=== PATIENT | female | born 1965 | race Caucasian/White ===

== ENCOUNTER 2023-11-14 12:48 | Outpatient (OUT) | payer BC, SELFPAY ==
--- NOTE | 2023-11-14 12:51 | MM_ITS ---
Patient Name: JOSEE PAN MR#: [id number] : 1965 Exam Date: 11/14/2023 Ordering Doctor: DR YANG MURILLO RADIOLOGY REPORT PROCEDURE: MM TOMOSYNTHESIS SCREENING BI COMPARISON: MG MAMM SCREEN 3D JANA CAD, 09/08/2022. MG MAMM SCREEN JANA W CAD, 06/06/2019. MG MAMM SCREEN JANA W CAD, 02/22/2017. MG MAMM JANA SCRN W CAD DIG, 05/12/2014. INDICATIONS: screening Calculator Name NCI Breast Cancer Risk Assessment Tool 5 Year Breast Cancer Risk 1.00% Lifetime Breast Cancer Risk 5.60% Personal Breast Cancer No Personal Ovarian Cancer No Treatments None Family Cancers None LOCATION: [facility] BREAST COMPOSITION: Scattered areas fibroglandular density. FINDINGS: DIAGNOSTIC CATEGORY 0--INCOMPLETE: NEED ADDITIONAL IMAGING EVALUATION. RIGHT BREAST: 2 adjacent 10 mm nodules within subareolar region. Additional stable benign-appearing lymph nodes within the mid breast 6 o'clock. Spot magnification views and ultrasound evaluation of the subareolar nodules recommended. LEFT BREAST: No significant suspicious finding. Scattered benign-appearing lymph nodes are present. No significant change has occurred. RECOMMENDATIONS: ADDITIONAL MAMMOGRAPHIC VIEWS REQUIRED: RIGHT BREAST - RIGHT CRANIOCAUDAL SPOT MAGNIFICATION VIEW - RIGHT OBLIQUE SPOT MAGNIFICATION VIEW - ULTRASOUND: RIGHT BREAST PLEASE NOTE: A NORMAL MAMMOGRAM DOES NOT EXCLUDE THE POSSIBILITY OF BREAST CANCER. A CLINICALLY SUSPICIOUS PALPABLE LUMP SHOULD BE BIOPSIED. Dictated by: Denzel Cohen M.D. on 11/14/2023 at 16:05 Approved by: Denzel Cohen M.D. on 11/14/2023 at 16:11
== END 2023-11-14 12:49 | disposition home or self-care (01) ==
LOC: MAMMO 12:48
PROVIDERS: Family Provider Obstetrics & Gynecology; PCP Family Medicine; Visit Provider Obstetrics & Gynecology
DX: Z12.31 Encounter for screening mammogram for malignant neoplasm of breast (principal); N63.41 Unspecified lump in right breast, subareolar
CPT/HCPCS: 77063; 77067

== ENCOUNTER 2023-11-26 09:11 | Emergency (ER) | payer BC, SELFPAY ==
[2023-11-26 09:15] VITALS: BP 167/91; PULSE 93; TEMP 36.6; O2SAT 100
[2023-11-26] MEDS: LIDOCAINE HCL 1% 100 MG/10 ML MDV INJ (09:49)
--- NOTE | 2023-11-26 10:16 | ED_ITS ---
HPI - Skin/Abscess/Foreign Bdy General Chief complaint: Skin/Abscess/Foreign Body Stated complaint: bug bite Time Seen by Provider: 11/26/23 09:20 Source: patient Mode of arrival: walk-in History of Present Illness HPI narrative: Patient noticed a tick embedded in her left flank. She removed the majority of it but a small part of the tick remains embedded and she cannot reach it to get it out. No other complaints. Related Data Allergies Allergy/AdvReac Type Severity Reaction Status Date / Time No Known Drug Allergies Allergy Verified 11/26/23 09:18 Exam Narrative Exam Narrative: Nurses notes and vital signs reviewed and patient is not hypoxic. afebrile General: Well-appearing and in no apparent distress. Skin: Warm, dry, no pallor noted. No rash. LEFT FLANK = embedded FB with a small surrounding area of erythema Eye: Pupils are equal, round and EOMI. No scleral icterus. Cardiovascular: Regular Rate and Rhythm without murmur, gallop or rub. Respiratory: No accessory muscle use or respiratory distress. Lungs are clear to auscultation, no wheezing, rales or rhonchi Back: No midline thoracic or lumbar vertebral tenderness. No CVA tenderness. Embedded FB as described above Neurological: A&O x4. No cranial nerve dysfunction observed. No truncal ataxia. Moves all extremities. Sensation intact. Psychiatric: Cooperative and interactive. Normal mood and affect. Constitutional Vital Signs, click to edit/add: Last Vital Signs Temp 98 F 11/26/23 09:15 Pulse 93 H 11/26/23 09:15 Resp 16 11/26/23 09:15 BP 167/91 H 11/26/23 09:15 Pulse Ox 100 11/26/23 09:15 Course Vital Signs Vital signs: Vital Signs Temperature 98 F 11/26/23 09:15 Pulse Rate 93 H 11/26/23 09:15 Respiratory Rate 16 11/26/23 09:15 Blood Pressure 167/91 H 11/26/23 09:15 Pulse Oximetry 100 11/26/23 09:15 Temperature 98 F 11/26/23 09:15 Pulse Rate 93 H 11/26/23 09:15 Respiratory Rate 16 11/26/23 09:15 Blood Pressure 167/91 H 11/26/23 09:15 Pulse Oximetry 100 11/26/23 09:15 MDM - Skin/Abscess/Foreign Bdy MDM Narrative Medical decision making narrative: 1mL 1% lidocaine instilled SQ into area where FB was found on left flank. Using an 11 blade scalpel I then removed the head of the tick. I examined the area throughout and no residual FB material was found or palpated in the area. I then applied a band aid to the wound. I have not gotten any reports of lyme disease in the area - no need for antibiotics at this time. PCP follow up as needed or ED return if she develops any worrisome symptoms. Discharge Plan Discharge Stand Alone Forms: Portal Instructions Chief Complaint: Skin/Abscess/Foreign Body Clinical Impression: Embedded tick of flank Patient Disposition: Home, Self-Care Time of Disposition Decision: 10:20 Print Language: [place]ican Instructions: Tick Bite (ED) Referrals: Yanira Rangel MD [Primary Care Provider] - 1 week
== END 2023-11-26 10:26 | disposition home or self-care (01) ==
PROVIDERS: Emergency Provider Emergency Medicine; Family Provider Obstetrics & Gynecology; PCP Family Medicine
DX: S30.851A Superficial foreign body of abdominal wall, initial encounter (principal); S30.861A Insect bite (nonvenomous) of abdominal wall, initial encounter; W57.XXXA Bitten or stung by nonvenomous insect and other nonvenomous arthropods, initial encounter
CPT/HCPCS: 10120; 99284

== ENCOUNTER 2023-12-05 07:51 | Outpatient (OUT) | payer BC, SELFPAY ==
--- NOTE | 2023-12-05 07:54 | MM_ITS ---
Patient Name: JOSEE PAN MR#: [id number] : 1965 Exam Date: 12/05/2023 Ordering Doctor: DR YANG MURILLO RADIOLOGY REPORT PROCEDURE: MM DIAGNOSTIC MAMMO UNILAT RT, 12/05/2023, 07:01 US BREAST RT LIMITED, 12/05/2023, 08:36 COMPARISON: MM TOMOSYNTHESIS SCREENING BI, 11/14/2023. INDICATIONS: Abnormal Mammogram R92.8 Calculator Name NCI Breast Cancer Risk Assessment Tool 5 Year Breast Cancer Risk 1.00% Lifetime Breast Cancer Risk 5.60% Personal Breast Cancer No Personal Ovarian Cancer No Treatments None Family Cancers None LOCATION: [facility] BREAST COMPOSITION: There are scattered areas of fibroglandular density. FINDINGS: DIAGNOSTIC CATEGORY 2--BENIGN FINDING: Spot compression demonstrates a 9.3 x 4.6 x 4.8 mm persistent dumbbell shaped well-circumscribed nodule, upper outer quadrant, subareolar breast. Ultrasound demonstrates in the same region a 9.6 x 4 9 x 4.3 mm dumbbell-shaped cystic area with some low level internal echoes but no color flow. A complex cyst is favored. RECOMMENDATIONS: ROUTINE MAMMOGRAM AND CLINICAL EVALUATION IN 12 MONTHS. PLEASE NOTE: A NORMAL MAMMOGRAM DOES NOT EXCLUDE THE POSSIBILITY OF BREAST CANCER. A CLINICALLY SUSPICIOUS PALPABLE LUMP SHOULD BE BIOPSIED. Dictated by: Derrick Hadley MD on 12/05/2023 at 09:17 Approved by: Derrick Hadley MD on 12/05/2023 at 09:19
== END 2023-12-05 07:52 | disposition home or self-care (01) ==
LOC: MAMMO 07:51
PROVIDERS: Family Provider Obstetrics & Gynecology; PCP Family Medicine; Visit Provider Obstetrics & Gynecology
DX: R92.8 Other abnormal and inconclusive findings on diagnostic imaging of breast (principal)
CPT/HCPCS: 76642; 77065

== ENCOUNTER 2024-11-14 09:46 | Outpatient (OUT) | payer BC, SELFPAY ==
--- NOTE | 2024-11-14 09:48 | MM_ITS ---
Patient Name: JOSEE PAN MR#: [id number] : 1965 Exam Date: 11/14/2024 Ordering Doctor: DR YANG MURILLO RADIOLOGY REPORT PROCEDURE: MM TOMOSYNTHESIS SCREENING BI COMPARISON: MM DIAGNOSTIC MAMMO UNILAT RT, 12/05/2023. MM TOMOSYNTHESIS SCREENING BI, 11/14/2023. MG MAMM SCREEN 3D JANA CAD, 09/08/2022. MG MAMM JANA SCRN W CAD DIG, 05/12/2014. INDICATIONS: Screening Calculator Name NCI Breast Cancer Risk Assessment Tool 5 Year Breast Cancer Risk 1.00% Lifetime Breast Cancer Risk 5.50% Personal Breast Cancer No Personal Ovarian Cancer No Treatments None Family Cancers None LOCATION: [facility] BREAST COMPOSITION: There are scattered areas of fibroglandular density. FINDINGS: LEFT BREAST: No significant suspicious finding. RIGHT BREAST: No significant suspicious finding. Stable nodularity. DIAGNOSTIC CATEGORY 1--NEGATIVE. RECOMMENDATIONS: ROUTINE MAMMOGRAM AND CLINICAL EVALUATION IN 12 MONTHS. Active recommendations from prior exams: ROUTINE MAMMOGRAM AND CLINICAL EVALUATION IN [#MONTHS] MONTHS. Due on 12/05/2024. PLEASE NOTE: A NORMAL MAMMOGRAM DOES NOT EXCLUDE THE POSSIBILITY OF BREAST CANCER. A CLINICALLY SUSPICIOUS PALPABLE LUMP SHOULD BE BIOPSIED. Dictated by: Ricky Quarles DO on 11/14/2024 at 16:21 Approved by: Ricky Quarles DO on 11/14/2024 at 16:25
== END 2024-11-14 09:47 | disposition home or self-care (01) ==
LOC: MAMMO 09:46
PROVIDERS: Family Provider Obstetrics & Gynecology; PCP Family Medicine; Visit Provider Obstetrics & Gynecology
DX: Z12.31 Encounter for screening mammogram for malignant neoplasm of breast (principal)
CPT/HCPCS: 77063; 77067

== ENCOUNTER 2025-03-16 09:23 | Outpatient (OUT) | payer BC, SELFPAY ==
--- OUTSIDE RECORDS SUMMARY | 2020-11-18 05:30 | XMS_ITS | Continuity of Care Document ---
Author Organization [facility] Address [address] [place] [address] Phone Care Team Providers Care Nonfarm Animal Caretaker Name Role Phone Gaston Jeffery Unavailable Unavailable Procedures Procedure Date Pfizer COVID Vaccine Admin Dose 2 COVID-19 Pfizer Pfizer COVID Vaccine Admin Dose 1 COVID-19 Pfizer Advance Directives Directive Yes / No Effective Date File Name No Information Encounters Encounter Description Practice Location Reason(s) For Visit Diagnoses Date Provider Providers Copied on Encounter [facility], [address] [place] [address], [id number], [place] tel:[phone] COVID ECHD No Information Jwi DO Feldman. [address], [place], [id number], [place]. tel:[phone] [facility], [address] [place] [address], [id number], tel:[phone] COVID ECHD No Information Visci DO Gaston. [address], [place], [id number], [place]. tel:[phone] Family History Family Member Type Diagnosis Age At Onset No Information Immunizations Vaccine Date Status Comments Pfizer COVID administered Source: New Imm unization Record Pfizer COVID administered Source: New Imm unization Record Payers Payer name Insurance type Covered libertarian ID Authoriza tion(s) [place] [employer] [id number] [place] [employer] [id number] [place] [employer] [id number] Social History Type Description Quantity Date Captured Comments Alcohol Use Details Unknown Caffeine Use Details Unknown Tobacco Use Status No Information Smoking Status No Information Sex Female Sexual Orientation Straight or heterosexual Gender Identity Female Chief Complaint And Reason For Visit No Information Reason For Referral Reason For Referral No Information History Of Present Illness Encounter Date Complaint History Of Prese nt Illness No Information Functional Status Date Functional Assessmen t No Information Instructions Date Instruction Additional Infor mation No Information Assessments Type Assessment Date No Information Patient Care Teams Name Effective Dates (start - stop) Status Members No Information
--- OUTSIDE RECORDS SUMMARY | 2025-03-16 09:26 | XMS_ITS | Encounter Summary ---
Author Organization [facility] Address [address] [place] [address] Care Team Providers Care Bulk Clerk Name Role Phone Yanira Rangel MD Primary Care Provider [phone] Encounter Details Date Type Department Care Team (Late st Contact Info) Description 12/05/2023 Clinisync Result Encounter [facility] External Department Unsolicited Yash Guzman, DO [address] [place] [address] Social History Tobacco Use Types Packs/Day Years Used Date Smoking Tobacco: Never Smokeless Tobacco: Never Alcohol Use Standard Drinks/Week Comments Never 0 (1 standard drink = 0.6 oz pure alcohol) Caffeine intake: 1-2 cups per day AUDIT-C Answer Date Recorded Q1: How often do you have a drink containing alcohol? Never 03/23/2023 Q2: How many drinks containi ng alcohol do you have on a typical day when you are drinking? Patient does not drink Q3: How often do you have si x or more drinks on one occasion? Never 03/23/2023 Comments No Sex and Gender Information Value Date Recorded Sex Assigned at Female 03/26/2023 5:37 PM EDT Legal Sex Female 6:51 PM EDT Gender Identity Female 03/26/2023 5:37 PM EDT Sexual Orientation Straight 03/26/2023 5: 37 PM EDT documented as of this encounter Plan of Treatment Upcoming Encounters Date Type Department Care Team (Late st Contact Info) Description 03/31/2025 9:05 AM EDT Office Visit [facility] [address] [place] [address] Robyn Parker MD [address] [place] [address] 12/23/2025 10:00 AM EDT Office Visit [facility] [address] [place] [address] Yash Guzman DO [address] [place] [address] documented as of this encounter Procedures Procedure Name Priority Date/Time Associated Diagnosis Comments BI MAMMOGRAM DIAGNOSTIC RIGHT 12/05/2023 9:19 AM EDT documented in this encounter Results * Right diagnostic mammogram (12/05/2023 9:19 AM EDT) Anatomical Region Laterality Modality Breast Right Mammography 12/05/2023 9:19 AM EDT Narrative 12/05/2023 9:20 AM EDT The [place] [id number] Mammography Report Signed Patient: ANA MARÍA SEE MR#: [id number] : 1965 Acct:[id number] Age/Sex: 58 / F ADM Date: 12/05/23 Loc: MAMMO Attending Dr: YASH GUZMAN Ordering Physician: YASH GUZMAN Results: Date of Service: 12/05/23 Follow Up: Procedure(s): MM diagnostic mammo unilat RT Accession Number(s): [id number] cc: YASH GUZMAN ; Yanira Rangel M.D. Patient Name: ANA MARÍA SEE MR#: [id number] : 1965 Exam Date: 12/05/2023 Ordering Doctor: DR YASH GUZMAN RADIOLOGY REPORT PROCEDURE: MM DIAGNOSTIC MAMMO UNILAT RT, 12/05/2023, 07:01 US BREAST RT LIMITED, 12/05/2023, 08:36 COMPARISON: MM TOMOSYNTHESIS SCREENING BI, 11/14/2023. INDICATIONS: Abnormal Mammogram R92.8 Calculator Name NCI Breast Cancer Risk Assessment Tool 5 Year Breast Cancer Risk 1.00% Lifetime Breast Cancer Risk 5.60% Personal Breast Cancer No Personal Ovarian Cancer No Treatments None Family Cancers None LOCATION: The [facility] BREAST COMPOSITION: There are scattered areas of fibroglandular density. FINDINGS: DIAGNOSTIC CATEGORY 2--BENIGN FINDING: Spot compression demonstrates a 9.3 x 4.6 x 4.8 mm persistent dumbbell shaped well-circumscribed nodule, upper outer quadrant, subareolar breast. Ultrasound demonstrates in the same region a 9.6 x 4 9 x 4.3 mm dumbbell-shaped cystic area with some low level internal echoes but no color flow. A complex cyst is favored. RECOMMENDATIONS: ROUTINE MAMMOGRAM AND CLINICAL EVALUATION IN 12 MONTHS. PLEASE NOTE: A NORMAL MAMMOGRAM DOES NOT EXCLUDE THE POSSIBILITY OF BREAST CANCER. A CLINICALLY SUSPICIOUS PALPABLE LUMP SHOULD BE BIOPSIED. Dictated by: Derrick Hadley MD on 12/05/2023 at 09:17 Approved by: Derrick Hadley MD on 12/05/2023 at 09:19 Dictated By: Derrick Hadley M.D. Signed By: 12/05/23919 DD/ 8 TD/TT: Software Developer Consultant: Procedure Note Radiology, Radiologist, - 12/05/2023 [place] [address] Mammography Report Signed Patient: ANA MARÍA SEE KMR#: [id number] : 1965Acct:[id number] Age/Sex: 58 / FADM Date: 12/05/23 Loc: MAMMO Attending Dr: YASH GUZMAN Ordering Physician: YASH GUZMANResults: Date of Service: 12/05/23Follow Up: Procedure(s): MM diagnostic mammo unilat RT Accession Number(s): [id number] cc: YASH GUZMAN ; Yanira Rangel M.D. Patient Name: ANA MARÍA SEE MR#: [id number] : 1965 Exam Date: 12/05/2023 Ordering Doctor: DR AYSH GUZMAN RADIOLOGY REPORT PROCEDURE: MM DIAGNOSTIC MAMMO UNILAT RT, 12/05/2023, 07:01 US BREAST RT LIMITED, 12/05/2023, 08:36 COMPARISON: MM TOMOSYNTHESIS SCREENING BI, 11/14/2023. INDICATIONS: Abnormal Mammogram R92.8 Calculator Name NCI Breast Cancer Risk Assessment Tool 5 Year Breast Cancer Risk 1.00% Lifetime Breast Cancer Risk 5.60% Personal Breast Cancer No Personal Ovarian Cancer No Treatments None Family Cancers None LOCATION: [facility] BREAST COMPOSITION: There are scattered areas of fibroglandulardensity. FINDINGS: DIAGNOSTIC CATEGORY 2--BENIGN FINDING: Spot compression demonstrates a 9.3 x 4.6 x 4.8 mm persistent dumbbellshaped well-circumscribed nodule, upper outer quadrant, subareolar breast. Ultrasound demonstrates in the same region a 9.6 x 4 9 x 4.3 mm dumbbell-shaped cystic area with some low level internal echoes but nocolor flow. A complex cyst is favored. RECOMMENDATIONS: ROUTINE MAMMOGRAM AND CLINICAL EVALUATION IN 12 MONTHS. PLEASE NOTE: A NORMAL MAMMOGRAM DOES NOT EXCLUDE THE POSSIBILITY OFBREAST CANCER. A CLINICALLY SUSPICIOUS PALPABLE LUMP SHOULD BE BIOPSIED. Dictated by: Derrick Hadley MD on 12/05/2023 at 09:17 Approved by: Derrick Hadley MD on 12/05/2023 at 09:19 Dictated By: Derrick Hadley M.D. Signed By:12/05/23919 DD/ 8 TD/TT: Software Developer Consultant: Yash Guzman DO IMG BI PROCEDURES Final Resu lt documented in this encounter Visit Diagnoses Not on filedocumented in this encounter Care Teams Bulk Clerk Relationship Specialty Start Date End Date Yanira Rangel MD PCP - General Family Medicine 03/23/23 documented as of this encounter
--- OUTSIDE RECORDS SUMMARY | 2025-03-16 09:26 | XMS_ITS | Encounter Summary ---
Author Organization [facility] Address [address] [place] [address] [place] [address] Care Team Providers Care Software Analyst Name Role Phone Yanira Rangel MD Primary Care Provider [phone] Encounter Details Date Type Department Care Team (Late st Contact Info) Description 12/05/2023 Clinisync Result Encounter [facility] External Department Unsolicited Yash Guzman, DO [address] [place] [address] Social History Tobacco Use Types Packs/Day Years [...] [address] [place] [address] Robyn Parker MD [address] [place] [address] 12/23/2025 10:00 AM EDT Office Visit [facility] [address] [place] [address] Yash Guzman DO [address] [place] [address] documented as of this encounter Procedures Procedure Name Priority Date/Time Associated Diagnosis Comments BI US BREAST LIMITED RIGHT 12/05/2023 9:19 AM EDT documented in this encounter Results * Right breast US limited (12/05/2023 9:19 AM EDT) Anatomical Region Laterality Modality Breast Right Ultrasound 12/05/2023 9:19 AM EDT Narrative 12/05/2023 9:20 AM EDT The [address] [address] Ultrasound Report Signed Patient: ANA MARÍA SEE MR#: [id number] : 1965 Acct:[id number] Age/Sex: 58 / F ADM Date: 12/05/23 Loc: MAMMO Attending Dr: YASH GUZMAN Ordering Physician: YASH GUZMAN Date of Service: 12/05/23 Procedure(s): US breast RT limited Accession Number(s): [id number] cc: YASH GUZMAN ; Yanira Rangel M.D. Patient Name: ANA MARÍA SEE MR#: [id number] : 1965 Exam Date: 12/05/2023 Ordering Doctor: [...] Treatments None Family Cancers None LOCATION: [facility] BREAST COMPOSITION: There are scattered areas [...] M.D. Signed By: 12/05/23919 DD/ 8 TD/TT: Spiral Runner: Procedure Note Radiology, Radiologist, - 12/05/2023 [place] [address] Ultrasound Report Signed Patient: ANA MARÍA SEE KMR#: [id number] : 1965Acct:[id number] Age/Sex: 58 / FADM Date: 12/05/23 Loc: MAMMO Attending Dr: YASH GUZMAN Ordering Physician: YASH GUZMAN Date of Service: 12/05/23 Procedure(s): US breast RT limited Accession Number(s): [id number] cc: YASH GUZMAN ; Yanira Rangel M.D. Patient Name: ANA MARÍA SEE MR#: [id number] : 1965 Exam Date: 12/05/2023 Ordering Doctor: [...] Treatments None Family Cancers None LOCATION: [facility] BREAST COMPOSITION: There are scattered areas [...] Hadley M.D. Signed By:12/05/23919 DD/ 8 TD/TT: Spiral Runner: Yash Guzman DO IMG US PROCEDURES Final Resu lt documented in this encounter Visit Diagnoses Not on filedocumented in this encounter Care Teams Software Analyst Relationship Specialty Start Date End Date Yanira Rangel MD PCP - General Family Medicine 03/23/23 documented as of this encounter
--- OUTSIDE RECORDS SUMMARY | 2025-03-16 09:26 | XMS_ITS | Encounter Summary ---
Author Organization [facility] Address [address] [place] [address] Phone Care Team Providers Care Construction Administrator Name Role Phone Yanira Rangel MD Primary Care Provider [phone] Encounter Details Date Type Department Care Team (Late st Contact Info) Description 06/26/2023 Scanned Document [facility] [address] [place] [address] Scanning, Generic Provider Social History Tobacco Use Types Packs/Day Years Used Date Smoking Tobacco: Never Smokeless Tobacco: Never Alcohol Use Standard Drinks/Week Comments Never 0 (1 standard drink = 0.6 oz pur e alcohol) Comments Unknown Sex and Gender Information Value Date Recorded Sex Assigned at Female 06/13/2023 7:09 PM EDT Legal Sex Female 4:26 PM EST Gender Identity Female 06/13/2023 7:09 PM EDT Sexual Orientation Straight 06/13/2023 7: 09 PM EDT COVID-19 Exposure Response Date Recorded In the last 10 days, have yo u been in contact with someone who was confirmed or suspected to have Coronavirus/COVID-19? No / Unsure 06/13/2023 2:18 PM EDT documented as of this encounter Plan of Treatment Upcoming Encounters Date Type Department Care Team (Late st Contact Info) Description 03/25/2025 3:10 PM EDT Office Visit [place] [address] [facility] [address] [place] [address] Rigo Bhagat MD [address] [facility] [address], [facility] [address] [place] [address] documented as of this encounter Visit Diagnoses Not on filedocumented in this encounter Care Teams Construction Administrator Relationship Specialty Start Date End Date Yanira Rangel MD [address] [place] [address] PCP - General 09/22/19 documented as of this encounter
--- OUTSIDE RECORDS SUMMARY | 2025-03-16 09:26 | XMS_ITS | Encounter Summary ---
Author Organization [facility] Address [address] [place] [address] Phone Care Team Providers Care Nurse Practitioner Physician Assistant Name Role Phone Yanira Rangel MD Primary Care Provider [phone] Encounter Details Date Type Department Care Team (Late st Contact Info) Description 08/26/2019 Orders Only [facility] [address] [place] [address] Conversion, Onbase Social History Tobacco Use Types Packs/Day Years Used Date Smoking Tobacco: Never Assessed Comments Unknown Sex and Gender Information Value Date Recorded Sex Assigned at Female 06/13/2023 7:09 PM EDT Legal Sex Female 4:26 PM EST Gender Identity Female 06/13/2023 7:09 PM EDT Sexual Orientation Straight 06/13/2023 7: 09 PM EDT documented as of this encounter Plan of Treatment Upcoming Encounters Date Type Department Care Team (Late st Contact Info) Description 03/25/2025 3:10 PM EDT Office Visit [place] [address] [address] Rigo Bhagat MD [facility] [facility] [place] [address] Scheduled Orders Name Type Priority Associated Diagnoses Orde r Schedule OUTSIDE LAB SCAN Lab Ordered: 08/26/2019 OUTSIDE LAB SCAN Lab Ordered: 08/26/2019 documented as of this encounter Visit Diagnoses Not on filedocumented in this encounter Care Teams Nurse Practitioner Physician Assistant Relationship Specialty Start Date End Date Yanira Rangel MD [address] [place], [place] [id number] PCP - General 09/22/19 documented as of this encounter
--- OUTSIDE RECORDS SUMMARY | 2025-03-16 09:26 | XMS_ITS | Encounter Summary ---
Author Organization [facility] Address [address] [place] [address] Phone Care Team Providers Care Contract Analyst Name Role Phone Yanira Rangel MD Primary Care Provider [phone] Encounter Details Date Type Department Care Team (Late st Contact Info) Description 10/19/2021 Orders Only [facility] [address] [place] [place] [address] Conversion, Onbase Social History Tobacco Use Types [...] Description 03/25/2025 3:10 PM EDT Office Visit [place] [address] [address] Rigo Bhagat MD [address] [facility] [address], [address] [place] [address] Scheduled Orders Name Type Priority Associated Diagnoses Orde r Schedule OUTSIDE LAB SCAN Lab Ordered: 10/19/2021 documented as of this encounter Visit Diagnoses Not on filedocumented in this encounter Care Teams Contract Analyst Relationship Specialty Start Date End Date Yanira Rangel MD [address] [place] [address] PCP - General 09/22/19 documented as of this encounter
--- OUTSIDE RECORDS SUMMARY | 2025-03-16 09:26 | XMS_ITS | Continuity of Care Document ---
Author Organization [facility] Address [address] [place] [address] Phone Care Team Providers Care Tree Trimmer Helper Name Role Phone Yanira Rangel MD Primary Care Provider Stiven Sylvester MD Attending Provider [phone] Care Teams Patient Care Team Team Status: Active Member Role Status Dates Yanira Rangel MD Primary Care Provider Active Patient Care Team Team Status: Inactive Member Role Status Dates Yanira Rangel MD Primary Care Provider Active Start: December 29, 2024 End: December 29, 2024 Stiven Sylvester MD Attending Provider Active Start: December 29, 2024 End: December 29, 2024 Patient Care Team Team Status: Active Member Role Status Dates Yanira Rangel MD Primary Care Provider Active Start: December 29, 2024 Stiven Sylvester MD Attending Provider, Other Provider Act hilda Start: December 29, 2024 Chief Complaint and Reason for Visit Chief Complaint Admit Date hx of colon polyps December 29, 2024 7:50a m hx of colon polyps December 29, 2024 10:24 am Allergies, Adverse Reactions, Alerts Allergen Type Severity Reaction Last Updated Verified Status moxifloxacin Allergy Unknown Itching December 29 8:05am Yes Active simvastatin Allergy Unknown Cramping of the Muscles December 29, 2024 8:05am Yes Active Avelox *FLUOROQUINOLONES* Allergy Unknown Unknown Reaction March 03, 9:34am No Active Social History Smoking Status Status Start Date End Date Date of Observa tion Never smoked tobacco (finding) December 29, 2024 7:56am Observation Status Observation Response Date of Response Sex Assigned At Female 1965 Family History Relationship Condition Age at Onset Recorded Date/T kleber mother History of open heart surgery Unknown Chronic obstructive pulmonary disease Unk nown Current smoker Unknown Heart disease Unknown Hypertension Unknown father History of four vess el coronary artery bypass graft Unknown Diabetes mellitus Unknown Diverticulitis Unknown Heart disease Unknown Hypertension Unknown Problems Active Problems Medical Problem Onset Date Status Comments Palpitations Unknown Active High cholesterol Unknown Active Wellness examination Unknown Active Postoperative abdominal pain Unknown Active Sigmoid thickening Unknown Active chronic c onstipation Pain in the abdomen Unknown Active Chest pain Unknown Active High blood pressure Unknown Active Hypertension Unknown Active Constipation Unknown Active Medications Medication Status Dose Units Route Directions Qty Days St art Date Stop Date End Date Instructions Adherence Rosuvastati n 10 mg tablet Discont inued 10 MG PO Daily October 29, 2024 12:00a m December 18, 2024 1:49p m FreeTextSi tablet Orally Once a day; Note: Source Status: Taking; Provider: Juan Carlos Doyle ( ) Lisinopril- Hydrochloro thiazide 20-12.5 mg tablet Active 12.5 TAB PO Every morning October 19, 2020 1:00am Omeprazole 20 mg Capsule,Del ayed Release(Dr/ Ec) Discont inued 20 MG PO Daily October 19, 2020 1:00am December 11, 2022 8:20a m Aspirin 81 mg Tablet Discont inued 81 MG PO Daily October 19, 2020 1:00am December 18, 2024 1:47p m Estradiol 0.5 mg Tablet Discont inued 0.5 MG PO Every morning October 19, 2020 1:00am March 03, 2024 9:34a m Rosuvastati n (Crestor) 10 mg Tablet Discont inued 10 MG PO Daily October 19, 2020 1:00am 2022 9:47a m [place] 3-Dha-Epa-F rita Oil (Fish Oil) 1,200 (144-216) mg Capsule Discont inued 2 CAP PO Daily October 19, 2020 1:00am December 11, 2022 8:19a m Metoprolol Tartrate 50 mg tablet Discont inued 50 MG PO Twice daily October 19, 2020 1:00am December 12, 2022 3:38p m Icosapent Ethyl 1 gram capsule Active 2 GM PO Twice daily December 11, 2022 12:00a m Neomycin-Po lymyxin B-Dexameth 3.5 mg/g-10,000 unit/g-0.1 % ointment Discont inued 0 .ROUTE .COMPLEX December 11, 2022 12:00a m December 11, 2022 12:38 pm complete after 12/13 Metoprolol Succinate 50 mg Tablet Extended Release 24 Hr Discont inued 50 MG PO Every evening December 12, 2022 12:00a m March 03, 2024 9:36a m Verapamil 180 mg capsule,ext rel. pellets 24 hr Active 180 MG PO Every morning December 12, 2022 12:00a m Ascorbic Acid (Vitamin C) (Vitamin C) 1,000 mg Tablet Active 1 GM PO Daily Novemb er 2022 12:00a m Zinc 50 mg Capsule Discont inued 50 MG PO Daily Novemb er 2022 12:00a m March 03, 2024 9:35a m Magnesium Glycinate 100 mg Tablet Active 200 MG PO Daily Novemb er 2022 12:00a m Cholecalcif fang (Vitamin D3) (Vitamin D3) 125 mcg (5,000 unit) Tablet Active 125 MCG PO Daily Novemb er 2022 12:00a m Tramadol 50 mg Tablet Discont inued 50 MG PO Q4H as needed for Pain Scale 1 - 4 20 7 Decemb er 2022 1:00am March 03, 2024 9:35a m Soybean, Fermented (Nattokinas e) 50 mg capsule Discont inued MG PO December 18, 2024 12:00a m December 29, 2024 8:05a m Metoprolol Succinate 50 mg tablet extended release 24 hr Active 25 MG PO Every evening March 03, 2024 9:35am probiotic Discont inued PO March 03, 2024 12:00a m December 18, 2024 1:49p m Bisacodyl (Dulcolax (Bisacodyl) ) 5 mg tablet,narendra yed release (DR/EC) Discont inued 5 MG PO .prn as needed March 03, 2024 12:00a m March 03, 2024 9:44a m Bisacodyl (Dulcolax (Bisacodyl) ) 5 mg tablet,narendra yed release (DR/EC) Active 15 MG PO .every 4-5 days as needed for constipatio n March 03, 2024 9:43am Immunizations Immunization Event Date Not Given Reason Dose Number Sheet Metal Former Lot Number Vaccine Information Statement (VIS) Detail Administration Location COVID-19 mRNA, Comirnaty (Pfizer) October 28, 2020 COVID-19 mRNA, Comirnaty (Pfizer) November 18, 2020 Medical Equipment Device Date Implanted Device Details Stress urinary incontinence surgical mesh, female August 15, 2023 SHANAE: [id number] Issuing Agency: [facility] Device Id: [id number] Expiration Date: 2023-12-18 Lot Number: [id number] Procedures Procedure Date Performed Status DH Colonoscopy Diagnostic (Not Applicable) December 182024 9:15am completed Vital Signs Vital Reading Result Reference Range Collection Date/Time Height 69 [in_i] December 29, 2024 8:02am Weight 73.48 kg December 29, 2024 8:02am Heart Rate 70 /min 60-100 December 29, 2024 11:10am Respiratory rate 16 /min 12-24 December 29, 2 025 11:10am Oxygen saturation by Pulse oximetry 99 % 95-10 0 December 29, 2024 11:10am BP Systolic 105 mm[Hg] 100-140 December 29, 2024 11:10am BP Diastolic 69 mm[Hg] 60-100 December 29, 2024 11:10am Advance Directives Advance Directive Response Recorded Date/ Time Advance Directives No October 18 12:11pm Insurance Providers Guarantor Ana María Drewtevin Address [address] [place] [id number] Contact Info. Home Phone: Payer Policy Id Subscriber's Name Subscriber Id Effectiv e Date Expiration Date [facility] [id number] Jonathan See [id number] Encounters Encounter Location(s) Arrival/Admit Date Discharge/Depart Date Provider(s) Departed [facility] December 29, 2024 7:50am December 29, 2024 11:24am Stiven Sylvester MD Non-patient / Non-visit [facility] December 29, 2024 10:24am Stiven Sylvester MD Plan of Treatment Future Tests Future scheduled test information is unavailable Pending Tests Pending diagnostic test information is unavailable Future Visits Future appointment information is unavailable Referrals to Other Providers Referral information is unavailable Future Procedures Procedure Name Ordered Date Scheduled Date Discharge Order December 29, 2024 10:43am December 29, 2024 10:43am Future Medications Future medication information is unavailable Patient Instructions Instruction Admit Date Hemorrhoids Colon polyps High-fiber diet Diverticulosis Know your Meds December 29, 2024 7:50am Goals Acute Goals Author Authored Date Experience reduced anxiety * Identifies current stressors * Develops effective coping behaviors * Uses support services as appropriate [facility] December 29, 2024 11:24am Remain free of complications [facility] December 29, 2024 11:24am Understand preop/postop care/sensations * Verbalizes understanding of surgical procedure * Verbalizes understanding of sensations following surgery * Verbalizes understanding of post-op treatment plan [facility] December 29, 2024 11:24am Report pain at tolerable lev el * Uses pain scale appropriately * Identify options for pain control - Analgesics - Narcotics - Non-medication measures [facility] December 29, 2024 11:24am Absence of imbalanced fluid volume s/s [facility] December 29, 2024 11:24am Absence of physical injury [facility] December 29, 2024 11:24am Absence of surgical site inf ection [facility] December 29, 2024 11:24am Hospital Discharge Instructions Additional Instructions DISCHARGE INSTRUCTIONS FOR COLONOSCOPY WHAT TO EXPECT: - You may feel full, gassy or cramping after your procedure. In some cases, this may be from a few hours to a day. Walking may help relieve the discomfort. - If you have polyp(s) removed you may note some minor bloody discharge after your first bowel movements. - You should begin to recover from anesthesia within 1 hour of the procedure, however may feel groggy for the next 24 hours. DO's AND DON'Ts: - Call your doctor right away if you have a hard abdomen, severe pain, are passing lots of bright red blood or clots. - Call your doctor if you develop any rashes, hives or difficulty breathing. - Let your doctor know if you have not had a bowel movement by 3 days after your procedure. - If you take 81 mg aspirin for your heart it is safe to resume this medication. - If you take other blood thinner medications your doctor will instruct you when these can safely be resumed. - Do NOT drive for 24 hours. - Do NOT operate machinery such as power tools, Ternn mowers, snow blowers, sewing machines, etc. for 24 hours. - Avoid alcoholic beverages and drugs for allergies, nerves, or sleep. - Do NOT stay alone. Do NOT leave your child unattended. - Do NOT make important personal or business decisions or sign any legal documents. - Eat solid foods and drink liquids in smaller amounts than usual until normal appetite returns. If you should experience an upset stomach, liquids high in sugar content (soda, Leroy-Aid, non-acid juices) are recommended. - You can resume normal activities tomorrow. FOLLOW UP & RECOMMENDATIONS: -Notify the doctor if you have any problems. -Repeat colonoscopy in 5 years. -Follow up with PCP. -Office number [phone].
--- OUTSIDE RECORDS SUMMARY | 2025-03-16 09:26 | XMS_ITS | Encounter Summary ---
Author Organization [facility] Address [address] [place] [address] [place] [address] Care Team Providers Care Tapper Bit Name Role Phone Yanira Rangel MD Primary Care Provider [phone] Encounter Details Date Type Department Care Team (Late st Contact Info) Description 11/14/2023 Clinisync Result Encounter [facility] External Department Unsolicited Yash Guzman, DO [address] [place] [address] Social History Tobacco Use Types Packs/Day Years [...] 03/31/2025 9:05 AM EDT Office Visit [facility] [place] [facility] [address] [place] [phone] Robyn Parker MD [address] [place] [address] 12/23/2025 10:00 AM EDT Office Visit [facility] [place] [facility] [address] [place] [address] Yash Guzman DO [address] [place] [address] documented as of this encounter Procedures Procedure Name Priority Date/Time Associated Diagnosis Comments MM TOMOSYNTHESIS SCREENING BI 11/14/2023 4:11 PM EDT documented in this encounter Results * MM TOMOSYNTHESIS SCREENING BI (11/14/2023 4:11 PM EDT) Anatomical Region Laterality Modality Other 11/14/2023 4:11 PM EDT Narrative 11/14/2023 4:12 PM EDT [facility] [place] [id number] Mammography Report Signed Patient: ANA MARÍA SEE MR#: [id number] : 1965 Acct:[id number] Age/Sex: 58 / F ADM Date: 11/14/23 Loc: MAMMO Attending Dr: YASH GUZMAN Ordering Physician: YASH GUZMAN Results: Date of Service: 11/14/23 Follow Up: Procedure(s): MM tomosynthesis screening BI Accession Number(s): [id number] cc: YASH GUZMAN ; Yanira Rangel M.D. Patient Name: ANA MARÍA SEE MR#: [id number] : 1965 Exam Date: 11/14/2023 Ordering Doctor: DR YASH GUZMAN RADIOLOGY REPORT PROCEDURE: MM TOMOSYNTHESIS SCREENING BI COMPARISON: MG MAMM SCREEN 3D JANA CAD, 09/08/2022. MG MAMM SCREEN JANA W CAD, 06/06/2019. MG MAMM SCREEN JANA W CAD, 02/22/2017. MG MAMM JANA SCRN W CAD DIG, 05/12/2014. INDICATIONS: screening Calculator Name NCI Breast Cancer Risk Assessment Tool 5 Year Breast Cancer Risk 1.00% Lifetime Breast Cancer Risk 5.60% Personal Breast Cancer No Personal Ovarian Cancer No Treatments None Family Cancers None LOCATION: [facility] BREAST COMPOSITION: Scattered areas fibroglandular density. FINDINGS: DIAGNOSTIC CATEGORY 0--INCOMPLETE: NEED ADDITIONAL IMAGING EVALUATION. RIGHT BREAST: 2 adjacent 10 mm nodules within subareolar region. Additional stable benign-appearing lymph nodes within the mid breast 6 o'clock. Spot magnification views and ultrasound evaluation of the subareolar nodules recommended. LEFT BREAST: No significant suspicious finding. Scattered benign-appearing lymph nodes are present. No significant change has occurred. RECOMMENDATIONS: ADDITIONAL MAMMOGRAPHIC VIEWS REQUIRED: RIGHT BREAST - RIGHT CRANIOCAUDAL SPOT MAGNIFICATION VIEW - RIGHT OBLIQUE SPOT MAGNIFICATION VIEW - ULTRASOUND: RIGHT BREAST PLEASE NOTE: A NORMAL MAMMOGRAM DOES NOT EXCLUDE THE POSSIBILITY OF BREAST CANCER. A CLINICALLY SUSPICIOUS PALPABLE LUMP SHOULD BE BIOPSIED. Dictated by: Denzel Cohen M.D. on 11/14/2023 at 16:05 Approved by: Denzel Cohen M.D. on 11/14/2023 at 16:11 Dictated By: Denzel Cohen M.D. Signed By: 11/14/231611 DD/ 10 TD/TT: Freight Car Cleaner Delta System: Procedure Note Radiology, Radiologist, MD - 11/14/2023 [place] [address] Mammography Report Signed Patient: ANA MARÍA SEE KMR#: [id number] : 1965Acct:[id number] Age/Sex: 58 / FADM Date: 11/14/23 Loc: MAMMO Attending Dr: YASH GUZMAN Ordering Physician: YASH GUZMANResults: Date of Service: 11/14/23Follow Up: Procedure(s): MM tomosynthesis screening BI Accession Number(s): [id number] cc: YASH GUZMAN ; Yanira Rangel M.D. Patient Name: ANA MARÍA SEE MR#: [id number] : 1965 Exam Date: 11/14/2023 Ordering Doctor: DR YASH GUZMAN RADIOLOGY REPORT PROCEDURE: MM TOMOSYNTHESIS SCREENING BI COMPARISON: MG MAMM SCREEN 3D JANA CAD, 09/08/2022. MG MAMM SCREEN BILW CAD, 06/06/2019. MG MAMM SCREEN JANA W CAD, 02/22/2017. MG MAMM JANA SCRN WCAD DIG, 05/12/2014. INDICATIONS: screening Calculator Name NCI Breast Cancer Risk Assessment Tool 5 Year Breast Cancer Risk 1.00% Lifetime Breast Cancer Risk 5.60% Personal Breast Cancer No Personal Ovarian Cancer No Treatments None Family Cancers None LOCATION: [facility] BREAST COMPOSITION: Scattered areas fibroglandular density. FINDINGS: DIAGNOSTIC CATEGORY 0--INCOMPLETE: NEED ADDITIONAL IMAGING EVALUATION. RIGHT BREAST: 2 adjacent 10 mm nodules within subareolar region.Additional stable benign-appearing lymph nodes within the mid breast 6 o'clock. Spot magnification views and ultrasound evaluation of the subareolar nodules recommended. LEFT BREAST: No significant suspicious finding. Scatteredbenign-appearing lymph nodes are present. No significant change has occurred. RECOMMENDATIONS: ADDITIONAL MAMMOGRAPHIC VIEWS REQUIRED: RIGHT BREAST - RIGHT CRANIOCAUDALSPOT MAGNIFICATION VIEW - RIGHT OBLIQUE SPOT MAGNIFICATION VIEW - ULTRASOUND: RIGHT BREAST PLEASE NOTE: A NORMAL MAMMOGRAM DOES NOT EXCLUDE THE POSSIBILITY OFBREAST CANCER. A CLINICALLY SUSPICIOUS PALPABLE LUMP SHOULD BE BIOPSIED. Dictated by: Denzel Cohen M.D. on 11/14/2023 at 16:05 Approved by: Denzel Cohen M.D. on 11/14/2023 at 16:11 Dictated By: Denzel Cohen M.D. Signed By:11/14/231611 DD/ 10 TD/TT: Freight Car Cleaner Delta System: Yash Guzman DO [facility] Final Resu lt documented in this encounter Visit Diagnoses Not on filedocumented in this encounter Care Teams Tapper Bit Relationship Specialty Start Date End Date Yanira Rangel MD PCP - General Family Medicine 03/23/23 documented as of this encounter
--- OUTSIDE RECORDS SUMMARY | 2025-03-16 09:26 | XMS_ITS | Encounter Summary ---
Author Organization [facility] Address [address] [place] [address] Care Team Providers Care Chief Executive Name Role Phone Yanira Rangel MD Primary Care Provider [phone] Encounter Details Date Type Department Care Team (Late st Contact Info) Description 12/05/2023 Orders Only [facility] [place] [facility] [address] [place] [phone] Yash Guzman, [address] [place] [address] Social History Tobacco Use Types Packs/Day Years [...] 03/31/2025 9:05 AM EDT Office Visit [facility] [address] [place] [phone] Robyn Parker MD [address] [place] [address] 12/23/2025 10:00 AM EDT Office Visit [facility] [address] [place] [address] Yash Guzman DO [address] [place] [address] documented as of this encounter Procedures Procedure Name Priority Date/Time Associated Diagnosis Comments MAMMOGRAM* Routine 12/05/2023 2:53 PM EDT documented in this encounter Results * MAMMOGRAM* (12/05/2023 2:53 PM EDT) Anatomical Region Laterality Modality Radiographic Digna ging Yash Guzman DO IMG XR PROCEDURES Final Resu lt documented in this encounter Visit Diagnoses Not on filedocumented in this encounter Care Teams Chief Executive Relationship Specialty Start Date End Date Yanira Rangel MD PCP - General Family Medicine 03/23/23 documented as of this encounter
--- OUTSIDE RECORDS SUMMARY | 2025-03-16 09:26 | XMS_ITS | Encounter Summary ---
Author Organization [facility] Address [address] [place] [address] Phone Care Team Providers Care Sunglass Clip Attacher Name Role Phone Yanira Rangel MD Primary Care Provider [phone] Encounter Details Date Type Department Care Team (Late st Contact Info) Description 12/11/2022 Orders Only [facility] [address] [place] [address] Conversion, Onbase Social History Tobacco Use Types [...] Description 03/25/2025 3:10 PM EDT Office Visit [place] [address] [address] Rigo Bhagat MD [address] [facility] [address] [place] [address] Scheduled Orders Name Type Priority Associated Diagnoses Orde r Schedule OUTSIDE LAB SCAN Lab Ordered: 12/11/2022 documented as of this encounter Visit Diagnoses Not on filedocumented in this encounter Care Teams Sunglass Clip Attacher Relationship Specialty Start Date End Date Yanira Rangel MD [address] [place] [address] PCP - General 09/22/19 documented as of this encounter
--- OUTSIDE RECORDS SUMMARY | 2025-03-16 09:26 | XMS_ITS | Encounter Summary ---
Author Organization [facility] Address [address] [place] [address] Phone Care Team Providers Care Puffer Tender Name Role Phone Yanira Rangel MD Primary Care Provider [phone] Encounter Details Date Type Department Care Team (Late st Contact Info) Description 10/19/2020 Orders Only [facility] [address] [place] [address] Conversion, Onbase Social History Tobacco Use Types [...] Description 03/25/2025 3:10 PM EDT Office Visit [place] [id number] [address] Rigo Bhagat MD [address] [facility] [address] [place] [address] Scheduled Orders Name Type Priority Associated Diagnoses Orde r Schedule OUTSIDE LAB SCAN Lab Ordered: 10/19/2020 documented as of this encounter Visit Diagnoses Not on filedocumented in this encounter Care Teams Puffer Tender Relationship Specialty Start Date End Date Yanira Rangel MD [address] [place] [address] PCP - General 09/22/19 documented as of this encounter
--- OUTSIDE RECORDS SUMMARY | 2025-03-16 09:26 | XMS_ITS | Clinical Summary ---
Author Organization [facility] Address [address] [place] [address] Care Team Providers Care Photocomposing Keyboard Operator Name Role Phone Yanira Rangel MD Primary Care Provider [phone] Allergies Active Allergy Reactions Criticality Noted Date Comments Moxifloxacin Rash Low 03/23/2023 Other Reaction(s): Itching Rosuvastatin 06/13/2023 Other Reaction(s): Myalgia Simvastatin 03/23/2023 Other Reaction(s): Unknown Medications Icosapent Ethyl (Vascepa) 1 g capsule Take 2 capsules by mouth in the morning and 2 capsules before bedtime. 03/09/2023 Active Cholecalciferol (Vitamin D) 50 MCG (1999 UT) capsule 1 capsule 1 (one) time each day at the same time. Active Ascorbic Acid (vitamin C) 1000 MG tablet 1 (one) time each day at the same time. Active aspirin 81 MG EC tablet 1 (one) time each day at the same time. Active lisinopril-hydr oCHLOROthiazide 20-12.5 MG tablet Take 1 tablet by mouth in the morning. Active verapamil ER (Verelan) 180 MG 24 hr capsule Take 180 mg by mouth in the morning. 01/12/2023 Active metoprolol succinate XL (Toprol-XL) 50 MG 24 hr tablet Take 50 mg by mouth in the morning. 01/12/2023 Active Magnesium 125 MG capsule 12/11/2023 Active terbinafine (LamISIL) 250 MG tabletIndicatio ns:Tinea pedis of right foot Take 1 tablet, by mouth, once daily, 21 days 21 tablet 03/27/2024 Active predniSONE (Deltasone) 10 MG tabletIndicatio ns:Contact dermatitis due to poison brent Take 4 tabs daily x 7 days, take 2 tabs daily x 7 days, take 1 tab daily x 7 days. Total days: 21 49 tablet 03/27/2024 Active estradiol (Estrace) 1 MG tabletIndicatio ns:Hot flashes Take 1 tablet (1 mg) by mouth Daily 90 tablet 3 12/17/2024 12/18/19 Active Active Problems Problem Noted Date Diagnosed Date Sigmoid thickening 12/14/2023 Overweight (BMI 25.0-29.9) 10/10/2023 Statin intolerance 06/13/2023 Tachycardia 06/12/2023 Anxiety 03/23/2023 Chronic rhinitis 03/23/2023 Deviated nasal septum 03/23/2023 Hyperlipidemia 03/23/2023 Essential hypertension 06/08/2010 Resolved Problems Problem Noted Date Diagnosed Date Resolved Date Postoperative abdominal pain 12/14/2023 12/14/2023 Myalgia 06/12/2023 12/14/2023 Encounters Date Type Department Care Team Description 12/17/2024 10:00 AM EDT Office Visit [facility] [address] [place] [address] Yang Guzman, DO Encounter for gynecological examination without abnormal finding (Primary Dx); Encounter for Papanicolaou smear of vagina; Breast cancer screening by mammogram; Hot flashes 12/17/2024 Travel from Last 3 Months Immunizations Immunization Administration Dates Next Due Influenza, Unspecified 07/20/2012 Family History Medical History Relation Name Comments Diabetes Father j.r. Heart failure Father j.r. Hyperlipidemia Father j.r. Hypertension Father j.r. Thyroid disease Father j.r. Cervical cancer Mother Stephanie Heart failure Mother Stephanie Hypertension Mother Stephanie Rashes / Skin problems Mother Stephanie Liver cancer Sister Loretta brooks (karla er) stage 4 Relation Name Status Comments Father j.r. Alive Mother Stephanie Alive Sister Loretta brooks (liver) Social History Tobacco Use Types Packs/Day Years Used Date Smoking Tobacco: Never Smokeless Tobacco: Never Tobacco Cessation:Counseling Given: Not Answered Alcohol Use Standard Drinks/Week Comments Never 0 (1 standard drink = 0.6 oz pure alcohol) Caffeine intake: 1-2 cups per day AUDIT-C Answer Date Recorded Q1: How often do you have a drink containing alcohol? Never 12/17/2024 Q2: How many drinks containi ng alcohol do you have on a typical day when you are drinking? Patient does not drink Q3: How often do you have si x or more drinks on one occasion? Never 12/17/2024 PHQ-2 Answer Date Recorded Patient Health Questionnaire-2 Score 0 12/17/2023 Comments No Sex and Gender Information Value Date Recorded Sex Assigned at Female 03/26/2023 5:37 PM EDT Legal Sex Female 6:51 PM EDT Gender Identity Female 03/26/2023 5:37 PM EDT Sexual Orientation Straight 03/26/2023 5: 37 PM EDT Last Filed Vital Signs Vital Sign Reading Time Taken Comments Blood Pressure 118/76 12/17/2024 9:54 AM EDT Pulse - - Temperature - - Respiratory Rate - - Oxygen Saturation - - Inhaled Oxygen Concentration - - Weight 75.3 kg (166 lb) 12/17/2024 9:54 AM EDT Height 171.5 cm (5' 7.5 ) 12/17/2024 9:54 AM EDT Body Mass Index 25.62 12/17/2024 9:54 AM EDT Plan of Treatment Upcoming Encounters Date Type Department Care Team (Late st Contact Info) Description 03/31/2025 9:05 AM EDT Office Visit [facility] [address] [place] [address] Robyn Parker MD [address] [place] [address] 12/23/2025 10:00 AM EDT Office Visit [facility] [address] [place] [address] Yang Guzman DO [address] [place] [address] Health Maintenance Due Date Last Done Comments CT Colonography 1965 Colonoscopy 1965 Colorectal Cancer Screening 1965 FIT-DNA 1965 FIT 1965 FOBT 1965 Sigmoidoscopy 1965 Pap Smear 1986 Influenza Vaccine (#1) 2025 07/20/2012 Mammogram 11/14/2025 11/14/2024, 11/18, 12/05/2023, Additional history exists Cervical Cancer Screening 12/17/2029 HPV/Cotest 12/17/2029 12/17/2024, 12/17/2023 Procedures Procedure Name Priority Date/Time Associated Diagnosis Comments IGP,RFXAPTIMA HPV ALL,16/18,45 Routine 12/17/2024 12:00 AM EDT Encounter for Papanicolaou smear of vagina MM TOMOSYNTHESIS SCREENING BI 11/14/2024 4:25 PM EDT from Last 3 Months or Most Recently Relevant to Health Maintenance Results * IGP,rfxAptima HPV all,16/18,45 (12/17/2024 12:00 AM EDT) Diagnosis: Comment [facility] Comment:NEGATIVE FOR INTRAEP ITHELIAL LESION OR MALIGNANCY. Specimen Adequacy: Comment [facility] Comment:Satisfactory for nimco luation. No endocervical component is identified. Clinician Provided ICD10: Comment [facility] Comment:Z12.72 Performed By: Comment [facility] Comment:Cortez Valverde, Cytolog ist (ASCP) Cyto Comments . [facility] Note: Comment [facility] Comment: The Pap smear is a screening test designed to aid in the detection of premalignant and malignant conditions of the uterine cervix. It is not a diagnostic procedure and should not be used as the sole means of detecting cervical cancer. Both false-positive and false-negative reports do occur. Test Methodology: Comment [facility] Comment: This liquid based ThinPrep(R) pap test was screened with the use of an image guided system. . Comment [facility] Comment: The HPV DNA reflex criteria were not met with this specimen result therefore, no HPV testing was performed. Swab Vaginal structure / Unknown 12/17/2024 12/18/2024 Comment:Vagina Print requisi t Narrative [facility] - 12/19/2024 3:07 PM EDT Performed at: - [facility] [address] [id number] Fire Safety Manager: Serenity Goldberg MD, Phone: [phone] Specimen Comment: [id number] Specimen Comment: No. of containers..01 ThinPrep Vial Yang Guzman DO LAB CYTOLOGY ORDERABLES Funmilayo saxena Result [facility] * MM TOMOSYNTHESIS SCREENING BI (11/14/2024 4:25 PM EDT) Anatomical Region Laterality Modality Other 11/14/2024 4:25 PM EDT Narrative 11/14/2024 4:26 [place] [address] Mammography Report Signed Patient: ANA MARÍA SEE MR#: [id number] : 1965 Acct:[id number] Age/Sex: 59 / F ADM Date: 11/14/24 Loc: MAMMO Attending Dr: YANG GUZMAN Ordering Physician: YANG GUZMAN Results: Date of Service: 11/14/24 Follow Up: Procedure(s): MM tomosynthesis screening BI Accession Number(s): [id number] cc: YANG GUZMAN ; Yanira Rangel M.D. Patient Name: ANA MARÍA SEE MR#: [id number] : 1965 Exam Date: 11/14/2024 Ordering Doctor: DR YANG GUZMAN RADIOLOGY REPORT PROCEDURE: MM TOMOSYNTHESIS SCREENING BI COMPARISON: MM DIAGNOSTIC MAMMO UNILAT RT, 12/05/2023. MM TOMOSYNTHESIS SCREENING BI, 11/14/2023. MG MAMM SCREEN 3D JANA CAD, 09/08/2022. MG MAMM JANA SCRN W CAD DIG, 05/12/2014. INDICATIONS: Screening Calculator Name NCI Breast Cancer Risk Assessment Tool 5 Year Breast Cancer Risk 1.00% Lifetime Breast Cancer Risk 5.50% Personal Breast Cancer No Personal Ovarian Cancer No Treatments None Family Cancers None LOCATION: [facility] BREAST COMPOSITION: There are scattered areas of fibroglandular density. FINDINGS: LEFT BREAST: No significant suspicious finding. RIGHT BREAST: No significant suspicious finding. Stable nodularity. DIAGNOSTIC CATEGORY 1--NEGATIVE. RECOMMENDATIONS: ROUTINE MAMMOGRAM AND CLINICAL EVALUATION IN 12 MONTHS. Active recommendations from prior exams: ROUTINE MAMMOGRAM AND CLINICAL EVALUATION IN [#MONTHS] MONTHS. Due on 12/05/2024. PLEASE NOTE: A NORMAL MAMMOGRAM DOES NOT EXCLUDE THE POSSIBILITY OF BREAST CANCER. A CLINICALLY SUSPICIOUS PALPABLE LUMP SHOULD BE BIOPSIED. Dictated by: Ricky Quarles DO on 11/14/2024 at 16:21 Approved by: Ricky Quarles DO on 11/14/2024 at 16:25 Dictated By: Ricky Quarles D.O. Signed By: 11/14/24 1626 DD/ 24 TD/TT: Cyber Security Administrator: Procedure Note Radiology, Radiologist, MD - 11/14/2024 [place] [address] Mammography Report Signed Patient: ANA MARÍA SEE KMR#: [id number] : 1965Acct:[id number] Age/Sex: 59 / FADM Date: 11/14/24 Loc: MAMMO Attending Dr: YANG GUZMAN Ordering Physician: YANG GUZMANResults: Date of Service: 11/14/24Follow Up: Procedure(s): MM tomosynthesis screening BI Accession Number(s): [id number] cc: YANG GUZMAN ; Yanira Rangel M.D. Patient Name: ANA MARÍA SEE MR#: [id number] : 1965 Exam Date: 11/14/2024 Ordering Doctor: DR YANG GUZMAN RADIOLOGY REPORT PROCEDURE: MM TOMOSYNTHESIS SCREENING BI COMPARISON: MM DIAGNOSTIC MAMMO UNILAT RT, 12/05/2023. MMTOMOSYNTHESIS SCREENING BI, 11/14/2023. MG MAMM SCREEN 3D JANA CAD, 09/08/2022. MG MAMMBIL SCRN W CAD DIG, 05/12/2014. INDICATIONS: Screening Calculator Name NCI Breast Cancer Risk Assessment Tool 5 Year Breast Cancer Risk 1.00% Lifetime Breast Cancer Risk 5.50% Personal Breast Cancer No Personal Ovarian Cancer No Treatments None Family Cancers None LOCATION: [facility] BREAST COMPOSITION: There are scattered areas of fibroglandulardensity. FINDINGS: LEFT BREAST: No significant suspicious finding. RIGHT BREAST: No significant suspicious finding. Stable nodularity. DIAGNOSTIC CATEGORY 1--NEGATIVE. RECOMMENDATIONS: ROUTINE MAMMOGRAM AND CLINICAL EVALUATION IN 12 MONTHS. Active recommendations from prior exams: ROUTINE MAMMOGRAM AND CLINICAL EVALUATION IN [#MONTHS] MONTHS. Due on 12/05/2024. PLEASE NOTE: A NORMAL MAMMOGRAM DOES NOT EXCLUDE THE POSSIBILITY OFBREAST CANCER. A CLINICALLY SUSPICIOUS PALPABLE LUMP SHOULD BE BIOPSIED. Dictated by: Ricky Quarles DO on 11/14/2024 at 16:21 Approved by: Ricky Quarles DO on 11/14/2024 at 16:25 Dictated By: Ricky Quarles D.O. Signed By:11/14/24 1626 DD/ 1625 TD/TT: Cyber Security Administrator: Yang Guzman DO [facility] Final Resu lt from Last 3 Months or Most Recently Relevant to Health Maintenance Insurance [facility] Care Teams Photocomposing Keyboard Operator Relationship Specialty Start Date End Date Yanira Rangel MD PCP - General Family Medicine 03/23/23
--- OUTSIDE RECORDS SUMMARY | 2025-03-16 09:26 | XMS_ITS | Clinical Summary ---
Author Organization [facility] Address [address] [place] [address] Phone Care Team Providers Care Microsoft Dynamics Manager Architect Name Role Phone Yanira Rangel MD Primary Care Provider [phone] Allergies Active Allergy Reactions Criticality Noted Date Comments Moxifloxacin Itching 06/12/2023 Rosuvastatin Myalgia 06/13/2023 Simvastatin Myalgia 03/23/2023 Other Reaction(s): Unknown Sxunqqr-Cwi-Qns Reductase Inhibitors Myalgia 06/12/2023 Medications aspirin 81 mg chewable tablet Chew 1 tablet (81 mg) once daily. Active cholecalciferol (Vitamin D-3) 5,000 Units tablet Take by mouth once daily. Active estradiol (Estrace) 0.5 mg tablet Take 1 tablet (0.5 mg) by mouth once daily. Active zinc acetate 50 mg (zinc) capsule Take 1 capsule by mouth once daily. Active magnesium glycinate (MAG GLYCINATE ORAL) Take 1 tablet by mouth once daily. Active verapamil SR (Calan-SR) 180 mg ER tablet Take 1 tablet (180 mg) by mouth once daily at bedtime. Do not crush or chew. Active ascorbic acid (Vitamin C) 1,000 mg tablet Take 1 tablet (1,000 mg) by mouth once daily. Active bempedoic acid (Nexletol) 180 mg tabletIndications: Angina pectoris,Mixed hyperlipidemia,Sta tin intolerance Take 180 mg by mouth once daily. 90 tablet 3 07/09/20 23 Active ezetimibe (Zetia) 10 mg tabletIndications: Statin intolerance,Mixed hyperlipidemia Take 1 tablet (10 mg) by mouth once daily. 90 tablet 3 10/10/19 24 Active lisinopriL-hydroch lorothiazide 20-12.5 mg tabletIndications: Essential (primary) hypertension TAKE 1 TABLET DAILY 90 tablet 3 03/06/20 24 Active verapamil ER (Veralan PM) 180 mg 24 hr capsuleIndications :Primary hypertension TAKE 1 CAPSULE BY MOUTH EVERY DAY IN THE MORNING 90 capsule 3 02/07/20 25 Active metoprolol succinate XL (Toprol-XL) 50 mg 24 hr tabletIndications: Primary hypertension,Tachy cardia TAKE 1 TABLET BY MOUTH EVERY DAY IN THE EVENING 90 tablet 3 02/07/20 25 Active Vascepa 1 gram capsuleIndications :Hyperlipidemia, unspecified TAKE 2 CAPSULES BY MOUTH TWICE A DAY 360 capsule 3 02/25/20 25 Active Vascepa 1 gram capsuleIndications :Hyperlipidemia, unspecified TAKE 2 CAPSULES BY MOUTH TWICE A DAY 360 capsule 3 12/13/19 24 025 Discontinued Active Problems Problem Noted Date Diagnosed Date Overweight (BMI 25.0-29.9) 10/10/2023 Other chest pain 06/13/2023 Statin intolerance 06/13/2023 HTN (hypertension) 06/12/2023 Hyperlipemia 06/12/2023 Myalgia 06/12/2023 Shortness of breath at rest 06/12/2023 Tachycardia 06/12/2023 Resolved Problems Problem Noted Date Diagnosed Date Resolved Date Statin intolerance 06/13/2023 Atypical chest pain 06/12/2023 06/13/20 23 Encounters Date Type Department Care Team Description 02/20/2025 Refill [facility] [address] [address] Rigo Bhagat MD Hyperlipidemia, unspecified 02/06/2025 Refill [facility] [address] [facility] [address] [place] [address] Rigo Bhagat MD Primary hypertension; Tachycardia from Last 3 Months Immunizations Immunization Administration Dates Next Due Influenza, Unspecified 07/20/2012 Family History Medical History Relation Name Comments CARDIOVASCULAR DISEASE Father Hypertension Father CARDIOVASCULAR DISEASE Mother Hypertension Mother Relation Name Status Comments Father Mother Social History Tobacco Use Types Packs/Day Years [...] Orientation Straight 06/13/2023 7: 09 PM EDT Last Filed Vital Signs Vital Sign Reading Time Taken Comments Blood Pressure 123/84 10/10/2023 1:47 PM EST Pulse 60 10/10/2023 1:09 PM EST Temperature - - Respiratory Rate - - Oxygen Saturation - - Inhaled Oxygen Concentration - - Weight 80.7 kg (178 lb) 10/10/2023 1:09 PM EST Height 175.3 cm (5' 9 ) 10/10/2023 1:09 PM EST Body Mass Index 26.29 10/10/2023 1:09 PM EST Plan of Treatment Upcoming Encounters Date Type Department Care Team (Late st Contact Info) Description 03/25/2025 3:10 PM EDT Office Visit [facility] [address] [address] Rigo Bhagat MD 703 [facility] 2, [address] [address] Health Maintenance Due Date Last Done Comments CT Colonography 1965 Colonoscopy 1965 Colorectal Cancer Screening 1965 FIT-DNA (Cologuard) 1965 FIT 1965 HIV Screening 1965 Lipid Panel 1965 Sigmoidoscopy 1965 MMR Vaccines (1 of 1 - Standard series) 1966 Diabetes Screening 1983 Hepatitis C Screening 1983 Hepatitis B Vaccines (1 of 3 - 19+ 3-dose series) 1984 Cervical Cancer Screening 1986 HPV/Cotest 1986 Pap Smear 1986 DTaP/Tdap/Td Vaccines (1 - Tdap) 1987 Pneumococcal Vaccine (1 of 1 - PCV) 2015 Zoster Vaccines (1 of 2) 2015 COVID-19 Vaccine (3 - 2023-2 5 season) 2024 11/18/2020, 10/28/2020 Mammogram 12/04/2024 12/05/2023, 12/05/2023, 08/17/2021 Influenza Vaccine (#1) 2025 07/20/2012 Yearly Adult Physical 12/18/2025 12/17/2024 , 12/17/2023, 09/05/2022 HIB Vaccines Aged Out No longer eligi ble based on patient's age to complete this topic HPV Vaccines Aged Out No longer eligi ble based on patient's age to complete this topic Hepatitis A Vaccines Aged Out No long er eligible based on patient's age to complete this topic IPV Vaccines Aged Out No longer eligi ble based on patient's age to complete this topic Meningococcal Vaccine Aged Out No waqas jarred eligible based on patient's age to complete this topic Rotavirus Vaccines Aged Out No longer eligible based on patient's age to complete this topic Insurance [facility] Care Teams Microsoft Dynamics Manager Architect Relationship Specialty Start Date End Date Yanira Rangel MD [facility] [place] [address] [place] [address] PCP - General 09/22/19
--- OUTSIDE RECORDS SUMMARY | 2025-03-16 09:26 | XMS_ITS | Encounter Summary ---
Author Organization [facility] Address [address] [place] [address] Phone Care Team Providers Care Marine Consultant Name Role Phone Yanira Rangel MD Primary Care Provider [phone] Encounter Details Date Type Department Care Team (Late st Contact Info) Description 06/21/2023 Scanned Document [facility] [address] [place] [id number] Scanning, Generic Provider Social History Tobacco Use [...] Description 03/25/2025 3:10 PM EDT Office Visit [place] [id number] [facility] [address] [place] [address] Rigo Bhagat MD 703 [facility] 2, [facility] [address] [place] [address] documented as of this encounter Visit Diagnoses Not on filedocumented in this encounter Care Teams Marine Consultant Relationship Specialty Start Date End Date Yanira Rangel MD [address] [place] [address] PCP - General 09/22/19 documented as of this encounter
--- OUTSIDE RECORDS SUMMARY | 2025-03-16 09:26 | XMS_ITS | Encounter Summary ---
Author Organization [facility] Address [address] [facility] [place] [address] Care Team Providers Care Accounting Office Manager Name Role Phone Yanira Rangel MD Primary Care Provider [phone] Encounter Details Date Type Department Care Team (Late st Contact Info) Description 03/23/2023 Abstract [facility] [address] [facility] [address] [facility] [address] [place] [address] Yash Guzman, [address] [facility] [address] [place] [address] Social History Tobacco Use Types Packs/Day Years [...] PM EDT documented as of this encounter Functional Status * Audit-C Score Answer Date of Assessment Author 0 03/23/2023 9:07 AM EDT Akil Steve MA * Question Answer Date of Assessment Author Q1: How often do you have a drink containing alcohol? Never 03/23/2023 9:07 AM EDT Amparo Steve MA Q2: How many drinks containing alcohol do you have on a typical day when you are drinking? Patient does not drink 03/23/2023 9:07 AM EDT Amparo Steve MA Q3: How often do you have six or more drinks on one occasion? Never 03/23/2023 9:07 AM EDT Amparo Steve MA documented as of this encounter Plan of Treatment Upcoming Encounters Date Type Department Care Team (Late st Contact Info) Description 03/31/2025 9:05 AM EDT Office Visit [facility] [address] [place] [address] Robyn Parker MD [address] [place], [place] [id number] 12/23/2025 10:00 AM EDT Office Visit [facility] [address] [place] [address] Yash Guzman DO [address] [place] [address] documented as of this encounter Visit Diagnoses Not on filedocumented in this encounter Care Teams Accounting Office Manager Relationship Specialty Start Date End Date Yanira Rangel MD PCP - General Family Medicine 03/23/23 documented as of this encounter
--- OUTSIDE RECORDS SUMMARY | 2025-03-16 09:26 | XMS_ITS | Encounter Summary ---
Author Organization [facility] Address [address] [place] [address] Phone Care Team Providers Care Body Rolling Machine Tender Name Role Phone Yanira Rangel MD Primary Care Provider [phone] Encounter Details Date Type Department Care Team (Late st Contact Info) Description 07/01/2020 Orders Only [facility] [address] [place] [address] Conversion, Onbase Social History Tobacco Use Types [...] Description 03/25/2025 3:10 PM EDT Office Visit [place] [address] [address] Rigo Bhagat MD [facility], [address] [place] [address] Scheduled Orders Name Type Priority Associated Diagnoses Orde r Schedule OUTSIDE LAB SCAN Lab Ordered: 07/01/2020 documented as of this encounter Visit Diagnoses Not on filedocumented in this encounter Care Teams Body Rolling Machine Tender Relationship Specialty Start Date End Date Yanira Rangel MD [address] [place] [address] PCP - General 09/22/19 documented as of this encounter
--- OUTSIDE RECORDS SUMMARY | 2025-03-16 09:46 | XMS_ITS | CCD ---
Author Organization [facility] Care Team Providers Care Centrifugal Operator Name Role Phone MISC, DOCTOR Attending Unavailable EVARISTOC, DOCTOR Admitting Unavailable BEA BARR V Consulting Unavailable STEFANIE CASTILLO Attending Unavailable STEFANIE CASTILLO Primary Care Unavailable STEFANIE CASTILLO Admitting Unavailable STEFANIE CASTILLO Consulting Unavailable Bea Fonseca Attending Provider Stefanie Castillo Primary Care Provider Stefanie Castillo Unavailable Unavailable Unavailable Stefanie Castillo Unavailable MD Stefanie Castillo Primary Care Provider MD Johnathan Cross Attending Provider DO Jim Ann Emergency Provider MD Eran Richardson Admit Provider MD Jeremy Nova Attending Provider [phone] Dr. Stefanie Castillo Primary Care Unav ailable Traboulssi, Mourhaf Referring Unavailable Traboulssi, Mourmanasaf Attending Unavailable Dr. Stefanie Castillo Primary Care Unav ailable Traboulssi, Mourhaf Referring Unavailable Traboulssi, Moarronf Attending Unavailable Dr. Stefanie Castillo Primary Care Unav ailable Traboulssi, Mourhaf Referring Unavailable Traboulssi, Mourhaf Attending Unavailable Dr. Stefanie Castillo Primary Care Unav ailable Traboulssi, Mourmanasaf Referring Unavailable Dr. Stefanie Castillo Primary Care Unav ailable Traboulssi, Mourhaf Attending Unavailable Traboulssi, Mourhaf Referring Unavailable Dr. Stefanie Castillo Primary Care Unav ailable Diana Bhagat Attending Unavailable Stefanie Castillo MD Primary Care Provider MD Stefanie Castillo Primary Care Provider MD Diana Bhagat Attending Provider MD Stefanie Castillo Primary Care Provider MD Diana Bhagat Attending Provider DO Yash Murillo Attending Provider Stefanie Castillo MD Primary Care Provider DIANA BHAGAT Attending Unavailable STEFANIE CASTILLO Primary Care Unavailable DIANA BHAGAT Attending Unavailable STEFANIE CASTILLO Primary Care Unavailable DIANA BHAGAT Referring Unavailable Stefanie Castillo MD Primary Care Provider [phone] Stefanie Castillo MD Primary Care Provider [phone] YASH MURILLO Attending Unavailable LEONARDO LUCAS Attending Unavailable Stefanie Castillo Primary Care Unavailable Asaishan Imishan Attending Unavailable Higinio Imishan Admitting Unavailable Stefanie Castillo MD Primary Care Provider Stiven Sylvester MD Attending Provider Higinio GRAVES, Imishan Other Provider Fatemeh Rosen APRN Primary Care Provider Fatemeh Rosen APRN Attending Provider [phone] Unavailable Unavailable Unavailable Allergies Allergy Classification Reported Allergen(s) Allergy Type Date of Onset Reaction(s) Facility (19 sources) moxifloxacin; Translations: [moxifloxacin] Drug Allergy 10-20-19 21 Itching, Rash [facility] (19 sources) Simvastatin; Translations: [simvastatin] Drug Allergy 10-20-19 21 Myalgia [facility] (14 sources) Hmg-Coa Reductase Inhibitors (Statins); Translations: [Statins] Allergy to drug (finding) Myalgia [facility] 250 DO Work Phone: (14 sources) moxifloxacin; Translations: [Avelox] Drug Allergy Itching [facility] 250 DO Work Phone: (3 sources) HMG-CoA reductase inhibitor; Translations: [SRDBZIU-GIH-BZA REDUCTASE INHIBITORS] Drug Intolerance 06-12-20 23 [facility] Work Phone: (3 sources) rosuvastatin; Translations: [ROSUVASTATIN] Drug Allergy 06-13-20 23 [facility] (1 source) Allergies Reconciled Propensity to adverse reactions Unknown [employer] Other (1 source) patient allergy list reviewed by nurse or physicia Propensity to adverse reactions 06-12-20 16 Comment:Done [employer] Other (4 sources) Avelox *FLUOROQUINOLONE S* Propensity to adverse reactions 03-03-20 24 Unknown, Unknown Reaction [facility] (2 sources) Rosuvastatin calcium Propensity to adverse reactions 06-13-20 23 [facility] Healthcare Medications Current Medications Medication Drug Class(es) Dates Sig (Normalized) Sig (Original) acyclovir 800 mg oral tablet (3 sources) Herpesvirus Nucleoside Analog DNA Polymerase Inhibitor, Herpes Simplex Virus Nucleoside Analog DNA Polymerase Inhibitor, Herpes Zoster Virus Nucleoside Analog DNA Polymerase Inhibitor Start: 12-13-2022 take 1 tablet by mouth every twelve hours Acyclovir 800 MG 1 tablet Orally Twice a day for 10 days Nov, Active ascorbic acid 1000 mg oral tablet (20 sources) Vitamin C Start: 06-21-2023 take 1 g by mouth once daily Ascorbic Acid (Vitamin C) (Vitamin C) 1,000 mg Tablet Active 1 GM PO Daily June 21, 2023 12:00am Complies with drug therapy End: 06-13-2023 take 2 tablets by mouth once daily ascorbic acid, vitamin C, 500 mg capsule Take 2 tablets by mouth once daily. 0 06/13/2023 Discontinued (Therapy completed) bempedoic acid 180 mg oral tablet (2 sources) Start: 07-09-2023 take 1 tablet by mouth once daily bempedoic acid (Nexletol) 180 mg tablet Indications: Angina pectoris (CMS/HCC) , Mixed hyperlipidemia , Statin intolerance Take 180 mg by mouth once daily. 90 tablet 3 07/09/2023 Active Start: 06-13-2023 take 1 tablet by judy once daily bempedoic acid (Nexletol) 180 mg tablet Indications: Angina pectoris (CMS/HCC) , Mixed hyperlipidemia Take 180 mg by mouth once daily. 90 tablet 3 06/13/2023 Active cholecalciferol 0.125 mg oral tablet (20 sources) Vitamin D Start: 06-21-2023 take 1 tablet by mouth once daily Cholecalciferol (Vitamin D3) (Vitamin D3) 125 mcg (5,000 unit) Tablet Active 125 MCG PO Daily June 21, 2023 12:00am Complies with drug therapy Cholecalciferol (Vitamin D) 50 MCG (2000 UT) capsule 1 capsule 1 (one) time each day at the same time. Active cholecalciferol (Vitamin D-3) 5,000 Units tablet Take by mouth once daily. 0 Active doxycycline hyclate 100 mg oral capsule (1 source) Tetracycline-class Drug Start: 09-20-2023 take 1 capsule by mouth twice daily Doxycycline Hyclate 100 MG 1 capsule Orally twice daily for 7 days Sep, Active estradiol 1 mg oral tablet (20 sources) Estrogen Start: 12-17-2024 End: 12-17-2025 take 1 tablet by mouth once daily estradiol (Estrace) 1 MG tablet Indications: Hot flashes Take 1 tablet (1 mg) by mouth Daily 90 tablet 3 12/17/2024 12/17/2025 Active Start: 10-19-2020 End: 03-03-2024 take 1 tablet by mouth once daily in the morning Estradiol 0.5 mg Tablet Discontinued 0.5 MG PO Every morning October 19, 2020 1:00am March 03, 2024 9:34am ezetimibe 10 mg oral tablet (2 sources) Dietary Cholesterol Absorption Inhibitor Start: 07-09-2023 End: 10-09-2024 take 1 tablet by mouth once daily ezetimibe (Zetia) 10 mg tablet Indications: Statin intolerance , Mixed hyperlipidemia Take 1 tablet (10 mg) by mouth once daily. 90 tablet 3 10/10/2023 10/09/2024 Active hydroCHLOROthiazide 12.5 mg / lisinopril 20 mg oral tablet (20 sources) Thiazide Diuretic, Angiotensin Converting Enzyme Inhibitor Start: 10-19-2020 take 1 tablet by mouth once daily in the morning Lisinopril-Hydroch lorothiazide 20-12.5 mg tablet Active 12.5 TAB PO Every morning October 19, 2020 1:00am Complies with drug therapy take 1 tablet by judy th in the morning lisinopril-hydroCHLOROthiazide 20-12.5 M G tablet Take 1 tablet by mouth in the morning. Active icosapent ethyl 1000 mg oral capsule (18 sources) Start: 12-11-2022 take 2 g by mouth twice daily Icosapent Ethyl Active 2 GM PO Twice daily December 11, 2022 12:00am Start: 10-10-2022 take 2 capsules by m outh twice daily Icosapent Ethyl 1 gram capsule Active 2 GM PO Twice daily December 11, 2022 12:00am Complies with drug therapy take 2 capsules by m outh every twelve hours Vascepa 1 GM 2 capsules with meals Orally Twice a day Active Magnesium (2 sources) Start: 12-11-2023 Magnesium 125 MG capsule 12/11/2023 Active magnesium glycinate 100 mg o ral tablet (7 sources) Start: 06-21-2023 Magnesium Glyc inate 100 mg Tablet Active 200 MG PO Daily June 21, 2023 12:00am Complies with drug therapy Start: 06-21-2023 take 200 mg by mouth once lola y Magnesium Glycinate Active 200 MG PO Daily June 21, 2023 12:00am take 1 tablet by judy th once daily magnesium glycinate (MAG GLYCINATE ORAL) Take 1 tablet by mouth once daily. 0 Active 24 hr metoprolol succinate 50 mg extended release oral tablet (20 sources) beta-Adrenergic Miley Start: 03-03-2024 take 2 tablets by mouth once daily in the evening Metoprolol Succinate 50 mg tablet extended release 24 hr Active 25 MG PO Every evening March 03, 2024 9:35am Complies with drug therapy Start: 03-03-2024 take 25 mg by mouth once daily in the evening Metoprolol Succinate Active 25 MG PO Every evening March 03, 2024 9:35am Start: 01-12-2023 take 1 tablet by judy th every twenty-four hours in the morning metoprolol succinate XL (Toprol-XL) 50 MG 24 hr tablet Take 50 mg by mouth in the morning. 01/12/2023 Active Start: 08-04-2022 take 1.5 tablets by mouth once daily Metoprolol Succinate ER 50 MG Oral Tablet Extended Release 24 Hour TAKE 1.5 TABLET DAILY. Quantity: 135 Refills: 3 Ordered: 04-Aug-2022 Diana Bhagat MD Start : 04-Aug-2022 Active dose increased Start: 05-31-2021 End: 03-03-2024 take 1 tablet by mouth once daily in the evening Metoprolol Succinate 50 mg Tablet Extended Release 24 Hr Discontinued 50 MG PO Every evening 30 December 12, 2022 12:00am March 03, 2024 9:36am Start: 10-19-2020 End: 06-13-2023 take 1 tablet by mouth twice daily Metoprolol Tartrate 50 mg tablet Discontinued 50 MG PO Twice daily October 19, 2020 1:00am December 12, 2022 3:38pm [place] 4-Ezi-Rpz-Fish Oil (Fish Oil) 1,200 (144-216) mg Capsule (8 sources) Start: 10-19-2020 take 2 capsules by mouth once daily [place] 8-Lwy-Ttf-Fish Oil (Fish Oil) 1,200 (144-216) mg Capsule Active 2 CAP PO Daily October 19, 2020 8:06am Start: 10-19-2020 End: 12-11-2022 take 2 capsules by mouth once daily [place] 4-Lec-Fyj-Fish Oil (Fish Oil) 1,200 (144-216) mg Capsule Discontinued 2 CAP PO Daily October 19, 2020 12:00am December 11, 2022 7:19am Start: 10-19-2020 End: 12-11-2022 take 2 capsules by mouth once daily [place] 2-Kqc-Cxx-Fish Oil (Fish Oil) 1,200 (144-216) mg Capsule Discontinued 2 CAP PO Daily October 19, 2020 1:00am December 11, 2022 8:19am predniSONE 10 mg oral tablet (2 sources) Start: 03-27-2024 predniSONE (Deltasone) 10 MG tablet Indications: Contact dermatitis due to poison brent Take 4 tabs daily x 7 days, take 2 tabs daily x 7 days, take 1 tab daily x 7 days. Total days: 21 49 tablet 03/27/2024 Active terbinafine 250 mg oral tablet (2 sources) Allylamine Antifungal Start: 03-27-2024 take 1 tablet by mouth once daily terbinafine (LamISIL) 250 MG tablet Indications: Tinea pedis of right foot Take 1 tablet, by mouth, once daily, 21 days 21 tablet 03/27/2024 Active 24 hr verapamil hydrochloride 180 mg extended release oral capsule (16 sources) Calcium Channel Miley Start: 01-12-2023 take 1 capsule by mouth every twenty-four hours in the morning verapamil ER (Verelan) 180 MG 24 hr capsule Take 180 mg by mouth in the morning. 01/12/2023 Active Start: 12-12-2022 take 1 capsule by mo uth once daily in the morning Verapamil 180 mg capsule,ext rel. pellets 24 hr Active 180 MG PO Every morning December 12, 2022 12:00am Complies with drug therapy take 1 tablet by judy th once daily at bedtime verapamil SR (Calan-SR) 180 mg ER tablet Take 1 tablet (180 mg) by mouth once daily at bedtime. Do not crush or chew. 0 Active zinc acetate 50 mg oral capsule (2 sources) take 1 capsule by mo uth once daily zinc acetate 50 mg (zinc) capsule Take 1 capsule by mouth once daily. 0 Active Completed/Discontinued Medications Medication Drug Class(es) Dates Sig (Normalized) Sig (Original) aspirin 81 mg oral tablet (20 sources) Platelet Aggregation Inhibitor, Nonsteroidal Anti-inflammatory Drug Start: 10-19-2020 End: 12-18-2024 take 1 tablet by mouth once daily Aspirin 81 mg Tablet Discontinued 81 MG PO Daily October 19, 2020 1:00am December 18, 2024 1:47pm aspirin 81 MG EC tablet 1 (one) time each day at the same time. Active aspirin 81 mg ch ewable tablet Chew 1 tablet (81 mg) once daily. 0 Active Aspirin 81 Activ e bisacodyl 5 mg delayed release oral tablet (6 sources) Stimulant Laxative Start: 03-03-2024 End: 03-04-2025 Bisacodyl (Dulcolax (Bisacodyl)) 5 mg tablet,delayed release (DR/EC) Discontinued 15 MG PO .every 4-5 days as needed for constipation March 03, 2024 9:43am March 04, 2025 1:35pm Start: 03-03-2024 End: 03-03-2024 Bisacodyl (Dulcolax (Bisacod yl)) 5 mg tablet,delayed release (DR/EC) Discontinued 5 MG PO .prn as needed March 03, 2024 12:00am March 03, 2024 9:44am carvedilol 6.25 mg oral tablet (3 sources) alpha-Adrenergic Miley, beta-Adrenergic Miley take 1 tablet by mouth every twelve hours Coreg 6.25 MG 1 tablet with food Orally Twice a day Not-Taking dexamethasone 0.001 mg/mg / neomycin 0.0035 mg/mg / polymyxin b 10 unt/mg ophthalmic ointment (6 sources) Aminoglycoside Antibacterial, Polymyxin-class Antibacterial, Corticosteroid Start: End: Neomycin-Polymyxin B-Dexameth 3.5 mg/g-10,000 unit/g-0.1 % ointment Discontinued 0 .ROUTE .COMPLEX December 11, 2022 12:00am December 11, 2022 12:38pm complete after 12/13 dicyclomine hydrochloride 20 mg oral tablet (3 sources) Anticholinergic Start: take 1 tablet by mouth every twelve hours Dicyclomine HCl 20 MG 1 tablet Orally TWICE A DAY for 30 day(s) Oct, Not-Taking Fish Oil 1200 MG Oral Capsule Delayed Release (2 sources) take 2 capsules by mouth once daily Fish Oil 1200 MG Oral Capsule Delayed Release TAKE 2 CAPSULE Daily Quantity: 0 Refills: 0 Ordered: 31-May-2021 DO Active FLUoxetine 20 mg oral tablet (3 sources) Serotonin Reuptake Inhibitor take 1 capsule by mouth once daily FLUoxetine HCl 20 MG 1 capsule Orally Once a day Not-Taking Lisinopril (3 sources) Angiotensin Converting Enzyme Inhibitor Lisinopril Not-Taking Mag Glycinate TABS (8 sources) Mag Glycinate TA BS Take 1 tablet daily Quantity: 0 Refills: 0 Ordered: 03-Aug-2022 DO Active omeprazole 20 mg delayed release oral capsule (8 sources) Proton Pump Inhibitor Start: End: take 1 capsule by mouth once daily Omeprazole 20 mg Capsule,Delayed Release(Dr/Ec) Discontinued 20 MG PO Daily October 19, 2020 1:00am December 11, 2022 8:20am probiotic (3 sources) Start: 024 End: 025 probiotic Discontinued PO March 03, 2024 12:00am December 18, 2024 1:49pm Start: 03-03-2024 probiotic Acti ve PO March 03, 2024 12:00am rosuvastatin calcium 10 mg oral tablet (20 sources) HMG-CoA Reductase Inhibitor Start: 10-29-2024 End: 12-18-2024 take 1 tablet by mouth once daily Rosuvastatin 10 mg tablet Discontinued 10 MG PO Daily October 29, 2024 12:00am December 18, 2024 1:49pm Free[employer] tablet Orally Once a day; Note: Source Status: Taking; Provider: Juan Carlos Doyle ( ) Start: 10-19-2020 End: 06-21-2023 take 1 tablet by mouth once daily Rosuvastatin (Crestor) 10 mg Tablet Discontinued 10 MG PO Daily October 19, 2020 1:00am June 21, 2023 9:47am Soybean, Fermented (Nattokinase) 50 mg capsule (2 sources) Start: 12-18-2024 End: 12-29-2024 Soybean, Fermented (Nattokinase) 50 mg capsule Discontinued MG PO December 18, 2024 12:00am December 29, 2024 8:05am traMADol hydrochloride 50 mg oral tablet (3 sources) Opioid Agonist Start: 08-15-2023 End: 03-03-2024 take 1 tablet by mouth every four hours as needed for pain Tramadol 50 mg Tablet Discontinued 50 MG PO Q4H as needed for Pain Scale 1 - 4 20 7 August 15, 2023 1:00am March 03, 2024 9:35am Zinc (17 sources) Start: 06-21-2023 End: 03-03-2024 take 1 capsule by mouth once daily Zinc 50 mg Capsule Discontinued 50 MG PO Daily June 21, 2023 12:00am March 03, 2024 9:35am Start: 06-21-2023 End: 03-03-2024 take 50 mg by mouth once daily Zinc Discontinued 50 MG PO Daily June 21, 2023 12:00am March 03, 2024 9:35am Start: 06-21-2023 take 50 mg by mouth once daily Zinc Active 50 MG PO Daily June 20, 2023 11:00pm Start: 06-21-2023 take 50 mg by mouth once daily Zinc Active 50 MG PO Daily June 21, 2023 12:00am Zinc 50 MG CAPS TAKE 1 CAPSULE Daily Quantity: 0 Refills: 0 Ordered: 02-Jan-2022 DO Active Problems Active Problems Problem Classification Problem Date Documented Da te Episodic/Chronic Abdominal pain (20 sources) Unspecified abdominal pain; Translations: [Right sided abdominal pain] Onset: 1 Resolved: 4 10-21-2020 Episodic Anxiety disorders (9 sources) Generalized anxiety disorder; Translations: [Generalized anxiety disorder] Onset: 3 03-23-2023 Chronic Bacterial infection; unspecified site (6 sources) Bacterial infectious disease; Translations: [Other specified bacterial agents as the cause of diseases classified elsewhere] Episodic Cardiac dysrhythmias (20 sources) Palpitations; Translations: [Tachycardia] Onset: 3 10-19-2020 Episodic Chronic obstructive pulmonary disease and bronchiectasis (1 source) Bronchitis, not specified as acute or chronic Episodic Coronary atherosclerosis and other heart disease (6 sources) Angina pectoris; Translations: [Angina pectoris, unspecified] Onset: 3 06-13-2023 Chronic Diseases of mouth; excluding dental (1 source) Recurrent oral aphthae Episodic Disorders of lipid metabolism (20 sources) Hyperlipidemia; Translations: [Other and unspecified hyperlipidemia] Onset: 8 Chronic Diverticulosis and diverticulitis (6 sources) Diverticular disease of colon; Translations: [Diverticulosis of large intestine without perforation or abscess without bleeding] Chronic Esophageal disorders (7 sources) Gastroesophageal reflux disease; Translations: [Gastro-esophageal reflux disease without esophagitis] Onset: 5 Chronic Essential hypertension (20 sources) Hypertensive disorder; Translations: [Unspecified essential hypertension] Onset: 0 10-19-2020 Chronic Malaise and fatigue (8 sources) Fatigue; Translations: [Other malaise and fatigue] Episodic Nonspecific chest pain (20 sources) Atypical chest pain; Translations: [Other chest pain] Onset: 3 Resolved: 3 12-11-2022 Episodic Nutritional deficiencies (2 sources) Vitamin D deficiency; Translations: [Vitamin D deficiency, unspecified] 03-04-2025 Chronic Nutritional deficiencies (2 sources) Cobalamin deficiency; Translations: [Deficiency of other specified B group vitamins] 03-04-2025 Episodic Other connective tissue disease (1 source) Neuralgia and neuritis, unspecified Episodic Other gastrointestinal disorders (6 sources) Irritable bowel syndrome characterized by constipation; Translations: [Irritable bowel syndrome with constipation] Chronic Other gastrointestinal disorders (14 sources) Disorder of colon; Translations: [Disease of intestine, unspecified] Onset: 4 10-21-2020 Episodic Comment on above: chronic constipation Other gastrointestinal disorders (1 source) Disorder of intestine; Translations: [Disease of intestine, unspecified] Episodic Other gastrointestinal disorders (3 sources) Constipation; Translations: [Constipation, unspecified] 03-03-2024 Episodic Other gastrointestinal disorders (1 source) Constipation, unspecified; Translations: [Constipation, unspecified] 03-03-2024 Episodic Other liver diseases (1 source) Fatty (change of) liver, not elsewhere classified; Translations: [FATTY CHANGE LIVER NEC] Onset: 1 Chronic Other lower respiratory disease (6 sources) Abnormal breathing; Translations: [Other abnormalities of breathing] Episodic Other lower respiratory disease (6 sources) Dyspnea; Translations: [Dyspnea, unspecified] Episodic Other nutritional; endocrine; and metabolic disorders (3 sources) Overweight; Translations: [Overweight] Onset: 4 Episodic Other nutritional; endocrine; and metabolic disorders (5 sources) Overweight in adulthood with body mass index of 25 or more but less than 30; Translations: [Overweight] Episodic Other nutritional; endocrine; and metabolic disorders (1 source) Overweight; Translations: [Overweight] Onset: 4 Episodic Other screening for suspected conditions (not mental disorders or infectious disease) (3 sources) Encounter for screening mammogram for malignant neoplasm of breast; Translations: [Patient encounter status] Episodic Other upper respiratory disease (2 sources) Chronic rhinitis; Translations: [Chronic rhinitis] Onset: 3 03-23-2023 Chronic Other upper respiratory infections (6 sources) Bacterial sinusitis; Translations: [Chronic sinusitis, unspecified] Chronic Residual codes; unclassified (1 source) Flushing; Translations: [Flushing] 12-17-2024 Episodic Past or Other Problems Problem Classification Problem Date Documented Date Episodic/Chronic Allergic reactions (1 source) Contact dermatitis due to plants; Translations: [Unspecified contact dermatitis due to plants, except food] Onset: 12-30-2018 Episodic Noninfectious gastroenteritis (1 source) Non-infective enteritis and colitis; Translations: [Noninfective gastroenteritis and colitis, unspecified] Onset: 03-29-2016 Episodic Other connective tissue disease (20 sources) Muscle pain; Translations: [Myalgia and myositis, unspecified] Onset: 06-12-2023 Resolved: 12-14-2023 06-13-2023 Episodic Other connective tissue disease (1 source) Lateral epicondylitis; Translations: [Lateral epicondylitis of elbow] Onset: 02-18-2018 Episodic Other connective tissue disease (2 sources) Myalgia, unspecified site; Translations: [Myalgia, unspecified site] Onset: 06-12-2023 Episodic Other lower respiratory disease (19 sources) Dyspnea at rest; Translations: [Shortness of breath] Onset: 06-12-2023 06-13-2023 Episodic Other lower respiratory disease (2 sources) Shortness of breath; Translations: [Shortness of breath] Onset: 06-12-2023 Episodic Other nervous system disorders (1 source) Sensory disorder of smell and/or taste; Translations: [Disturbances of sensation of smell and taste] Onset: 12-15-2014 Episodic Other nervous system disorders (1 source) Paresthesia; Translations: [Paresthesia of skin] Onset: 12-15-2014 Episodic Other nutritional; endocrine; and metabolic disorders (7 sources) Body mass index 25-29 - overweight; Translations: [Body Mass Index 28.0-28.9, adult] Onset: 02-18-2018 10-10-2023 Episodic Other upper respiratory disease (2 sources) Deviated nasal septum; Translations: [Deviated nasal septum] Onset: 03-23-2023 03-23-2023 Episodic Residual codes; unclassified (10 sources) Other specified health status; Translations: [Other drug allergy] Onset: 06-13-2023 Resolved: 06-13-2023 06-13-2023 Episodic Residual codes; unclassified (1 source) C/O - a back symptom; Translations: [Other symptoms referable to back] Onset: 12-28-2016 Episodic Unclassified (14 sources) Never smoked tobacco; Translations: [Never a smoker] Results Test Name Value Interpretation Reference Range Facility No Panel InformationOrdered By: Stiven Sylvester on 12-29-2024 Miscellaneous Pathology Test See comment [facility] Comment on above: See report. Scanned copy available in EMR. Pathology Request for Lab Co rpon 12-29-2024 Pathology Request for Lab Vicky Normal [facility] Comment on above: Order Comment: GI SP ECIMEN Result Comment: See report. Scanned copy available in EMR. PERFORMED BY: [place] [address] PATHOLOGIST HOLLOCK MAKER RAJNI EDWARDS M.D. Performed By: #### P ATH TO [facility] #### [address] MM TOMOSYNTHESIS SCREENING B Ion 11-14-2024 [place] [address] Mammography Report Signed Patient: ANA MARÍA SEE MR#: [id number] : 1965 Acct:[id number] Age/Sex: 59 / F ADM Date: 11/14/24 Loc: MAMMO Attending Dr: YASH MURILLO Ordering Physician: YASH MURILLO Results: Date of Service: 11/14/24 Follow Up: Procedure(s): MM tomosynthesis screening BI Accession Number(s): [id number] cc: YASH MURILLO ; Stefanie Castillo M.D. Patient Name: ANA MARÍA SEE MR#: [id number] : 1965 Exam Date: 11/14/2024 Ordering Doctor: DR YASH MURILLO RADIOLOGY REPORT PROCEDURE: MM TOMOSYNTHESIS SCREENING BI [...] Treatments None Family Cancers None LOCATION: The [facility] BREAST COMPOSITION: There are scattered areas of [...] Signed By: 11/14/24 1626 DD/ 24 TD/TT: [employer] Photographer: [facility] Radiology, Radiologi MD wendy - 11/14/2024 [place] [address] Mammography Report Signed Patient: ANA MARÍA SEE MR#: [id number] : 1965 Acct:[id number] Age/Sex: 59 / F ADM Date: 11/14/24 Loc: MAMMO Attending Dr: YASH MURILLO Ordering Physician: YASH MURILLO Results: Date of Service: 11/14/24 Follow Up: Procedure(s): MM tomosynthesis screening BI Accession Number(s): [id number] cc: YASH MURILLO ; Stefanie Castillo M.D. Patient Name: ANA MARÍA SEE MR#: [id number] : 1965 Exam Date: 11/14/2024 Ordering Doctor: DR YASH MURILLO RADIOLOGY REPORT PROCEDURE: MM TOMOSYNTHESIS SCREENING BI [...] Treatments None Family Cancers None LOCATION: [facility] BREAST COMPOSITION: There are scattered areas of [...] Dictated By: Ricky Quarles D.O. Signed By: 11/14/241625 DD/ 24 TD/TT: [place] Photographer: [facility] Radiology Study observation (narrative) [facility] MM TOMOSYNTHESIS SCREENING B IOrdered By: Radiologist Radiology on 11-14-2024 [facility] Work Phone: Activated partial thrombopla stin time (aPTT) in platelet poor plasma by coagulation aOrdered By: Yash Murillo on 08-01-2023 aPTT Coag (PPP) [Time] 32.4 s 25.1-36.5 [facility] Comment on above: A hematocrit value g reater than 55% may lead to inaccurate results in coagulation testing. Patients having hematocrit values >55% require a special collection tube for coagulation studies. Please contact the laboratory at [phone] for redraw instructions. Alanine aminotransferase [En zymatic activity/volume] in Serum or PlasmaOrdered By: Yash Murillo on 08-01-2023 ALT [Catalytic activity/Vol] 20 U/L 7-52 [facility] Albumin [Mass/volume] in Ser um or Plasma by Bromocresol green (BCG) dye binding methoOrdered By: Yash Murillo on 08-01-2023 Albumin BCG dye [Mass/Vol] 4.6 g/dL 3.5-5.7 [facility] Alkaline phosphatase [Enzyma tic activity/volume] in Serum or PlasmaOrdered By: Yash Murillo on 08-01-2023 ALP [Catalytic activity/Vol] 48 U/L 34-104 [facility] Aspartate aminotransferase [ Enzymatic activity/volume] in Serum or PlasmaOrdered By: Yash Murillo on 08-01-2023 AST [Catalytic activity/Vol] 18 U/L 13-39 [facility] Basophils Auto (Bld) [#/Vol] Ordered By: Yash Murillo on 08-01-2023 Basophils (Bld) [#/Vol] 0.0 10*3/uL 0.0-0.2 [facility] Basophils/100 WBC Auto (Bld) Ordered By: Yash Murillo on 08-01-2023 Basophils/100 WBC (Bld) 0.4 % . [facility] Bilirubin Test strip Ql (U)O rdered By: Yash Murillo on 08-01-2023 Bilirubin Ql (U) Negative Negative [facility] Bilirubin.total [Mass/volume ] in Serum or PlasmaOrdered By: Yash Murillo on 08-01-2023 Bilirubin [Mass/Vol] 1.1 mg/dL 0.3-1.[address] [facility] Calcium [Mass/volume] in Ser um or PlasmaOrdered By: Yash Murillo on 08-01-2023 Calcium [Mass/Vol] 9.5 mg/dL 8.6-10.3 [facility] Carbon dioxide, total [Moles /volume] in Serum or PlasmaOrdered By: Yash Murillo on 08-01-2023 CO2 [Moles/Vol] 29.6 mmol/L 21.0-31.0 [facility] Chloride [Moles/volume] in S claudy or PlasmaOrdered By: Yash Murillo on 08-01-2023 Chloride [Moles/Vol] 103 mmol/L 98-[address] [facility] Color Auto (U)Ordered By: Erlinda Murillo on 08-01-2023 Color (U) Yellow Yellow [facility] Creatinine [Mass/volume] in Serum or PlasmaOrdered By: Yash Murillo on 08-01-2023 Creatinine [Mass/Vol] 0.65 mg/dL 0.60-1.20 [facility] Eosinophils Auto (Bld) [#/Vo l]Ordered By: Yash Murillo on 08-01-2023 Eosinophils (Bld) [#/Vol] 0.1 10*3/uL 0.0-0.45 [facility] Eosinophils/100 WBC Auto (Bl d)Ordered By: Yash Murillo on 08-01-2023 Eosinophils/100 WBC (Bld) 1.5 % . [facility] Erythrocyte distribution wid th Auto (RBC) [Ratio]Ordered By: Yash Murillo on 08-01-2023 Erythrocyte distribution width (RBC) [Ratio] 13.7 % 11.9-15.3 [facility] Globulin Calc (S) [Mass/Vol] Ordered By: Yash Murillo on 08-01-2023 Globulin (S) [Mass/Vol] 2.4 g/dL [facility] Glucose [Mass/volume] in Ser um or PlasmaOrdered By: Yash Murillo on 08-01-2023 Glucose [Mass/Vol] 100 mg/dL 70-100 [facility] Comment on above: ADA recommended refe rence rangeRandom Glucose Reference Range is dependent on time and content of last meal. Glucose of more than 200 mg/dL in a nonstressed, ambulatory subject supports the diagnosis of Diabetes Mellitus. Hematocrit Auto (Bld) [Volum e fraction]Ordered By: Yash Murillo on 08-01-2023 Hematocrit (Bld) [Volume fraction] 42.3 % 34.0-46.4 [facility] Hemoglobin [Mass/volume] in BloodOrdered By: Yash Murillo on 08-01-2023 Hemoglobin (Bld) [Mass/Vol] 14.4 g/dL 11.8-15.4 [facility] INR in Platelet poor plasma by Coagulation assayOrdered By: Yash Murillo on 08-01-2023 INR Coag (PPP) [Relative time] 1.0 {INR} [facility] Comment on above: INR Therapeutic Rang e A) Pre- and Peroperative OAT started two weeks before surgery. NOT HIP SURGERY: 1.5 - 2.5 HIP SURGERY: 2 - 3B) Primary and secondary prevention of venous THROMBOSIS: 2 - 3C) Active venous thrombosis, pulmonary embolismand prevention of recurrent venous thrombosis: 2 - 3D) Prevention of arterial thromboembolismincluding patients with mechanical heart valves: 3 - 4.5 Ketones Auto test strip (U) [Mass/Vol]Ordered By: Yash Murillo on 08-01-2023 Ketones (U) [Mass/Vol] Negative Negative [facility] Leukocytes [#/volume] correc fabiano for nucleated erythrocytes in Blood by Automated counOrdered By: Yash Murillo on 08-01-2023 WBC corrected for nucl RBC Auto (Bld) [#/Vol] 3.8 10*3/uL 3.8-11.6 [facility] Lymphocytes Auto (Bld) [#/Vo l]Ordered By: Yash Murillo on 08-01-2023 Lymphocytes (Bld) [#/Vol] 1.7 10*3/uL 1.00-4.8 [facility] Lymphocytes/100 WBC Auto (Bl d)Ordered By: Yash Murillo on 08-01-2023 Lymphocytes/100 WBC (Bld) 43.6 % . [facility] MCH Auto (RBC) [Entitic mass ]Ordered By: Yash Murillo on 08-01-2023 MCH (RBC) [Entitic mass] 28.6 pg 24.7-34.3 [facility] MCHC Auto (RBC) [Mass/Vol]Or dered By: Yash Murillo on 08-01-2023 MCHC (RBC) [Mass/Vol] 34.0 g/dL 32.0-35.0 [facility] MCV Auto (RBC) [Entitic vol] Ordered By: Yash Murillo on 08-01-2023 MCV (RBC) [Entitic vol] 84.2 fL 80-100 [facility] Monocytes Auto (Bld) [#/Vol] Ordered By: Yash Murillo on 08-01-2023 Monocytes (Bld) [#/Vol] 0.3 10*3/uL 0.0-0.8 [facility] Monocytes/100 WBC Auto (Bld) Ordered By: Yash Murillo on 08-01-2023 Monocytes/100 WBC (Bld) 7.3 % . [facility] Neutrophils Auto (Bld) [#/Vo l]Ordered By: Yash Murillo on 08-01-2023 Neutrophils (Bld) [#/Vol] 1.8 10*3/uL 1.8-7.7 [facility] Neutrophils/100 WBC Auto (Bl d)Ordered By: Yash Murillo on 08-01-2023 Neutrophils/100 WBC (Bld) 47.2 % . [facility] Nitrite Test strip Ql (U)Ord ered By: Yash Murillo on 08-01-2023 Nitrite Ql (U) Negative Negative [facility] No Panel InformationOrdered By: Yash Murillo on 08-01-2023 Estimated GFR (CKD-EPI) > 60.0 mL/Min [facility] Creatinine Clearance (Chem N/A [facility] Nucleated erythrocytes [Pres ence] in Blood by Automated countOrdered By: Yash Murillo on 08-01-2023 Nucleated RBC Auto Ql (Bld) 0.2 /100{WBC} 0-0.5 [facility] Platelet mean volume Auto (B ld) [Entitic vol]Ordered By: Yash Murillo on 08-01-2023 Platelet mean volume (Bld) [Entitic vol] 7.4 fL 6.3-10.7 [facility] Platelets Auto (Bld) [#/Vol] Ordered By: Yash Murillo on 08-01-2023 Platelets (Bld) [#/Vol] 309 10*3/uL 150-450 [facility] Potassium [Moles/volume] in Serum or PlasmaOrdered By: Yash Murillo on 08-01-2023 Potassium [Moles/Vol] 3.9 mmol/L 3.5-5.1 [facility] Protein Auto test strip (U) [Mass/Vol]Ordered By: Yash Murillo on 08-01-2023 Protein (U) [Mass/Vol] Negative Negative [facility] Protein [Mass/volume] in Ser um or PlasmaOrdered By: Yash Murillo on 08-01-2023 Protein [Mass/Vol] 7.0 g/dL 6.4-8.9 [facility] Prothrombin time (PT)Ordered By: Yash Murillo on 08-01-2023 PT Coag (PPP) [Time] 11.8 s 9.0-12.[address] [facility] Comment on above: A hematocrit value g reater than 55% may lead to inaccurate results in coagulation testing. Patients having hematocrit values >55% require a special collection tube for coagulation studies. Please contact the laboratory at [phone] for redraw instructions. RBC Auto (Bld) [#/Vol]Ordere d By: Yash Murillo on 08-01-2023 RBC (Bld) [#/Vol] 5.02 10*6/uL 3.60-5.00 [facility] Serum or plasma albumin/glob ulin mass ratioOrdered By: Yash Murillo on 08-01-2023 Albumin/Globulin [Mass ratio] 1.9 {ratio} [facility] Serum or plasma anion gap de terminationOrdered By: Yash Murillo on 08-01-2023 Anion gap [Moles/Vol] 11.3 mmol/L 6.0-15.0 [facility] Sodium [Moles/volume] in Ser um or PlasmaOrdered By: Yash Murillo on 08-01-2023 Sodium [Moles/Vol] 140 mmol/L 136-145 [facility] Specific gravity Auto test s trip (U) [Rel density]Ordered By: Yash Murillo on 08-01-2023 Specific gravity (U) [Rel density] 1.005 1.001-1.03 0 [facility] Urea nitrogen [Mass/volume] in Serum or PlasmaOrdered By: Yash Murillo on 08-01-2023 Urea nitrogen [Mass/Vol] 14 mg/dL 7-25 [facility] Urine clarity by refractomet ry automatedOrdered By: Yash Murillo on 08-01-2023 Clarity Refractometry automated (U) Clear Clear [facility] Urine glucose measurement by automated test strip (mass/volume)Ordered By: Yash Murillo on 08-01-2023 Glucose Auto test strip (U) [Mass/Vol] Normal mg/dL Normal [facility] Urine hemoglobin detection b y automated test stripOrdered By: Yash Murillo on 08-01-2023 Hemoglobin Auto test strip Ql (U) Negative Negative [facility] Urine leukocyte esterase det ection by automated test stripOrdered By: Yash Murillo on 08-01-2023 Leukocyte esterase Auto test strip Ql (U) Negative Negative [facility] Urobilinogen Auto test strip (U) [Mass/Vol]Ordered By: Yash Murillo on 08-01-2023 Urobilinogen (U) [Mass/Vol] Normal mg/dL Normal [facility] WBC Auto (Bld) [#/Vol]Ordere d By: Yash Murillo on 08-01-2023 WBC (Bld) [#/Vol] 3.8 10*3/uL 3.8-11.6 [facility] pH Auto test strip (U)Ordere d By: Yash Murillo on 08-01-2023 pH (U) 6.0 [pH] 5.0-9.0 [facility] Activated partial thrombopla stin time (aPTT) in platelet poor plasma by coagulation aOrdered By: Diana Bhagat on 06-21-2023 aPTT Coag (PPP) [Time] 31.8 s 25.1-36.5 [facility] Comment on above: A hematocrit value g reater than 55% may lead to inaccurate results in coagulation testing. Patients having hematocrit values >55% require a special collection tube for coagulation studies. Please contact the laboratory at [phone] for redraw instructions. Basophils Auto (Bld) [#/Vol] Ordered By: Diana Bhagat on 06-21-2023 Basophils (Bld) [#/Vol] 0.0 10*3/uL 0.0-0.2 [facility] Basophils/100 WBC Auto (Bld) Ordered By: Diana Bhagat on 06-21-2023 Basophils/100 WBC (Bld) 0.6 % . [facility] Carbon dioxide, total [Moles /volume] in Serum or PlasmaOrdered By: Diana Bhagat on 06-21-2023 CO2 [Moles/Vol] 29.0 mmol/L 21.0-31.0 [facility] Chloride [Moles/volume] in S claudy or PlasmaOrdered By: Diana Bhagat on 06-21-2023 Chloride [Moles/Vol] 103 mmol/L 98-[address] [facility] Cholesterol [Mass/volume] in Serum or PlasmaOrdered By: Diana Bhagat on 06-21-2023 Cholesterol [Mass/Vol] 252 mg/dL 140-200 [facility] Comment on above: Chol less than 200 m g/dl low riskChol 201-239 mg/dl borderline riskChol 240 mg/dl and greater high risk Cholesterol in LDL Calc [Mas s/Vol]Ordered By: Diana Bhagat on 06-21-2023 Cholesterol in LDL [Mass/Vol] TNP [facility] Comment on above: Test not performed Cholesterol in LDL [Mass/vol ume] in Serum or PlasmaOrdered By: Diana Bhagat on 06-21-2023 Cholesterol in LDL [Mass/Vol] 78 mg/dL 0-100 [facility] Comment on above: LDL ATP III CLASSIFI CATIONLDL less than 100 mg/dL OptimalLDL 100-129 mg/dL Near or above optimalLDL 130-159 mg/dL Borderline highLDL 160-189 mg/dL HighLDL greater than 189 mg/dL Very high Cholesterol in VLDL Calc [Ma ss/Vol]Ordered By: Diana Bhagat on 06-21-2023 Cholesterol in VLDL [Mass/Vol] 157 mg/dL [facility] Creatinine [Mass/volume] in Serum or PlasmaOrdered By: Diana Bhagat on 06-21-2023 Creatinine [Mass/Vol] 0.64 mg/dL 0.60-1.20 [facility] Eosinophils Auto (Bld) [#/Vo l]Ordered By: Diana Bhagat on 06-21-2023 Eosinophils (Bld) [#/Vol] 0.1 10*3/uL 0.0-0.45 [facility] Eosinophils/100 WBC Auto (Bl d)Ordered By: Diana Bhagat on 06-21-2023 Eosinophils/100 WBC (Bld) 1.9 % . [facility] Erythrocyte distribution wid th Auto (RBC) [Ratio]Ordered By: Diana Bhagat on 06-21-2023 Erythrocyte distribution width (RBC) [Ratio] 13.4 % 11.9-15.3 [facility] Hematocrit Auto (Bld) [Volum e fraction]Ordered By: Diana Bhagat on 06-21-2023 Hematocrit (Bld) [Volume fraction] 41.9 % 34.0-46.4 [facility] Hemoglobin [Mass/volume] in BloodOrdered By: Diana Bhagat on 06-21-2023 Hemoglobin (Bld) [Mass/Vol] 14.2 g/dL 11.8-15.4 [facility] INR in Platelet poor plasma by Coagulation assayOrdered By: Diana Bhagat on 06-21-2023 INR Coag (PPP) [Relative time] 0.9 {INR} [facility] Comment on above: INR Therapeutic Rang e A) Pre- and Peroperative OAT started two weeks before surgery. NOT HIP SURGERY: 1.5 - 2.5 HIP SURGERY: 2 - 3B) Primary and secondary prevention of venous THROMBOSIS: 2 - 3C) Active venous thrombosis, pulmonary embolismand prevention of recurrent venous thrombosis: 2 - 3D) Prevention of arterial thromboembolismincluding patients with mechanical heart valves: 3 - 4.5 Leukocytes [#/volume] correc fabiano for nucleated erythrocytes in Blood by Automated counOrdered By: Diana hBagat on 06-21-2023 WBC corrected for nucl RBC Auto (Bld) [#/Vol] 3.5 10*3/uL 3.8-11.6 [facility] Lymphocytes Auto (Bld) [#/Vo l]Ordered By: Diana Bhagat on 06-21-2023 Lymphocytes (Bld) [#/Vol] 1.5 10*3/uL 1.00-4.8 [facility] Lymphocytes/100 WBC Auto (Bl d)Ordered By: Diana Bhagat on 06-21-2023 Lymphocytes/100 WBC (Bld) 42.4 % . [facility] MCH Auto (RBC) [Entitic mass ]Ordered By: Diana Bhagat on 06-21-2023 MCH (RBC) [Entitic mass] 28.3 pg 24.7-34.3 [facility] MCHC Auto (RBC) [Mass/Vol]Or dered By: Diana Bhagat on 06-21-2023 MCHC (RBC) [Mass/Vol] 33.8 g/dL 32.0-35.0 [facility] MCV Auto (RBC) [Entitic vol] Ordered By: Diana Bhagat on 06-21-2023 MCV (RBC) [Entitic vol] 83.8 fL 80-100 [facility] Monocytes Auto (Bld) [#/Vol] Ordered By: Diana Bhagat on 06-21-2023 Monocytes (Bld) [#/Vol] 0.2 10*3/uL 0.0-0.8 [facility] Monocytes/100 WBC Auto (Bld) Ordered By: Diana Bhagat on 06-21-2023 Monocytes/100 WBC (Bld) 5.2 % . [facility] Neutrophils Auto (Bld) [#/Vo l]Ordered By: Diana Bhagat on 06-21-2023 Neutrophils (Bld) [#/Vol] 1.8 10*3/uL 1.8-7.7 [facility] Neutrophils/100 WBC Auto (Bl d)Ordered By: Diana Bhagat on 06-21-2023 Neutrophils/100 WBC (Bld) 49.9 % . [facility] No Panel InformationOrdered By: Diana Bhagat on 06-21-2023 Estimated GFR (CKD-EPI) > 60.0 mL/Min [facility] Creatinine Clearance (Chem N/A [facility] Nucleated erythrocytes [Pres ence] in Blood by Automated countOrdered By: Diana Bhagat on 06-21-2023 Nucleated RBC Auto Ql (Bld) 0.1 /100{WBC} 0-0.5 [facility] Platelet mean volume Auto (B ld) [Entitic vol]Ordered By: Diana Bhagat on 06-21-2023 Platelet mean volume (Bld) [Entitic vol] 7.0 fL 6.3-10.7 [facility] Platelets Auto (Bld) [#/Vol] Ordered By: Diana Bhagat on 06-21-2023 Platelets (Bld) [#/Vol] 359 10*3/uL 150-450 [facility] Potassium [Moles/volume] in Serum or PlasmaOrdered By: Diana Bhagat on 06-21-2023 Potassium [Moles/Vol] 4.2 mmol/L 3.5-5.1 [facility] Prothrombin time (PT)Ordered By: Diana Bhagat on 06-21-2023 PT Coag (PPP) [Time] 11.2 s 9.0-12.[address] [facility] Comment on above: A hematocrit value g reater than 55% may lead to inaccurate results in coagulation testing. Patients having hematocrit values >55% require a special collection tube for coagulation studies. Please contact the laboratory at [phone] for redraw instructions. RBC Auto (Bld) [#/Vol]Ordere d By: Diana Bhagat on 06-21-2023 RBC (Bld) [#/Vol] 5.00 10*6/uL 3.60-5.00 [facility] Serum or plasma anion gap de terminationOrdered By: Diana Bhagat on 06-21-2023 Anion gap [Moles/Vol] 12.2 mmol/L 6.0-15.0 [facility] Serum or plasma high density lipoprotein (HDL) cholesterol measurementOrdered By: Diana Bhagat on 06-21-2023 Cholesterol in HDL [Mass/Vol] 35 mg/dL 23-92 [facility] Comment on above: HDL CHOL ATP-III CLA SSIFICATION Cardiovascular RiskHDL > or equal to 60 mg/dL LOWHDL < 40 mg/dL HIGH Serum or plasma total choles terol/high density lipoprotein (HDL) cholesterol mass ratOrdered By: Diana Bhagat on 06-21-2023 Cholesterol.total/Chol esterol in HDL [Mass ratio] 7.2 {ratio} <5.0 [facility] Sodium [Moles/volume] in Ser um or PlasmaOrdered By: Diana Bhagat on 06-21-2023 Sodium [Moles/Vol] 140 mmol/L 136-145 [facility] Triglyceride [Mass/volume] i n Serum or PlasmaOrdered By: Diana Bhgaat on 11-02-2023 Triglyceride [Mass/Vol] 786 mg/dL 0-149 [facility] Comment on above: If the triglyceride result is greater than 400, LDLC and related calculations cannot be calculated and resulted.TRIG ATP III CLASSIFICATIONTRIG less than 150 mg/dL NormalTRIG 150-199 mg/dL Borderline highTRIG 200-500 mg/dL High TRIG greater than 500 mg/dL Very highStandard traceable to the Center for Disease Conrtrol and Prevention (CDC) test method. Urea nitrogen [Mass/volume] in Serum or PlasmaOrdered By: Diana Bhagat on 06-21-2023 Urea nitrogen [Mass/Vol] 14 mg/dL 7- [facility] WBC Auto (Bld) [#/Vol]Ordere d By: Diana Bhagat on 06-21-2023 WBC (Bld) [#/Vol] 3.5 10*3/uL 3.8-11.6 [facility] Stephanie 05-22-2023 ALT [Catalytic activity/Vol] 21 U/L Normal - [facility] Comment on above: Performed By: #### 8 22, [id number], 823 #### [facility] [address] [place], [place] [id number] Lace Winder: Eric Velazco #### 7600 #### [facility] [address], [address] [place], [place] [id number] Lace Winder: Camilo Sky MD Janelle 05-22-2023 AST [Catalytic activity/Vol] 19 U/L Normal - [facility] Comment on above: Performed By: #### 8 22, [id number], 823 #### [facility] [address] [place], [place] [id number] Lace Winder: Eric Velazco #### 7600 #### [facility] [address], [address] [place], [place] [id number] Lace Winder: Camilo Sky MD BASIC METABOLIC PANELon 10 BUN/CREATININE RATIO SEE NOTE: Normal - [facility] Comment on above: Result Comment: Not Reported: BUN and Creatinine are within reference range. Performed By: #### 8 22, [id number], 823 #### [facility] [address] [place] [address] Lace Winder: Eric Velazco #### 7600 #### [facility] [address], [address] [place] [address] Lace Winder: Camilo Sky MD Calcium [Mass/Vol] 9.3 mg/dL Normal 8.6-10.4 [facility] Comment on above: Performed By: #### 8 , [id number], 823 #### [facility] [address] [place] [address] Lace Winder: Eric Velazco #### 7600 #### [facility] [place] [address] Lace Winder: Camilo Sky MD Chloride [Moles/Vol] 104 mmol/L Normal 98-110 [facility] Comment on above: Performed By: #### 8 , 89299, 823 #### [facility] [address] [place] [address] Lace Winder: Eric Velazco #### 7600 #### [facility] [place] [address] Lace Winder: Camilo Sky MD CO2 [Moles/Vol] 28 mmol/L Normal 20-32 [facility] Comment on above: Performed By: #### 8 , 98863, 823 #### [facility] [address] [place] [address] Lace Winder: Eric Velazco #### 7600 #### [facility] [address], [address] [place] [address] Lace Winder: Camilo Sky MD Creatinine [Mass/Vol] 0.71 mg/dL Normal 0.50-1.[address] [facility] Comment on above: Performed By: #### 8 , [id number], 823 #### [facility] [address] [place] [address] Lace Winder: Eric Velazco #### 7600 #### [facility] [address], [address] [place] [address] Lace Winder: Camilo Sky MD GFR/1.73 sq M.predicted among non-blacks MDRD (S/P/Bld) [Vol rate/Area] 98 mL/min/{1.73_m2} Normal > OR = 60 [facility] Comment on above: Performed By: #### 8 , 92892, 823 #### [facility] [address] [place], [place] [id number] Lace Winder: Eric Velazco #### 7600 #### [facility] [address], [address] [place] [address] Lace Winder: Camilo Sky MD Glucose [Mass/Vol] 117 mg/dL High 65-99 [facility] Comment on above: Result Comment: Fasting reference interval For someone without known diabetes, a glucose value between 100 and 125 mg/dL is consistent with prediabetes and should be confirmed with a follow-up test. Performed By: #### 8 , [id number], 823 #### [facility] [address] [place] [address] Lace Winder: Eric Velazco #### 7600 #### [facility] [address], [address] [place] [address] Lace Winder: Camilo Sky MD Potassium [Moles/Vol] 4.2 mmol/L Normal 3.5-5.[address] [facility] [address] [facility] Comment on above: Performed By: #### 8 , 82678, 823 #### [facility] [address] [place] [address] Lace Winder: Eric Velazco #### 7600 #### [facility] [address], [address] [place] [address] Lace Winder: Camilo Sky MD Sodium [Moles/Vol] 139 mmol/L Normal 135-146 [facility] Comment on above: Performed By: #### 8 22, 46130, 823 #### [facility] [address] [place], [place] [id number] Lace Winder: Eric Velazco #### 7600 #### [facility] [address], [address] [place] [address] Lace Winder: Camilo Sky MD Urea nitrogen [Mass/Vol] 16 mg/dL Normal 7-25 [facility] Comment on above: Performed By: #### 8 22, 20949, 823 #### [facility] [address] [place], [place] [id number] Lace Winder: Eric Velazco #### 7600 #### [facility] [address], [address] [place] [address] Lace Winder: Camilo Sky MD LIPID PANEL, [address] Cholesterol [Mass/Vol] 213 mg/dL High <200 [facility] Comment on above: Order Comment: FASTI NG:YES FASTING: YES Performed By: #### 8 22, 27573, 823 #### [facility] [place] [address] Lace Winder: Eric Velazco #### 7600 #### [facility] [address], [address] [place] [address] Lace Winder: Camilo Sky MD Cholesterol in HDL [Mass/Vol] 35 mg/dL Low > OR = 50 [facility] Comment on above: Order Comment: FASTI NG:YES FASTING: YES Performed By: #### 8 22, [id number], 823 #### [facility] [address] [place], [place] [id number] Lace Winder: Eric Velazco #### 7600 #### [facility] [address], [address] [place] [address] Lace Winder: Camilo Sky MD Cholesterol.total/Chol esterol in HDL [Mass ratio] 6.1 {ratio} High <5.0 [facility] Comment on above: Order Comment: FASTI NG:YES FASTING: YES Performed By: #### 8 22, 64017, 823 #### [facility] [address] [place] [phone] Lace Winder: Eric Velazco #### 7600 #### [facility] [address], [address] [place] [id number] Lace Winder: Camilo Sky MD LDL-CHOLESTEROL Normal [facility] Comment on above: Order Comment: FASTI NG:YES FASTING: YES Result Comment: LDL cholesterol not calculated. Triglyceride levels greater than 400 mg/dL invalidate calculated LDL results. Reference range: <100 Desirable range <100 mg/dL for primary prevention; <70 mg/dL for patients with CHD or diabetic patients with > or = 2 CHD risk factors. LDL-C is now calculated using the Jerson calculation, which is a validated novel method providing better accuracy than the Friedewald equation in the estimation of LDL-C. Cesar SS et al. IRENE. 2013;310(19): 9035-9594 (http://education.[employer]/faq/GBA805) Performed By: #### 8 , 30805, 823 #### [facility] [address] [place] [phone] Lace Winder: Eric Velazco #### 7600 #### [facility] [address], [address] [place] [phone] Lace Winder: Camilo Sky MD NON HDL CHOLESTEROL 178 mg/dL (calc) High <130 [facility] Comment on above: Order Comment: FASTI NG:YES FASTING: YES Result Comment: For patients with diabetes plus 1 major ASCVD risk factor, treating to a non-HDL-C goal of <100 mg/dL (LDL-C of <70 mg/dL) is considered a therapeutic option. Performed By: #### 8 22, [address], 823 #### [facility] [address] [place] [phone] Lace Winder: Eric Velazco #### 7600 #### [facility] [address], [address] [place] [phone] Lace Winder: Camilo Sky MD Triglyceride [Mass/Vol] 496 mg/dL High <150 [facility] Comment on above: Order Comment: FASTI NG:YES FASTING: YES Result Comment: If a non-fasting specimen was collected, consider repeat triglyceride testing on a fasting specimen if clinically indicated. Edgardo et al. J. of Clin. Lipidol. 2015;9:129-169. Performed By: #### 8 22, 29850, 823 #### [facility] [address] [place] [address] Lace Winder: Eric Velazco #### 7600 #### [facility] [address] [facility], [address] [place] [phone] Lace Winder: Camilo Sky MD Office Visit (Cardiology)on 12-26-2022 Follow-up visit Diagnoses/Problems Assessed Atypical chest pain (786.59) (R07.89) HTN (hypertension) (401.9) (I10) Never a smoker Overweight with body mass index (BMI) of 26 to 26.9 in adult (278.02,V85.22) (E66.3,Z68.26) Shortness of breath at rest (786.05) (R06.02) Tachycardia (785.0) (R00.0) Hyperlipemia (272.4) (E78.5) Myalgia (729.1) (M79.10) Fatigue (780.79) (R53.83) Orders Atypical chest pain, HTN (hypertension), Hyperlipemia Renew: Aspirin 81 MG Oral Tablet Chewable; CHEW AND SWALLOW 1 TABLET DAILY HTN (hypertension), Shortness of breath at rest Basic Metabolic Panel; Status:Active - Retrospective Authorization; Requested for:[id number]; Hyperlipemia ALT - Alanine Aminotransferase, Serum; Status:Active - Retrospective Authorization; Requested for:[id number]; AST; Status:Active - Retrospective Authorization; Requested for:[id number]; Lipid Panel; Status:Active - Retrospective Authorization; Requested for:[id number]; Overweight with body mass index (BMI) of 26 to 26.9 in adult Healthy Weight Tips; Status:Complete - Retrospective Authorization; Done: 26Dec2022 Some eating tips that can help you lose weight.; Status:Complete - Retrospective Authorization; Done: 26Dec2022 SocHx: Never a smoker Tobacco Use Screening; Status:Complete; Done: 26Dec2022 Patient Instructions Please bring all medicines, vitamins, and herbal supplements with you when you come to the office. Prescriptions will not be filled unless you are compliant with your follow up appointments or have a follow up appointment scheduled as per instruction of your physician. Refills should be requested at the time of your visit. Follow up in 4-5 months Lab before ov Chief Complaint ANA MARÍA SEE is being seen for [facility] D/C 12/12/22. History of Present Illness Patient is here for follow-up continue management for previous evaluation for chest pain, fatigue and palpitation. She was recently in the hospital. I was able to retrieve and review her record. She underwent echo and stress test both appears to be reassuring. Patient has been complaining of symptoms of postmenopausal hot flashes and palpitation. She was placed on verapamil with significant improvement of her heart rate and palpitation. She was noted to have significant hypertriglyceridemia and was started on Vascepa. ASSESSMENT: 1 recent evaluation for chest pain, palpitation and tachycardia. Work-up was benign. Symptoms seem to be improving with the addition of verapamil. In the past she did not tolerate higher dose of metoprolol 2. Hyperlipidemia, continues to have significant hypertriglyceridemia with triglycerides close to 800 started on Vascepa 3. Hypertension, controlled. 4. Tachycardia improved with the addition of verapamil 5. Mildly overweight with no weight changes 6. Intermittent complaint of shortness of breath recent echo was normal. She described functional class I probable component of anxiety 7. Patient complained of a little bit of shakiness and tremor TSH was normal likely due to hot flashes and postmenopausal symptoms RECOMMENDATIONS: 1. The patient was counseled regarding losing weight, exercise, and risk factor adjustment. 2. The patient will remain on the same medication, 3. I we will see her back in the office in 4 months with plan to repeat her lab work and EKG 4. I reviewed with her her recent hospitalization record 5. I advised the patient to notify me change in cardiac status or symptoms 6. I advised her to discuss her postmenopausal symptoms with her [employer] physician Current Meds Medication NameInstruction Aspirin 81 MG Oral Tablet ChewableCHEW AND SWALLOW 1 TABLET DAILY. Estradiol 0.5 MG Oral TabletTAKE 1 TABLET DAILY. Icosapent Ethyl 1 GM Oral CapsuleTAKE 2 CAPSULE Twice daily Lisinopril-hydroCHLOROthia zide 20-12.5 MG Oral TabletTAKE 1 TABLET DAILY. Mag Glycinate TABSTake 1 tablet daily Metoprolol Succinate ER 50 MG Oral Tablet Extended Release 24 HourTake 1 tablet daily Rosuvastatin Calcium 10 MG Oral TabletTAKE 1 TABLET BY MOUTH EVERYDAY AT BEDTIME Verapamil HCl ER 180 MG Oral Tablet Extended ReleaseTake 1 tablet daily Vitamin C 500 MG Oral Capsule2 tablets daily Vitamin D3 125 MCG (5000 UT) Oral TabletOnce daily Zinc 50 MG CAPSTAKE 1 CAPSULE Daily Allergies Medication Avelox Adverse Reaction; Itching; Recorded By: Melanie Bermeo; 05/03/2021 8:53:44 AM Statins Adverse Reaction; Myalgia; Recorded By: Melanie Bermeo; 05/03/2021 8:53:44 AM Social History Problems Daily caffeine consumption, 1 serving a day Never a smoker No alcohol use No illicit drug use Review of Systems Constitutional: feeling tired. Cardiovascular: no intermittent leg claudication and as noted in HPI. Respiratory: no cough and no shortness of breath. Gastrointestinal: no change in bowel habits and no blood in stools. Integumentary: no skin rashes. Neurological: no seizures and no frequent falls. All other systems have been reviewed and a (more content not included)... Normal [employer] Tobacco Screening.on 023 Tobacco use status [facility] b) No -[facility] [place] [address] DO Work Phone: Alanine aminotransferase [En zymatic activity/volume] in Serum or PlasmaOrdered By: Roverto Ortega on 12-12-2022 ALT [Catalytic activity/Vol] 21 U/L 7-52 [facility] Albumin [Mass/volume] in Ser um or Plasma by Bromocresol green (BCG) dye binding methoOrdered By: Roverto Ortega on 12-12-2022 Albumin BCG dye [Mass/Vol] 3.8 g/dL 3.5-5.7 [facility] Alkaline phosphatase [Enzyma tic activity/volume] in Serum or PlasmaOrdered By: Roverto Ortega on 12-12-2022 ALP [Catalytic activity/Vol] 66 U/L 34-104 [facility] Aspartate aminotransferase [ Enzymatic activity/volume] in Serum or PlasmaOrdered By: Roverto Ortega on 12-12-2022 AST [Catalytic activity/Vol] 18 U/L 13-39 [facility] Basophils Auto (Bld) [#/Vol] Ordered By: Roverto Ortega on 12-12-2022 Basophils (Bld) [#/Vol] 0.0 10*3/uL 0.0-0.2 [facility] Basophils/100 WBC Auto (Bld) Ordered By: Roverto Ortega on 12-12-2022 Basophils/100 WBC (Bld) 0.3 % . [facility] Bilirubin.total [Mass/volume ] in Serum or PlasmaOrdered By: Roverto Ortega on 12-12-2022 Bilirubin [Mass/Vol] 1.4 mg/dL 0.3-1.[address] [facility] Comment on above: Samples from patient s who have taken Naproxen have shown spurious elevation in Total Bilirubin levels. A metabolite of Naproxen, O-desmethylnaproxen, has been shown to interfere with the Christina method for measuring Total Bilirubin. Calcium [Mass/volume] in Ser um or PlasmaOrdered By: Roverto Ortega on 12-12-2022 Calcium [Mass/Vol] 8.1 mg/dL 8.6-10.3 [facility] Carbon dioxide, total [Moles /volume] in Serum or PlasmaOrdered By: Roverto Ortega on 12-12-2022 CO2 [Moles/Vol] 25.6 mmol/L 21.0-31.0 [facility] Chloride [Moles/volume] in S claudy or PlasmaOrdered By: Roverto Ortega on 12-12-2022 Chloride [Moles/Vol] 101 mmol/L 98-[address] [facility] Cholesterol [Mass/volume] in Serum or PlasmaOrdered By: Roverto Ortega on 12-12-2022 Cholesterol [Mass/Vol] 228 mg/dL 140-200 [facility] Comment on above: Chol less than 200 m g/dl low riskChol 201-239 mg/dl borderline riskChol 240 mg/dl and greater high risk Cholesterol in LDL Calc [Mas s/Vol]Ordered By: Roverto Ortega on 12-12-2022 Cholesterol in LDL [Mass/Vol] TNP [facility] Comment on above: Test not performed Cholesterol in LDL [Mass/vol ume] in Serum or PlasmaOrdered By: Roverto Ortega on 12-12-2022 Cholesterol in LDL [Mass/Vol] 52 mg/dL 0-100 [facility] Comment on above: LDL ATP III CLASSIFI CATIONLDL less than 100 mg/dL OptimalLDL 100-129 mg/dL Near or above optimalLDL 130-159 mg/dL Borderline highLDL 160-189 mg/dL HighLDL greater than 189 mg/dL Very high Cholesterol in VLDL Calc [Ma ss/Vol]Ordered By: Roverto Ortega on 12-12-2022 Cholesterol in VLDL [Mass/Vol] 166 mg/dL [facility] Creatinine [Mass/volume] in Serum or PlasmaOrdered By: Roverto Ortega on 12-12-2022 Creatinine [Mass/Vol] 0.64 mg/dL 0.60-1.20 [facility] Eosinophils Auto (Bld) [#/Vo l]Ordered By: Roverto Ortega on 12-12-2022 Eosinophils (Bld) [#/Vol] 0.0 10*3/uL 0.0-0.45 [facility] Eosinophils/100 WBC Auto (Bl d)Ordered By: Roverto Ortega on 12-12-2022 Eosinophils/100 WBC (Bld) 0.2 % . [facility] Erythrocyte distribution wid th Auto (RBC) [Ratio]Ordered By: Roverto Ortega on 12-12-2022 Erythrocyte distribution width (RBC) [Ratio] 13.6 % 11.9-15.3 [facility] Globulin Calc (S) [Mass/Vol] Ordered By: Roverto Ortega on 12-12-2022 Globulin (S) [Mass/Vol] 3.0 g/dL [facility] Glucose [Mass/volume] in Ser um or PlasmaOrdered By: Roverto Ortega on 12-12-2022 Glucose [Mass/Vol] 104 mg/dL 70-100 [facility] Comment on above: ADA recommended refe rence rangeRandom Glucose Reference Range is dependent on time and content of last meal. Glucose of more than 200 mg/dL in a nonstressed, ambulatory subject supports the diagnosis of Diabetes Mellitus. Glucose mean value [Mass/vol ume] in Blood Estimated from glycated hemoglobinOrdered By: Roverto Ortega on 12-12-2022 Average glucose Estimated from glycated hemoglobin (Bld) [Mass/Vol] 123 mg/dL [facility] Hematocrit Auto (Bld) [Volum e fraction]Ordered By: Roverto Ortega on 12-12-2022 Hematocrit (Bld) [Volume fraction] 40.5 % 34.0-46.4 [facility] Hemoglobin A1c percentageOrd ered By: Roverto Ortega on 12-12-2022 HbA1c (Bld) [Mass fraction] 5.9 % 4.3-5.6 [facility] Comment on above: Increased risk for d iabetes: 5.7 - 6.4diabetes: >6.4glycemic control for adults with diabetes: <7.0 Hemoglobin [Mass/volume] in BloodOrdered By: Roverto Ortega on 12-12-2022 Hemoglobin (Bld) [Mass/Vol] 13.5 g/dL 11.8-15.4 [facility] Leukocytes [#/volume] correc fabiano for nucleated erythrocytes in Blood by Automated counOrdered By: Roverto Ortega on 12-12-2022 WBC corrected for nucl RBC Auto (Bld) [#/Vol] 6.3 10*3/uL 3.8-11.6 [facility] Lymphocytes Auto (Bld) [#/Vo l]Ordered By: Roverto Ortega on 12-12-2022 Lymphocytes (Bld) [#/Vol] 1.4 10*3/uL 1.00-4.8 [facility] Lymphocytes/100 WBC Auto (Bl d)Ordered By: Roverto Ortega on 12-12-2022 Lymphocytes/100 WBC (Bld) 22.6 % . [facility] MCH Auto (RBC) [Entitic mass ]Ordered By: Roverto Ortega on 12-12-2022 MCH (RBC) [Entitic mass] 28.1 pg 24.7-34.3 [facility] MCHC Auto (RBC) [Mass/Vol]Or dered By: Roverto Ortega on 12-12-2022 MCHC (RBC) [Mass/Vol] 33.2 g/dL 32.0-35.0 [facility] MCV Auto (RBC) [Entitic vol] Ordered By: Roverto Ortega on 12-12-2022 MCV (RBC) [Entitic vol] 84.6 fL 80-100 [facility] Magnesium [Mass/volume] in S claudy or PlasmaOrdered By: Roverto Ortega on 12-12-2022 Magnesium [Mass/Vol] 1.9 mg/dL 1.9-2.[address] [facility] Monocytes Auto (Bld) [#/Vol] Ordered By: Roverto Ortega on 12-12-2022 Monocytes (Bld) [#/Vol] 0.7 10*3/uL 0.0-0.8 [facility] Monocytes/100 WBC Auto (Bld) Ordered By: Roverto Ortega on 12-12-2022 Monocytes/100 WBC (Bld) 11.7 % . [facility] Neutrophils Auto (Bld) [#/Vo l]Ordered By: Roverto Ortega on 12-12-2022 Neutrophils (Bld) [#/Vol] 4.1 10*3/uL 1.8-7.7 [facility] Neutrophils/100 WBC Auto (Bl d)Ordered By: Roverto Ortega on 12-12-2022 Neutrophils/100 WBC (Bld) 65.2 % . [facility] No Panel InformationOrdered By: Roverto Ortega on 12-12-2022 Estimated GFR (CKD-EPI) > 60.0 mL/Min [facility] Creatinine Clearance (Chem 111.03 [facility] Nucleated erythrocytes [Pres ence] in Blood by Automated countOrdered By: Roverto Ortega on 12-12-2022 Nucleated RBC Auto Ql (Bld) 0.1 /100{WBC} 0-0.5 [facility] Platelet mean volume Auto (B ld) [Entitic vol]Ordered By: Roverto Ortega on 12-12-2022 Platelet mean volume (Bld) [Entitic vol] 7.3 fL 6.3-10.7 [facility] Platelets Auto (Bld) [#/Vol] Ordered By: Roverto Ortega on 12-12-2022 Platelets (Bld) [#/Vol] 205 10*3/uL 150-450 [facility] Potassium [Moles/volume] in Serum or PlasmaOrdered By: Roverto Ortega on 12-12-2022 Potassium [Moles/Vol] 3.2 mmol/L 3.5-5.1 [facility] Protein [Mass/volume] in Ser um or PlasmaOrdered By: Roverto Ortega on 12-12-2022 Protein [Mass/Vol] 6.8 g/dL 6.4-8.9 [facility] RBC Auto (Bld) [#/Vol]Ordere d By: Roverto Ortega on 12-12-2022 RBC (Bld) [#/Vol] 4.79 10*6/uL 3.60-5.00 [facility] Serum or plasma albumin/glob ulin mass ratioOrdered By: Roverto Ortega on 12-12-2022 Albumin/Globulin [Mass ratio] 1.3 {ratio} [facility] Serum or plasma anion gap de terminationOrdered By: Roverto Ortega on 12-12-2022 Anion gap [Moles/Vol] 12.6 mmol/L 6.0-15.0 [facility] Serum or plasma high density lipoprotein (HDL) cholesterol measurementOrdered By: Roverto Ortega on 12-12-2022 Cholesterol in HDL [Mass/Vol] 26 mg/dL 35-85 [facility] Comment on above: HDL CHOL ATP-III CLA SSIFICATION Cardiovascular RiskHDL > or equal to 60 mg/dL LOWHDL < 40 mg/dL HIGH Serum or plasma total choles terol/high density lipoprotein (HDL) cholesterol mass ratOrdered By: Roverto Ortega on 12-12-2022 Cholesterol.total/Chol esterol in HDL [Mass ratio] 8.8 {ratio} <5.0 [facility] Sodium [Moles/volume] in Ser um or PlasmaOrdered By: Roverto Ortega on 12-12-2022 Sodium [Moles/Vol] 136 mmol/L 136-145 [facility] Thyrotropin [Units/volume] i n Serum or PlasmaOrdered By: Roverto Ortega on 12-12-2022 TSH Qn 1.83 m[IU]/L 0.45-5.33 [facility] Triglyceride [Mass/volume] i n Serum or PlasmaOrdered By: Roverto Ortega on 12-12-2022 Triglyceride [Mass/Vol] 832 mg/dL 0-149 [facility] Comment on above: If the triglyceride result is greater than 400, LDLC and related calculations cannot be calculated and resulted.TRIG ATP III CLASSIFICATIONTRIG less than 150 mg/dL NormalTRIG 150-199 mg/dL Borderline highTRIG 200-500 mg/dL High TRIG greater than 500 mg/dL Very highStandard traceable to the Center for Disease Conrtrol and Prevention (CDC) test method. Urea nitrogen [Mass/volume] in Serum or PlasmaOrdered By: Roverto Ortega on 12-12-2022 Urea nitrogen [Mass/Vol] 9 mg/dL 03-13 [facility] WBC Auto (Bld) [#/Vol]Ordere d By: Roverto Ortega on 12-12-2022 WBC (Bld) [#/Vol] 6.3 10*3/uL 3.8-11.6 [facility] Activated partial thrombopla stin time (aPTT) in platelet poor plasma by coagulation aOrdered By: Roverto Ortega on 12-11-2022 aPTT Coag (PPP) [Time] 32.4 s 25.1-36.5 [facility] Laboratory - CoagulationOrde red By: Roverto Ortega on 12-11-2022 PT Coag (PPP) [Time] 12.8 s 9.0-12.[address] [facility] Monocyte distribution width [Entitic volume] in Blood by AutomatedOrdered By: Jim Ann on 12-11-2022 Monocyte distribution width Auto (Bld) [Entitic vol] 24.03 % 0.00-20.00 [facility] Comment on above: For adults in ED, MD W > 20.0 may be associated with a higher risk of sepsis during the first 12 hrs of hospital admission Natriuretic peptide B [Mass/ Vol]Ordered By: Roverto Ortega on 12-11-2022 Natriuretic peptide B (Bld) [Mass/Vol] 12.0 pg/mL 5-100 [facility] No Panel InformationOrdered By: Jim Ann on 12-11-2022 D-Dimer Quantitative (PE/DVT) < 200 ng/mL 0-243 [facility] Comment on above: The reference range for D-dimer is <243 ng/mL D-dimer units.D-dimer results must be used in conjunction with a clinicalpretest probability (PTP) assessment model for deep veinthrombosis (DVT) and pulmonary embolism (PE). Results <230ng/mL d-dimer units can be used as a negative predictor inpatients with low or moderate probability for DVT/PE.Results above the exclusion threshold of 230 ng/ml D-dimerunits for DVT/PE may indicate the need for furtherdiagnostic testing.D-Dimer can be increased in hospitalized patients due toco-morbid conditions. Platelet poor plasma interna tional normalized ratio (INR) by coagulation assay (relatOrdered By: Roverto Ortega on 12-11-2022 INR Coag (PPP) [Relative time] 1.1 {INR} [facility] Comment on above: INR Therapeutic Rang e A) Pre- and Peroperative OAT started two weeks before surgery. NOT HIP SURGERY: 1.5 - 2.5 HIP SURGERY: 2 - 3B) Primary and secondary prevention of venous THROMBOSIS: 2 - 3C) Active venous thrombosis, pulmonary embolismand prevention of recurrent venous thrombosis: 2 - 3D) Prevention of arterial thromboembolismincluding patients with mechanical heart valves: 3 - 4.5 Troponin I.cardiac [Mass/vol ume] in Serum or Plasma by Detection limit <= 0.01 ng/Ordered By: Roverto Ortega on 12-11-2022 Troponin I.cardiac DL <= 0.01 ng/mL [Mass/Vol] 2.6 pg/mL 0.0-15.0 [facility] Basophils Auto (Bld) [#/Vol] Ordered By: Johnathan Tay on 10-17-2022 Basophils (Bld) [#/Vol] 0.0 10*3/uL 0.0-0.2 [facility] Basophils/100 WBC Auto (Bld) Ordered By: [employer] on 10-17-2022 Basophils/100 WBC (Bld) 0.4 % . [facility] Eosinophils Auto (Bld) [#/Vo l]Ordered By: Johnathan Cross on 10-17-2022 Eosinophils (Bld) [#/Vol] 0.1 10*3/uL 0.0-0.45 [facility] Eosinophils/100 WBC Auto (Bl d)Ordered By: Johnathan Tay on 10-17-2022 Eosinophils/100 WBC (Bld) 1.6 % . [facility] Erythrocyte distribution wid th Auto (RBC) [Ratio]Ordered By: Johnathan Cross on 10-17-2022 Erythrocyte distribution width (RBC) [Ratio] 13.5 % 11.9-15.3 [facility] Hematocrit Auto (Bld) [Volum e fraction]Ordered By: Johnathan Cross on 10-17-2022 Hematocrit (Bld) [Volume fraction] 42.2 % 34.0-46.4 [facility] Hemoglobin [Mass/volume] in BloodOrdered By: Johnathan Cross on 10-17-2022 Hemoglobin (Bld) [Mass/Vol] 14.1 g/dL 11.8-15.4 [facility] Leukocytes [#/volume] correc fabiano for nucleated erythrocytes in Blood by Automated counOrdered By: Johnathan rCoss on 10-17-2022 WBC corrected for nucl RBC Auto (Bld) [#/Vol] 4.6 10*3/uL 3.8-11.6 [facility] Lymphocytes Auto (Bld) [#/Vo l]Ordered By: Johnathan Cross on 10-17-2022 Lymphocytes (Bld) [#/Vol] 1.8 10*3/uL 1.00-4.8 [facility] Lymphocytes/100 WBC Auto (Bl d)Ordered By: Johnathan Cross on 10-17-2022 Lymphocytes/100 WBC (Bld) 38.7 % . [facility] MCH Auto (RBC) [Entitic mass ]Ordered By: Johnathan Cross on 10-17-2022 MCH (RBC) [Entitic mass] 28.3 pg 24.7-34.3 [facility] MCHC Auto (RBC) [Mass/Vol]Or dered By: Johnathan Cross on 10-17-2022 MCHC (RBC) [Mass/Vol] 33.5 g/dL 32.0-35.0 [facility] MCV Auto (RBC) [Entitic vol] Ordered By: Johnathan Cross on 10-17-2022 MCV (RBC) [Entitic vol] 84.6 fL 80-100 [facility] Monocytes Auto (Bld) [#/Vol] Ordered By: Johnathan Cross on 10-17-2022 Monocytes (Bld) [#/Vol] 0.3 10*3/uL 0.0-0.8 [facility] Monocytes/100 WBC Auto (Bld) Ordered By: Johnathan Cross on 10-17-2022 Monocytes/100 WBC (Bld) 6.3 % . [facility] Neutrophils Auto (Bld) [#/Vo l]Ordered By: Johnathan Cross on 10-17-2022 Neutrophils (Bld) [#/Vol] 2.4 10*3/uL 1.8-7.7 [facility] Neutrophils/100 WBC Auto (Bl d)Ordered By: Johnathan Cross on 10-17-2022 Neutrophils/100 WBC (Bld) 53.0 % . [facility] Nucleated erythrocytes [Pres ence] in Blood by Automated countOrdered By: Johnathan Cross on 10-17-2022 Nucleated RBC Auto Ql (Bld) 0.1 /100{WBC} 0-0.5 [facility] Platelet mean volume Auto (B ld) [Entitic vol]Ordered By: Johnathan Cross on 10-17-2022 Platelet mean volume (Bld) [Entitic vol] 7.5 fL 6.3-10.7 [facility] Platelets Auto (Bld) [#/Vol] Ordered By: Johnathan Cross on 10-17-2022 Platelets (Bld) [#/Vol] 282 10*3/uL 150-450 [facility] RBC Auto (Bld) [#/Vol]Ordere d By: Johnathan Cross on 10-17-2022 RBC (Bld) [#/Vol] 4.98 10*6/uL 3.60-5.00 [facility] WBC Auto (Bld) [#/Vol]Ordere d By: Johnathan Cross on 10-17-2022 WBC (Bld) [#/Vol] 4.6 10*3/uL 3.8-11.6 [facility] Office Visit (Cardiology)on 10-10-2022 Follow-up visit Diagnoses/Problems Assessed Shortness of breath at rest (786.05) (R06.02) Atypical chest pain (786.59) (R07.89) Fatigue (780.79) (R53.83) HTN (hypertension) (401.9) (I10) Hyperlipemia (272.4) (E78.5) Myalgia (729.1) (M79.10) Never a smoker Tachycardia (785.0) (R00.0) Overweight with body mass index (BMI) of 26 to 26.9 in adult (278.02,V85.22) (E66.3,Z68.26) Orders Atypical chest pain IO EKG Electrocardiogram- 12 Lead; Status:Complete; Done: [id number] Hyperlipemia Start: Icosapent Ethyl 1 GM Oral Capsule (Vascepa); TAKE 2 CAPSULE Twice daily Overweight with body mass index (BMI) of 26 to 26.9 in adult Healthy Weight Tips; Status:Complete - Retrospective Authorization; Done: [id number] Some eating tips that can help you lose weight.; Status:Complete - Retrospective Authorization; Done: [id number] SocHx: Never a smoker Tobacco Use Screening; Status:Complete; Done: [id number] Patient Instructions Please bring all medicines, vitamins, and herbal supplements with you when you come to the office. Prescriptions will not be filled unless you are compliant with your follow up appointments or have a follow up appointment scheduled as per instruction of your physician. Refills should be requested at the time of your visit. labs reviewed with patient- will obtain from [employer] [facility] Follow up in 1 year Chief Complaint ANA MARÍA SEE is being seen for a 9 month follow-up of. History of Present Illness Patient is here for follow-up continue management for previous evaluation for atypical chest pain, hyperlipidemia and hypertension. Over the last few months I received several phone calls in regards to some palpitation and tingling sensation. We will try to increase her metoprolol but this made her feel horrible. An outpatient event monitor failed to demonstrate any arrhythmia. The dose of metoprolol was reduced to 50 mg. This resulted in marked improvement of her symptoms. For now she feels well. She denies any complaint of chest pain, palpitation, lightheadedness, dizziness or syncope. ASSESSMENT: 1. Previous evaluation of fatigue, tiredness, atypical chest pain, all have resolved. She describes functional class I. 2. Hyperlipidemia, continues to have significant hypertriglyceridemia with triglycerides close to 600 3. Hypertension, controlled. 4. Previous documentation of mild tachycardia appears to improved with beta-blockers but she is taking metoprolol tartrate 50 mg once daily and recent complaint of palpitation. Did not tolerate high dose of metoprolol. Event monitor failed to demonstrate any significant arrhythmia 5. Mildly overweight with no weight changes 6. Intermittent complaint of shortness of breath recent echo was normal. She described functional class I probable component of anxiety 7. Patient complained of a little bit of shakiness and tremor TSH was normal RECOMMENDATIONS: 1. The patient was counseled regarding losing weight, exercise, and risk factor adjustment. 2. The patient will remain on the same medication, 3. I reviewed with her her recent event monitor and lab work. I recommended a trial of Vascepa 2 g p.o. twice daily 4. We will see her back in the office in 1 year or earlier if the need arise 5. I advised the patient to notify me change in cardiac status or symptoms Current Meds Medication NameInstruction Aspirin 81 MG Oral Tablet ChewableCHEW AND SWALLOW 1 TABLET DAILY. Estradiol 0.5 MG Oral TabletTAKE 1 TABLET DAILY. Lisinopril-hydroCHLOROthia zide 20-12.5 MG Oral TabletTAKE 1 TABLET DAILY. Mag Glycinate TABSTake 1 tablet daily Metoprolol Succinate ER 50 MG Oral Tablet Extended Release 24 HourTake 1 tablet daily Rosuvastatin Calcium 10 MG Oral TabletTAKE 1 TABLET BY MOUTH EVERYDAY AT BEDTIME Vitamin C 500 MG Oral Capsule2 tablets daily Vitamin D3 125 MCG (5000 UT) Oral TabletOnce daily Zinc 50 MG CAPSTAKE 1 CAPSULE Daily Allergies Medication Avelox Adverse Reaction; Itching; Recorded By: Melanie Bermeo; 05/03/2021 8:53:44 AM Statins Adverse Reaction; Myalgia; Recorded By: Melanie Bermeo; 05/03/2021 8:53:44 AM Social History Problems Daily caffeine consumption, 1 serving a day Never a smoker No illicit drug use Social alcohol use (V49.89) (Z78.9) Review of Systems Constitutional: not feeling tired. Cardiovascular: no intermittent leg claudication and as noted in HPI. Respiratory: no cough and no shortness of breath. Gastrointestinal: no change in bowel habits and no blood in stools. Integumentary: no skin rashes. Neurological: no seizures and no frequent falls. All other systems have been reviewed and are negative for complaint. Vitals Vital Signs Recorded: [id number] 01:12PM Heart Rate67, Apical Vllsznwf618, LUE, Standing Dukorwicm88, LUE, Standing Height5 ft 9 in Wfuepz377 lb BMI Dsykekqten89.73 kg/m2 BSA Calculated1.98 Tobacco Useb) No PHQ-2 #1. Over the last 2 weeks have you felt down, depressed or hopeless? (more content not included)... Normal [facility] PHQ-2 [facility] 10-10-2022 Adult depression screening assessment No Merged with [facility] [employer] 250 DO Work Phone: Fall risk assessment a) No falls within the last year Merged with [facility] [employer] 250 DO Work Phone: Tobacco use status CPHS b) No Merged with [facility] [employer] 250 DO Work Phone: Office Visit (Cardiology)on 01-02-2022 Follow-up visit Diagnoses/Problems Assessed Atypical chest pain (786.59) (R07.89) HTN (hypertension) (401.9) (I10) Hyperlipemia (272.4) (E78.5) Shortness of breath at rest (786.05) (R06.02) Tachycardia (785.0) (R00.0) Never a smoker Orders Atypical chest pain, HTN (hypertension), Hyperlipemia Renew: Aspirin 81 MG Oral Tablet Chewable; CHEW AND SWALLOW 1 TABLET DAILY HTN (hypertension) Renew: Lisinopril-hydroCHLOROthia zide 20-12.5 MG Oral Tablet; TAKE 1 TABLET DAILY SocHx: Never a smoker Tobacco Use Screening; Status:Complete; Done: 02Jan2022 Patient Instructions By signing my name below, Landy Sherman Lpn, [employer], attest that this documentation has been prepared under the direction and in the presence of Dr. Diana Bhagat MD. All medical record entries made by the Scribe were at my direction and personally dictated by me. I have reviewed the chart and agree that the record accurately reflects my personal performance of the history, physical exam, discussion and plan. Please bring all medicines, vitamins, and herbal supplements with you when you come to the office. Prescriptions will not be filled unless you are compliant with your follow up appointments or have a follow up appointment scheduled as per instruction of your physician. Refills should be requested at the time of your visit. Follow up in 9 months Same medications. History of Present Illness Patient is here for follow-up continue management for previous evaluation of fatigue tiredness chest pain and hypertension. Since last time I saw her she reports has been feeling well. She denies complaint of chest pain, palpitation, lightheadedness, dizziness or syncope. Her recent laboratory data noted and reviewed with her and all appears to be satisfactory. She denies any recent cardiac complaint. ASSESSMENT: 1. Previous evaluation of fatigue, tiredness, atypical chest pain, all have resolved. She describes functional class I. 2. Hyperlipidemia, markedly improved with initiating treatment with Crestor. She has been able to tolerate it. 3. Hypertension, controlled. 4. Previous documentation of mild tachycardia appears to improved with beta-blockers but she is taking metoprolol tartrate 50 mg once daily 5. Mildly overweight with no weight changes 6. Intermittent complaint of shortness of breath recent echo was normal. She described functional class I probable component of anxiety 7. Patient complained of a little bit of shakiness and tremor TSH was normal RECOMMENDATIONS: 1. The patient was counseled regarding losing weight, exercise, and risk factor adjustment. 2. The patient will remain on the same medication, except advised her to take her metoprolol in the evening considering she is having some mild shakiness in the morning 3. I reviewed with her her recent diagnostic cardiac work-up and he reassured her cardiac lin 4. We will see her back in the office in 9 months or earlier if the need arise 5. I advised the patient to notify me change in cardiac status or symptoms Surgical History Problems History of Cholecystectomy History of Complete colonoscopy Managed By: Bea Fonseca DO History of Hysterectomy History of Tubal ligation Current Meds Medication NameInstruction Aspirin 81 MG Oral Tablet ChewableCHEW AND SWALLOW 1 TABLET DAILY. Estradiol 0.5 MG Oral TabletTAKE 1 TABLET DAILY. Lisinopril-hydroCHLOROthia zide 20-12.5 MG Oral TabletTAKE 1 TABLET DAILY. Metoprolol Succinate ER 50 MG Oral Tablet Extended Release 24 HourTake 1 tablet daily Rosuvastatin Calcium 10 MG Oral Tablettake 1 tablet by mouth at bedtime Vitamin C 500 MG Oral Capsule2 tablets daily Vitamin D3 125 MCG (5000 UT) Oral TabletOnce daily Zinc 50 MG CAPSTAKE 1 CAPSULE Daily Patient did not bring medication list or bottles. Updated verbally with patient Allergies Medication Avelox Adverse Reaction; Itching; Recorded By: Melanie Bermeo; 05/03/2021 8:53:44 AM Statins Adverse Reaction; Myalgia; Recorded By: Melanie Bermeo; 05/03/2021 8:53:44 AM Social History Problems Daily caffeine consumption, 1 serving a day Never a smoker No illicit drug use Social alcohol use (V49.89) (Z78.9) Review of Systems Constitutional: not feeling tired. Cardiovascular: no intermittent leg claudication and as noted in HPI. Respiratory: no cough and no shortness of breath. Gastrointestinal: no change in bowel habits and no blood in stools. Integumentary: no skin rashes. Neurological: no seizures and no frequent falls. All other systems have been reviewed and are negative for complaint. Vitals Vital Signs Recorded: 02Jan2022 03:28PM Heart Rate74, L Radial Oormcjuu544, LUE, Sitting Opedohfxa49, LUE, Sitting Height5 ft 9 in Nmdtdk956 lb BMI Sulkafrdjy21.94 kg/m2 BSA Calculated2.05 Tobacco Useb) No PHQ-2 #1. Over the last 2 weeks have you felt down, depressed or hopeless? (If yes, answer PHQ-9 below)No PHQ-2 #2. Over the last 2 weeks have you felt (more content not included)... Normal [employer] Tobacco Screening.on Adult depression screening assessment No Merged with [facility] [employer] 250 DO Work Phone: Fall risk assessment a) No falls within the last year Merged with [facility] [employer] 250 DO Work Phone: Tobacco use status CP b) No Merged with [facility] [employer] 250 DO Work Phone: SCREENING MAMMOGRAM W/EPHRAIM, BILATERAL*on 08-17-2021 SCREENING MAMMOGRAM W/EPHRAIM, BILATERAL* CLINICAL HISTORY: Screening Mammogram COMPARISON: June 06, 2019 TECHNIQUE: 2D and 3D Tomosynthesis of the right and left breasts was performed. FINDINGS: There are scattered fibroglandular densities within each breast. Stable asymmetries are seen bilaterally. There are no suspicious masses, areas of suspicious microcalcifications or areas of architectural distortion identified. No evidence of skin thickening. IMPRESSION: BIRADS 2: NORMAL INTERVAL FOLLOW UP. Board certified radiologist. Accredited by the ACR and FDA. MAMMOGRAPHY IS VERY IMPORTANT TO YOUR HEALTH. CURRENT [employer] GUIDELINES RECOMMENDS ANNUAL MAMMOGRAPHY BEGINNING AT AGE 40. THIS FACILITY USUALLY USES A REMINDER SYSTEM TO ENSURE ALL POSITIONS RECEIVED REMINDER NOTIFICATIONS AT THE TIME BASED ON THE RECOMMENDATIONS OF THIS EXAM. Report reported and signed by Kobe Haddad on 08/24/2021 1200 Normal [facility] [employer] Tobacco Screening.on 021 Fall risk assessment c) Not medically indicated -[facility] [place] 250 DO Work Phone: Tobacco use status CPHS b) No -[facility] [place] 250 DO Work Phone: Activated partial thrombopla stin time (aPTT) in platelet poor plasma by coagulation aon 10-19-2020 aPTT Coag (PPP) [Time] 35.9 s 25.1-36.5 [facility] Albumin [Mass/volume] in Ser um or Plasmaon 10-19-2020 Albumin [Mass/Vol] 4.2 g/dL 3.2-5.5 [facility] Automated basophil %on 10-19 Basophils/100 WBC (Bld) 0.4 % [facility] Automated basophil counton 0 10-19-2020 Basophils (Bld) [#/Vol] 0.0 10*3/uL 0.0-0.2 [facility] Automated blood lymphocyte c ount (number/volume)on 10-19-2020 Lymphocytes (Bld) [#/Vol] 1.3 10*3/uL 1.00-4.8 [facility] Automated blood lymphocyte c ount as percentage of total leukocyteson 10-19-2020 Lymphocytes/100 WBC (Bld) 30.0 % [facility] Automated blood monocyte cou nton 10-19-2020 Monocytes (Bld) [#/Vol] 0.2 10*3/uL 0.0-0.8 [facility] Automated blood platelet cou nt (count/volume)on 10-19-2020 Platelets (Bld) [#/Vol] 266 10*3/uL 150-450 [facility] Automated blood platelet matilde n volume measurementon 10-19-2020 Platelet mean volume (Bld) [Entitic vol] 7.7 fL 6.3-10.7 [facility] Automated eosinophil %on Eosinophils/100 WBC (Bld) 0.7 % [facility] Automated eosinophil counton 10-19-2020 Eosinophils (Bld) [#/Vol] 0.0 10*3/uL 0.0-0.45 [facility] Automated erythrocyte distri bution width ratioon 10-19-2020 Erythrocyte distribution width (RBC) [Ratio] 13.0 % 11.9-15.3 [facility] Automated erythrocyte mean c orpuscular hemoglobin (mass per erythrocyte)on 10-19-2020 MCH (RBC) [Entitic mass] 29.3 pg 24.7-34.3 [facility] Automated erythrocyte mean c orpuscular hemoglobin concentration measurement (mass/volon 10-19-2020 MCHC (RBC) [Mass/Vol] 34.4 g/dL 32.0-35.0 [facility] Automated erythrocyte mean c orpuscular volumeon 10-19-2020 MCV (RBC) [Entitic vol] 85.0 fL 80-100 [facility] Automated monocyte %on 10-19 Monocytes/100 WBC (Bld) 5.7 % [facility] Automated neutrophil %on Neutrophils/100 WBC (Bld) 63.2 % [facility] Automated urine color determ inationon 10-19-2020 Color (U) Yellow Yellow [facility] Blood erythrocytes automated count (number/volume)on 10-19-2020 RBC (Bld) [#/Vol] 5.09 10*6/uL 3.60-5.00 [facility] Blood hemoglobin measurement (mass/volume)on 10-19-2020 Hemoglobin (Bld) [Mass/Vol] 14.9 g/dL 11.8-15.4 [facility] Blood leukocytes automated c ount (number/volume)on 10-19-2020 WBC (Bld) [#/Vol] 4.2 10*3/uL 4.5-11.0 [facility] Blood neutrophil count by au tomated method (number/volume)on 10-19-2020 Neutrophils (Bld) [#/Vol] 2.6 10*3/uL 1.8-7.7 [facility] COVID-19 SOFIAon 10-19-2020 COVID-19 ERICA Negative Negative [facility] Comment on above: This is a duplicate test result based off of the Erica SARS Antigen (LUCIUS) test performed within the Microbiology department. [facility] 10-19-2020 Natriuretic peptide B (Bld) [Mass/Vol] 33.0 pg/mL 5-100 [facility] Estimated glomerular filtrat ion rate (GFR) non- Americanon 10-19-2020 GFR/1.73 sq M predicted among non-blacks MDRD (S/P/Bld) [Vol rate/Area] mL/min/{1.73_m2} [facility] Hematocrit [Volume Fraction] of Blood by Automated counton 10-19-2020 Hematocrit (Bld) [Volume fraction] 43.2 % 34.0-46.4 [facility] Hematologyon 10-19-2020 PT Coag (PPP) [Time] 11.4 s 9.0-12.9 [facility] Metabolic Panelon 10-19-2020 Magnesium [Mass/Vol] 1.8 mg/dL 1.6-2.6 [facility] Otheron 10-19-2020 GFR/1.73 sq M.predicted MDRD (S/P/Bld) [Vol rate/Area] mL/min/{1.73_m2} [facility] Comment on above: GFR estimated refere nce range: According to KDOQI guidelines, <60 ml/min/1.73m2 is sufficient to diagnose a patient with chronic kidney disease. Nucleated RBC/100 WBC (Bld) [Ratio] 0.4 % 0-0.5 [facility] Creatinine Clearance (Chem 94.48 [facility] SARS Antigen (LFIA) [facility] Platelet poor plasma interna tional normalized ratio (INR) by coagulation assay (relaton 10-19-2020 INR Coag (PPP) [Relative time] 1.0 {INR} [facility] Comment on above: INR Therapeutic Rang e A) Pre- and Peroperative OAT started two weeks before surgery. NOT HIP SURGERY: 1.5 - 2.5 HIP SURGERY: 2 - 3B) Primary and secondary prevention of venous THROMBOSIS: 2 - 3C) Active venous thrombosis, pulmonary embolismand prevention of recurrent venous thrombosis: 2 - 3D) Prevention of arterial thromboembolismincluding patients with mechanical heart valves: 3 - 4.5 Protein [Mass/volume] in Ser um or Plasmaon 10-19-2020 Protein [Mass/Vol] 7.0 g/dL 6.1-7.9 [facility] Serum globulin measurement b y calculation (mass/volume)on 10-19-2020 Globulin (S) [Mass/Vol] 2.8 g/dL [facility] Serum or plasma alanine de guzman otransferase measurement without P-5'-P (enzymatic activion 10-19-2020 ALT No additional P-5'-P [Catalytic activity/Vol] 28 U/L 10-60 [facility] Serum or plasma albumin/glob ulin mass ratioon 10-19-2020 Albumin/Globulin [Mass ratio] 1.5 {ratio} [facility] Serum or plasma alkaline gerry sphatase measurement (enzymatic activity/volume)on 10-19-2020 ALP [Catalytic activity/Vol] 51 U/L 32-92 [facility] Serum or plasma aspartate am inotransferase measurement (enzymatic activity/volume)on 10-19-2020 AST [Catalytic activity/Vol] 25 U/L 10-42 [facility] Serum or plasma calcium cyndi urement (mass/volume)on 10-19-2020 Calcium [Mass/Vol] 9.2 mg/dL 8.2-10.2 [facility] Serum or plasma cardiac trop onin I measurement (mass/volume)on 10-19-2020 Troponin I.cardiac [Mass/Vol] ng/mL 0-0.02 [facility] Comment on above: NGOZI [place] Cut off value > or equal to 0.03 ng/mL in conjunction with clinical conditions of myocardial infarction.([email or web address].org/guidelines) Serum or plasma chloride matilde surement (moles/volume)on 10-19-2020 Chloride [Moles/Vol] 100 mmol/L 95-114 [facility] Serum or plasma creatinine m easurement with calculation of estimated glomerular filtron 10-19-2020 Creatinine [Mass/Vol] 0.78 mg/dL 0.44-1.03 [facility] Serum or plasma glucose cyndi urement (mass/volume)on 10-19-2020 Glucose [Mass/Vol] 178 mg/dL 70-100 [facility] Comment on above: ADA recommended refe rence rangeRandom Glucose Reference Range is dependent on time and content of last meal. Glucose of more than 200 mg/dL in a nonstressed, ambulatory subject supports the diagnosis of Diabetes Mellitus. Serum or plasma potassium me asurement (moles/volume)on 10-19-2020 Potassium [Moles/Vol] 3.1 mmol/L 3.5-5.1 [facility] Serum or plasma sodium measu rement (moles/volume)on 10-19-2020 Sodium [Moles/Vol] 138 mmol/L 136-146 [facility] Serum or plasma thyroid stim ulating hormone (TSH) measurement by high sensitivity meton 10-19-2020 TSH Qn 4.04 u[iU]/mL 0.45-5.33 [facility] Serum or plasma total biliru bin measurement (mass/volume)on 10-19-2020 Bilirubin [Mass/Vol] 1.0 mg/dL 0.3-1.2 [facility] Serum or plasma total carbon dioxide measurement (moles/volume)on 10-19-2020 CO2 [Moles/Vol] 24.4 mmol/L 22.0-30.0 [facility] Serum or plasma urea nitroge n measurement (mass/volume)on 10-19-2020 Urea nitrogen [Mass/Vol] 9 mg/dL 9-23 [facility] Specific gravity of Urine by Automated test stripon 10-19-2020 Specific gravity (U) [Rel density] 1.005 1.001-1.03 0 [facility] Thyroxine (T4) free [Mass/vo lume] in Serum or Plasmaon 10-19-2020 Free T4 [Mass/Vol] 0.69 ng/dL 0.61-1.12 [facility] Urine clarity by refractomet ry automatedon 10-19-2020 Clarity Refractometry automated (U) Clear Clear [facility] Urine glucose measurement by automated test strip (mass/volume)on 10-19-2020 Glucose Auto test strip (U) [Mass/Vol] Normal mg/dL Normal [facility] Urine hemoglobin detection b y automated test stripon 10-19-2020 Hemoglobin Auto test strip Ql (U) Negative Negative [facility] Urine ketones measurement by automated test strip (mass/volume)on 10-19-2020 Ketones (U) [Mass/Vol] Negative Negative [facility] Urine leukocyte esterase det ection by automated test stripon 10-19-2020 Leukocyte esterase Auto test strip Ql (U) Negative Negative [facility] Urine nitrite detection by t est stripon 10-19-2020 Nitrite Ql (U) Negative Negative [facility] Urine pH measurement by auto mated test stripon 10-19-2020 pH (U) 6.5 [pH] 5.0-9.0 [facility] Urine protein measurement by automated test strip (mass/volume)on 10-19-2020 Protein (U) [Mass/Vol] Negative Negative [facility] Urine total bilirubin detect ion by test stripon 10-19-2020 Bilirubin Ql (U) Negative Negative [facility] Urine urobilinogen measureme nt by automated test strip (mass/volume)on 10-19-2020 Urobilinogen (U) [Mass/Vol] Normal mg/dL Normal [facility] CT ABD/PELV W CONon 10-12-19 CT ABD/PELV W CON EXAMINATION: CT ABD/ PELV W CON HISTORY: Abdominal pain COMPARISON: No relevant comparison available. TECHNIQUE: Axial, Coronal, and Sagittal images were created without IV contrast. Dose reduction techniques were achieved by using automated exposure control and/or adjustment of mA and/or kV according to patient size and/or use of iterative reconstruction technique. 100 cc Omnipaque 300, Redicat oral contrast FINDINGS: LUNG BASES: No visible pulmonary or pleural disease. LIVER: Diffuse hypoattenuation consistent with hepatic steatosis. No focal mass BILIARY: Surgical clips from cholecystectomy PANCREAS: No lesion, fluid collection, ductal dilatation, or atrophy. SPLEEN: No enlargement or focal lesion. ADRENALS: No mass or enlargement. KIDNEYS: No mass, obstruction, or calcification. BOWEL/MESENTERY: Nonobstructive bowel gas pattern. Normal appendix. Moderate colonic diverticulosis. Concentric wall thickening of the proximal to mid sigmoid colon measuring up to 8 mm with no inflammatory changes AORTA/VASCULAR: No aortic aneurysm. Mild atherosclerosis RETROPERITONEUM: No mass or adenopathy. LYMPH NODES: No adenopathy. URINARY BLADDER: No visible focal wall thickening, lesion, or calculus. PELVIC ORGANS: Hysterectomy ABDOMINAL WALL: No mass or hernia. BONES: No bony lesion or fracture. OTHER: Negative. IMPRESSION: Diffuse hepatic steatosis Concentric wall thickening of the proximal to mid sigmoid colon unknown etiology. Direct visualization is suggested Electronically authenticated by: BEA BARR Date: 2020-10-12 11:15 Normal [facility] Vital Signs Date Time Vital Sign Value Performing Clinician Facility 03-04-2025 13:30-0400 Body height 175.26 cm Stefanie Castillo MD Work Phone: [facility] 03-04-2025 13:30-0400 Body mass index (BMI) [Ratio] 24.7 kg/m2 Stefanie Castillo MD Work Phone: [facility] 03-04-2025 13:30-0400 Body temperature 97.8 [degF] Stefanie Castillo MD Work Phone: [facility] 03-04-2025 13:30-0400 Body weight 76.2 kg Stefanie Castillo MD Work Phone: [facility] 03-04-2025 13:30-0400 Diastolic blood pressure 66 mm[Hg] Stefanie Castillo MD Work Phone: [facility] 03-04-2025 13:30-0400 Heart rate 88 /min Stefanie Castillo MD Work Phone: [facility] 03-04-2025 13:30-0400 SaO2% (BldA) [Mass fraction] 98 % Stefanie Castillo MD Work Phone: [facility] 03-04-2025 13:30-0400 Systolic blood pressure 110 mm[Hg] Stefanie Castillo MD Work Phone: [facility] 12-29-2024 11:10-0400 Diastolic blood pressure 69 mm[Hg] Stefanie Castillo MD Work Phone: [facility] 12-29-2024 11:10-0400 Heart rate 70 /min Stefanie Castillo MD Work Phone: [facility] 12-29-2024 11:10-0400 Respiratory rate 16 /min Stefanie Castillo MD Work Phone: [facility] 12-29-2024 11:10-0400 SaO2% (BldA) [Mass fraction] 99 % Stefanie Castillo MD Work Phone: [facility] 12-29-2024 11:10-0400 Systolic blood pressure 105 mm[Hg] Stefanie Castillo MD Work Phone: [facility] 12-29-2024 08:02-0400 Body height 175.26 cm Stefanie Castillo MD Work Phone: [facility] 12-29-2024 08:02-0400 Body weight 73.48 kg Stefanie Castillo MD Work Phone: [facility] 12-17-2024 09:54-0400 Body height 171.5 cm Yash Murillo DO Work Phone: [facility] 12-17-2024 09:54-0400 Body mass index (BMI) [Ratio] 25.62 kg/m2 Yash Murillo DO Work Phone: [facility] 12-17-2024 09:54-0400 Body weight 75.3 kg Yash Murillo DO Work Phone: [facility] 12-17-2024 09:54-0400 Diastolic blood pressure 76 mm[Hg] Yash Murillo DO Work Phone: [facility] 12-17-2024 09:54-0400 Systolic blood pressure 118 mm[Hg] Yash Murillo DO Work Phone: [facility] 03-03-2024 09:33-0400 Body height 175.26 cm [facility] 03-03-2024 09:33-0400 Body mass index (BMI) [Ratio] 24.2 kg/m2 [facility] 03-03-2024 09:33-0400 Body weight 74.38 kg [facility] 03-03-2024 09:33-0400 Diastolic blood pressure 77 mm[Hg] [facility] 03-03-2024 09:33-0400 Heart rate 80 /min [facility] 03-03-2024 09:33-0400 Systolic blood pressure 142 mm[Hg] [facility] 10-10-2023 13:47-0500 Diastolic blood pressure 84 mm[Hg] Diana Bhagat MD Work Phone: [facility] 10-10-2023 13:47-0500 Systolic blood pressure 123 mm[Hg] Diana Bhagat MD Work Phone: [facility] 10-10-2023 13:09-0500 Body height 175.3 cm Diana Bhagat MD Work Phone: [facility] 10-10-2023 13:09-0500 Body mass index (BMI) [Ratio] 26.29 kg/m2 Diana Bhagat MD Work Phone: [facility] 10-10-2023 13:09-0500 Body weight 80.74 kg Diana Bhagat MD Work Phone: [facility] 10-10-2023 13:09-0500 Heart rate 60 /min Diana Bhagat MD Work Phone: [facility] 06-26-2023 14:44-0500 Diastolic blood pressure 60 mm[Hg] MD Stefanie Castillo Work Phone: [facility] 06-26-2023 14:44-0500 Heart rate 68 /min MD Stefanie Castillo Work Phone: [facility] 06-26-2023 14:44-0500 Respiratory rate 18 /min MD Stefanie Castillo Work Phone: [facility] 06-26-2023 14:44-0500 SaO2% (BldA) [Mass fraction] 96 % MD Stefanie Castillo Work Phone: [facility] 06-26-2023 14:44-0500 Systolic blood pressure 95 mm[Hg] MD Stefanie Castillo Work Phone: [facility] 06-26-2023 09:50-0500 Body height 175.26 cm MD Stefanie Castillo Work Phone: [facility] 06-26-2023 09:50-0500 Body temperature 98 [degF] MD Stefanie Castillo Work Phone: [facility] 06-26-2023 09:50-0500 Body weight 82 kg MD Stefanie Castillo Work Phone: [facility] 06-13-2023 14:36-0400 Body height 175.3 cm Diana Bhagat MD Work Phone: [facility] 06-13-2023 14:36-0400 Body mass index (BMI) [Ratio] 26.43 kg/m2 Diana Bhagat MD Work Phone: [facility] 06-13-2023 14:36-0400 Body weight 81.19 kg Diana Bhagat MD Work Phone: [facility] 06-13-2023 14:36-0400 Diastolic blood pressure 80 mm[Hg] Diana Bhagat MD Work Phone: [facility] 06-13-2023 14:36-0400 Heart rate 60 /min Diana Bhagat MD Work Phone: [facility] 06-13-2023 14:36-0400 Systolic blood pressure 116 mm[Hg] Diana Bhagat MD Work Phone: [facility] 12-26-2022 14:18-0400 Body height 175.26 cm Stefanie Castillo Work Phone: [facility] [address] DO Work Phone: 12-26-2022 14:18-0400 Body mass index (BMI) [Ratio] 26.58 kg/m2 Stefanie Castillo Work Phone: [facility] 250 DO Work Phone: 12-26-2022 14:18-0400 Body surface area Derived from formula 1.98 m2 Stefanie Castillo Work Phone: [facility] 250 DO Work Phone: 12-26-2022 14:18-0400 Body weight 81.65 kg Stefanie Castillo Work Phone: [facility] 250 DO Work Phone: 12-26-2022 14:18-0400 Diastolic blood pressure 86 mm[Hg] Stefanie Castillo Work Phone: [facility] 250 DO Work Phone: 12-26-2022 14:18-0400 Heart rate 66 /min Stefanie Castillo Work Phone: [facility] 250 DO Work Phone: 12-26-2022 14:18-0400 Systolic blood pressure 128 mm[Hg] Stefanie Castillo Work Phone: [facility] [address] DO Work Phone: 12-13-2022 10:30-0400 Body height 173.99 cm Stefanie Castillo Other [facility] [employer] Other 12-13-2022 10:30-0400 Body mass index (BMI) [Ratio] 28.32 kg/m2 Stefanie Castillo Other [facility] [employer] Other 12-13-2022 10:30-0400 Body weight 85.73 kg Stefanie Castillo Other [employer] Other 12-13-2022 10:30-0400 Diastolic blood pressure 80 mm[Hg] Stefanie Castillo Other [facility] [employer] Other 12-13-2022 10:30-0400 SaO2% (BldA) [Mass fraction] 99 % Stefanie Castillo Other [facility] [employer] Other 12-13-2022 10:30-0400 Systolic blood pressure 118 mm[Hg] Stefanie Castillo Other [facility] [employer] Other 12-12-2022 16:01-0400 68 1 Stefanie Castillo Work Phone: [facility] [address] DO Work Phone: Comment on above: [id number] 12-12-2022 15:13-0400 Body temperature 98.4 [degF] MD Stefanie Castillo Work Phone: [facility] 12-12-2022 15:13-0400 Diastolic blood pressure 64 mm[Hg] MD Stefanie Castillo Work Phone: [facility] 12-12-2022 15:13-0400 Heart rate 102 /min MD Stefanie Castillo Work Phone: [facility] 12-12-2022 15:13-0400 Respiratory rate 18 /min MD Stefanie Castillo Work Phone: [facility] 12-12-2022 15:13-0400 SaO2% (BldA) [Mass fraction] 95 % MD Stefanie Castillo Work Phone: [facility] 12-12-2022 15:13-0400 Systolic blood pressure 101 mm[Hg] MD Stefanie Castillo Work Phone: [facility] 12-12-2022 06:59-0400 Body weight 82 kg MD Stefanie Castillo Work Phone: [facility] 12-11-2022 12:39-0400 Body height 175.26 cm MD Stefanie Castillo Work Phone: [facility] 10-10-2022 13:12-0500 Body height 175.26 cm Stefanie Castillo Work Phone: [facility] [address] DO Work Phone: 10-10-2022 13:12-0500 Body mass index (BMI) [Ratio] 26.73 kg/m2 Stefanie Castillo Work Phone: [facility] [address] DO Work Phone: 10-10-2022 13:12-0500 Body surface area Derived from formula 1.98 m2 Stefanie Castillo Work Phone: [facility] [address] DO Work Phone: 10-10-2022 13:12-0500 Body weight 82.1 kg Stefanie Castillo Work Phone: [facility] [address] DO Work Phone: 10-10-2022 13:12-0500 Diastolic blood pressure 84 mm[Hg] Stefanie Castillo Work Phone: [facility] [address] DO Work Phone: 10-10-2022 13:12-0500 Heart rate 67 /min Stefanie Csatillo Work Phone: [facility] [address] DO Work Phone: 10-10-2022 13:12-0500 Systolic blood pressure 118 mm[Hg] Stefanie Castillo Work Phone: [facility] [address] DO Work Phone: 09-05-2022 10:15-0500 Body height 173.99 cm Stefanie Castillo Other [facility] [employer] Other 09-05-2022 10:15-0500 Body mass index (BMI) [Ratio] 28.02 kg/m2 Stefanie Castillo Other [employer] Other 09-05-2022 10:15-0500 Body weight 84.82 kg Stefanie Castillo Other [employer] Other 09-05-2022 10:15-0500 Diastolic blood pressure 80 mm[Hg] Stefanie Castillo Other [employer] Other 09-05-2022 10:15-0500 SaO2% (BldA) [Mass fraction] 95 % Stefanie Castillo Other [employer] Other 09-05-2022 10:15-0500 Systolic blood pressure 122 mm[Hg] Stefanie Castillo Other [employer] Other 08-03-2022 16:07-0500 Body height 175.26 cm Stefanie Castillo Work Phone: [employer] 250 DO Work Phone: 08-03-2022 16:07-0500 Body mass index (BMI) [Ratio] 27.76 kg/m2 Stefanie Castillo Work Phone: [employer] [employer] 250 DO Work Phone: 08-03-2022 16:07-0500 Body surface area Derived from formula 2.01 m2 Stefanie Castillo Work Phone: [employer] 250 DO Work Phone: 08-03-2022 16:07-0500 Body weight 85.28 kg Stefanie Castillo Work Phone: [employer] 250 DO Work Phone: 08-03-2022 16:07-0500 Diastolic blood pressure 94 mm[Hg] Stefanie Castillo Work Phone: [employer] 250 DO Work Phone: 08-03-2022 16:07-0500 Diastolic blood pressure 96 mm[Hg] Stefanie Castillo Work Phone: [facility] [address] DO Work Phone: 08-03-2022 16:07-0500 Heart rate 71 /min Stefanie Castillo Work Phone: [facility] [address] DO Work Phone: 08-03-2022 16:07-0500 Systolic blood pressure 142 mm[Hg] Stefanie Castillo Work Phone: [facility] [facility] DO Work Phone: 08-03-2022 16:07-0500 Systolic blood pressure 146 mm[Hg] Stefanie Castillo Work Phone: [facility] [facility] DO Work Phone: 08-03-2022 15:55-0500 Body height 175.26 cm Stefanie Castillo Work Phone: [facility] [address] DO Work Phone: 08-03-2022 15:55-0500 Body mass index (BMI) [Ratio] 27.76 kg/m2 Stefanie Castillo Work Phone: [facility] [facility] DO Work Phone: 08-03-2022 15:55-0500 Body surface area Derived from formula 2.01 m2 Stefanie Castillo Work Phone: [facility] 250 DO Work Phone: 08-03-2022 15:55-0500 Body weight 85.28 kg Stefanei Castillo Work Phone: [facility] [facility] DO Work Phone: 08-03-2022 15:55-0500 Diastolic blood pressure 94 mm[Hg] Stefanie Castillo Work Phone: [facility] [facility] DO Work Phone: 08-03-2022 15:55-0500 Systolic blood pressure 142 mm[Hg] Stefanie Castillo Work Phone: [facility] [facility] DO Work Phone: 08-03-2022 15:35-0500 Diastolic blood pressure 96 mm[Hg] Stefanie Castillo Work Phone: [facility] [facility] DO Work Phone: 08-03-2022 15:35-0500 Heart rate 71 /min Stefanie Castillo Work Phone: [facility] [address] DO Work Phone: 08-03-2022 15:35-0500 Systolic blood pressure 146 mm[Hg] Stefanie Castillo Work Phone: [facility] [facility] DO Work Phone: 01-02-2022 15:28-0400 Body height 175.26 cm Stefanie Castillo Work Phone: [facility] 250 DO Work Phone: 01-02-2022 15:28-0400 Body mass index (BMI) [Ratio] 28.94 kg/m2 Stefanie Castillo Work Phone: [facility] 250 DO Work Phone: 01-02-2022 15:28-0400 Body surface area Derived from formula 2.05 m2 Stefanie Castillo Work Phone: [facility] 250 DO Work Phone: 01-02-2022 15:28-0400 Body weight 88.91 kg Stefanie Castillo Work Phone: [facility] [facility] DO Work Phone: 01-02-2022 15:28-0400 Diastolic blood pressure 78 mm[Hg] Stefanie Castillo Work Phone: [facility] [facility] DO Work Phone: 01-02-2022 15:28-0400 Heart rate 74 /min Stefanie Castillo Work Phone: [facility] [facility] DO Work Phone: 01-02-2022 15:28-0400 Systolic blood pressure 118 mm[Hg] Stefanie Castillo Work Phone: [facility] [facility] DO Work Phone: 05-31-2021 16:14-0400 Body height 175.26 cm Stefanie Castillo Work Phone: [facility] 250 DO Work Phone: 05-31-2021 16:14-0400 Body mass index (BMI) [Ratio] 28.06 kg/m2 Stefanie Castillo Work Phone: [facility] [facility] DO Work Phone: 05-31-2021 16:14-0400 Body surface area Derived from formula 2.02 m2 Stefanie Castillo Work Phone: [facility] [facility] DO Work Phone: 05-31-2021 16:14-0400 Body weight 86.18 kg Stefanie Castillo Work Phone: [facility] [address] DO Work Phone: 05-31-2021 16:14-0400 Diastolic blood pressure 80 mm[Hg] Stefanie Castillo Work Phone: [facility] [facility] DO Work Phone: 05-31-2021 16:14-0400 Heart rate 72 /min Stefanie Castillo Work Phone: [facility] [facility] DO Work Phone: 05-31-2021 16:14-0400 Systolic blood pressure 128 mm[Hg] Stefanie Castillo Work Phone: [facility] [address] DO Work Phone: 10-19-2020 08:30-0500 BP Diastolic 83 mm[Hg] [facility] 10-19-2020 08:30-0500 BP Systolic 139 mm[Hg] [facility] 10-19-2020 08:30-0500 Pulse (Heart Rate) 84 /min [facility] 10-19-2020 08:30-0500 Pulse Oximetry 97 % [facility] 10-19-2020 08:30-0500 Respiratory Rate 20 /min [facility] 10-19-2020 07:41-0500 BMI (Body Mass Index) 27.4 kg[facility]m2 [facility] 10-19-2020 07:41-0500 Body Temperature 97.7 [degF] [facility] 10-19-2020 07:41-0500 Body weight 84.3 kg [facility] 10-19-2020 07:41-0500 Height 175.26 cm [facility] Encounters Encounter Date Encounter Type Care Provider Facility Start: 03-04-2025 End: 03-04-2025 ambulatory Stefanie Castillo MD Work Phone: [facility] Work Phone: Start: 03-04-2025 End: 03-04-2025 Patient encounter procedure Fatemeh Rosen APRN [facility] Work Phone: Start: 03-04-2025 End: 03-04-2025 Patient encounter status Fatemeh Rosen APRN [facility] Start: 12-29-2024 Non-patient / Non-visit Stefanie Castillo MD Work Phone: [facility] Work Phone: Start: 12-29-2024 End: 12-29-2024 Admission to same day surgery center Stefanie Castillo MD Work Phone: [facility] Work Phone: Start: 12-29-2024 End: 12-29-2024 ambulatory Stefanie Castillo Facility:[facility] Start: 12-17-2024 End: 12-17-2024 Patient encounter status Yash Murillo DO Work Phone: [facility] Start: 12-17-2024 End: 12-17-2024 Periodic preventive med est patient 40-64yrs Yash Mariya Murillo DO Work Phone: [facility] Comment on above: Encounter for gyneco logical examination without abnormal finding (Primary Dx); Encounter for Papanicolaou smear of vagina; Breast cancer screening by mammogram; Hot flashes Start: 12-17-2024 End: 12-17-2024 ambulatory YASH Mariya MURILLO Not Available Start: 11-14-2024 End: 11-14-2024 Clinisync Result Encounter Yash Mariya Murillo DO Work Phone: [facility] Unsolicited Start: 11-14-2024 End: 11-14-2024 Clinisync Result Encounter Yash Meraz Megan DO Work Phone: [facility] Unsolicited Start: 10-20-2024 Patient encounter status Stefanie Castillo MD Work Phone: [facility] Start: 03-27-2024 End: 03-27-2024 ambulatory LEONARDO LUCAS Not Available Start: 03-03-2024 End: 03-03-2024 ambulatory [facility] Work Phone: Start: 03-03-2024 End: 03-03-2024 Patient encounter procedure [facility] G[facility] Work Phone: Start: 10-10-2023 End: 10-10-2023 ambulatory [facility] Start: 10-10-2023 End: 10-10-2023 Office outpatient visit 25 minutes Diana Bhagat MD Work Phone: [facility] Comment on above: Shortness of breath at rest (Primary Dx); Angina pectoris (CMS/HCC); Other chest pain; Statin intolerance; Mixed hyperlipidemia; Primary hypertension; Overweight (BMI 25.0-29.9); Myalgia Start: 09-20-2023 End: 09-20-2023 ambulatory Stefanie Castillo Other [employer] Other Start: 09-20-2023 Telephone encounter Stefanie Castillo [facility] Start: 08-01-2023 End: 08-01-2023 ambulatory MD Stefanie Castillo Work Phone: [facility] Work Phone: Start: 08-01-2023 End: 08-01-2023 Patient encounter procedure MD Stefanie Castillo Work Phone: [facility] Work Phone: Start: 06-26-2023 End: 06-26-2023 Admission to same day surgery center MD Stefanie Castillo Work Phone: [facility]-Budget Coordinator Work Phone: Start: 06-21-2023 End: 06-21-2023 ambulatory MD Stefanie Castillo Work Phone: [facility] Work Phone: Start: 06-21-2023 End: 06-21-2023 Patient encounter procedure MD Stefanie Castillo Work Phone: [facility] Work Phone: Start: 06-13-2023 End: 06-13-2023 ambulatory [facility] Start: 06-13-2023 End: 06-13-2023 Office outpatient visit 25 minutes Diana Bhagat MD Work Phone: [facility] Comment on above: Primary hypertension (Primary Dx); Angina pectoris (CMS/HCC); Mixed hyperlipidemia; Tachycardia; Myalgia; Shortness of breath at rest; Statin intolerance Start: 02-21-2023 Rx Renewal Stefanie Castillo Work Phone: [facility] [facility] DO Work Phone: Start: 12-26-2022 Office outpatient vi sit 25 minutes Stefanie Castillo Work Phone: [facility] 250 DO Work Phone: Start: 12-26-2022 ambulatory [facility]: Start: 12-13-2022 End: 12-13-2022 ambulatory Stefanie Castillo Other [facility] [employer] Other Start: 12-13-2022 Office outpatient vi sit 15 minutes Stefanie Castillo [facility] Start: 12-13-2022 Telephone encounter Stefanie Castillo [facility] Start: 12-12-[address] Stefanie Castillo Facility:[id number] Start: 12-11-2022 End: 12-12-2022 Evaluation and management of inpatient MD Stefanie Castillo Work Phone: [facility] [place] [facility] Work Phone: Start: 12-11-2022 End: 12-12-2022 observation encounter MD Stefanie Castillo Work Phone: [facility] Work Phone: Start: 10-24-2022 Rx Renewal Stefanie Castillo Work Phone: [facility] 600 DO Work Phone: Start: 10-17-2022 End: 10-17-2022 Patient encounter procedure MD Stefanie Castillo Work Phone: [facility] [place] Work Phone: Start: 10-10-2022 Office outpatient vi sit 25 minutes Stefanie Castillo Work Phone: [facility] 250 DO Work Phone: Start: 10-10-2022 ambulatory [facility]: Start: 09-11-2022 ambulatory [facility]: Start: 09-08-2022 Rx Renewal [facility] Work Phone: Start: 09-05-2022 End: 09-05-2022 ambulatory Stefanie Castillo Other [employer] Other Start: 09-05-2022 Encounter for genera l adult medical examination without abnormal findings Stefanie Castillo [facility] Start: 09-05-2022 Periodic preventive med est patient 40-64yrs Stefanie Castillo [facility] Start: 09-01-2022 Patient encounter status Stefanie Castillo Other [employer] Other Start: 08-29-2022 End: 08-29-2022 ambulatory Stefanie Castillo Other [employer] Other Start: 08-29-2022 Telephone encounter Stefanie Castillo [facility] Start: 08-25-2022 End: 08-25-2022 ambulatory Stefanie Castillo Other [employer] Other Start: 08-25-2022 Encounter for genera l adult medical examination without abnormal findings Stefanie Castillo [facility] Start: 08-25-2022 Telephone encounter Stefanie Castillo [facility] Start: 08-04-2022 Telephone encounter tSefanie arellano Work Phone: [facility] DO Work Phone: Start: 08-03-2022 Patient encounter procedure [facility]illo [facility] Work Phone: Start: 08-03-2022 ambulatory [facility]: Start: 06-09-2022 Rx Renewal Stefanie Castillo Work Phone: [facility] 250 DO Work Phone: Start: 01-23-2022 Rx Renewal Stefanie Castillo Work Phone: [facility] 250 DO Work Phone: Start: 01-02-2022 Office outpatient vi sit 25 minutes Stefanie Castillo Work Phone: [facility] 250 DO Work Phone: Start: 01-02-2022 ambulatory [facility] Fac[facility]ity: Start: 10-10-2021 Adult health examination Stefanie Castillo Other [facility] [employer] Other Start: 06-22-2021 Rx Renewal Stefanie E Juan Carlos Work Phone: [facility] 250 DO Work Phone: Start: 05-31-2021 Office outpatient vi sit 25 minutes Stefanie Harden Castillo Work Phone: [facility] 250 DO Work Phone: Start: 10-19-2020 End: 10-19-2020 Emergency department patient visit Bea Fonseca -Emergency Room Start: 10-19-2020 End: 10-19-2020 Patient encounter procedure Bea Fonseca -Pre-Surgical Testing Start: 10-12-2020 End: 10-13-2020 Patient encounter procedure BEA BARR Facility:[facility]1 Start: 06-01-2020 Patient encounter procedure [facility] Facility:[facility] Procedures Date Procedure Procedure Detail Performing Clinician Start: 12-29-2024 Colonoscopy Stefanie murphy MD Work Phone: Start: 11-14-2024 MM TOMOSYNTHESIS SCR EENING BI Yash Murillo DO Work Phone: Start: 11-14-2024 Mammography Yash stacy DO Work Phone: Start: 10-10-2023 FOLLOW UP IN [facility]OLOGY [facility] Start: 06-26-2023 CL [facility] COR Angio MD Fabby Castillo Work Phone: Start: 06-26-2023 MD Stefanie Castillo Work Phone: Start: 12-11-2022 Plain chest X-ray MD Maria C Castillo Work Phone: Start: 08-17-2021 Mammography Diana albrecht MD Work Phone: Start: 11-18-2020 Total colonoscopy Diana Castillo Work Phone: Start: 10-21-2020 Total colonoscopy Diana Castillo Work Phone: Start: 10-19-2020 SARS Antigen (LFIA) Darek olivera Marian Start: 10-19-2020 Plain chest X-ray Bea Marian Start: 09-22-2019 Echocardiography Start: 06-12-2016 General examination of patient Stefanie Juan Carlos Other Cholecystectomy Stefanie murphy Work Phone: Hysterectomy Stefanie Castillo Work Phone: Ligation of fallopian tube Fabby lottie Castillo Work Phone: Surgical procedure o n eye proper Stefanie Castillo Work Phone: Comment on above: EYE LID LIFT BILAT.; Plan of Treatment Date Care Activity Detail Author Start: 12-16-2028 Screening for malignant neoplasm of cervix [facility] Start: 11-15-2025 End: 02-16-2026 DBT Breast - bilateral screening Bilateral screening mammogram with tomosynthesis Imaging Routine Breast cancer screening by mammogram Expected: 11/15/2025, Expires: 02/16/2026 [facility] Comment on above: Expected: 11/15/2025, Expires: Start: 11-14-2025 Screening for malignant neoplasm of breast Mammogram [facility] Start: 04-20-2025 Influenza vaccination Influenza Vaccine (Season Ended) [facility] Start: 03-31-2025 End: 03-31-2025 Patient encounter procedure 03/31/2025 9:05 AM EDT Office Visit [facility] [address] [place] [id number] Leonardo Lucas MD [address] [place] [address] [facility] Start: 12-29-2024 [facility] Start: 12-17-2024 End: 12-17-2024 Patient encounter procedure 12/17/2024 10:00 AM EDT Office Visit [facility] OB [address] [place] [phone] Yash Murillo DO [address] [place] [address] [facility] Start: 12-04-2024 Screening for malignant neoplasm of breast Mammogram [facility] Start: 10-14-2024 End: 10-14-2024 Patient encounter procedure 10/14/2024 1:30 PM EST Office Visit [facility] [address] [place] [id number] Diana Bhagat MD [address] [place], [place] [id number] [facility] Start: 04-20-2024 Influenza vaccination Influenza Vaccine (#1) [facility] Start: 01-08-2024 End: 10-10-2024 Alanine aminotransferase [Enzymatic activity/volume] in Serum or Plasma by With P-5'-P Alanine Aminotransferase Lab Routine Mixed hyperlipidemia Expected: 01/08/2024 (Approximate), Expires: 10/10/2024 [facility] Work Phone: Comment on above: Expected: 01/08/2024 (Approximate), Expi res: 10/10/2024 Start: 01-08-2024 End: 10-10-2024 Aspartate aminotransferase [Enzymatic activity/volume] in Serum or Plasma by With P-5'-P Aspartate Aminotransferase Lab Routine Mixed hyperlipidemia Expected: 01/08/2024 (Approximate), Expires: 10/10/2024 [facility] Work Phone: Comment on above: Expected: 01/08/2024 (Approximate), Expi res: 10/10/2024 Start: 01-08-2024 End: 10-10-2024 Lipid 1996 panel - Serum or Plasma Lipid Panel Lab Routine Mixed hyperlipidemia Expected: 01/08/2024 (Approximate), Expires: 10/10/2024 [email or web address] Service Area Work Phone: Comment on above: Expected: 01/08/2024 (Approximate), Expi res: 10/10/2024 Start: 10-10-2023 FUV, Provider: Diana Bhagat, Status: Pen, Time: 1:00 PM FUV, Provider: Diana Bhagat, Status: Pen, Time: 1:00 PM -[facility] 250 DO Work Phone: Start: 10-10-2023 End: 10-10-2023 Patient encounter procedure 10/10/2023 1:00 PM EST Office Visit [facility] [address] [facility] [address] [place] [id number] Diana Bhagat MD [address] [facility] [address], [place] [address] [place] [id number] [facility] Start: 06-26-2023 End: 06-26-2023 [facility] Start: 06-13-2023 End: 06-13-2024 Alanine aminotransferase [Enzymatic activity/volume] in Serum or Plasma by With P-5'-P Alanine Aminotransferase Lab Routine Mixed hyperlipidemia Expected: 06/13/2023 (Approximate), Expires: 06/13/2024 [facility] Work Phone: Comment on above: Expected: 06/13/2023 (Approximate), Expi res: 06/13/2024 Start: 06-13-2023 End: 06-13-2024 Aspartate aminotransferase [Enzymatic activity/volume] in Serum or Plasma by With P-5'-P Aspartate Aminotransferase Lab Routine Mixed hyperlipidemia Expected: 06/13/2023 (Approximate), Expires: 06/13/2024 [facility] [[email or web address] Service Area Work Phone: Comment on above: Expected: 06/13/2023 (Approximate), Expi res: 06/13/2024 Start: 06-13-2023 End: 06-13-2024 Lipid 1996 panel - Serum or Plasma Lipid Panel Lab Routine Mixed hyperlipidemia Expected: 06/13/2023 (Approximate), Expires: 06/13/2024 [facility] Work Phone: Comment on above: Expected: 06/13/2023 (Approximate), Expi res: 06/13/2024 Start: 05-18-2023 FUV, Provider: Diana Bhagat, Status: Pen, Time: 10:50 AM FUV, Provider: Diana Bhagat, Status: Pen, Time: 10:50 AM Merged with [facility] [employer] 250 DO Work Phone: Start: 04-20-2023 COVID-19 Vaccine ( season) COVID-19 Vaccine ( season) [facility] Start: 04-20-2023 Influenza vaccination Influenza Vaccine (#1) [facility] Start: 12-12-2022 [facility] Start: 12-12-2022 Radionuclide myocardial perfusion stress study NM anuja perf SPECT rest & str [facility] Start: 12-12-2022 [facility] Start: 12-11-2022 Hospital admission [facility] Start: 12-11-2022 [facility] Start: 10-04-2022 FUV, Provider: Diana Bhagat, Status: Pen, Time: 1:30 PM FUV, Provider: Diana Bhagat, Status: Pen, Time: 1:30 PM Merged with [facility] [employer] 250 DO Work Phone: Start: 08-17-2022 Screening for malignant neoplasm of breast Mammogram [facility] Start: 12-07-2021 FUV, Provider: Diana Bhagat, Status: Pen, Time: 2:10 PM FUV, Provider: Diana Bhagat, Status: Pen, Time: 2:10 PM -[facility] DO Work Phone: Start: 01-13-2021 COVID-19 Vaccine (3 - Pfizer series) COVID-19 Vaccine (3 - Pfizer series) [facility] Start: 2015 Zoster Vaccines (1 of 2) Zoster Vaccines (1 of 2) [facility] Start: 1987 DTaP/Tdap/Td Vaccines (1 - Tdap) DTaP/Tdap/Td Vaccines (1 - Tdap) [facility] Start: 1986 Screening for malignant neoplasm of cervix [facility] Start: 1983 Diabetes mellitus screening Diabetes Screening [facility] Start: 1983 Hepatitis C screening Hepatitis C Screening [facility] Start: 1971 Pneumococcal Vaccine: Pediatrics (0 to 5 Years) and At-Risk Patients (6 to 64 Years) (1 - PCV) Pneumococcal Vaccine: Pediatrics (0 to 5 Years) and At-Risk Patients (6 to 64 Years) (1 - PCV) [facility] Start: 1966 MMR Vaccines (1 of 1 - Standard series) MMR Vaccines (1 of 1 - Standard series) [facility] Start: 1965 Hepatitis B Vaccines (1 of 3 - 3-dose series) Hepatitis B Vaccines (1 of 3 - 3-dose series) [facility] Start: 1965 HIV screening HIV Screening [facility] Start: 1965 Lipid panel Lipid Panel [facility] Start: 1965 Screening for malignant neoplasm of colon [facility] Start: 1965 Yearly Adult Physical Yearly Adult Physical [facility] Comprehensive metabo lic 2000 panel - Serum or Plasma [facility] IGP,rfxAptima HPV all,16/18,45 IGP,rfxAptima HPV all,16/18,45 Pathology and Cytology Routine Encounter for Papanicolaou smear of vagina Ordered: 12/17/2024 [facility] Work Phone: Comment on above: Ordered: 12/17/2024 Patient Education [facility] Patient referral [facility] Immunizations Immunization Date Immunization Notes Care Provider Fa cility 11-18-2020 Pfizer-BioNTech COVID-19 Vacc 30 MCG/0.3ML Intramuscular Suspension Stefanie Castillo Work Phone: [facility] 10-28-2020 Pfizer-BioNTech COVID-19 Vacc 30 MCG/0.3ML Intramuscular Suspension Stefanie Castillo Work Phone: [facility] 07-20-2012 influenza virus vaccine, unspecified formulation Diana Bhagat MD Work Phone: [facility] Work Phone: influenza virus vaccine, unspecified formulation Stefanie Castillo Work Phone: -[facility] DO Work Phone: Comment on above: Jul 2012 Payers Date Payer Category Payer [facility] [id number] 2021 Unknown 1965 Unknown [id number] .593 1965 Unknown [id number] .593 1965 Unknown [id number] 2..[id number] .356 1965 Unknown [id number] 2..[id number] .356 1965 Unknown [id number] [id number] .356 1965 Unknown [id number] [id number] .356 1965 Unknown [id number] [id number] .356 1965 Unknown [id number] [id number] .356 1965 Unknown [id number] [id number] .1244 1965 Unknown [id number] [id number] .1244 1965 Unknown [id number] [id number] .1259 1965 Unknown [id number] [id number] .1259 1959 Self-pay 1959 Unknown [id number] Unknown [id number] Unknown [id number] Unknown HCAP/HFA/FAP Active [id number] Social History Date Type Detail Facility Start: 10-19-2020 End: 12-29-2024 Tobacco smoking status NHIS Never smoked tobacco (finding) [facility] Start: 1965 Sex Assigned At Female [facility] Start: 10-10-2023 End: 12-17-2023 No illicit drug use No illicit drug use [place] [address] DO Work Phone: Start: 10-10-2023 End: 12-17-2023 Sex Assigned At [facility] [employer] Other Start: 03-23-2023 End: 06-13-2023 Tobacco use and exposure Smokeless tobacco non-user [facility] Work Phone: Start: 06-13-2023 End: 12-17-2024 Alcohol intake Lifetime non-drinker (finding) [facility] Work Phone: Start: 1965 Sex Assigned At Not on file [facility] Work Phone: Start: 06-03-2023 End: 10-10-2023 Exposure to SARS-CoV-2 (event) Not sure [facility] Start: 03-26-2023 Gender identity Identifies as female gender (finding) [facility] Work Phone: Start: 03-26-2023 Sexual orientation Heterosexual (finding) [facility] Work Phone: How often to you hav e a drink containing alcohol? Never [facility] How many standard drinks containing alcohol do you have on a typical day? Patient does not drink [facility] Start: 03-23-2023 Alcohol Comment Caffeine intake: 1-2 cups per day [facility] Start: 12-29-2024 Sex Female (finding) [facility] Medical Equipment Procedure Code Equipment Code Equipment Origin al Text Equipment Identifier Dates Stress urinary incontinence surgical mesh, female [id number] [facility] Start: 08-15-2023 Goals Date Patient Goal Desired Activity /State Functional Status Date Assessment Result Facility 12-17-2024 Total score [AUDIT-C] 0 12/18/19 25 10:00 AM Amparo Wells MA [facility] Healthcare 12-12-2022 Functional status Patient at Baseline [facility] Work Phone: [facility] Healthcare Mental Status Date Assessment Result Facility 12-12-2022 Cognitive function Cognitive Sta tus Patient at Baseline [facility] Work Phone: Clinical Notes 07-10-2022 to 02-17-2025 Note Date & Type Note Facility 02-17-2025 Evaluation note Diagnosis Onset Date Resolution High cholesterol acute February 1:25pm Hypertension acute March 04 1:25pm Vitamin B 12 deficiency acute J elisha 2024 1:25pm Vitamin D deficiency acute March 04, 2025 1:25pm Wellness examination acute March 04, 2025 1:25pm [facility] Work Phone: [phone] 403-329905-12-2025 [place] [address] Colonoscopy Procedure Report Signed Patient: Ana María See MR#: [id number] : 1965 Acct:[id number] Age/Sex: 59 / F Adm Date: Loc: Room: Type: [facility] Attending Dr: Stiven Sylvester MD Copies to: MD Stefanie Hensley MD~ Colonoscopy Date/Provider 12/29/2024 Stiven Sylvester MD Colonoscopy Findings: Procedure: Colonoscopy with polypectomy Indication: 59-year-old female with history of colonic polyps here for surveillance colonoscopy Pre-operative diagnosis: History of colonic polyps Post-operative diagnosis: Rectal polyp, diverticulosis, internal hemorrhoids. Sedation: propofol per anesthesia dept O2 oximetry, hemodynamic monitoring was performed pre, during, and post procedure. Patient was identified, H&P completed, patient was given full explanation of the procedure as well as associatedrisks and written consent wasobtained prior to procedure. Patient expressed complete understanding of the procedure as well as alternatives to the procedure and to anesthesia and agreed to proceed with the procedure as indicated. Patient was immediately reassessed prior to IV sedation. Under IV sedation, patient was placed in the left lateral decubitus position. Digital rectal exam was performed and normal. Colonoscope was inserted and passed proximally to the cecum, which was identified by the ileocecal valve, appendiceal orifice and cecal floor. Colonoscope was slowly withdrawnwith the findings as below. [place] bowel prep score was good. Findings: Diverticulosis noted throughout the colon otherwise findings are as below. Terminal ileum: Normal Cecum: Normal. Ascending colon: Normal. Hepatic flexure: Normal. Transverse colon: Normal. Splenic flexure: Normal. Descending colon: Normal. Sigmoid colon: Normal. Rectum: A 2 mm polyp removed using cold forceps Retroflexed views: Rectum did show internal hemorrhoids. Biopsy taken: No Complications: None EBL: Minimal Recommendations: -Repeat colonoscopy in 5 years -Follow up pathology -Follow up with PCP Following a period of recovery, patient was seen and given full explanation of the procedure. Patient tolerated the procedure well and will be discharged in satisfactory, stable condition. Stiven Sylvester M.D. Documented By: Stiven Sylvester MD 12/29/24 1040 Signed By: 12/29/24 1042 [facility]05-12-2025 [place] [address] Gastroenterology H&P Signed Patient: Ana María See MR#: [id number] : 1965 Acct:[id number] Age/Sex: 59 / F Adm Date: 5 Loc: Room: Type: [facility] Attending Dr: Stiven Sylvester MD Copies to: MD Stefanie Hensley MD~ Date of Service: 12/29/2024 HISTORY & PHYSICAL: Patient's history with special attention to the cardiovascular, pulmonary systems and the current problem was reviewed with the patient immediately prior to the procedure. Present medications and doses reviewed in the EMR. Allergies and pertinent laboratory tests were also re viewedat this time in the EMR. The physical examination, as below, was then performed. Indication, assessment and HPI: 59-year-old female with history of colonic polyps here for surveillance colonoscopy Family history of GI malignancy? No PHYSICAL EXAMINATION General appearance: NAD Skin: No jaundice Head: NC/AT Eyes: Anicteric Neck: Supple Lungs: Normal respiratory effort, no use of accessory muscles Abdomen: nondistended Neuro: Ox3. REVIEW OF SYSTEMS Constitutional: Denies malaise, fevers Cardiovascular: Denies chest pain, palpitations Respiratory: Denies shortness of breath, wheezing Gastrointestinal: As per HPI Genitourinary: Denies dysuria, polyuria Musculoskeletal: Denies joint swelling, joint stiffness Neurological: Denies confusion, numbness, tingling Endocrine: Denies fatigue Written informed consent obtained from the patient. Risks (including but not limited to perforation, infection, bloating, bleeding, need for emergent surgeryand loss of life), benefits and alternatives explained and questions answered. The patient verbalized understanding. Based on history patient is an appropriate candidate for the procedure. Stiven Sylvester M.D. Documented By: Stiven Sylvester MD 12/29/24 1024 Signed By: 12/29/24 1040 [facility]04-30-2025 History of Present illness Narrative * Maggie Duvall MA - 12/17/2024 10:00 AM EDT Images from the original note were not included. Yash Murillo, DO Obstetrics and Gynecology Ana María See 1965 12/17/24 [id number] Yearly Wellness Exam Chief Complaint Patient presents with Gynecologic Exam LMP: LAVH BSO 2012 HRT: None Last pap 12-17-23 neg. Last mammogram 11-14-24 [facility]. Denies breast, urinary, or bowel concerns. Menopause Would like to restart HRT. C/o severe knee and hip pain, hot flashes, brain fog, night sweats. Previously stopped when lumps were found in breasts. Visit Vitals BP 118/76 Ht 5' 7.5 Wt 166 lb BMI 25.62 kg/m OB Status Hysterectomy Smoking Status Never BSA 1.89 m OB History Para Term AB Living 3 3 3 SAB IAB Ectopic Multiple Live Births 3 # Outcome Date GA Lbr Que/2nd Weight Sex Type Anes PTL Lv 3 Para Vag-Spont TYESHA 2 Para Vag-Spont TYESHA 1 Para Vag-Spont TYESHA Obstetric Comments Heaviest weighed 9 lbs 8 oz Current Outpatient Medications Medication Sig Dispense Refill Ascorbic Acid (vitamin C) 1000 MG tablet 1 (one) time each day at the same time. aspirin 81 MG EC tablet 1 (one) time each day at the same time. Cholecalciferol (Vitamin D) 50 MCG (1999) capsule 1 capsule 1 (one) time each day at the same time. estradiol (Estrace) 1 MG tablet Take 1 tablet (1 mg) by mouth Daily 90 tablet 3 Icosapent Ethyl (Vascepa) 1 g capsule Take 2 capsules by mouth in the morning and 2 capsules beforebedtime. lisinopril-hydroCHLOROthiazide 20-12.5 MG tablet Take 1 tablet by mouth in the morning. Magnesium 125 MG capsule metoprolol succinate XL (Toprol-XL) 50 MG 24 hr tablet Take 50 mg by mouth in the morning. predniSONE (Deltasone) 10 MG tablet Take 4 tabs daily x 7 days, take 2 tabs daily x 7 days, take 1 tab daily x 7 days. Total days: 21 49 tablet 0 terbinafine (LamISIL) 250 MG tablet Take 1 tablet, by mouth, once daily, 21 days 21 tablet 0 verapamil ER (Verelan) 180 MG 24 hr capsule Take 180 mg by mouth in the morning. No current facility-administered medications for this visit. Allergies Allergen Reactions Rosuvastatin Other Reaction(s): Myalgia Simvastatin Other Reaction(s): Unknown Moxifloxacin Rash Other Reaction(s): Itching Past Surgical History: Procedure Laterality Date BLADDER SUSPENSION 08/15/2023 TVT-O, cystoscopy CARPAL TUNNEL RELEASE COLONOSCOPY 09/2020 negative HYSTERECTOMY 2013 LAVH/BSO MT LAP,CHOLECYSTECTOMY 2010 TUBAL LIGATION Past Medical History: Diagnosis Date Carpal tunnel syndrome Fibrocystic breast Fibroid uterus 2012 Hormone disorder Hypertension (CMS/HCC) Menopause ovarian failure Ovarian cyst Tick bite 11/2023 Urinary incontinence ROS Const: Denies appetite change, fever, chills. Allergy: Denies medication reaction. Ocular: Denies visual acuity change. ENT: Denies hearing change. Endoc: Denies weight loss. Resp: Denies dyspnoea, wheezing. Cardiac: Denies angina, palpitations. GI: Denies nausea, vomiting. Haem: Denies bleeding. : Denies incontinence. MSK: Denies arthralgias, joint oedema. Derm: Denies rash, hair loss. Neuro: Denies ataxia, tremor. Also see HPI for elements of ROS documented therein and for details of positive findings, which shall supersede the foregoing. EXAM GENERAL EXAMINATION alert oriented well developed, well nourished. HEAD: normocephalic atraumatic. EYES: sclera anicteric. EARS: no obvious hearing deficit. NECK/THYROID: neck supple no cervical lymphadenopathy no thyromegaly. LYMPH NODES: no axillary, supraclavicular or inguinal adenopathy. SKIN: warm and dry. HEART: regular rate and rhythm. LUNGS: clear to auscultation bilaterally. CHEST:axillary nodes grossly normal. BREASTS:no masses palpable bilaterally, normal nipples bilaterally - everted - fatty replaced - dense - well supported- axilla negative. ABDOMEN: soft, nontender, nondistended, no masses palpable. BACK: no costovertebral angle tenderness, no obvious scoliosis/kyphosis. 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 1 cystocele/rectocele RECTAL:normal tone , no masses palpable , only small external hemorrhoids. EXTREMITIES no edema. NEUROLOGIC: alert and oriented. PSYCH: cooperative with exam. ICD-10-CM 1. Encounter for gynecological examination without abnormal finding Z01.419 Pelvic and breast exam completed. Findings of today's exam discussed with the patient. Continue MSBE. Ca/Vit D recommendations reviewed with the patient. The patient is to contact the office with anychanges to her gynecological condition or any changes with breast or bleeding. The patient is to return in 1 year or as needed 2. Encounter for Papanicolaou smear of vagina Z12.72 IGP,rfxAptima HPV all,16/18,45 Thinprep collected. Will notify patient if results are abnormal. 3. Breast cancer screening by mammogram Z12.31 Bilateral screening mammogram with tomosynthesis Reviewed last mammogram with patient, WNL. Screening mammogram ordered. Patient to call and schedule. 4. Hot flashes R23.2 estradiol (Estrace) 1 MG tablet Discussed family history of cancer. Sister stage 4 liver cancer. She stopped due to fear of cancer.Educated on WHI, benefits and risk. She would like to restart estradiol due to her hot flashes and night sweats. Advised take every other day for the month of December. If still have hot flashes increase to daily. Entered by Maggie Duvall MA acting as scribe for Dr. Yash Murillo. Signature Maggie Duvall MA Date 12/17/24 . Time 10:09 AM . The documentation recorded by the scribe accurately reflectsthe service(s) I personally performed and the decisions I made. Signature Jolly Murillo D.O. Date 12/17/24 Time 5:00PM. documented in this encounterFreeman Health [id number] History of Present illness Narrative* Diana Bhagat MD - 10/10/2023 1:00 PM EST Subjective Ana María See is a 58 y.o. female Chief Complaint Follow-up HPI Patient is here for follow-up continue management for previous presentation with chest pain, palpitation shortness of breath and tachycardia. This ultimately led to cardiac catheterization that showed no evidence of coronary artery disease. She continues to struggle with severe hyperlipidemia whichI suspect is familial. She is taking Nexletol but has not started Zetia. Her triglycerides remain elevated more than 800. She denies chest pain, palpitation, lightheadedness, dizziness or syncope. ASSESSMENT: 1 recurrent presentation with chest pain, palpitation and tachycardia. Work-up was benign. In the past. Despite treatment with beta-miley to continue to have symptoms. She had moderate to high riskfor ischemic heart disease based on risk profile. Recent heart catheter showed no significant obstructive disease. Patient admits that she is feeling much better since she no now she had no obstructive disease 2. Hyperlipidemia, continues to have significant hypertriglyceridemia with triglycerides close to 800 started on Vascepa. Unable to tolerate Crestor or statin. Had been on Nexletol but has not been taking her Zetia 3. Hypertension, controlled. 4. Tachycardia improved with the addition of verapamil 5. Mildly overweight with no weight changes 6. Intermittent complaint of shortness of breath recent echo was normal. She described functional class 2 7. Patient complained of a little bit of shakiness and tremor TSH was normal likely due to hot flashes and postmenopausal symptoms RECOMMENDATIONS: 1. The patient was counseled regarding losing weight, exercise, and risk factor adjustment. 2. The patient will remain on the same medication, but I advised her to be compliant with Zetia 3. I advised her to repeat her lipid profile in 3 months if it remains elevated will add fenofibrate 4. I reviewed with her her recent hospitalization record and previous testing 5. I reviewed with her the result of her heart cath at great length Review of Systems All other systems reviewed and are negative. Vitals: 10/10/23 1309 10/10/23 1347 BP: 142/82 123/84 BP Location: Right arm Right arm Patient Position: Sitting Sitting Pulse: 60 Weight: 80.7 kg (178 lb) Height: 1.753 m (5' 9 ) Objective Physical Exam Constitutional: Appearance: Normal appearance. She is normal weight. HENT: Nose: Nose normal. Neck: Vascular: No carotid bruit. Cardiovascular: Rate and Rhythm: Normal rate. Pulses: Normal pulses. Heart sounds: Normal heart sounds. Pulmonary: Effort: Pulmonary effort is normal. Abdominal: General: Bowel sounds are normal. Palpations: Abdomen is soft. Genitourinary: Rectum: Normal. Musculoskeletal: General: Normal range of motion. Cervical back: Normal range of motion. Right lower leg: No edema. Left lower leg: No edema. Skin: General: Skin is warm and dry. Neurological: General: No focal deficit present. Mental Status: She is alert. Psychiatric: Mood and Affect: Mood normal. Behavior: Behavior normal. Thought Content: Thought content normal. Judgment: Judgment normal. Allergies Moxifloxacin, Rosuvastatin, Simvastatin, and Kkgzgjb-qro-owr reductase inhibitors Current Medications Current Outpatient Medications: ascorbic acid (Vitamin C) 1,000 mg tablet, Take 1 tablet (1,000 mg) by mouth once daily., Disp: , Rfl: aspirin 81 mg chewable tablet, Chew 1 tablet (81 mg) once daily., Disp: , Rfl: bempedoic acid (Nexletol) 180 mg tablet, Take 180 mg by mouth once daily., Disp: 90 tablet, Rfl: 3 cholecalciferol (Vitamin D-3) 5,000 Units tablet, Take by mouth once daily., Disp: , Rfl: estradiol (Estrace) 0.5 mg tablet, Take 1 tablet (0.5 mg) by mouth once daily., Disp: , Rfl: icosapent ethyL (Vascepa) 1 gram capsule, Take 2 capsules (2 g) by mouth 2 times a day with meals.,Disp: , Rfl: lisinopriL-hydrochlorothiazide 20-12.5 mg tablet, Take 1 tablet by mouth once daily., Disp: , Rfl: magnesium glycinate (MAG GLYCINATE ORAL), Take 1 tablet by mouth once daily., Disp: , Rfl: metoprolol succinate XL (Toprol-XL) 50 mg 24 hr tablet, Take 1 tablet (50 mg) by mouth once daily.,Disp: , Rfl: verapamil SR (Calan-SR) 180 mg ER tablet, Take 1 tablet (180 mg) by mouth once daily at bedtime. Donot crush or chew., Disp: , Rfl: zinc acetate 50 mg (zinc) capsule, Take 1 capsule by mouth once daily., Disp: , Rfl: ezetimibe (Zetia) 10 mg tablet, Take 1 tablet (10 mg) by mouth once daily., Disp: 90 tablet, Rfl: 3 Assessment/Plan 1. Shortness of breath at rest 2. Angina pectoris (CMS/HCC) Follow Up In Cardiology 3. Other chest pain 4. Statin intolerance ezetimibe (Zetia) 10 mg tablet 5. Mixed hyperlipidemia ezetimibe (Zetia) 10 mg tablet Lipid Panel Aspartate Aminotransferase Alanine Aminotransferase 6. Primary hypertension Follow Up In Cardiology 7. Overweight (BMI 25.0-29.9) 8. Myalgia Scribe Attestation By signing my name below, I, Mariel Mercer LPN , [place] attest that this documentation has been prepared under the direction and in the presence of MD Brynn. Provider Attestation - Scribe documentation All medical record entries made by the Scribe were at my direction and personally dictated by me. Ihave reviewed the chart and agree that the record accurately reflects my personal performance of the history, physical exam, discussion and plan. documented [facility] Work Phone: 1(292) 373-315502-21-2024 Instructions* Patient Instructions* Mariel Amezquita LPN - 10/10/2023 1:00 PM EST Please bring all medicines, vitamins, and herbal supplements with you when you come to the office. Prescriptions will not be filled unless you are compliant with your follow up appointments or have a follow up appointment scheduled as per instruction of your physician. Refills should be requested at the time of your visit. BMI was above normal measurement. Current weight: 80.7 kg (178 lb) Weight change since last visit (-) denotes wt loss -1 lbs Weight loss needed to achieve BMI 25: 9.1 Lbs Weight loss needed to achieve BMI 30: -24.7 Lbs Provided instructions on dietary changes Provided instructions on exercise. documented in this encounterPark[facility] Work Phone: [phone]) 870-509902-01-2024 Evaluation note* Encounter Date Diagnosis Assessment Notes Treatment Notes Treatment Clinical Notes Sep, Bronchitis (ICD-10 - J40) [facility] Other 10-25-2023 History of Present illness Narrative* Diana Bhagat MD - 06/13/2023 2:30 PM EDT Subjective Ana María See is a 58 y.o. female Chief Complaint Follow-up HPI Patient is here for cardiovascular evaluation. She had numerous previous presentation with chest pain, palpitation and tachycardia. She underwent extensive work-up on numerous time. She was in the hospital and a stress test was done back in December. She does have significant risk factor for ischemic heart disease with severe hyperlipidemia with documented history of intolerance to statin. She continues to complain of recurrent episode of chest pain, shortness of breath and palpitation. Some of the episode is exertional suspicious of angina. She denies lightheadedness, dizziness or syncope. ASSESSMENT: 1 recurrent presentation with chest pain, palpitation and tachycardia. Work-up was benign. In the past. Despite treatment with beta-miley to continue to have symptoms. She had moderate to high riskfor ischemic heart disease based on risk profile 2. Hyperlipidemia, continues to have significant hypertriglyceridemia with triglycerides close to 800 started on Vascepa. Unable to tolerate Crestor or statin 3. Hypertension, controlled. 4. Tachycardia improved with the addition of verapamil 5. Mildly overweight with no weight changes 6. Intermittent complaint of shortness of breath recent echo was normal. She described functional class 2 7. Patient complained of a little bit of shakiness and tremor TSH was normal likely due to hot flashes and postmenopausal symptoms RECOMMENDATIONS: 1. The patient was counseled regarding losing weight, exercise, and risk factor adjustment. 2. The patient will remain on the same medication, 3. I recommended a trial of Nexletol and review of intolerance to statin and severe hyperlipidemia 4. I reviewed with her her recent hospitalization record and previous testing 5. We discussed treatment and work-up option following lengthy discussion the patient elected to proceed with cardiac catheterization considering continued symptoms chest pain and shortness of breathon background of significant risk factor for ischemic heart disease Review of Systems Cardiovascular: Positive for chest pain. Respiratory: Positive for shortness of breath. Musculoskeletal: Positive for back pain. All other systems reviewed and are negative. Vitals: 06/13/23 1436 BP: 116/80 BP Location: Left arm Patient Position: Sitting Pulse: 60 Weight: 81.2 kg (179 lb) Height: 1.753 m (5' 9 ) Objective Physical Exam Constitutional: Appearance: Normal appearance. She is normal weight. HENT: Nose: Nose normal. Neck: Vascular: No carotid bruit. Cardiovascular: Rate and Rhythm: Normal rate. Pulses: Normal pulses. Heart sounds: Normal heart sounds. Pulmonary: Effort: Pulmonary effort is normal. Abdominal: General: Bowel sounds are normal. Palpations: Abdomen is soft. Genitourinary: Rectum: Normal. Musculoskeletal: General: Normal range of motion. Cervical back: Normal range of motion. Right lower leg: No edema. Left lower leg: No edema. Skin: General: Skin is warm and dry. Neurological: General: No focal deficit present. Mental Status: She is alert. Psychiatric: Mood and Affect: Mood normal. Behavior: Behavior normal. Thought Content: Thought content normal. Judgment: Judgment normal. Current Medications Current Outpatient Medications: ascorbic acid (Vitamin C) 1,000 mg tablet, Take 1 tablet (1,000 mg) by mouth once daily., Disp: , Rfl: aspirin 81 mg chewable tablet, Chew 1 tablet (81 mg) once daily., Disp: , Rfl: cholecalciferol (Vitamin D-3) 5,000 Units tablet, Take by mouth once daily., Disp: , Rfl: estradiol (Estrace) 0.5 mg tablet, Take 1 tablet (0.5 mg) by mouth once daily., Disp: , Rfl: icosapent ethyL (Vascepa) 1 gram capsule, Take 2 capsules (2 g) by mouth 2 times a day with meals.,Disp: , Rfl: lisinopriL-hydrochlorothiazide 20-12.5 mg tablet, Take 1 tablet by mouth once daily., Disp: , Rfl: magnesium glycinate (MAG GLYCINATE ORAL), Take 1 tablet by mouth once daily., Disp: , Rfl: metoprolol succinate XL (Toprol-XL) 50 mg 24 hr tablet, Take 1 tablet (50 mg) by mouth once daily.,Disp: , Rfl: verapamil SR (Calan-SR) 180 mg ER tablet, Take 1 tablet (180 mg) by mouth once daily at bedtime. Donot crush or chew., Disp: , Rfl: zinc acetate 50 mg (zinc) capsule, Take 1 capsule by mouth once daily., Disp: , Rfl: bempedoic acid (Nexletol) 180 mg tablet, Take 180 mg by mouth once daily., Disp: 90 tablet, Rfl: 3 Assessment/Plan 1. Primary hypertension 2. Angina pectoris (CMS/HCC) bempedoic acid (Nexletol) 180 mg tablet Follow Up In Cardiology 3. Mixed hyperlipidemia bempedoic acid (Nexletol) 180 mg tablet Aspartate Aminotransferase Alanine Aminotransferase Lipid Panel 4. Tachycardia 5. Myalgia 6. Shortness of breath at rest 7. Statin intolerance documented in this encounterPark[facility] Work Phone: [phone]) [phone] Instructions* Patient Instructions* Landy Chao LPN - 06/13/2023 2:30 PM EDT Please bring all medicines, vitamins, and herbal supplements with you when you come to the office. Prescriptions will not be filled unless you are compliant with your follow up appointments or have a follow up appointment scheduled as per instruction of your physician. Refills should be requested at the time of your visit. Heart cath documented in this encounterPark[facility] Work Phone: [phone]) [phone] Evaluation note* Encounter Date Diagnosis Assessment Notes Treatment Notes Treatment Clinical Notes Nov, Aphthous stomatitis (ICD-10 - K12.0) Discussed likely viral cause. Gums are quite red. If several days of the acyclovir area does not improve she understands that her dentist [facility] Other 04-25-2023 Consult note Author Gerardo Ames [facility] December 12, 2022 2:15pm Note Date/Time December 12, 2022 10: 20am [facility] [address] [place] [address] Cardiology Consult Note Signed with Addenda Patient: Ana María See MR#: [id number] : 1965 Acct:[id number] Age/Sex: 57 / F Adm Date: 3 Loc: Room: [address] [place] [address] Type: ADM INOo Attending Dr: Jeremy Nova MD Copies to: MD Stefanie Clayton MD Stephen M Tann, MD~ ADDENDUM2 Correction to outpatient follow-up in [facility] with Dr. Bhagat: 12/26/2022 at 2:30 PM Addendum Documented By: Gerardo Ames MD 12/12/221414 Addendum Signed By: <Electronically signed by Greardo Ames MD> 12/12/221414 ADDENDUM1 Further data: Echocardiogram: Normal resting left ventricular regional wall motion and systolic function. Ejection fraction greater than 60%. No significant valvularheart disease. No pericardial nor pleural effusions. Exercise treadmill test/nuclear myocardial perfusion SPECT imaging study: Patient exercised 9 minutes on a standard Abdifatah protocol with no chest pain or ischemic EKG changes. Baldwin treadmill score +7.5 equals low risk. Nuclear SPECTimaging shows no evidence of inducible ischemia. Sum rest score 0 sum stress score 1 sum difference score 1. Low risk findings. Recommendations: 1. Patient is safe and ready for discharge to home today 2. Start verapamil ER 180 mg every morning 3. Change metoprolol succinate dosing to 50 mg p.o. every afternoon 4. Patient will be scheduled to follow-up in [facility] with Dr. Bhagat this coming Sunday at 8:40 AM. 5. Strongly recommend full thyroid analysis as well as hormonal analysis which can be performed in the outpatient setting. Again thank you very much for this kind consultation and for allowing me to participate in the care of this very pleasant patient and her family. Addendum Documented By: Gerardo Ames MD 12/12/221410 Addendum Signed By: <Electronically signed by Gerardo Ames MD> 12/12/22 141 Cardiology HPI History of Present Illness Consult Date: 12/12/22 Reason for Consult: I have been asked by the patient's primary medicine service to see the patient in consultation for opinion and recommendations regarding recent episode of palpitations and chest pain. HPI: Ms. See is a 57 year old female with no known personal history of coronaryheart disease but a strong family history of coronary heart disease (both motherand father have had coronary bypass), and with a history of dyslipidemia (primarily hypertriglyceridemia) who was in her normal state of health until 2 days ago when she noticed the abrupt onset of the sensation of racing heart which woke her from her sleep. She states at the time she felt warm from her neck to her knees. She notes a sensation of tightness in the chest and neck with this episode as well as shortness of breath.. She states that her heart rate remained in the 130 to 135 bpm range most of the day on Sunday. She deniesany significant precipitating event. She has had no recent illness or unusual emotional stress. She has had no recent changes in her medical therapy. She isstarted or discontinued and no supplements. She notes that she is on hormone replacement therapy and there has been no alteration in this therapy of late. With the persistence of the symptoms over the last 24 hours the patient reportedfor evaluation last night to the emergency department here at [facility]. Initial EKG showed a mild sinus tachycardia with ventricular rate in the low 100s. There were some nonspecific ST and T wave abnormalities but no acute diagnostic ischemic changes. Initial and 4-hour troponins were negative. Patient was admitted to the inpatient medical service. She has had breakfast this morning. She is currently asymptomatic. Her resting heart rate on my evaluation presently is 97 bpm. Of note the patient has had 30-day event monitoring done approximately a year ago per Dr. Bhagat. This showed symptoms of shortness of breath and palpitations with either sinus rhythm or mild sinus tachycardia. No pathologic arrhythmias were noted. The patient was treated initially with 50 mg oral metoprolol daily which apparently she tolerated. When this dose was attempted to be uptitrated the patient did not tolerate such. She is currently not on anybeta-miley or other negative chronotropic agent. Review of Systems Review of Systems All other systems reviewed & are negative unless noted below or in HPI PMFSH Vaccinated for COVID-19?: Yes Medical History Carpal tunnel syndrome of right wrist High cholesterol Hypertension Pain in the abdomen Sigmoid thickening Vertigo Surgical History H/O tubal ligation H/O: hysterectomy History of carpal tunnel release History of mandibular surgery Hx of cholecystectomy Family History Mother COPD (chronic obstructive pulmonary disease) Smoker History of open heart surgery Father Diabetes Diverticulitis History of quadruple bypass Social History Smoking Status: Never smoker Substance Use Type: None Meds Medications and Allergies Allergies moxifloxacin [From Avelox] Allergy (Verified 12/11/22 08:19) Itching simvastatin [From Zocor] Adverse Reaction (Verified 12/11/22 08:19) Cramping of the Muscles Home Medications aspirin 81 mg tablet 81 mg PO DAILY 10/19/20 [History Confirmed 12/11/22] estradiol 0.5 mg tablet 0.5 mg PO DAILY 10/19/20 [History Confirmed 12/11/22] lisinopril 20 mg-hydrochlorothiazide 12.5 mg tablet 12.5 tab PO DAILY 10/19/20 [History Confirmed 12/11/22] metoprolol tartrate 50 mg tablet 50 mg PO BID #14 tabs 10/19/20 [Rx Confirmed 12/11/22] rosuvastatin 10 mg tablet (Crestor) 10 mg PO DAILY 10/19/20 [History Confirmed 12/11/22] icosapent ethyl 1 gram capsule 2 g PO BID 12/11/22 [History Confirmed 12/11/22] Exam Physical Exam Vital Signs: Temp Pulse Resp BP Pulse Ox O2 Del Method 98.4 F 97 H 16 110/71 95 Room Air 12/12/22 08:27 12/12/22 08:27 12/12/22 08:27 12/12/22 08:27 12/12/22 08:27 12/12/22 08:28 Const General: cooperative, healthy appearing, comfortable and no acute distress Nutritional Appearance: overweight Orientation: alert, awake and oriented x3 HEENT Head: normal to inspection Face and sinus: face symmetric Mouth: moist mucous membranes Eyes Conjunctivae: conjunctivae normal Sclera: sclerae normal Pupils: accommodation normal EOM: EOM intact bilaterally Direct ophthalmoscopy: no photophobia Neck Neck: no lymphadenopathy and supple Neck mass: No Thyroid: thyroid normal Carotids: normal carotid upstroke Lymphatic: no lymphadenopathy noted Chest Chest palpation & inspection: normal inspection of the chest Resp Effort & Inspection: normal respiratory effort, able to speak in complete sentences and symmetric chest movement Auscultation: clear to auscultation bilaterally Cardio Jugular venous pressure: no JVD Palpation: normal PMI Rate: regular rate Rhythm: regular rhythm Heart Sounds: S1 normal and S2 normal Pulses: radial pulses present, posterior tibial pulses present and dorsalis pedis present GI Inspection: normal to inspection Palpation: soft and no hepatosplenomegaly Auscultation: normal bowel sounds Skin General: no rashes or lesions noted Trauma: no lacerations or abrasions Wounds: no wounds Neuro General: patient alert, patient awake, patient oriented x3, moves all extremities and no focal motor deficits Cranial Nerves: CN's II-XII intact bilaterally Cognition: normal cognition Speech: speech normal Motor: muscle tone normal throughout Sensory Exam: no sensory deficits noted Extrem General: no clubbing, cyanosis or edema Psych Appearance: grossly normal Mental Status: mental status grossly normal Mood: congruent mood Affect: normal affect Speech and Movement: speech and movement normal Attitude: cooperative Thought Process: normal Thought Content: normal Insight: insight good Judgment: judgment good MAHNAZ Risk Score MAHNAZ Risk Score Predictor Historical: 3 or more Risk Factors: FHx,HTN,elevated cholesterol,DM,active smoker Presentation: Recent (>/=24hr) Angina Score Risk Score (0-7): 2 Results Labs 12/12/22 07:26 12/12/22 07:26 Lab results: Cardiac Enzymes 12/11/22 12/12/22 Range/Units 13:20 07:26 AST 18 (13-39) U/L B-Natriuretic Peptide 12.0 (5-100) pg/mL Lipids 12/12/22 Range/Units 07:26 Triglycerides 832 H (0-149) mg/dL Cholesterol 228 H (140-200) mg/dL HDL Cholesterol 26 L (35-85) mg/dL Cholesterol/HDL Ratio 8.8 (<5.0) CBC 12/11/22 12/12/22 Range/Units 13:20 07:26 RBC 4.52 4.79 (3.60-5.00) X10E6/uL Hgb 12.7 13.5 (11.8-15.4) g/dL Hct 37.9 40.5 (34.0-46.4) % Plt Count 208 205 (150-450) x10E3/uL Neut # (Auto) 3.0 4.1 (1.8-7.7) x10E3/uL Lymph # (Auto) 1.2 1.4 (1.00-4.8) x10E3/uL [place] # (Auto) 0.6 0.7 (0.0-0.8) x10E3/uL Eos # (Auto) 0.0 0.0 (0.0-0.45) x10E3/uL Baso # (Auto) 0.0 0.0 (0.0-0.2) x10E3/uL Comprehensive Metabolic Panel 12/11/22 12/12/22 Range/Units 13:20 07:26 Sodium 139 136 (136-145) mmol/L Potassium 3.4 L 3.2 L (3.5-5.1) mmol/L Chloride 105 101 (98-107) mmol/L Carbon Dioxide 23.6 25.6 (21.0-31.0) mmol/L BUN 9 9 (7-25) mg/dL Creatinine 0.63 0.64 (0.60-1.20) mg/dL Glucose 98 104 H (70-100) mg/dL Calcium 7.7 L 8.1 L (8.6-10.3) mg/dL AST 18 (13-39) U/L ALT 21 (7-52) U/L Alkaline Phosphatase 66 (34-104) U/L Total Protein 6.8 (6.4-8.9) gm/dL Albumin 3.8 (3.5-5.7) gm/dL Intake and Output 12/11/22 12/12/22 12/12/22 23:59 07:59 15:59 Intake Total 300 / 2300 200 / 200 Balance 300 / 2300 200 / 200 Intake: Oral 300 / 300 200 / 200 Other: # Unmeasured Voids 2 1 # Bowel Movements 0 0 Weight 82 kg Date of Last Bowel Movement 12/11/22 12/12/22 Patient Weight 12/12/22 23:59 Weight 82 kg Lab 12/11/22 12/11/22 09:00 13:20 PT 12.4 12.8 INR 1.1 1.1 APTT 33.5 32.4 EKG Interpretations EKG Attestation EKG: I reviewed this ECG and interpreted as documented below: Dysrhythmias Sinus rhythms and dysrhythmias: sinus tachycardia Blocks, axis, hypertrophy, ST abn Repolarization changes or abnormalities: nonspecific abnormality, ST segment, and/or T wave [place], pacemaker, normal Normal tracing: no change compared to previous tracing A&P - Cardiology (1) Palpitations: Assessment/Problem Details: Subjective sensation of racing heart with apparently resting heart rate prior toadmission in the 130s. Thus far since the patient has been here we have been only able to document mild sinus tachycardia with ventricular rates 100 to 105 bpm. There have been no pathologic arrhythmias noted. Of note the patient did have 30-day event monitoring done last year which also showed high fidelity sinus rhythm with occasional mild sinus tachycardia during which symptoms of palpitations and shortness of breath were noted. Plan: Plan for further risk stratification today with exercise treadmill testing and nuclear myocardial perfusion imaging Code(s): R00.2 - Palpitations (2) Chest pain: Assessment/Problem Details: With some typical and atypical features. The patient has a MAHNAZ risk score of 2. Her ECGs have been nonischemic and serial troponins are negative. Her primary risk factors are a strong family history with 2 first-degree family members with known coronary heart disease as well as dyslipidemia with primarilyhypertriglyceridemia. Plan: As above, plan for restratification with exercise treadmill testing and nuclear myocardial perfusion imaging. We will decide on indication for cardiac catheterization based on the results of this examination. Code(s): R07.9 - Chest pain, unspecified Plan Plan as above. Thank you very much for this kind consultation and for allowing me to participate in the care of this very pleasant patient and her family. Documented By: Gerardo Ames MD 12/12/22 1007 Signed By: <Electronically signed by Gerardo Ames MD> 12/12/22 1020 [facility] Work Phone: 1([phone]) 419-398604-24-2023 History and physical note Author Eran Richardson [facility] December 11, 2022 5:24pm Note Date/Time December 11, 2022 5:0 4pm [facility] [address] [place] [address] Hospitalist H&P Signed Patient: Ana María See MR#: [id number] : 1965 Acct:[id number] Age/Sex: 57 / F Adm Date: 3 Loc: Room: [address] [place] [address] Type: ADM INOo Attending Dr: Eran Richardson MD Copies to: Roverto Ortega DO, MD Eran Osborne MD~ HPI DATE OF EXAMINATION: 12/11/22 CHIEF COMPLAINT: Chest Pain HISTORY OF PRESENT ILLNESS: 57-year-old female with a past medical history significant for palpitations, hyperlipidemia, and hypertension presented to the ER for chest pain. She reports palpitations starting yesterday morning and persisting throughout the day with some chest discomfort. Today she woke up around 6 AM with chest pain that radiated up to the left neck and jaw. Additionally she had mild shortness of breath. She does have a family history significant for CAD with both her parents. Patient reports having a rn quality outpatient and had to wear a Holter monitor for a month for palpitations recently. Patient arrived normotensive, mildly tachycardic heart rate around 100, oxygenating well on room air. She was given nitro for chest pain which dropped her blood pressure and made her nauseous. She did improve after liter normal saline. Work-up in the ER included normal troponin, D-dimer normal, EKG normal without STEMI, chest x-ray nonacute. With presentation suspicious for CAD and significant family history, patient will be admitted on telemetry to rule out CAD. Review of Systems Review of Systems Review of systems: 10 point review of system negative, other than whats in HPI/assessment and plan [facility] Vaccinated for COVID-19?: Yes Medical History Carpal tunnel syndrome of right wrist High cholesterol Hypertension Pain in the abdomen Sigmoid thickening Vertigo Surgical History H/O tubal ligation H/O: hysterectomy History of carpal tunnel release History of mandibular surgery Hx of cholecystectomy Family History Mother COPD (chronic obstructive pulmonary disease) Smoker History of open heart surgery Father Diabetes Diverticulitis History of quadruple bypass Social History Smoking Status: Never smoker Substance Use Type: None Meds Medications and Allergies Allergies moxifloxacin [From Avelox] Allergy (Verified 12/11/22 08:19) Itching simvastatin [From Zocor] Adverse Reaction (Verified 12/11/22 08:19) Cramping of the Muscles Home Medications aspirin 81 mg tablet 81 mg PO DAILY 10/19/20 [History Confirmed 12/11/22] estradiol 0.5 mg tablet 0.5 mg PO DAILY 10/19/20 [History Confirmed 12/11/22] lisinopril 20 mg-hydrochlorothiazide 12.5 mg tablet 12.5 tab PO DAILY 10/19/20 [History Confirmed 12/11/22] metoprolol tartrate 50 mg tablet 50 mg PO BID #14 tabs 10/19/20 [Rx Confirmed 12/11/22] rosuvastatin 10 mg tablet (Crestor) 10 mg PO DAILY 10/19/20 [History Confirmed 12/11/22] icosapent ethyl 1 gram capsule 2 g PO BID 12/11/22 [History Confirmed 12/11/22] Exam Physical Exam Vital Signs: Temp Pulse Resp BP Pulse Ox O2 Del Method 98.5 F 92 H 18 126/80 98 Room Air 12/11/22 16:00 12/11/22 16:00 12/11/22 16:00 12/11/22 16:00 12/11/22 16:00 12/11/22 16:00 Narrative: General appearance: Alert and oriented, well kept, Face: Symmetrical, well appearing Eyes: Extraocular muscles intact, no discharge, sclera clear Cardiovascular: Regular rate and rhythm, S1/S2 are normal, no rubs murmurs or gallops Chest: Normal shape and expansion, nontender to palpation Respiratory: Clear to auscultation bilaterally no wheezing or rhonchi Abdomen: Soft, no guarding, no distention, nontender to palpation Neuro: CN's II-XII grossly intact, alert and oriented x 3, Skin: Moist, warm, unremarkable Extremities: No edema Psych: Good eye contact, ANO x3, normal speech, appropriate mood and affect Results Lab Results Labs: Laboratory Last Values Corrected WBC 4.8 X10E3/uL (3.8-11.6) 12/11/22 13:20 Uncorrected WBC Count 4.8 x10E3/uL (3.8-11.6) 12/11/22 13:20 RBC 4.52 X10E6/uL (3.60-5.00) 12/11/22 13:20 Hgb 12.7 g/dL (11.8-15.4) 12/11/22 13:20 Hct 37.9 % (34.0-46.4) 12/11/22 13:20 MCV 83.7 fl (80-100) 12/11/22 13:20 MCH 28.1 pg (24.7-34.3) 12/11/22 13:20 MCHC 33.5 g/dL (32.0-35.0) 12/11/22 13:20 RDW 13.7 % (11.9-15.3) 12/11/22 13:20 Plt Count 208 x10E3/uL (150-450) 12/11/22 13:20 MPV 7.2 fl (6.3-10.7) 12/11/22 13:20 Neut % (Auto) 62.1 % (.) 12/11/22 13:20 Lymph % (Auto) 24.5 % (.) 12/11/22 13:20 [place] % (Auto) 12.7 % (.) 12/11/22 13:20 Eos % (Auto) 0.2 % (.) 12/11/22 13:20 Baso % (Auto) 0.5 % (.) 12/11/22 13:20 Nucleat RBC Rel Count 0.1 /100 WBC (0-0.5) 12/11/22 13:20 Neut # (Auto) 3.0 x10E3/uL (1.8-7.7) 12/11/22 13:20 Lymph # (Auto) 1.2 x10E3/uL (1.00-4.8) 12/11/22 13:20 [place] # (Auto) 0.6 x10E3/uL (0.0-0.8) 12/11/22 13:20 Eos # (Auto) 0.0 x10E3/uL (0.0-0.45) 12/11/22 13:20 Baso # (Auto) 0.0 x10E3/uL (0.0-0.2) 12/11/22 13:20 Monocyte Dist Width 24.03 % (0.00-20.00) H 12/11/22 09:00 PT 12.8 Seconds (9.0-12.9) 12/11/22 13:20 INR 1.1 12/11/22 13:20 APTT 32.4 Seconds (25.1-36.5) 12/11/22 13:20 D-Dimer Quant (PE/DVT) < 200 ng/mL (0-243) 12/11/22 09:00 PHA Creatinine Clear 112.79 12/11/22 13:20 Sodium 139 mmol/L (136-145) 12/11/22 13:20 Potassium 3.4 mmol/L (3.5-5.1) L 12/11/22 13:20 Chloride 105 mmol/L (98-107) 12/11/22 13:20 Carbon Dioxide 23.6 mmol/L (21.0-31.0) 12/11/22 13:20 Anion Gap 13.8 mEq/L (6.0-15.0) 12/11/22 13:20 BUN 9 mg/dL (7-25) 12/11/22 13:20 Creatinine 0.63 mg/dL (0.60-1.20) 12/11/22 13:20 Est GFR (CKD-EPI) > 60.0 mL/Min 12/11/22 13:20 Glucose 98 mg/dL (70-100) 12/11/22 13:20 Calcium 7.7 mg/dL (8.6-10.3) L 12/11/22 13:20 Total Bilirubin 1.5 mg/dl (0.3-1.0) H 12/11/22 09:00 AST 23 U/L (13-39) 12/11/22 09:00 ALT 26 U/L (7-52) 12/11/22 09:00 Alkaline Phosphatase 73 U/L (34-104) 12/11/22 09:00 Troponin I High Sens 2.8 pg/mL (0.0-15.0) 12/11/22 13:20 B-Natriuretic Peptide 12.0 pg/mL (5-100) 12/11/22 13:20 Total Protein 7.3 gm/dL (6.4-8.9) 12/11/22 09:00 Albumin 4.3 gm/dL (3.5-5.7) 12/11/22 09:00 Globulin 3.0 gm/dL 12/11/22 09:00 Albumin/Globulin Ratio 1.4 12/11/22 09:00 A&P - Hospitalist Assessment/Plan (1) Chest pain: (2) Palpitations: Plan 57-year-old female with past medical history significant for paroxysmal palpations, hypertension, hyperlipidemia who presented with to the ER for chest pain. Pain radiated to the left neck and jaw, additionally she had mild shortness of breath, palpitations. Family history significant for CAD with bothparents. Initial work- up included nonacute chest x-ray and EKG. Troponin and D-dimer negative. Prior Holter monitor and Stress test about a year ago Atypical chest pain, Concern for ACS Palpitations hypertriglyceridemia, hypertension Was given nitro in the ER which made her hypotensive. Patient received aspirin 325. ?Admit on telemetry ?Trend troponins, second troponin negative ?Check lipid panel, A1c, mag, TSH ?Order echo ?Consult cardiology Chronic conditions Hyperlipidemia?continue rosuvastatin Hypertension?continue lisinopril hydrochlorothiazide and metoprolol tartrate Hot flashes?hold estradiol Diet?heart healthy DVT prophylaxis? Lovenox Disposition?observation, anticipate less than two midnights Full code Attending Physician Attestation: I personally reviewed the history, performed the kohler elements of the exam, formulated the plan of care and confirmed the written note. I agree with the findings and plan as documented in this note and have edited it if needed to reflect my findings and plan. Patient presented with chest pain concerning for cardiac in origin given her risk factors of HTN, HLD, age, strong family hx of heart disease her immediate first degree family since her father and mother had CABG at young age in their 40s. Troponin levels negative x 3 so far at this time, EKG with no signs of STEMI, there some nonspecific ST-T wave changes. Echo ordered. Lipid profile ordered, patient has hypertriglyceridemia on medications. Cardiology consult requested for possible ischemic work up inpatient vs outpatient depending on herhospital course. I anticipate hospital stay less than 2 midnights at this time unless her symptoms has worsen with ongoing chest pain or troponin became elevated and met criteria for ACS then will need to be converted to inpatient for further inpatient ischemic evaluation. Eran Mahajan MD Documented By: Roverto Ortega DO, RES 12/11/22 16 29 Signed By: <Electronically signed by DO ESPERANZA Ortega> 12/11/22 1704 <Electronically signed by Eran Richardson MD> 12/11/22 1724 [facility] Work Phone: 1(339) 992-237401-17-2023 Evaluation note* Encounter Date Diagnosis Assessment Notes Treatment Notes Treatment Clinical Notes Aug, Wellness examination (ICD-10 - Z00.00) Discussed weight loss, diet/exercise and healthy lifestyle. He has been fully vaccinated for COVID-19. Health recommendations and screenings for his age reviewed and discussed with patient. Patient to f/u in 6 months, sooner as needed. Aug, Neuralgia (ICD-10 - M79.2) Patient declines referral to neurology. Discussed possible EMG and further testing. She denies any lumbar pain or problems. unsure of the cause of her left leg cold sensations. Aug, Screening mammogram for breast cancer (ICD-10 - Z12.31) Aug, Elevated cholesterol with high triglycerides (ICD-10 - E78.2) Defer to her rn quality for further treatment of the high triglycerides. Discussed diet and exercise modifications. With readings this high, likely due to familial issues. Continue Crestor at this time [facility] Other 01-06-2023 Evaluation note* Encounter Date Diagnosis Assessment Notes Treatment Notes Treatment Clinical Notes Aug, Wellness examination (ICD-10 - Z00.00) [facility] Other 12-15-2022 NoteReason For Visit Indication tachycardia and palpitation Procedure: Patient underwent 30-day event monitor. Baseline rhythm is normal sinus rhythm alternating with episode of sinus tachycardia. Patient reported numerous episodes of complaint of shortness of breath, palpitation and tachycardia. All rhythm strips demonstrate either sinus or mild sinus tachy cardia rare PACs were seen. There were no abnormal tacky or bradycardia arrhythmia or pauses. Conclusion 1. Baseline rhythm is normal sinus rhythm 2. Complaint of shortness of breath palpitation racing heart and tachycardia during which the rhythm was either sinus or mild sinus tachycardia 3. Rare PACs were seen 4. No abnormal tacky or bradycardia arrhythmia were seen Event Monitor: ANA MARÍA is here for the application of a 30 day event monitor in office., Diagnosis: tachycardia, SOB, atypical chest pain, fatigue Ordering Physician: Dr. Diana Bhaagt MD Holter monitor printed and placed on Dr. Diana Bhagat MD desk to dictate. Diagnosis/Problems Assessed Tachycardia (785.0) (R00.0) Shortness of breath at rest (786.05) (R06.02) Atypical chest pain (786.59) (R07.89) Fatigue (780.79) (R53.83) Future Appointments Date/TimeProviderSpecialtySite 10/04/2022 01:30 Diana Yepez, [id number] [facility] [address] [place] 250 DO Signatures Electronically signed by : Diana Bhagat MD; Sep 11 2022 5:39PM EST (Author) [id number] History of Present illness Narrative* Patient is here for follow-up continue management for previous evaluation for atypical chest pain, hyperlipidemia and hypertension. Over the last few months I received several phone calls in regards to some palpitation and tingling sensation. We will try to increase her metoprolol but this made herfeel horrible. An outpatient event monitor failed to demonstrate any arrhythmia. The dose of metoprolol was reduced to 50 mg. This resulted in marked improvement of her symptoms. For now she feels well. She denies any complaint of chest pain, palpitation, lightheadedness, dizziness or syncope. * ASSESSMENT: * 1. Previous evaluation of fatigue, tiredness, atypical chest pain, all have resolved. She describesfunctional class I. * 2. Hyperlipidemia, continues to have significant hypertriglyceridemia with triglycerides close to 600 * 3. Hypertension, controlled. * 4. Previous documentation of mild tachycardia appears to improved with beta- blockers but she is taking metoprolol tartrate 50 mg once daily and recent complaint of palpitation. Did not tolerate high dose of metoprolol. Event monitor failed to demonstrate any significant arrhythmia * 5. Mildly overweight with no weight changes * 6. Intermittent complaint of shortness of breath recent echo was normal. She described functional class I probable component of anxiety * 7. Patient complained of a little bit of shakiness and tremor TSH was normal * RECOMMENDATIONS: * 1. The patient was counseled regarding losing weight, exercise, and risk factor adjustment. * 2. The patient will remain on the same medication, * 3. I reviewed with her her recent event monitor and lab work. I recommended a trial of Vascepa 2 g p.o. twice daily * 4. We will see her back in the office in 1 year or earlier if the need arise * 5. I advised the patient to notify me change in cardiac status or symptoms -[facility] 250 DO Work Phone: Evaluation noteNo InformationNosaint louis [facility] [place] Other Evaluation note* Diagnosis Onset Date Resolution Status Chest pain acute Palpitations acute [facility] Work Phone: Evaluation note* Diagnosis Primary hypertension- Primary Unspecified essential hypertension Angina pectoris (CMS/HCC) Other and unspecified angina pectoris Mixed hyperlipidemia Tachycardia Unspecified tachycardia Myalgia Unspecified myalgia and myositis Shortness of breath at rest Statin intolerance documented in this encounter [facility] Work Phone: Evaluation noteNo assessment information available [facility] Work Phone: Evaluation note* Diagnosis Shortness of breath at rest- Primary Angina pectoris (CMS/HCC) Other and unspecified angina pectoris Other chest pain Statin intolerance Mixed hyperlipidemia Primary hypertension Unspecified essential hypertension Overweight (BMI 25.0-29.9) Overweight Myalgia Unspecified myalgia and myositis documented in this encounter [facility] Work Phone: Evaluation note* Diagnosis Onset Date Resolution Status Constipation acute [facility] Work Phone: Evaluation note* Diagnosis Encounter for gynecological examination without abnormal finding- Primary Encounter for Papanicolaou smear of vagina Breast cancer screening by mammogram Hot flashes documented in this encounter [facility] Author Stiven Sylvester [facility] Note Date/Time December 29, 2024 10:40 am [facility] C ENTER [address] [place] [address] Gastroenterology H&P Signed Patient: Ana María See MR#: [id number] : 1965 Acct:[id number] Age/Sex: 59 / F Adm Date: 5 Loc: Room: Type: [facility] Attending Dr: Stiven Sylvester MD Copies to: MD Stefanie Hensley MD~ Date of Service: 12/29/2024 HISTORY & PHYSICAL: Patient's history with special attention to the cardiovascular, pulmonary systems and the current problem was reviewed with the patient immediately prior to the procedure. Present medications and doses reviewed in the EMR. Allergies and pertinent laboratory tests were also reviewedat this time in the EMR. The physical examination, as below, was then performed. Indication, assessment and HPI: 59-year-old female with history of colonic polyps here for surveillance colonoscopy Family history of GI malignancy? No PHYSICAL EXAMINATION General appearance: NAD Skin: No jaundice Head: NC/AT Eyes: Anicteric Neck: Supple Lungs: Normal respiratory effort, no use of accessory muscles Abdomen: nondistended Neuro: Ox3. REVIEW OF SYSTEMS Constitutional: Denies malaise, fevers Cardiovascular: Denies chest pain, palpitations Respiratory: Denies shortness of breath, wheezing Gastrointestinal: As per HPI Genitourinary: Denies dysuria, polyuria Musculoskeletal: Denies joint swelling, joint stiffness Neurological: Denies confusion, numbness, tingling Endocrine: Denies fatigue Written informed consent obtained from the patient. Risks (including but not limited to perforation, infection, bloating, bleeding, need for emergent surgeryand loss of life), benefits and alternatives explained and questions answered. The patient verbalized understanding. Based on history patient is an appropriate candidate for the procedure. Stiven Sylvester M.D. Documented By: Stiven Sylvester MD 12/29/24 1024 Signed By: <Electronically signed by Stiven Sylvester MD> 12/29/24 1040 [facility] Work Phone: History general Narrative - Reported* Type Description Date Medical History HTN Medical History hyperlipidemia Medical History GERD Medical History sigmoid thickening Medical History generalized anxiety Medical History tachycardia Surgical History HYSTERECTOMY Surgical History CHOLECYSTECTOMY Surgical History TUBAL LIGATION Surgical History fibroid tumors Surgical History excision actinic keratosis left cheek Surgical History bilateral carpal tunnel release [employer] Other History general Narrative - Reported* Type Description Date Medical History HTN Medical History hyperlipidemia Medical History GERD Medical History sigmoid thickening Medical History generalized anxiety Medical History tachycardia Surgical History HYSTERECTOMY Surgical History CHOLECYSTECTOMY Surgical History TUBAL LIGATION Surgical History fibroid tumors Surgical History excision actinic keratosis left cheek Surgical History bilateral carpal tunnel release Hospitalization History [facility] 11/2022 [facility] Other History of Present illness Narrative* Patient is here for follow-up continue management for previous evaluation for fatigue, tiredness and atypical chest pain. Her cardiac work-up included an echocardiogram which was normal. Stress test showed excellent exercise tolerance and a Holter monitor which failed to demonstrate any arrhythmia.She called recently complaining of some shortness of breath which she described it as she is more concerned about the pattern of her breathing. She report no shortness of breath when she is active. She on occasion feel like she needs to take a deeper breath like sigh I. She is able to continue to be functional class I. She report she is active. She denies any exertional symptomatology. * ASSESSMENT: * 1. Previous evaluation of fatigue, tiredness, atypical chest pain, all have resolved. She describesfunctional class I. * 2. Hyperlipidemia, markedly improved with initiating treatment with Crestor. She has been able to tolerate it. * 3. Hypertension, controlled. * 4. Previous documentation of mild tachycardia appears to improved with beta- blockers but she is taking metoprolol tartrate 50 mg once daily * 5. Mildly overweight with no weight changes * 6. Intermittent complaint of shortness of breath recent echo was normal. She described functional class I probable component of anxiety * 7. Patient complained of a little bit of shakiness and tremor TSH was normal * RECOMMENDATIONS: * 1. The patient was counseled regarding losing weight, exercise, and risk factor adjustment. * 2. The patient will remain on the same medication, except switching her to long-acting metoprolol ER 50 mg once daily 3. 3. I reviewed with her her recent diagnostic cardiac work-up and he reassured her cardiac lin * 4. We will see her back in the office in 6 months or earlier if the need arise * 5. I advised the patient to notify me change in cardiac status or symptoms [facility] 250 DO Work Phone: History of Present illness Narrative* Patient is here for follow-up continue management for previous evaluation of fatigue tiredness chest pain and hypertension. Since last time I saw her she reports has been feeling well. She denies complaint of chest pain, palpitation, lightheadedness, dizziness or syncope. Her recent laboratory datanoted and reviewed with her and all appears to be satisfactory. She denies any recent cardiac complaint. * ASSESSMENT: * 1. Previous evaluation of fatigue, tiredness, atypical chest pain, all have resolved. She describesfunctional class I. * 2. Hyperlipidemia, markedly improved with initiating treatment with Crestor. She has been able to tolerate it. * 3. Hypertension, controlled. * 4. Previous documentation of mild tachycardia appears to improved with beta- blockers but she is taking metoprolol tartrate 50 mg once daily * 5. Mildly overweight with no weight changes * 6. Intermittent complaint of shortness of breath recent echo was normal. She described functional class I probable component of anxiety * 7. Patient complained of a little bit of shakiness and tremor TSH was normal * RECOMMENDATIONS: * 1. The patient was counseled regarding losing weight, exercise, and risk factor adjustment. * 2. The patient will remain on the same medication, except advised her to take her metoprolol in theevening considering she is having some mild shakiness in the morning 3. I reviewed with her her recent diagnostic cardiac work-up and he reassured her cardiac lin * 4. We will see her back in the office in 9 months or earlier if the need arise * 5. I advised the patient to notify me change in cardiac status or symptoms [facility] 250 DO Work Phone: History of Present illness Narrative* Patient is here for follow-up continue management for previous evaluation for chest pain, fatigue and palpitation. She was recently in the hospital. I was able to retrieve and review her record. She underwent echo and stress test both appears to be reassuring. Patient has been complaining of symptoms of postmenopausal hot flashes and palpitation. She was placed on verapamil with significant improvement of her heart rate and palpitation. She was noted to have significant hypertriglyceridemia andwas started on Vascepa. * ASSESSMENT: * 1 recent evaluation for chest pain, palpitation and tachycardia. Work-up was benign. Symptoms seem to be improving with the addition of verapamil. In the past she did not tolerate higher dose of metoprolol * 2. Hyperlipidemia, continues to have significant hypertriglyceridemia with triglycerides close to 800 started on Vascepa * 3. Hypertension, controlled. * 4. Tachycardia improved with the addition of verapamil * 5. Mildly overweight with no weight changes * 6. Intermittent complaint of shortness of breath recent echo was normal. She described functional class I probable component of anxiety * 7. Patient complained of a little bit of shakiness and tremor TSH was normal likely due to hot flashes and postmenopausal symptoms * RECOMMENDATIONS: * 1. The patient was counseled regarding losing weight, exercise, and risk factor adjustment. * 2. The patient will remain on the same medication, * 3. I we will see her back in the office in 4 months with plan to repeat her lab work and EKG * 4. I reviewed with her her recent hospitalization record * 5. I advised the patient to notify me change in cardiac status or symptoms * 6. 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 for 24 [...] years. -Follow up with PCP. -Office number [phone]. [facility] Work Phone: Reason for referral (narrative)* Consultation (Routine) - Authorized Specialty Diagnoses / Procedures Referred By Contac t Referred To Contact Cardiology Diagnoses Angina pectoris (CMS/HCC) Procedures Follow Up In Cardiology Diana Bhagat MD [address] [place] [address], [address] [id number] Diana Bhagat MD [address] [place] [address], [address] [address] Referral ID Status Reason Start Date Expiration Date V isits Requested Visits Authorized [id number] Authorized 06/13/2023 06/12/2024 1 1 * Medications - Pending Review Specialty Diagnoses / Procedures Referred By Contac t Referred To Contact Diagnoses Angina pectoris (CMS/HCC) Mixed hyperlipidemia Diana Bhaagt MD [address] [place] [address], [address] [address] Referral ID Status Reason Start Date Expiration Date V isits Requested Visits Authorized [id number] Pending Review 1 1 [facility] Work Phone: reason for referral (narrative)* Consultation (Routine) - Authorized Specialty Diagnoses / Procedures Referred By Anca moreno Referred To Contact Cardiology Diagnoses Primary hypertension Procedures Follow Up In Cardiology Diana Bhagat MD [address] [facility] [address], [place] [address] [place] [id number] Diana Bhagat MD [address] [facility] 2, [address] [address] [place] [address] Referral ID Status Reason Start Date Expiration Date V isits Requested Visits Authorized [id number] Authorized 10/10/2023 10/09/2024 1 1 [facility] Work Phone: reason for referral (narrative)No reason for referral information [facility]Day[facility] Work Phone: Summary Purpose Family History Unknown Family Member Name Dates Details Family history of arterioscl erotic cardiovascular disease: Mother, Father(V17.49, Z82.49) Status:Active Family history of hypertensi on: Mother, Father(V17.49, Z82.49) Status:Active Unknown Family Member Name Dates Details Family history of arterioscl erotic cardiovascular disease: Mother, Father(V17.49, Z82.49) Status:Active Family history of hypertensi on: Mother, Father(V17.49, Z82.49) Status:Active Unknown Family Member Name Dates Details Family history of arterioscl erotic cardiovascular disease: Mother, Father(V17.49, Z82.49) Status:Active Family history of hypertensi on: Mother, Father(V17.49, Z82.49) Status:Active Unknown Family Member Name Dates Details Family history of arterioscl erotic cardiovascular disease: Mother, Father(V17.49, Z82.49) Status:Active Family history of hypertensi on: Mother, Father(V17.49, Z82.49) Status:Active Unknown Family Member Name Dates Details Family history of arterioscl erotic cardiovascular disease: Mother, Father(V17.49, Z82.49) Status:Active Family history of hypertensi on: Mother, Father(V17.49, Z82.49) Status:Active Unknown Family Member Name Dates Details Family history of arterioscl erotic cardiovascular disease: Mother, Father(V17.49, Z82.49) Status:Active Family history of hypertensi on: Mother, Father(V17.49, Z82.49) Status:Active Unknown Family Member Name Dates Details Family history of arterioscl erotic cardiovascular disease: Mother, Father(V17.49, Z82.49) Status:Active Family history of hypertensi on: Mother, Father(V17.49, Z82.49) Status:Active Unknown Family Member Name Dates Details Family history of arterioscl erotic cardiovascular disease: Mother, Father(V17.49, Z82.49) Status:Active Family history of hypertensi on: Mother, Father(V17.49, Z82.49) Status:Active Unknown Family Member Name Dates Details Family history of arterioscl erotic cardiovascular disease: Mother, Father(V17.49, Z82.49) Status:Active Family history of hypertensi on: Mother, Father(V17.49, Z82.49) Status:Active Unknown Family Member Name Dates Details Family history of arterioscl erotic cardiovascular disease: Mother, Father(V17.49, Z82.49) Status:Active Family history of hypertensi on: Mother, Father(V17.49, Z82.49) Status:Active Relationship Condition Age at Onset Recorded Date/T kleber Not Specified Chronic obstructive pulmonary disease Un known Current smoker Unknown History of open heart surgery Unknown father Diabetes mellitus Unknown Diverticulitis Unknown History of four vess el coronary artery bypass graft Unknown Unknown Family Member Name Dates Details Family history of arterioscl erotic cardiovascular disease: Mother, Father(V17.49, Z82.49) Status:Active Family history of hypertensi on: Mother, Father(V17.49, Z82.49) Status:Active Unknown Family Member Name Dates Details Family history of arterioscl erotic cardiovascular disease: Mother, Father(V17.49, Z82.49) Status:Active Family history of hypertensi on: Mother, Father(V17.49, Z82.49) Status:Active Unknown Family Member Name Dates Details Family history of hypertensi on: Mother, Father(V17.49, Z82.49) Status:Active Family history of arterioscl erotic cardiovascular disease: Mother, Father(V17.49, Z82.49) Status:Active Relationship Condition Age at Onset Recorded Date/T kleber mother Chronic obstructive pulmonary disease Unk nown Current smoker Unknown History of open heart surgery Unknown father Diabetes mellitus Unknown Diverticulitis Unknown History of four vess el coronary artery bypass graft Unknown father Heart disease Unknown Hypertension Unknown mother Hypertension Unknown Heart disease Unknown Relationship Condition Age at Onset Recorded Date/T kleber mother History of open heart surgery Unknown Chronic obstructive pulmonary disease Unk nown Current smoker Unknown Heart disease Unknown Hypertension Unknown father History of four vess el coronary artery bypass graft Unknown Diabetes mellitus Unknown Diverticulitis Unknown Relationship Condition Age at Onset Recorded Date/T kleber mother History of open heart surgery Unknown Chronic obstructive pulmonary disease Unk nown Current smoker Unknown Heart disease Unknown Hypertension Unknown father History of four vess el coronary artery bypass graft Unknown Diabetes mellitus Unknown Diverticulitis Unknown mother Heart disease Unknown father Diabetes mellitus Unknown sister Malignant neoplasm Unknown father Heart disease Unknown Advance Directives Advance Directive Response Recorded Date/ Time Advance Directives No October 18 11:11am Advance Directive Response Recorded Date/ Time Advance Directives No October 18 12:11pm Chief Complaint and Reason for Visit Chief Complaint Sigmoid Thickening,A bd Pain. high BP Chief Complaint dermatochalasis bi p st sob chest pain Reason for Visit Chest pain Palpitations Chief Complaint Angina Chief Complaint Angina Angina Stress Incontinence Chief Complaint Refer by Dr Chandan Murillo , constipation Reason for Visit Constipation Chief Complaint Admit Date hx of colon polyps December 29, 2024 7:50a m hx of colon polyps December 29, 2024 10:24 am Chief Complaint Admit Date hx of colon polyps December 29, 2024 7:50a m hx of colon polyps December 29, 2024 10:24 am Est Care/R Shoulder Pain March 04, 2025 1:25pm Reason for Visit Admit Date High cholesterol March 04, 2025 1:25 pm Hypertension March 04, 2025 1:25 pm Vitamin B 12 deficiency March 04, 2025 1:25pm Vitamin D deficiency March 04, 2025 1:2 5pm Wellness examination March 04, 2025 1:2 5pm Assessments No Assessments Information AvailableNo Assessments Information Available Chief Complaint ANA MARÍA SEE is being seen for an annual follow-up of.Patient here for EKG ordered by Dr. Diana Bhagat MD due to the diagnosis of tachycardia. Dr. Yash Felder MD in suite. Patient has had complaints of SOB, tachycardia, fatigue, atypical chest pain. Medication list updated verbally. EKG reviewed by Linda Sibley RN prior to discharge. ToDr. Diana Bhagat MD for review. ANA MARÍA SEE is being seen for a 9 month follow-up of.ANA MARÍA SEE is being seen for [facility] D/C 12/12/22. Additional Source Comments INFORMATION SOURCE (unrecogn ized section and content) DATE CREATED AUTHOR 09/24/2019 [facility] DATE CREATED AUTHOR AUTHOR'S ORGANIZ ATION 10/17/2020 [facility]ital DATE CREATED AUTHOR AUTHOR'S ORGANIZ ATION 08/25/2021 [facility] Special[facility] DATE CREATED AUTHOR AUTHOR'S ORGANIZ ATION 12/28/2022 [facility] DATE CREATED AUTHOR AUTHOR'S ORGANIZ ATION 12/28/2022 [employer] DATE CREATED AUTHOR AUTHOR'S ORGANIZ ATION 05/26/2023 [facility] DATE CREATED AUTHOR AUTHOR'S ORGANIZ ATION 10/18/2023 [facility] DATE CREATED AUTHOR AUTHOR'S ORGANIZ ATION 12/18/2024 [facility] Specialists EPIC DATE CREATED AUTHOR AUTHOR'S ORGANIZ ATION 01/02/2025 [facility] REASON FOR VISIT (unrecogniz ed section and content) Reason Comments Follow-up 4 - 5 months Reason Comments Follow-up 1 yr cath f/u Specialty Diagnoses / Procedures Referred By Contac t Referred To Contact Cardiology Diagnoses Angina pectoris (CMS/HCC) Procedures Follow Up In Cardiology Diana Bhagat MD [address] [facility] 2, [address] [address] Diana Bhagat MD [address], [address] [address] Referral ID Status Reason Start Date Expiration Date V isits Requested Visits Authorized [id number] Authorized 06/13/2023 06/12/2024 1 1 Reason Comments Gynecologic Exam LMP: LAVH BSO 2013HR T: NoneLast pap 12-17-23 neg.Last mammogram 11-14-24 [facility]. Denies breast, urinary, or bowel concerns. Menopause Would like to restar t HRT. C/o severe knee and hip pain, hot flashes, brain fog, night sweats. Previously stopped when lumps were found in breasts. Care Teams (unrecognized sec tion and content) Team Status: Active Member Role Status Dates Stefanie Castillo MD Primary Care Provider Active Team Status: Inactive Member Role Status Dates Stefanie Castillo MD Primary Care Provider Active Johnathan Crsos MD Attending Provider Active Team Status: Inactive Member Role Status Dates Stefanie Castillo MD Primary Care Provider Active Jim Ann DO Emergency Provider Active Eran Richardson MD Admit Provider Active Jeremy Nova MD Attending Provider Active Centrifugal Operator Relationship Specialty Start Date End Date Stefanie Castillo MD [address] [id number] PCP - General 09/22/19 Team Status: Inactive Member Role Status Dates Stefanie Castillo MD Primary Care Provider Active Diana Bhagat MD Attending Provider Active Team Status: Inactive Member Role Status Dates Stefanie Castillo MD Primary Care Provider Active Yash Murillo DO Attending Provider Active Centrifugal Operator Relationship Specialty Start Date End Date Stefanie Castillo MD PCP - General 09/22/19 Team Status: Inactive Member Role Status Dates Stefanie Castillo MD Primary Care Provider Active Start: March 03, 2024 End: March 03, 2024 Beba Morrison DO Attending Provider Active St art: March 03, 2024 End: March 03, 2024 Centrifugal Operator Relationship Specialty Start Date End Date Stefanie Castillo MD [address] [facility] [place] [id number] PCP - General Family Medicine 03/23/23 Centrifugal Operator Relationship Specialty Start Date End Date Stefanie Castillo MD PCP - General Family Medicine 03/23/23 Team Status: Inactive Member Role Status Dates Stefanie Castillo MD Primary Care Provider Active Start: December 29, 2024 End: December 29, 2024 Stiven Sylvester MD Attending Provider Active Start: December 29, 2024 End: December 29, 2024 Team Status: Active Member Role Status Dates Stefanie Castillo MD Primary Care Provider Active Start: December 29, 2024 Stiven Sylvester MD Attending Provider, Other Provider Act hilda Start: December 29, 2024 Team Status: Active Member Role Status Dates Fatemeh Rosen APRN NP-C Primary Care Provider Active Team Status: Active Member Role Status Dates Stefanie Castillo MD Primary Care Provider Active Start: December 29, 2024 Stiven Sylvester MD Attending Provider Active Start: December 29, 2024 Stiven Sylvester MD Other Provider Active Start: December 29, 2024 Team Status: Inactive Member Role Status Dates Fatemeh Rosen APRN NP-C Primary Care Provider Active Start: March 04, 2025 End: March 04, 2025 WAYNE Mckeon Attending Provider Act hilda Start: March 04, 2025 End: March 04, 2025 Goals (unrecognized section and content) Goals may be documented in a n alternate section FOR RECORDS PERTAINING TO PATIENTS WHO ARE OR HAVE BEEN ENROLLED IN A CHEMICAL DEPENDENCY/SUBSTANCEABUSE PROGRAM, SOME INFORMATION MAY BE OMITTED. This clinical summary was aggregated from multiple sources. Caution should be exercised in using it in the provision of clinical care. This summary normalizes information from multiple sources, and as a consequence, information in this document may materially change the coding, format and clinical context of patient data. In addition, data may be omitted in some cases. CLINICAL DECISIONS SHOULD BE BASED ON THE PRIMARY CLINICAL RECORDS. [employer] provides no warranty or guarantee of the accuracy or completeness of information in this document.
== END 2025-03-16 09:24 | disposition home or self-care (01) ==
PROVIDERS: Family Provider Obstetrics & Gynecology; PCP Family Medicine; Visit Provider Nurse Practitioner Family
DX: Z78.0 Asymptomatic menopausal state (principal); Z13.820 Encounter for screening for osteoporosis
CPT/HCPCS: 77080

== ENCOUNTER 2025-05-27 11:42 | Outpatient (OUT) | payer BC, SELFPAY ==
--- OUTSIDE RECORDS SUMMARY | 2025-05-27 11:49 | XMS_ITS | CCD ---
Author Organization [facility] Inform ion Partnership [facility] Care Team Providers Care Yard Clerk Name Role Phone MISC, DOCTOR Attending Unavailable EVARISTOC, DOCTOR Admitting Unavailable BEA BARR V Consulting Unavailable STEFANIE CASTILLO Attending Unavailable STEFANIE CASTILLO Primary Care Unavailable STEFANIE CASTILLO Admitting Unavailable STEFANIE CASTILLO Consulting Unavailable Bea Fonseca Attending Provider [phone] Stefanie Castillo Primary Care Provider [phone] Stefanie Castillo Unavailable Unavailable Unavailable Stefanie Castillo Unavailable MD Stefanie Castillo Primary Care Provider MD Johnathan Cross Jacek Attending Provider DO Jim Ann Emergency Provider [phone] MD Eran Richardson Admit Provider MD Jeremy Nova Attending Provider [phone] Dr. Stefanie Castillo Primary Care Unav ailable Traboulssi, Mourhaf Referring Unavailable Traboulssi, Mourmanasaf Attending Unavailable Dr. Stefanie Castillo Primary Care Unav ailable Traboulssi, Mourhaf Referring Unavailable Traboulssi, Diana Attending Unavailable Dr. Stefanie Castillo Primary Care Unav ailable Traboulssi, Mourhaf Referring Unavailable Traboulssi, Mourhaf Attending Unavailable Dr. Stefanie Castillo Primary Care Unav ailable Traboulssi, Mourlindsay Referring Unavailable Dr. Stefanie Castillo Primary Care Unav ailable Traboulssi, Mopavithra Attending Unavailable Diana Bhagat Referring Unavailable Dr. Stefanie Castillo Primary Care Unav ailable Diana Bhagat Attending Unavailable Stefanie Castillo MD Primary Care Provider MD Stefanie Castillo Primary Care Provider MD Diana Bhagat Attending Provider MD Stefanie Castillo Primary Care Provider MD Diana Bhagat Attending Provider DO Yash Murillo Attending Provider Stefanie Castillo MD Primary Care Provider Stefanie Castillo MD Primary Care Provider Stefanie Castillo MD Primary Care Provider [phone] Stefanie Castillo MD Primary Care Provider Higinio GRAVES, Imishan Attending Provider [phone] Stiven Sylvester MD Other Provider Fatemeh Rosen APRN Primary Care Provider Fatemeh Rosen APRN Attending Provider Stefanie Castillo MD Primary Care Provider DIANA BHAGAT Attending Unavailable STEFANIE CASTILLO Primary Care Unavailable Ángel Natarajan DO Attending Provider Stefanie Castillo Primary Care Unavailable Asaad, Imad Attending Unavailable Asaad, Imad Admitting Unavailable Livan Natarajanin A Admitting Unavailable Fatemeh Rosen Primary Care Unavailable Ángel Natarajan Attending Unavailable YASH MURILLO Attending Unavailable CASI JOHNSTON Attending Unavailable SHARRON ÁNGEL Referring Unavailable CARRIE MARIE Attending Unavailable SHARRON ÁNGEL Referring Unavailable CARRIE MARIE Attending Unavailable SHARRON ÁNGEL Referring Unavailable Unavailable Unavailable Unavailable Allergies Allergy Classification Reported Allergen(s) Allergy Type Date of Onset Reaction(s) Facility (20 sources) moxifloxacin; Translations: [moxifloxacin] Drug Allergy 10-20-19 21 Itching, Rash [facility] (20 sources) Simvastatin; Translations: [simvastatin] Drug Allergy 10-20-19 21 Myalgia [facility] (14 sources) Hmg-Coa Reductase Inhibitors (Statins); Translations: [Statins] Allergy to drug (finding) Myalgia [facility] 250 DO Work Phone: (14 sources) moxifloxacin; Translations: [Avelox] Drug Allergy Itching [facility] 250 DO Work Phone: (4 sources) HMG-CoA reductase inhibitor; Translations: [TMLLLEU-BJF-BCG REDUCTASE INHIBITORS] Drug Intolerance 06-12-20 23 [facility] Work Phone: (4 sources) rosuvastatin; Translations: [ROSUVASTATIN] Drug Allergy 06-13-20 23 [facility] (1 source) Allergies Reconciled Propensity to adverse reactions Unknown [facility] Other (1 source) patient allergy list reviewed by nurse or physicia Propensity to adverse reactions 06-12-20 16 Comment:Done GRAYL Other (7 sources) Avelox *FLUOROQUINOLONE S* Propensity to adverse reactions 03-03-20 24 Unknown, Unknown Reaction [facility] (10 sources) Rosuvastatin calcium Propensity to adverse reactions 06-13-20 23 [facility] (2 sources) bempedoic acid; Translations: [BEMPEDOIC ACID] Drug Allergy 03-25-20 25 [facility] Medications Current Medications Medication Drug Class(es) Dates [...] completed) bempedoic acid 180 mg oral tablet (4 sources) Start: 07-09-2023 End: 03-25-2026 take 1 tablet by mouth once daily bempedoic acid 180 mg tablet Indications: Mixed hyperlipidemia Take 180 mg by mouth once daily. 90 tablet 3 03/25/2025 03/25/2026 Active Start: 06-13-2023 take 1 tablet by judy th once daily bempedoic acid (Nexletol) 180 mg [...] each day at the same time. Active End: 03-25-2025 cholecalciferol (Vitamin D-3 ) 5,000 Units tablet Take by mouth once daily. 03/25/2025 Discontinued (Therapy completed) doxycycline hyclate 100 mg oral capsule (1 [...] 3 12/17/2024 12/17/2025 Active Start: 10-19-2020 End: 03-25-2025 take 1 tablet by mouth once daily in the morning Estradiol 0.5 mg Tablet Discontinued 0.5 MG PO Every morning October 19, 2020 1:00am March 03, 2024 9:34am hydroCHLOROthiazide 12.5 mg / lisinopril 20 mg oral tablet (20 sources) Thiazide Diuretic, Angiotensin Converting Enzyme Inhibitor Start: 10-19-2020 take 1 tablet by mouth once daily in the morning Lisinopril-Hydrochlorothiazide 20-12.5 mg tablet Active 12.5 TAB PO Every morning October 19, 2020 1:00am Complies with drug therapy take 1 tablet by judy th in the morning lisinopril-hydroCHLOROthiazide 20-12.5 M G tablet Take 1 tablet by mouth in the morning. Active icosapent ethyl 1000 mg oral capsule (20 sources) Start: 12-11-2022 take 2 g by mouth twice daily Icosapent Ethyl Active 2 GM PO Twice daily December 11, 2022 12:00am Start: 10-10-2022 take 2 capsules by m outh in the morning Icosapent Ethyl (Vascepa) 1 g capsule Take 2 capsules by mouth in the morning and 2 capsules before bedtime. 03/09/2023 Active take 2 capsules by m outh every twelve hours Vascepa 1 GM 2 capsules with meals Orally Twice a day Active Magnesium (10 sources) Start: 12-11-2023 Magnesium 125 MG capsule 12/11/2023 Active magnesium glycinate 100 mg o ral tablet (11 sources) Start: 06-21-2023 Magnesium Glyc inate 100 [...] 1 tablet by mouth once daily. Active take 1 tablet by judy th once [...] Start: 01-12-2023 take 1 tablet by judy every twenty-four hours in the morning metoprolol succinate XL (Toprol-XL) 50 MG 24 hr tablet Take 50 mg by mouth in the morning. 01/12/2023 Active Start: 08-04-2022 take 1.5 tablets by mouth once daily Metoprolol Succinate ER 50 MG Oral Tablet Extended Release 24 Hour TAKE 1.5 TABLET DAILY. Quantity: 135 Refills: 3 Ordered: 04-Aug-2022 Olayinka GRAVES, Diana Start : 04-Aug-2022 Active dose increased Start: 05-31-2021 End: 03-03-2024 take 1 tablet by mouth once daily in the evening Metoprolol Succinate 50 mg Tablet Extended Release 24 Hr Discontinued 50 MG PO Every evening 30 30 December 12, 2022 12:00am March 03, 2024 9:36am Start: 10-19-2020 End: 06-13-2023 take 1 tablet by mouth twice daily Metoprolol Tartrate 50 mg tablet Discontinued 50 MG PO Twice daily October 19, 2020 1:00am December 12, 2022 3:38pm [place] 3-Dib-Btn-Fish Oil (Fish Oil) 1,200 (144-216) mg Capsule (11 sources) Start: 10-19-2020 take 2 capsules by mouth once daily [place] 2-Rco-Waw-Fish Oil (Fish Oil) 1,200 (144-216) mg Capsule Active 2 CAP PO Daily October 19, 2020 8:06am Start: 10-19-2020 End: 12-11-2022 take 2 capsules by mouth once daily [place] 2-Xum-Mxr-Fish Oil (Fish Oil) 1,200 (144-216) mg Capsule Discontinued 2 CAP PO Daily October 19, 2020 12:00am December 11, 2022 7:19am Start: 10-19-2020 End: 12-11-2022 take 2 capsules by mouth once daily [place] 7-Ksl-Wqj-Fish Oil (Fish Oil) 1,200 (144-216) mg Capsule Discontinued 2 CAP PO Daily October 19, 2020 1:00am December 11, 2022 8:19am predniSONE 10 mg oral tablet (10 sources) Start: 03-27-2024 predniSONE (Deltasone) 10 MG tablet Indications: Contact dermatitis due to poison brent Take 4 tabs daily x 7 days, take 2 tabs daily x 7 days, take 1 tab daily x 7 days. Total days: 21 49 tablet 03/27/2024 Active terbinafine 250 mg oral tablet (10 sources) Allylamine Antifungal Start: 03-27-2024 take 1 tablet by mouth once daily terbinafine (LamISIL) 250 MG tablet Indications: Tinea pedis of right foot Take 1 tablet, by mouth, once daily, 21 days 21 tablet 03/27/2024 Active 24 hr verapamil hydrochloride 180 mg extended release oral capsule (20 sources) Calcium Channel Miley Start: 01-12-2023 take 1 capsule by mouth every twenty-four hours in the morning verapamil ER (Verelan) 180 MG 24 hr capsule Take 180 mg by mouth in the morning. 01/12/2023 Active Start: 12-12-2022 End: 05-01-2025 take 1 capsule by mouth once daily in the morning Verapamil 180 mg capsule,ext rel. pellets 24 hr Discontinued 180 MG PO Every morning 30 December 12, 2022 12:00am May 01, 2025 10:11am End: 03-25-2025 take 1 tablet by mouth once daily at bedtime verapamil SR (Calan-SR) 180 mg ER tablet Take 1 tablet (180 mg) by mouth once daily at bedtime. Do not crush or chew. 03/25/2025 Discontinued (Duplicate order) VITAMIN D3-VITAMIN K2, MK4, ORAL (1 source) take 1 capsule by mo ut once daily VITAMIN D3-VITAMIN K2, MK4, ORAL Take 1 capsule by mouth once daily. 5000-200 mg Active zinc acetate 50 mg oral capsule (3 sources) take 1 capsule by mo uth once daily zinc acetate 50 mg (zinc) capsule Take 1 capsule by mouth once daily. Active Completed/Discontinued Medications Medication Drug Class(es) Dates Sig (Normalized) Sig (Original) aspirin 81 mg oral tablet (20 sources) Platelet Aggregation Inhibitor, Nonsteroidal Anti-inflammatory Drug Start: 10-19-2020 End: 12-18-2024 take 1 tablet by mouth once daily Aspirin 81 mg Tablet Discontinued 81 MG PO Daily October 19, 2020 1:00am May 1st, 2025 1:47pm aspirin 81 MG EC tablet 1 (one) time each day at the same time. Active aspirin 81 mg ch ewable tablet Chew and swallow 1 tablet (81 mg) once daily. Active Aspirin 81 Activ e bisacodyl 5 mg delayed release oral tablet (12 sources) Stimulant Laxative Start: 03-03-2024 End: 03-04-2025 [...] / polymyxin b 10 unt/mg ophthalmic ointment (9 sources) Aminoglycoside Antibacterial, Polymyxin-class Antibacterial, Corticosteroid Start: 023 End: 023 Neomycin-Polymyxin B-Dexameth 3.5 mg/g-10,000 unit/g-0.1 % ointment Discontinued 0 .ROUTE .COMPLEX December 11, 2022 12:00am December 11, 2022 12:38pm complete after 12/13 dicyclomine hydrochloride 20 mg oral tablet (3 sources) Anticholinergic Start: 021 take 1 tablet by mouth every twelve hours Dicyclomine HCl 20 MG 1 tablet Orally TWICE A DAY for 30 day(s) Oct, Not-Taking ezetimibe 10 mg oral tablet (3 sources) Dietary Cholesterol Absorption Inhibitor Start: 023 End: 025 take 1 tablet by mouth once daily ezetimibe (Zetia) 10 mg tablet Indications: Statin intolerance , Mixed hyperlipidemia Take 1 tablet (10 mg) by mouth once daily. 90 tablet 3 10/10/2023 03/25/2025 Discontinued (Patient Refused) Fish Oil 1200 MG Oral Capsule Delayed [...] omeprazole 20 mg delayed release oral capsule (11 sources) Proton Pump Inhibitor Start: 021 End: 023 take 1 capsule by mouth once daily Omeprazole 20 mg Capsule,Delayed Release(Dr/Ec) Discontinued 20 MG PO Daily October 19, 2020 1:00am December 11, 2022 8:20am probiotic (6 sources) Start: 024 End: 025 probiotic Discontinued [...] 9:47am Soybean, Fermented (Nattokinase) 50 mg capsule (5 sources) Start: 12-18-2024 End: 12-29-2024 Soybean, Fermented (Nattokinase) 50 mg capsule Discontinued MG PO December 18, 2024 12:00am December 29, 2024 8:05am traMADol hydrochloride 50 mg oral tablet (6 sources) Opioid Agonist Start: 08-15-2023 End: 03-03-2024 take 1 tablet by mouth every four hours as needed for pain Tramadol 50 mg Tablet Discontinued 50 MG PO Q4H as needed for Pain Scale 1 - 4 20 7 August 15, 2023 1:00am March 03, 2024 9:35am Zinc (20 sources) Start: 06-21-2023 End: 03-03-2024 take 1 [...] Classification Problem Date Documented Da te Episodic/Chronic Anxiety disorders (17 sources) Generalized anxiety disorder; Translations: [Generalized anxiety disorder] Onset: 3 03-23-2023 Chronic Bacterial infection; unspecified site (6 sources) Bacterial infectious disease; Translations: [Other specified bacterial agents as the cause of diseases classified elsewhere] Episodic Chronic obstructive pulmonary disease and bronchiectasis (1 source) Bronchitis, not specified as acute or chronic Episodic Coronary atherosclerosis and other heart disease (4 sources) Angina pectoris; Translations: [Angina pectoris, unspecified] Onset: 3 06-13-2023 Chronic Diseases of mouth; excluding dental (1 source) Recurrent oral aphthae Episodic Disorders of lipid metabolism (20 sources) Hyperlipidemia; Translations: [Other and unspecified hyperlipidemia] Onset: Chronic Diverticulosis and diverticulitis (6 sources) Diverticular [...] 3 Resolved: 3 12-11-2022 Episodic Nutritional deficiencies (8 sources) Vitamin D deficiency; Translations: [Vitamin D deficiency, unspecified] 03-04-2025 Chronic Nutritional deficiencies (8 sources) Cobalamin deficiency; Translations: [Deficiency of other specified B group vitamins] 03-04-2025 Episodic Other connective tissue disease (1 source) Neuralgia and neuritis, unspecified Episodic Other connective tissue disease (2 sources) Myalgia, unspecified site; Translations: [Myalgia, unspecified site] Onset: 3 Episodic Other connective tissue disease (3 sources) Right rotator cuff syndrome; Translations: [Unspecified rotator cuff tear or rupture of right shoulder, not specified as traumatic] 05-01-2025 Episodic Other connective tissue disease (3 sources) Bicipital tendinitis, right shoulder; Translations: [Biceps tendinitis of right upper extremity] 05-01-2025 Episodic Other connective tissue disease (4 sources) Tear of right rotator cuff; Translations: [Unspecified rotator cuff tear or rupture of right shoulder, not specified as traumatic] 05-05-2025 Episodic Other connective tissue disease (4 sources) Biceps tendinitis; Translations: [Bicipital tendinitis, right shoulder] 05-05-2025 Episodic Other gastrointestinal disorders (6 sources) Irritable bowel syndrome characterized by constipation; Translations: [Irritable bowel syndrome with constipation] Chronic Other gastrointestinal disorders (1 source) Disorder of intestine; Translations: [Disease of intestine, unspecified] Episodic Other gastrointestinal disorders (6 sources) Constipation; Translations: [Constipation, unspecified] 03-03-2024 Episodic Other gastrointestinal disorders (1 source) Constipation, unspecified; Translations: [Constipation, unspecified] 03-03-2024 Episodic Other liver diseases (1 source) Fatty (change of) liver, not elsewhere classified; Translations: [FATTY CHANGE LIVER NEC] Onset: 1 Chronic Other lower respiratory disease (20 sources) Dyspnea at rest; Translations: [Shortness of breath] Onset: 3 06-13-2023 Episodic Other lower respiratory disease (6 sources) Abnormal breathing; Translations: [Other abnormalities of breathing] Episodic Other lower respiratory disease (6 sources) Dyspnea; Translations: [Dyspnea, unspecified] Episodic Other lower respiratory disease (2 sources) Shortness of breath; Translations: [Shortness of breath] Onset: 3 Episodic Other non-traumatic joint disorders (3 sources) Pain in right shoulder; Translations: [Right shoulder pain] Onset: 5 04-30-2025 Episodic Other nutritional; endocrine; and metabolic disorders (2 sources) Overweight; Translations: [Overweight] Episodic Other nutritional; endocrine; and metabolic disorders (5 sources) Overweight in adulthood with body mass index of 25 or more but less than 30; Translations: [Overweight] Episodic Other screening for suspected conditions (not mental disorders or infectious disease) (9 sources) Encounter for screening mammogram for malignant neoplasm of breast; Translations: [Patient encounter status] Episodic Other upper respiratory disease (10 sources) Chronic rhinitis; Translations: [Chronic rhinitis] Onset: 3 03-23-2023 Chronic Other upper respiratory infections (6 sources) Bacterial sinusitis; Translations: [Chronic sinusitis, unspecified] Chronic Residual codes; unclassified (1 source) Flushing; Translations: [Flushing] 12-17-2024 Episodic Residual codes; unclassified (2 sources) Body mass index 20-24 - normal; Translations: [Body mass index (BMI) 24.0-24.9, adult] Onset: 5 03-25-2025 Episodic Residual codes; unclassified (2 sources) Never smoked tobacco; Translations: [Other specified health status] Onset: 3 03-25-2025 Episodic Residual codes; unclassified (2 sources) Body mass index (BMI) 24.0-24.9, adult; Translations: [Body mass index (BMI) 24.0-24.9, adult] Onset: Episodic Residual codes; unclassified (6 sources) Postmenopausal state; Translations: [Asymptomatic menopausal state] 03-04-2025 Episodic Sprains and strains (7 sources) Shoulder strain; Translations: [Strain of unspecified muscle, fascia and tendon at shoulder and upper arm level, right arm, initial encounter] 05-01-2025 Episodic Unclassified (2 sources) Right shoulder pain; Translations: [M25.511 - Pain in right shoulder] Past or Other Problems Problem Classification Problem Date Documented Da te Episodic/Chronic Abdominal pain (20 sources) Unspecified abdominal pain; Translations: [Right sided abdominal pain] Onset: 10-12-2020 Resolved: 12-14-2023 10-21-2020 Episodic Allergic reactions (1 source) Contact dermatitis due to plants; Translations: [Unspecified contact dermatitis due to plants, except food] Onset: 12-30-2018 Episodic Cardiac dysrhythmias (20 sources) Palpitations; Translations: [Tachycardia] Onset: 06-12-2023 10-19-2020 Episodic Noninfectious gastroenteritis (1 source) Non-infective enteritis and colitis; Translations: [Noninfective gastroenteritis and colitis, unspecified] Onset: 03-29-2016 Episodic Other connective tissue disease (20 sources) Muscle pain; Translations: [Myalgia and myositis, unspecified] Onset: 06-12-2023 Resolved: 12-14-2023 06-13-2023 Episodic Other connective tissue disease (1 source) Lateral epicondylitis; Translations: [Lateral epicondylitis of elbow] Onset: 02-18-2018 Episodic Other gastrointestinal disorders (20 sources) Disorder of colon; Translations: [Disease of intestine, unspecified] Onset: 12-14-2023 10-21-2020 Episodic Comment on above: chronic constipation Other nervous system disorders (1 source) Sensory disorder of smell and/or taste; Translations: [Disturbances of sensation of smell and taste] Onset: 12-15-2014 Episodic Other nervous system disorders (1 source) Paresthesia; Translations: [Paresthesia of skin] Onset: 12-15-2014 Episodic Other nutritional; endocrine; and metabolic disorders (16 sources) Body mass index 25-29 - overweight; Translations: [Body Mass Index 28.0-28.9, adult] Onset: 02-18-2018 10-10-2023 Episodic Other upper respiratory disease (10 sources) Deviated nasal septum; Translations: [Deviated nasal septum] Onset: 03-23-2023 03-23-2023 Episodic Residual codes; unclassified (19 sources) Other specified health status; Translations: [Other drug allergy] Onset: 06-13-2023 Resolved: 06-13-2023 06-13-2023 Episodic Residual codes; unclassified (1 source) C/O - a back symptom; Translations: [Other symptoms referable to back] Onset: 08-16-2016 Episodic Unclassified (14 sources) Never smoked tobacco; Translations: [Never a smoker] Results Test Name Value Interpretation Reference Range Facility X-ray reportOrdered By: Neeraj Ibrahim on 05-01-2025 Study report [facility] [address] [place] [address] XRay Report Signed Patient: Ana María See MR#: [id number] : 1965 Acct:[id number] Age/Sex: 59 / F ADM Date: 5 Loc: [facility] Room: Type: [facility] Attending Dr: Ángel Natarajan DO Copies to: Ángel Natarajan DO~ Ordering Provider: Ángel Natarajan DO Date of Service: 05/01/25 XR/XR shoulder RT min 2V*: M25.511 - Pain in right shoulder RIGHT SHOULDER - - 4 views CLINICAL HISTORY: Right shoulder pain for months. COMPARISON: None FINDINGS: Moderate degenerative changes involving the AC joint. Mild degenerative changesof the glenohumeral joint. No acute bony process. XR/XR shoulder RT min 2V* IMPRESSION: DEGENERATIVE CHANGES INVOLVING THE RIGHT SHOULDER WITHOUT ACUTE BONY PROCESS. Impression dictated by: Anish Ibrahim Jr., DViOVi 05/01/2025 3:13 PM Dictation Location: [place] [address] Transcribed By: [facility] 05/01/25 151 Dictated By: Anish Ibrahim Jr, DO 05/01/25 151 Signed By: 05/01/25 151 [facility] XR shoulder RT min 2V*on XR shoulder RT min 2V* [facility] [address] [place] [id number] XRay Report Signed Patient: Ana María See MR#: [id number] : 1965 Acct:[id number] Age/Sex: 59 / F ADM Date: 05/01/25 Loc: [facility] Room: Type: [facility] Attending Dr: Ángel Natarajan DO Copies to: Ángel Natarajan DO Ordering Provider: Ángel Natarajan DO Date of Service: 05/01/25 XR/XR shoulder RT min 2V*: M25.511 - Pain in right shoulder RIGHT SHOULDER - - 4 views CLINICAL HISTORY: Right shoulder pain for months. COMPARISON: None FINDINGS: Moderate degenerative changes involving the AC joint. Mild degenerative changes of the glenohumeral joint. No acute bony process. XR/XR shoulder RT min 2V* IMPRESSION: DEGENERATIVE CHANGES INVOLVING THE RIGHT SHOULDER WITHOUT ACUTE BONY PROCESS. Impression dictated by: Anish Ibrahim Jr., D.OVi 05/01/2025 3:13 PM Dictation Location: [facility]-- Transcribed By: [facility] 05/01/25 151 Dictated By: Anish Ibrahim Jr, DO 05/01/25 151 Signed By: 05/01/25 151 Normal [facility] No Panel InformationOrdered By: Stiven Sylvester on 12-29-2024 Miscellaneous Pathology Test See comment [facility] Comment on above: See report. Scanned copy available in EMR. Pathology Request for Lab Co rpon 12-29-2024 Pathology Request for Lab Vicky Normal [facility] Comment on above: Order Comment: GI SP ECIMEN Result Comment: See report. Scanned copy available in EMR. PERFORMED BY: [place] [address] PATHOLOGIST BUILDING ASSOCIATE RAJNI EDWARDS M.D. Performed By: #### P ATH TO [facility] #### [address] MM TOMOSYNTHESIS SCREENING B Ion 11-14-2024 [facility] [address] [place] [address] Mammography Report Signed Patient: ANA MARÍA SEE MR#: [id number] : 1965 Acct:[id number] Age/Sex: 59 / F ADM Date: 11/14/24 Loc: MAMMO Attending Dr: YASH MURILLO Ordering Physician: YASH MURILLO Results: Date of Service: 11/14/24 Follow Up: Procedure(s): MM tomosynthesis screening BI Accession Number(s): [id number] cc: YASH MURILLO ; Stefanie Castillo M.D. Patient Name: ANA MARÍA SEE MR#: [id number] : 1965 Exam Date: 11/14/2024 Ordering Doctor: [...] Treatments None Family Cancers None LOCATION: [facility] BREAST COMPOSITION: There are scattered areas [...] Dictated By: Ricky Quarles D.O. Signed By: 11/14/246 DD/ 24 TD/TT: Back Up Worker: [facility] Radiology, Radiologi st, MD - 11/14/2024 [place] [address] Mammography Report Signed Patient: ANA MARÍA SEE MR#: [id number] : 1965 Acct:[id number] Age/Sex: 59 / F ADM Date: 11/14/24 Loc: MAMMO Attending Dr: YASH MURILLO Ordering Physician: YASH MURILLO Results: Date of Service: 11/14/24 Follow Up: Procedure(s): MM tomosynthesis screening BI Accession Number(s): [id number] cc: YASH MURILLO ; Stefanie Castillo M.D. Patient Name: ANA MARÍA SEE MR#: [id number] : 1965 Exam Date: 11/14/2024 Ordering Doctor: [...] Treatments None Family Cancers None LOCATION: [facility] BREAST COMPOSITION: There are scattered areas [...] Dictated By: Ricky Quarles D.O. Signed By: [id number] DD/ 24 TD/TT: Back Up Worker: [facility] Radiology Study observation (narrative) [facility] MM TOMOSYNTHESIS SCREENING B IOrdered By: Radiologist Radiology on 11-14-2024 [facility] Work Phone: Activated partial thrombopla stin time (aPTT) in platelet poor plasma by coagulation aOrdered By: Yash Murillo on 08-01-2023 aPTT Coag (PPP) [Time] 32.4 s 25.1-36.5 [facility] Comment on above: A hematocrit value g reater than 55% may lead to inaccurate results in coagulation testing. Patients having hematocrit values >55% require a special collection tube for coagulation studies. Please contact the laboratory at [phone] for redraw instructions. Alanine aminotransferase [En zymatic activity/volume] in Serum or PlasmaOrdered By: Yash Murillo on 08-01-2023 ALT [Catalytic activity/Vol] 20 U/L 7-52 [facility] Albumin [Mass/volume] in Ser um or Plasma by Bromocresol green (BCG) dye binding methoOrdered By: Yash Murillo on 08-01-2023 Albumin BCG dye [Mass/Vol] 4.6 g/dL 3.5-5.7 [facility] Alkaline phosphatase [Enzyma tic activity/volume] in Serum or PlasmaOrdered By: Yash Murillo on 08-01-2023 ALP [Catalytic activity/Vol] 48 U/L 34-104 [facility] Aspartate aminotransferase [ Enzymatic activity/volume] in Serum or PlasmaOrdered By: Yash Murillo on 08-01-2023 AST [Catalytic activity/Vol] 18 U/L 13-39 [facility] Basophils Auto (Bld) [#/Vol] Ordered By: Yash Murillo on 08-01-2023 Basophils (Bld) [#/Vol] 0.0 10*3/uL 0.0-0.2 [facility] Basophils/100 WBC Auto (Bld) Ordered By: Yash Murillo on 08-01-2023 Basophils/100 WBC (Bld) 0.4 % . [facility] Bilirubin Test strip Ql (U)O rdered By: Yash Murillo on 08-01-2023 Bilirubin Ql (U) Negative Negative [facility] Bilirubin.total [Mass/volume ] in Serum or PlasmaOrdered By: Yash Murillo on 08-01-2023 Bilirubin [Mass/Vol] 1.1 mg/dL 0.3-1.0 [facility] Calcium [Mass/volume] in Ser um or PlasmaOrdered By: Yash Murillo on 08-01-2023 Calcium [Mass/Vol] 9.5 mg/dL 8.6-10.3 [facility] [place] Carbon dioxide, total [Moles /volume] in Serum or PlasmaOrdered By: Yash Murillo on 08-01-2023 CO2 [Moles/Vol] 29.6 mmol/L 21.0-31.0 [facility] Chloride [Moles/volume] in S claudy or PlasmaOrdered By: Yash Murillo on 08-01-2023 Chloride [Moles/Vol] 103 mmol/L 98-107 [facility] Color Auto (U)Ordered By: Erlinda Murillo on 08-01-2023 Color (U) Yellow Yellow [facility] Creatinine [Mass/volume] in Serum or PlasmaOrdered By: Yash Murillo on 08-01-2023 Creatinine [Mass/Vol] 0.65 mg/dL 0.60-1.20 [facility] Eosinophils Auto (Bld) [#/Vo l]Ordered By: Yash Murillo on 08-01-2023 Eosinophils (Bld) [#/Vol] 0.1 10*3/uL 0.0-0.45 [facility] Eosinophils/100 WBC Auto (Bl d)Ordered By: Yash Murillo on 08-01-2023 Eosinophils/100 WBC (Bld) 1.5 % . [facility] Erythrocyte distribution wid th Auto (RBC) [Ratio]Ordered By: Yash Murillo on 08-01-2023 Erythrocyte distribution width (RBC) [Ratio] 13.7 % 11.9-15.3 [facility] Globulin Calc (S) [Mass/Vol] Ordered By: Yash Murillo on 08-01-2023 Globulin (S) [Mass/Vol] 2.4 g/dL [facility] Glucose [Mass/volume] in Ser um or PlasmaOrdered By: Yash Murillo on 08-01-2023 Glucose [Mass/Vol] 100 mg/dL 70-100 [facility] [place] Comment on above: ADA recommended refe rence rangeRandom Glucose Reference Range is dependent on time and content of last meal. Glucose of more than 200 mg/dL in a nonstressed, ambulatory subject supports the diagnosis of Diabetes Mellitus. Hematocrit Auto (Bld) [Volum e fraction]Ordered By: Yash Murillo on 08-01-2023 Hematocrit (Bld) [Volume fraction] 42.3 % 34.0-46.4 [facility] Hemoglobin [Mass/volume] in BloodOrdered By: Yash Murillo on 08-01-2023 Hemoglobin (Bld) [Mass/Vol] 14.4 g/dL 11.8-15.4 [facility] INR in Platelet poor plasma by Coagulation assayOrdered By: Yash Murillo on 08-01-2023 INR Coag (PPP) [Relative time] 1.0 {INR} [facility] Comment on above: INR Therapeutic Rang e [...] on 08-01-2023 Ketones (U) [Mass/Vol] Negative Negative [facility] Leukocytes [#/volume] correc fabiano for nucleated erythrocytes in Blood by Automated counOrdered By: Yash Murillo on 08-01-2023 WBC corrected for nucl RBC Auto (Bld) [#/Vol] 3.8 10*3/uL 3.8-11.6 [facility] Lymphocytes Auto (Bld) [#/Vo l]Ordered By: Yash Murillo on 08-01-2023 Lymphocytes (Bld) [#/Vol] 1.7 10*3/uL 1.00-4.8 [facility] Lymphocytes/100 WBC Auto (Bl d)Ordered By: Yash Murillo on 08-01-2023 Lymphocytes/100 WBC (Bld) 43.6 % . [facility] MCH Auto (RBC) [Entitic mass ]Ordered By: Yash Murillo on 08-01-2023 MCH (RBC) [Entitic mass] 28.6 pg 24.7-34.3 [facility] MCHC Auto (RBC) [Mass/Vol]Or dered By: Yash Murillo on 08-01-2023 MCHC (RBC) [Mass/Vol] 34.0 g/dL 32.0-35.0 [facility] MCV Auto (RBC) [Entitic vol] Ordered By: Yash Murillo on 08-01-2023 MCV (RBC) [Entitic vol] 84.2 fL 80-100 [facility] Monocytes Auto (Bld) [#/Vol] Ordered By: Yash Murillo on 08-01-2023 Monocytes (Bld) [#/Vol] 0.3 10*3/uL 0.0-0.8 [facility] Monocytes/100 WBC Auto (Bld) Ordered By: Yash Murillo on 08-01-2023 Monocytes/100 WBC (Bld) 7.3 % . [facility] Neutrophils Auto (Bld) [#/Vo l]Ordered By: Yash Murillo on 08-01-2023 Neutrophils (Bld) [#/Vol] 1.8 10*3/uL 1.8-7.7 [facility] Neutrophils/100 WBC Auto (Bl d)Ordered By: Yash Murillo on 08-01-2023 Neutrophils/100 WBC (Bld) 47.2 % . [facility] Nitrite Test strip Ql (U)Ord ered By: Yash Murillo on 08-01-2023 Nitrite Ql (U) Negative Negative [facility] No Panel InformationOrdered By: Yash Murillo on 08-01-2023 Estimated GFR (CKD-EPI) > 60.0 mL/Min [facility] Creatinine Clearance (Chem N/A [facility] Nucleated erythrocytes [Pres ence] in Blood by Automated countOrdered By: Yash Murillo on 08-01-2023 Nucleated RBC Auto Ql (Bld) 0.2 /100{WBC} 0-0.5 [facility] Platelet mean volume Auto (B ld) [Entitic vol]Ordered By: Yash Murillo on 08-01-2023 Platelet mean volume (Bld) [Entitic vol] 7.4 fL 6.3-10.7 [facility] Platelets Auto (Bld) [#/Vol] Ordered By: Yash Murillo on 08-01-2023 Platelets (Bld) [#/Vol] 309 10*3/uL 150-450 [facility] Potassium [Moles/volume] in Serum or PlasmaOrdered By: Yash Murillo on 08-01-2023 Potassium [Moles/Vol] 3.9 mmol/L 3.5-5.1 [facility] Protein Auto test strip (U) [Mass/Vol]Ordered By: Yash Murillo on 08-01-2023 Protein (U) [Mass/Vol] Negative Negative [facility] Protein [Mass/volume] in Ser um or PlasmaOrdered By: Yash Murillo on 08-01-2023 Protein [Mass/Vol] 7.0 g/dL 6.4-8.9 [facility] [place] Prothrombin time (PT)Ordered By: Yash Murillo on 08-01-2023 PT Coag (PPP) [Time] 11.8 s 9.0-12.9 [facility] Comment on above: A hematocrit value g reater than 55% may lead to inaccurate results in coagulation testing. Patients having hematocrit values >55% require a special collection tube for coagulation studies. Please contact the laboratory at [phone] for redraw instructions. RBC Auto (Bld) [#/Vol]Ordere d By: Yash Murillo on 08-01-2023 RBC (Bld) [#/Vol] 5.02 10*6/uL 3.60-5.00 [facility] Serum or plasma albumin/glob ulin mass ratioOrdered By: Yash Murillo on 08-01-2023 Albumin/Globulin [Mass ratio] 1.9 {ratio} [facility] Serum or plasma anion gap de terminationOrdered By: Yash Murillo on 08-01-2023 Anion gap [Moles/Vol] 11.3 mmol/L 6.0-15.0 [facility] Sodium [Moles/volume] in Ser um or PlasmaOrdered By: Yash Murillo on 08-01-2023 Sodium [Moles/Vol] 140 mmol/L 136-145 [facility] [place] Specific gravity Auto test s trip (U) [Rel density]Ordered By: Yash Murillo on 08-01-2023 Specific gravity (U) [Rel density] 1.005 1.001-1.03 0 [facility] Urea nitrogen [Mass/volume] in Serum or PlasmaOrdered By: Yash Murillo on 08-01-2023 Urea nitrogen [Mass/Vol] 14 mg/dL 7-25 [facility] Urine clarity by refractomet ry automatedOrdered By: Yash Murillo on 08-01-2023 Clarity Refractometry automated (U) Clear Clear [facility] Urine glucose measurement by automated test strip (mass/volume)Ordered By: Yash Murillo on 08-01-2023 Glucose Auto test strip (U) [Mass/Vol] Normal mg/dL Normal [facility] Urine hemoglobin detection b y automated test stripOrdered By: Yash Murillo on 08-01-2023 Hemoglobin Auto test strip Ql (U) Negative Negative [facility] Urine leukocyte esterase det ection by automated test stripOrdered By: Yash Murillo on 08-01-2023 Leukocyte esterase Auto test strip Ql (U) Negative Negative [facility] Urobilinogen Auto test strip (U) [Mass/Vol]Ordered By: Yash Murillo on 08-01-2023 Urobilinogen (U) [Mass/Vol] Normal mg/dL Normal [facility] WBC Auto (Bld) [#/Vol]Ordere d By: Yash Murillo on 08-01-2023 WBC (Bld) [#/Vol] 3.8 10*3/uL 3.8-11.6 [facility] [place] pH Auto test strip (U)Ordere d By: Yash Murillo on 08-01-2023 pH (U) 6.0 [pH] 5.0-9.0 [facility] Activated partial thrombopla stin time (aPTT) in platelet poor plasma by coagulation aOrdered By: Diana Bhagat on 06-21-2023 aPTT Coag (PPP) [Time] 31.8 s 25.1-36.5 [facility] Comment on above: A hematocrit value g reater than 55% may lead to inaccurate results in coagulation testing. Patients having hematocrit values >55% require a special collection tube for coagulation studies. Please contact the laboratory at [phone] for redraw instructions. Basophils Auto (Bld) [#/Vol] Ordered By: Diana Bhagat on 06-21-2023 Basophils (Bld) [#/Vol] 0.0 10*3/uL 0.0-0.2 [facility] Basophils/100 WBC Auto (Bld) Ordered By: Diana Bhagat on 06-21-2023 Basophils/100 WBC (Bld) 0.6 % . [facility] Carbon dioxide, total [Moles /volume] in Serum or PlasmaOrdered By: Diana Bhagat on 06-21-2023 CO2 [Moles/Vol] 29.0 mmol/L 21.0-31.0 [facility] Chloride [Moles/volume] in S claudy or PlasmaOrdered By: Diana Bhagat on 06-21-2023 Chloride [Moles/Vol] 103 mmol/L 98-107 [facility] Cholesterol [Mass/volume] in Serum or PlasmaOrdered By: Diana Bhagat on 06-21-2023 Cholesterol [Mass/Vol] 252 mg/dL 140-200 [facility] Comment on above: Chol less than 200 m g/dl low riskChol 201-239 mg/dl borderline riskChol 240 mg/dl and greater high risk Cholesterol in LDL Calc [Mas s/Vol]Ordered By: Diana Bhagat on 06-21-2023 Cholesterol in LDL [Mass/Vol] TNP [facility] Comment on above: Test not performed Cholesterol in LDL [Mass/vol ume] in Serum or PlasmaOrdered By: Diana Bhagat on 06-21-2023 Cholesterol in LDL [Mass/Vol] 78 mg/dL 0-100 [facility] Comment on above: LDL ATP III CLASSIFI CATIONLDL less than 100 mg/dL OptimalLDL 100-129 mg/dL Near or above optimalLDL 130-159 mg/dL Borderline highLDL 160-189 mg/dL HighLDL greater than 189 mg/dL Very high Cholesterol in VLDL Calc [Ma ss/Vol]Ordered By: Diana Bhagat on 06-21-2023 Cholesterol in VLDL [Mass/Vol] 157 mg/dL [facility] Creatinine [Mass/volume] in Serum or PlasmaOrdered By: Diana Bhagat on 06-21-2023 Creatinine [Mass/Vol] 0.64 mg/dL 0.60-1.20 [facility] Eosinophils Auto (Bld) [#/Vo l]Ordered By: Diana Bhagat on 06-21-2023 Eosinophils (Bld) [#/Vol] 0.1 10*3/uL 0.0-0.45 [facility] Eosinophils/100 WBC Auto (Bl d)Ordered By: Diana Bhagat on 06-21-2023 Eosinophils/100 WBC (Bld) 1.9 % . [facility] Erythrocyte distribution wid th Auto (RBC) [Ratio]Ordered By: Diana Bhagat on 06-21-2023 Erythrocyte distribution width (RBC) [Ratio] 13.4 % 11.9-15.3 [facility] Hematocrit Auto (Bld) [Volum e fraction]Ordered By: Diana Bhagat on 06-21-2023 Hematocrit (Bld) [Volume fraction] 41.9 % 34.0-46.4 [facility] Hemoglobin [Mass/volume] in BloodOrdered By: Diana Bhagat on 06-21-2023 Hemoglobin (Bld) [Mass/Vol] 14.2 g/dL 11.8-15.4 [facility] INR in Platelet poor plasma by Coagulation assayOrdered By: Diana Bhagat on 06-21-2023 INR Coag (PPP) [Relative time] 0.9 {INR} [facility] Comment on above: INR Therapeutic Rang e [...] in Blood by Automated counOrdered By: Diana Bhagat on 06-21-2023 WBC corrected for nucl RBC Auto (Bld) [#/Vol] 3.5 10*3/uL 3.8-11.6 [facility] Lymphocytes Auto (Bld) [#/Vo l]Ordered By: Diana Bhagat on 06-21-2023 Lymphocytes (Bld) [#/Vol] 1.5 10*3/uL 1.00-4.8 [facility] Lymphocytes/100 WBC Auto (Bl d)Ordered By: Diana Bhagat on 06-21-2023 Lymphocytes/100 WBC (Bld) 42.4 % . [facility] MCH Auto (RBC) [Entitic mass ]Ordered By: Diana Bhagat on 06-21-2023 MCH (RBC) [Entitic mass] 28.3 pg 24.7-34.3 [facility] MCHC Auto (RBC) [Mass/Vol]Or dered By: Diana Bhagat on 06-21-2023 MCHC (RBC) [Mass/Vol] 33.8 g/dL 32.0-35.0 [facility] MCV Auto (RBC) [Entitic vol] Ordered By: Diana Bhagat on 06-21-2023 MCV (RBC) [Entitic vol] 83.8 fL 80-100 [facility] Monocytes Auto (Bld) [#/Vol] Ordered By: Diana Bhagat on 06-21-2023 Monocytes (Bld) [#/Vol] 0.2 10*3/uL 0.0-0.8 [facility] Monocytes/100 WBC Auto (Bld) Ordered By: Diana Bhagat on 06-21-2023 Monocytes/100 WBC (Bld) 5.2 % . [facility] Neutrophils Auto (Bld) [#/Vo l]Ordered By: Diana Bhagat on 06-21-2023 Neutrophils (Bld) [#/Vol] 1.8 10*3/uL 1.8-7.7 [facility] Neutrophils/100 WBC Auto (Bl d)Ordered By: Diana Bhagat on 06-21-2023 Neutrophils/100 WBC (Bld) 49.9 % . [facility] No Panel InformationOrdered By: Diana Bhagat on 06-21-2023 Estimated GFR (CKD-EPI) > 60.0 mL/Min [facility] Creatinine Clearance (Chem N/A [facility] Nucleated erythrocytes [Pres ence] in Blood by Automated countOrdered By: Diana Bhagat on 06-21-2023 Nucleated RBC Auto Ql (Bld) 0.1 /100{WBC} 0-0.5 [facility] Platelet mean volume Auto (B ld) [Entitic vol]Ordered By: Diana Bhagat on 06-21-2023 Platelet mean volume (Bld) [Entitic vol] 7.0 fL 6.3-10.7 [facility] Platelets Auto (Bld) [#/Vol] Ordered By: Diana Bhagat on 06-21-2023 Platelets (Bld) [#/Vol] 359 10*3/uL 150-450 [facility] Potassium [Moles/volume] in Serum or PlasmaOrdered By: Diana Bhagat on 06-21-2023 Potassium [Moles/Vol] 4.2 mmol/L 3.5-5.1 [facility] Prothrombin time (PT)Ordered By: Diana Bhagat on 06-21-2023 PT Coag (PPP) [Time] 11.2 s 9.0-12.9 [facility] Comment on above: A hematocrit value g reater than 55% may lead to inaccurate results in coagulation testing. Patients having hematocrit values >55% require a special collection tube for coagulation studies. Please contact the laboratory at [phone] for redraw instructions. RBC Auto (Bld) [#/Vol]Ordere d By: Diana Bhagat on 06-21-2023 RBC (Bld) [#/Vol] 5.00 10*6/uL 3.60-5.00 [facility] Serum or plasma anion gap de terminationOrdered By: Diana Bhagat on 06-21-2023 Anion gap [Moles/Vol] 12.2 mmol/L 6.0-15.0 [facility] Serum or plasma high density lipoprotein (HDL) cholesterol measurementOrdered By: Diana Bhagat on 06-21-2023 Cholesterol in HDL [Mass/Vol] 35 mg/dL 23-92 [facility] Comment on above: HDL CHOL ATP-III CLA SSIFICATION Cardiovascular RiskHDL > or equal to 60 mg/dL LOWHDL < 40 mg/dL HIGH Serum or plasma total choles terol/high density lipoprotein (HDL) cholesterol mass ratOrdered By: Diana Bhagat on 06-21-2023 Cholesterol.total/Chol esterol in HDL [Mass ratio] 7.2 {ratio} <5.0 [facility] Sodium [Moles/volume] in Ser um or PlasmaOrdered By: Diana Bhagat on 06-21-2023 Sodium [Moles/Vol] 140 mmol/L 136-145 [facility] [place] Triglyceride [Mass/volume] i n Serum or PlasmaOrdered By: Diana Bhagat on 06-21-2023 Triglyceride [Mass/Vol] 786 mg/dL 0-149 [facility] Comment on above: If the triglyceride result [...] on 06-21-2023 Urea nitrogen [Mass/Vol] 14 mg/dL 7-25 [facility] WBC Auto (Bld) [#/Vol]Ordere d By: Diana Bhagat on 06-21-2023 WBC (Bld) [#/Vol] 3.5 10*3/uL 3.8-11.6 [facility] [place] Stephanie 05-22-2023 ALT [Catalytic activity/Vol] 21 U/L Normal - [facility] Comment on above: Performed By: #### 8 22, [id number], 823 #### [facility] [address] [place], [place] [id number] Strategic Account Director: Eric Velazco #### 7600 #### [facility] [address], [address] [place] [address] Strategic Account Director: Camilo Sky MD Janelle 05-22-2023 AST [Catalytic activity/Vol] 19 U/L Normal - [facility] Comment on above: Performed By: #### 8 22, [id number], 823 #### [facility] [address] [place] [address] Strategic Account Director: Eric Velazco #### 7600 #### [facility] [address], [address] [place] [address] Strategic Account Director: Camilo Sky MD BASIC METABOLIC PANELon BUN/CREATININE RATIO SEE NOTE: Normal 02-08 [facility] Comment on above: Result Comment: Not Reported: BUN and Creatinine are within reference range. Performed By: #### 8 22, [id number], 823 #### [facility] [address] Strategic Account Director: Eric Velazco #### 7600 #### [facility] [address], [address] [place] [address] Strategic Account Director: Camilo Sky MD Calcium [Mass/Vol] 9.3 mg/dL Normal 8.6-10.4 [facility] Comment on above: Performed By: #### 8 22, 10748, 823 #### [facility] [address] [place] [address] Strategic Account Director: Eric Velazco #### 7600 #### [facility] [address], [address] [place] [address] Strategic Account Director: Camilo Sky MD Chloride [Moles/Vol] 104 mmol/L Normal 98-110 [facility] Comment on above: Performed By: #### 8 22, 62009, 823 #### [facility] [address] [place] [address] Strategic Account Director: Eric Velazco #### 7600 #### [facility] [address], [address] [place] [address] Strategic Account Director: Camilo Sky MD CO2 [Moles/Vol] 28 mmol/L Normal 20-32 [facility] Comment on above: Performed By: #### 8 22, 53858, 823 #### [facility] [address] Strategic Account Director: Eric Velazco #### 7600 #### [facility] [address], [address] [place] [address] Strategic Account Director: Camilo Sky MD Creatinine [Mass/Vol] 0.71 mg/dL Normal 0.50-1.03 [facility] Comment on above: Performed By: #### 8 22, 39021, 823 #### [facility] [address] Strategic Account Director: Eric Velazco #### 7600 #### [facility] [address], [address] [place] [address] Strategic Account Director: Camilo Sky MD GFR/1.73 sq M.predicted among non-blacks MDRD (S/P/Bld) [Vol rate/Area] 98 mL/min/{1.73_m2} Normal > OR = 60 [facility] Comment on above: Performed By: #### 8 22, 33743, 823 #### [facility] [address] [place] [address] Strategic Account Director: Eric Velazco #### 7600 #### [facility] [address], [address] [place] [address] Strategic Account Director: Camilo Sky MD Glucose [Mass/Vol] 117 mg/dL High 65-99 [facility] Comment on above: Result Comment: Fasting reference interval For someone without known diabetes, a glucose value between 100 and 125 mg/dL is consistent with prediabetes and should be confirmed with a follow-up test. Performed By: #### 8 22, 97177, 823 #### [facility] [address] [place] [address] Strategic Account Director: Eric Velazco #### 7600 #### [facility] [address], [address] [place] [address] Strategic Account Director: Camilo Sky MD Potassium [Moles/Vol] 4.2 mmol/L Normal 3.5-5.3 [facility] Comment on above: Performed By: #### 8 , 05918, 823 #### [facility] [address] Strategic Account Director: Eric Velazco #### 7600 #### [facility] [address], [address] [place] [address] Strategic Account Director: Camilo Sky MD Sodium [Moles/Vol] 139 mmol/L Normal 135-146 [facility] Comment on above: Performed By: #### 8 , 38024, 823 #### [facility] [address] [place] [address] Strategic Account Director: Eric Velazco #### 7600 #### [facility] [address], [address] [place] [address] Strategic Account Director: Camilo Sky MD Urea nitrogen [Mass/Vol] 16 mg/dL Normal 7-25 [facility] Comment on above: Performed By: #### 8 , 81044, 823 #### [facility] [address] [place] [address] Strategic Account Director: Eric Velazco #### 7600 #### [facility] [address], [address] [place] [address] Strategic Account Director: Camilo Sky MD LIPID PANEL, STANDARDon 10-0 Cholesterol [Mass/Vol] 213 mg/dL High <200 [facility] Comment on above: Order Comment: FASTI NG:YES FASTING: YES Performed By: #### 8 22, 11121, 823 #### [facility] [address] [place] [address] Strategic Account Director: Eric Velazco #### 7600 #### [facility] [address], [address] [place] [address] Strategic Account Director: Camilo Sky MD Cholesterol in HDL [Mass/Vol] 35 mg/dL Low > OR = 50 [facility] Comment on above: Order Comment: FASTI NG:YES FASTING: YES Performed By: #### 8 22, 14951, 823 #### [facility] [address] [place] [address] Strategic Account Director: Eric Velazco #### 7600 #### [facility] [address], [address] [place] [address] Strategic Account Director: Camilo Sky MD Cholesterol.total/Chol esterol in HDL [Mass ratio] 6.1 {ratio} High <5.0 [facility] Comment on above: Order Comment: FASTI NG:YES FASTING: YES Performed By: #### 8 22, 41896, 823 #### [facility] [address] [place] [address] Strategic Account Director: Eric Velazco #### 7600 #### [facility] [address], [address] [place] [address] Strategic Account Director: Camilo Sky MD LDL-CHOLESTEROL Normal [facility] Comment on above: Order Comment: FASTI NG:YES FASTING: YES Result Comment: LDL cholesterol not calculated. Triglyceride levels greater than 400 mg/dL invalidate calculated LDL results. Reference range: <100 Desirable range <100 mg/dL for primary prevention; <70 mg/dL for patients with CHD or diabetic patients with > or = 2 CHD risk factors. LDL-C is now calculated using the Cesar-Plummer calculation, which is a validated novel method providing better accuracy than the Friedewald equation in the estimation of LDL-C. Cesar ROTHMAN et al. IRENE. 2013;310(19): 4907-9794 (http://education.SmartStudy.com/faq/WIR219) Performed By: #### 8 22, 99260, 823 #### [facility] [address] [place] [address] Strategic Account Director: Eric Velazco #### 7600 #### [email or web address] [address], [address] [place] [address] Strategic Account Director: Camilo Sky MD NON HDL CHOLESTEROL 178 mg/dL (calc) High <130 [facility] Comment on above: Order Comment: FASTI NG:YES FASTING: YES Result Comment: For patients with diabetes plus 1 major ASCVD risk factor, treating to a non-HDL-C goal of <100 mg/dL (LDL-C of <70 mg/dL) is considered a therapeutic option. Performed By: #### 8 , 50010, 823 #### [facility] [address] [place] [address] Strategic Account Director: Eric Velazco #### [id number] #### [employer] [address], [address] [place] [address] Strategic Account Director: Camilo Sky MD Triglyceride [Mass/Vol] 496 mg/dL High <150 [facility] Comment on above: Order Comment: FASTI NG:YES FASTING: YES Result Comment: If a non-fasting specimen was collected, consider repeat triglyceride testing on a fasting specimen if clinically indicated. Edgardo et al. J. of Clin. Lipidol. 2015;9:129-169. Performed By: #### [id number] #### [facility] [address] [place] [address] Strategic Account Director: Eric Velazco #### [id number] #### [facility] [address], [address] [place] [address] Strategic Account Director: Camilo Sky MD Office Visit (Cardiology)on 12-26-2022 [...] Metabolic Panel; Status:Active - Retrospective Authorization; Requested for:[id number]; Hyperlipemia ALT - Alanine Aminotransferase, Serum; Status:Active - Retrospective Authorization; Requested for:[id number]; AST; Status:Active - Retrospective Authorization; Requested for:[id number]; Lipid Panel; Status:Active - Retrospective Authorization; Requested for:[id number]; Overweight with body mass index (BMI) of [...] ANA MARÍA SEE is being seen for [facility] D/C 12/12/22. History of Present Illness Patient [...] to discuss her postmenopausal symptoms with her [facility] physician Current Meds Medication NameInstruction Aspirin 81 [...] and a (more content not included)... Normal [employer] Tobacco Screening.on 023 Tobacco use status CP b) No [facility] [address] DO Work Phone: Alanine aminotransferase [En zymatic activity/volume] in Serum or PlasmaOrdered By: Roverto Ortega on 12-12-2022 ALT [Catalytic activity/Vol] 21 U/L 7-52 [facility] Albumin [Mass/volume] in Ser um or Plasma by Bromocresol green (BCG) dye binding methoOrdered By: Roverto Ortega on 12-12-2022 Albumin BCG dye [Mass/Vol] 3.8 g/dL 3.5-5.7 [facility] Alkaline phosphatase [Enzyma tic activity/volume] in Serum or PlasmaOrdered By: Roverto Ortega on 12-12-2022 ALP [Catalytic activity/Vol] 66 U/L 34-104 [facility] Aspartate aminotransferase [ Enzymatic activity/volume] in Serum or PlasmaOrdered By: Roverto Ortega on 12-12-2022 AST [Catalytic activity/Vol] 18 U/L 13-39 [facility] Basophils Auto (Bld) [#/Vol] Ordered By: Roverto Ortega on 12-12-2022 Basophils (Bld) [#/Vol] 0.0 10*3/uL 0.0-0.2 [facility] Basophils/100 WBC Auto (Bld) Ordered By: Roverto Ortega on 12-12-2022 Basophils/100 WBC (Bld) 0.3 % . [facility] Bilirubin.total [Mass/volume ] in Serum or PlasmaOrdered By: Roverto Ortega on 12-12-2022 Bilirubin [Mass/Vol] 1.4 mg/dL 0.3-1.0 [facility] Comment on above: Samples from patient s who have taken Naproxen have shown spurious elevation in Total Bilirubin levels. A metabolite of Naproxen, O-desmethylnaproxen, has been shown to interfere with the Kelly-Gustavo method for measuring Total Bilirubin. Calcium [Mass/volume] in Ser um or PlasmaOrdered By: Roverto Ortega on 12-12-2022 Calcium [Mass/Vol] 8.1 mg/dL 8.6-10.3 [facility] Carbon dioxide, total [Moles /volume] in Serum or PlasmaOrdered By: Roverto Ortega on 12-12-2022 CO2 [Moles/Vol] 25.6 mmol/L 21.0-31.0 [facility] Chloride [Moles/volume] in S claudy or PlasmaOrdered By: Roverto Ortega on 12-12-2022 Chloride [Moles/Vol] 101 mmol/L 98-107 [facility] Cholesterol [Mass/volume] in Serum or PlasmaOrdered By: Roverto Ortega on 12-12-2022 Cholesterol [Mass/Vol] 228 mg/dL 140-200 [facility] Comment on above: Chol less than 200 m g/dl low riskChol 201-239 mg/dl borderline riskChol 240 mg/dl and greater high risk Cholesterol in LDL Calc [Mas s/Vol]Ordered By: Roverto Ortega on 12-12-2022 Cholesterol in LDL [Mass/Vol] TNP [facility] Comment on above: Test not performed Cholesterol in LDL [Mass/vol ume] in Serum or PlasmaOrdered By: Roverto Ortega on 12-12-2022 Cholesterol in LDL [Mass/Vol] 52 mg/dL 0-100 [facility] Comment on above: LDL ATP III CLASSIFI CATIONLDL less than 100 mg/dL OptimalLDL 100-129 mg/dL Near or above optimalLDL 130-159 mg/dL Borderline highLDL 160-189 mg/dL HighLDL greater than 189 mg/dL Very high Cholesterol in VLDL Calc [Ma ss/Vol]Ordered By: Roverto Ortega on 12-12-2022 Cholesterol in VLDL [Mass/Vol] 166 mg/dL [facility] Creatinine [Mass/volume] in Serum or PlasmaOrdered By: Roverto Ortega on 12-12-2022 Creatinine [Mass/Vol] 0.64 mg/dL 0.60-1.20 [facility] Eosinophils Auto (Bld) [#/Vo l]Ordered By: Roverto Ortega on 12-12-2022 Eosinophils (Bld) [#/Vol] 0.0 10*3/uL 0.0-0.45 [facility] Eosinophils/100 WBC Auto (Bl d)Ordered By: Roverto Ortega on 12-12-2022 Eosinophils/100 WBC (Bld) 0.2 % . [facility] Erythrocyte distribution wid th Auto (RBC) [Ratio]Ordered By: Roverto Ortega on 12-12-2022 Erythrocyte distribution width (RBC) [Ratio] 13.6 % 11.9-15.3 [facility] Globulin Calc (S) [Mass/Vol] Ordered By: Roverto Ortega on 12-12-2022 Globulin (S) [Mass/Vol] 3.0 g/dL [facility] Glucose [Mass/volume] in Ser um or PlasmaOrdered By: Roverto Ortega on 12-12-2022 Glucose [Mass/Vol] 104 mg/dL 70-100 [facility] Comment on above: ADA recommended refe rence rangeRandom Glucose Reference Range is dependent on time and content of last meal. Glucose of more than 200 mg/dL in a nonstressed, ambulatory subject supports the diagnosis of Diabetes Mellitus. Glucose mean value [Mass/vol ume] in Blood Estimated from glycated hemoglobinOrdered By: Roverto Ortega on 12-12-2022 Average glucose Estimated from glycated hemoglobin (Bld) [Mass/Vol] 123 mg/dL [facility] Hematocrit Auto (Bld) [Volum e fraction]Ordered By: Roverto Ortega on 12-12-2022 Hematocrit (Bld) [Volume fraction] 40.5 % 34.0-46.4 [facility] Hemoglobin A1c percentageOrd ered By: Roverto Ortega on 12-12-2022 HbA1c (Bld) [Mass fraction] 5.9 % 4.3-5.6 [facility] Comment on above: Increased risk for d iabetes: 5.7 - 6.4diabetes: >6.4glycemic control for adults with diabetes: <7.0 Hemoglobin [Mass/volume] in BloodOrdered By: Roverto Ortega on 12-12-2022 Hemoglobin (Bld) [Mass/Vol] 13.5 g/dL 11.8-15.4 [facility] Leukocytes [#/volume] correc fabiano for nucleated erythrocytes in Blood by Automated counOrdered By: Roverto Ortega on 12-12-2022 WBC corrected for nucl RBC Auto (Bld) [#/Vol] 6.3 10*3/uL 3.8-11.6 [facility] Lymphocytes Auto (Bld) [#/Vo l]Ordered By: Roverto Ortega on 12-12-2022 Lymphocytes (Bld) [#/Vol] 1.4 10*3/uL 1.00-4.8 [facility] Lymphocytes/100 WBC Auto (Bl d)Ordered By: Roverto Ortega on 12-12-2022 Lymphocytes/100 WBC (Bld) 22.6 % . [facility] MCH Auto (RBC) [Entitic mass ]Ordered By: Roverto Ortega on 12-12-2022 MCH (RBC) [Entitic mass] 28.1 pg 24.7-34.3 [facility] MCHC Auto (RBC) [Mass/Vol]Or dered By: Roverto Ortega on 12-12-2022 MCHC (RBC) [Mass/Vol] 33.2 g/dL 32.0-35.0 [facility] MCV Auto (RBC) [Entitic vol] Ordered By: Roverto Ortega on 12-12-2022 MCV (RBC) [Entitic vol] 84.6 fL 80-100 [facility] Magnesium [Mass/volume] in S claudy or PlasmaOrdered By: Roverto Ortega on 12-12-2022 Magnesium [Mass/Vol] 1.9 mg/dL 1.9-2.7 [facility] Monocytes Auto (Bld) [#/Vol] Ordered By: Roverto Ortega on 12-12-2022 Monocytes (Bld) [#/Vol] 0.7 10*3/uL 0.0-0.8 [facility] Monocytes/100 WBC Auto (Bld) Ordered By: Roverto Ortega on 12-12-2022 Monocytes/100 WBC (Bld) 11.7 % . [facility] Neutrophils Auto (Bld) [#/Vo l]Ordered By: Roverto Ortega on 12-12-2022 Neutrophils (Bld) [#/Vol] 4.1 10*3/uL 1.8-7.7 [facility] Neutrophils/100 WBC Auto (Bl d)Ordered By: Roverto Ortega on 12-12-2022 Neutrophils/100 WBC (Bld) 65.2 % . [facility] No Panel InformationOrdered By: Roverto Ortega on 12-12-2022 Estimated GFR (CKD-EPI) > 60.0 mL/Min [facility] Creatinine Clearance (Chem 111.03 [facility] Nucleated erythrocytes [Pres ence] in Blood by Automated countOrdered By: Roverto Ortega on 12-12-2022 Nucleated RBC Auto Ql (Bld) 0.1 /100{WBC} 0-0.5 [facility] Platelet mean volume Auto (B ld) [Entitic vol]Ordered By: Roverto Ortega on 12-12-2022 Platelet mean volume (Bld) [Entitic vol] 7.3 fL 6.3-10.7 [facility] Platelets Auto (Bld) [#/Vol] Ordered By: Roverto Ortega on 12-12-2022 Platelets (Bld) [#/Vol] 205 10*3/uL 150-450 [facility] Potassium [Moles/volume] in Serum or PlasmaOrdered By: Roverto Ortega on 12-12-2022 Potassium [Moles/Vol] 3.2 mmol/L 3.5-5.1 [facility] Protein [Mass/volume] in Ser um or PlasmaOrdered By: Roverto Ortega on 12-12-2022 Protein [Mass/Vol] 6.8 g/dL 6.4-8.9 [facility] RBC Auto (Bld) [#/Vol]Ordere d By: Roverto Ortega on 12-12-2022 RBC (Bld) [#/Vol] 4.79 10*6/uL 3.60-5.00 [facility] Serum or plasma albumin/glob ulin mass ratioOrdered By: Roverto Ortega on 12-12-2022 Albumin/Globulin [Mass ratio] 1.3 {ratio} [facility] Serum or plasma anion gap de terminationOrdered By: Roverto Ortega on 12-12-2022 Anion gap [Moles/Vol] 12.6 mmol/L 6.0-15.0 [facility] Serum or plasma high density lipoprotein (HDL) cholesterol measurementOrdered By: Roverto Ortega on 12-12-2022 Cholesterol in HDL [Mass/Vol] 26 mg/dL 35-85 [facility] Comment on above: HDL CHOL ATP-III CLA SSIFICATION Cardiovascular RiskHDL > or equal to 60 mg/dL LOWHDL < 40 mg/dL HIGH Serum or plasma total choles terol/high density lipoprotein (HDL) cholesterol mass ratOrdered By: Roverto Ortega on 12-12-2022 Cholesterol.total/Chol esterol in HDL [Mass ratio] 8.8 {ratio} <5.0 [facility] Sodium [Moles/volume] in Ser um or PlasmaOrdered By: Roverto Ortega on 12-12-2022 Sodium [Moles/Vol] 136 mmol/L 136-145 [facility] Thyrotropin [Units/volume] i n Serum or PlasmaOrdered By: Roverto Ortega on 12-12-2022 TSH Qn 1.83 m[IU]/L 0.45-5.33 [facility] Triglyceride [Mass/volume] i n Serum or PlasmaOrdered By: Roverto Ortega on 12-12-2022 Triglyceride [Mass/Vol] 832 mg/dL 0-149 [facility] Comment on above: If the triglyceride result [...] 12-12-2022 Urea nitrogen [Mass/Vol] 9 mg/dL 03-13 [facility] WBC Auto (Bld) [#/Vol]Ordere d By: Roverto Ortega on 12-12-2022 WBC (Bld) [#/Vol] 6.3 10*3/uL 3.8-11.6 [facility] Activated partial thrombopla stin time (aPTT) in platelet poor plasma by coagulation aOrdered By: Roverto Ortega on 12-11-2022 aPTT Coag (PPP) [Time] 32.4 s 25.1-36.5 [facility] Laboratory - CoagulationOrde red By: Roverto Ortega on 12-11-2022 PT Coag (PPP) [Time] 12.8 s 9.0-12.9 [facility] Monocyte distribution width [Entitic volume] in Blood by AutomatedOrdered By: Jim Ann on 12-11-2022 Monocyte distribution width Auto (Bld) [Entitic vol] 24.03 % 0.00-20.00 [facility] Comment on above: For adults in ED, MD W > 20.0 may be associated with a higher risk of sepsis during the first 12 hrs of hospital admission Natriuretic peptide B [Mass/ Vol]Ordered By: Roverto Ortega on 12-11-2022 Natriuretic peptide B (Bld) [Mass/Vol] 12.0 pg/mL 5-100 [facility] No Panel InformationOrdered By: Jim Ann on 12-11-2022 D-Dimer Quantitative (PE/DVT) < 200 ng/mL 0-243 [facility] Comment on above: The reference range for [...] INR Coag (PPP) [Relative time] 1.1 {INR} [facility] Comment on above: INR Therapeutic Rang e [...] <= 0.01 ng/mL [Mass/Vol] 2.6 pg/mL 0.0-15.0 [facility] Basophils Auto (Bld) [#/Vol] Ordered By: Johnathan Cross on 10-17-2022 Basophils (Bld) [#/Vol] 0.0 10*3/uL 0.0-0.2 [facility] Basophils/100 WBC Auto (Bld) Ordered By: Johnathan Cross on 10-17-2022 Basophils/100 WBC (Bld) 0.4 % . [facility] Eosinophils Auto (Bld) [#/Vo l]Ordered By: Johnathan Cross on 10-17-2022 Eosinophils (Bld) [#/Vol] 0.1 10*3/uL 0.0-0.45 [facility] Eosinophils/100 WBC Auto (Bl d)Ordered By: Johnathan Cross on 10-17-2022 Eosinophils/100 WBC (Bld) 1.6 % . [facility] Erythrocyte distribution wid th Auto (RBC) [Ratio]Ordered By: Johnathan Cross on 10-17-2022 Erythrocyte distribution width (RBC) [Ratio] 13.5 % 11.9-15.3 [facility] Hematocrit Auto (Bld) [Volum e fraction]Ordered By: Johnathan Cross on 10-17-2022 Hematocrit (Bld) [Volume fraction] 42.2 % 34.0-46.4 [facility] Hemoglobin [Mass/volume] in BloodOrdered By: Johnathan Cross on 10-17-2022 Hemoglobin (Bld) [Mass/Vol] 14.1 g/dL 11.8-15.4 [facility] Leukocytes [#/volume] correc fabiano for nucleated erythrocytes in Blood by Automated counOrdered By: Johnathan Cross on 10-17-2022 WBC corrected for nucl RBC Auto (Bld) [#/Vol] 4.6 10*3/uL 3.8-11.6 [facility] Lymphocytes Auto (Bld) [#/Vo l]Ordered By: Johnathan Cross on 10-17-2022 Lymphocytes (Bld) [#/Vol] 1.8 10*3/uL 1.00-4.8 [facility] Lymphocytes/100 WBC Auto (Bl d)Ordered By: Johnathan Cross on 10-17-2022 Lymphocytes/100 WBC (Bld) 38.7 % . [facility] MCH Auto (RBC) [Entitic mass ]Ordered By: Johnathan Cross on 10-17-2022 MCH (RBC) [Entitic mass] 28.3 pg 24.7-34.3 [facility] MCHC Auto (RBC) [Mass/Vol]Or dered By: Johnathan Cross on 10-17-2022 MCHC (RBC) [Mass/Vol] 33.5 g/dL 32.0-35.0 [facility] MCV Auto (RBC) [Entitic vol] Ordered By: Johnathan Cross on 10-17-2022 MCV (RBC) [Entitic vol] 84.6 fL 80-100 [facility] Monocytes Auto (Bld) [#/Vol] Ordered By: Johnathan Cross on 10-17-2022 Monocytes (Bld) [#/Vol] 0.3 10*3/uL 0.0-0.8 [facility] Monocytes/100 WBC Auto (Bld) Ordered By: Johnathan Cross on 10-17-2022 Monocytes/100 WBC (Bld) 6.3 % . [facility] Neutrophils Auto (Bld) [#/Vo l]Ordered By: Johnathan Cross on 10-17-2022 Neutrophils (Bld) [#/Vol] 2.4 10*3/uL 1.8-7.7 [facility] Neutrophils/100 WBC Auto (Bl d)Ordered By: Johnathan Cross on 10-17-2022 Neutrophils/100 WBC (Bld) 53.0 % . [facility] Nucleated erythrocytes [Pres ence] in Blood by Automated countOrdered By: Johnathan Cross on 10-17-2022 Nucleated RBC Auto Ql (Bld) 0.1 /100{WBC} 0-0.5 [facility] Platelet mean volume Auto (B ld) [Entitic vol]Ordered By: Johnathan Cross on 10-17-2022 Platelet mean volume (Bld) [Entitic vol] 7.5 fL 6.3-10.7 [facility] Platelets Auto (Bld) [#/Vol] Ordered By: Johnathan Cross on 10-17-2022 Platelets (Bld) [#/Vol] 282 10*3/uL 150-450 [facility] RBC Auto (Bld) [#/Vol]Ordere d By: Johnathan Cross on 10-17-2022 RBC (Bld) [#/Vol] 4.98 10*6/uL 3.60-5.00 [facility] WBC Auto (Bld) [#/Vol]Ordere d By: Johnathan Cross on 10-17-2022 WBC (Bld) [#/Vol] 4.6 10*3/uL 3.8-11.6 [facility] Office Visit (Cardiology)on 10-10-2022 Follow-up visit Diagnoses/Problems [...] IO EKG Electrocardiogram- 12 Lead; Status:Complete; Done: 10Oct2022 Hyperlipemia Start: Icosapent Ethyl 1 GM Oral Capsule (Vascepa); TAKE 2 CAPSULE Twice daily Overweight with body mass index (BMI) of 26 to 26.9 in adult Healthy Weight Tips; Status:Complete - Retrospective Authorization; Done: 10Oct2022 Some eating tips that can help you lose weight.; Status:Complete - Retrospective Authorization; Done: 10Oct2022 SocHx: Never a smoker Tobacco Use Screening; Status:Complete; Done: 10Oct2022 Patient Instructions Please bring all medicines, vitamins, and herbal supplements with you when you come to the office. Prescriptions will not be filled unless you are compliant with your follow up appointments or have a follow up appointment scheduled as per instruction of your physician. Refills should be requested at the time of your visit. labs reviewed with patient- will obtain from [email or web address] Follow up in 1 [...] negative for complaint. Vitals Vital Signs Recorded: [id number] 01:12PM Heart Rate67, Apical Uuugqdtg545, LUE, Standing Etgyguvtl90, LUE, Standing Height5 ft 9 in Jcyzhl252 lb BMI Uhinyhiuok68.73 kg/m2 BSA Calculated1.98 Tobacco Useb) No PHQ-2 #1. Over the last 2 weeks have you felt down, depressed or hopeless? (more content not included)... Normal [facility] Adult depression screening assessment No [facility] [employer] 250 DO Work Phone: Fall risk assessment a) No falls within the last year [facility] [employer] 250 DO Work Phone: Tobacco use status CPHS b) No [facility] [employer] 250 DO Work Phone: Office Visit (Cardiology)on [...] a smoker Tobacco Use Screening; Status:Complete; Done: [id number] Patient Instructions By signing my name below, Landy Sherman Lpn, Scribe, attest that this documentation has been prepared [...] Recorded: 02Jan2022 03:28PM Heart Rate74, L Radial Fudfplxy136, LUE, Sitting Dothbjvqn32, LUE, Sitting Height5 ft 9 in Renuve749 lb BMI Gjhpbfhxfs16.94 kg/m2 BSA Calculated2.05 Tobacco Useb) No PHQ-2 #1. Over the last 2 weeks have you felt down, depressed or hopeless? (If yes, answer PHQ-9 below)No PHQ-2 #2. Over the last 2 weeks have you felt (more content not included)... Normal [facility] Tobacco Screening.on 022 Adult depression screening assessment No [facility] [employer] 250 DO Work Phone: Fall risk assessment a) [facility] the [facility] Work Phone: Tobacco use status CPHS b) No [facility] [employer] 250 DO Work Phone: SCREENING MAMMOGRAM W/EPHRAIM, [...] IS VERY IMPORTANT TO YOUR HEALTH. CURRENT [employer] GUIDELINES RECOMMENDS ANNUAL MAMMOGRAPHY BEGINNING AT AGE 40. THIS FACILITY USUALLY USES A REMINDER SYSTEM TO ENSURE ALL POSITIONS RECEIVED REMINDER NOTIFICATIONS AT THE TIME BASED ON THE RECOMMENDATIONS OF THIS EXAM. Report reported and signed by Kobe Haddad on 08/24/2021 1200 Normal [facility] [employer] Tobacco Screening.on 021 Fall risk assessment c) Not medically indicated [facility] [employer] 250 DO Work Phone: Tobacco use status CPHS b) No [facility] Work Phone: Activated partial thrombopla stin time (aPTT) in platelet poor plasma by coagulation aon 10-19-2020 aPTT Coag (PPP) [Time] 35.9 s 25.1-36.5 [facility] Albumin [Mass/volume] in Ser um or Plasmaon 10-19-2020 Albumin [Mass/Vol] 4.2 g/dL 3.2-5.5 [facility] Automated basophil %on 10-19 Basophils/100 WBC (Bld) 0.4 % [facility] Automated basophil counton 0 10-19-2020 Basophils (Bld) [#/Vol] 0.0 10*3/uL 0.0-0.2 [facility] Automated blood lymphocyte c ount (number/volume)on 10-19-2020 Lymphocytes (Bld) [#/Vol] 1.3 10*3/uL 1.00-4.8 [facility] Automated blood lymphocyte c ount as percentage of total leukocyteson 10-19-2020 Lymphocytes/100 WBC (Bld) 30.0 % [facility] Automated blood monocyte cou nton 10-19-2020 Monocytes (Bld) [#/Vol] 0.2 10*3/uL 0.0-0.8 [facility] Automated blood platelet cou nt (count/volume)on 10-19-2020 Platelets (Bld) [#/Vol] 266 10*3/uL 150-450 [facility] Automated blood platelet matilde n volume measurementon 10-19-2020 Platelet mean volume (Bld) [Entitic vol] 7.7 fL 6.3-10.7 [facility] Automated eosinophil %on Eosinophils/100 WBC (Bld) 0.7 % [facility] Automated eosinophil counton 10-19-2020 Eosinophils (Bld) [#/Vol] 0.0 10*3/uL 0.0-0.45 [facility] Automated erythrocyte distri bution width ratioon 10-19-2020 Erythrocyte distribution width (RBC) [Ratio] 13.0 % 11.9-15.3 [facility] Automated erythrocyte mean c orpuscular hemoglobin (mass per erythrocyte)on 10-19-2020 MCH (RBC) [Entitic mass] 29.3 pg 24.7-34.3 [facility] Automated erythrocyte mean c orpuscular hemoglobin concentration measurement (mass/volon 10-19-2020 MCHC (RBC) [Mass/Vol] 34.4 g/dL 32.0-35.0 [facility] Automated erythrocyte mean c orpuscular volumeon 10-19-2020 MCV (RBC) [Entitic vol] 85.0 fL 80-100 [facility] Automated monocyte %on 10-19 Monocytes/100 WBC (Bld) 5.7 % [facility] Automated neutrophil %on Neutrophils/100 WBC (Bld) 63.2 % [facility] Automated urine color determ inationon 10-19-2020 Color (U) Yellow Yellow [facility] Blood erythrocytes automated count (number/volume)on 10-19-2020 RBC (Bld) [#/Vol] 5.09 10*6/uL 3.60-5.00 [facility] Blood hemoglobin measurement (mass/volume)on 10-19-2020 Hemoglobin (Bld) [Mass/Vol] 14.9 g/dL 11.8-15.4 [facility] Blood leukocytes automated c ount (number/volume)on 10-19-2020 WBC (Bld) [#/Vol] 4.2 10*3/uL 4.5-11.0 [facility] Blood neutrophil count by au tomated method (number/volume)on 10-19-2020 Neutrophils (Bld) [#/Vol] 2.6 10*3/uL 1.8-7.7 [facility] COVID-19 SOFIAon 10-19-2020 COVID-19 ERICA Negative Negative [facility] Comment on above: This is a duplicate test result based off of the Erica SARS Antigen (LUCIUS) test performed within the Microbiology department. [facility] 10-19-2020 Natriuretic peptide B (Bld) [Mass/Vol] 33.0 pg/mL 5-100 [facility] Estimated glomerular filtrat ion rate (GFR) non- Americanon 10-19-2020 GFR/1.73 sq M predicted among non-blacks MDRD (S/P/Bld) [Vol rate/Area] mL/min/{1.73_m2} [facility] Hematocrit [Volume Fraction] of Blood by Automated counton 10-19-2020 Hematocrit (Bld) [Volume fraction] 43.2 % 34.0-46.4 [facility] Hematologyon 10-19-2020 PT Coag (PPP) [Time] 11.4 s 9.0-12.9 [facility] Metabolic Panelon 10-19-2020 Magnesium [Mass/Vol] 1.8 mg/dL 1.6-2.6 [facility] Otheron 10-19-2020 GFR/1.73 sq M.predicted MDRD (S/P/Bld) [Vol rate/Area] mL/min/{1.73_m2} [facility] Comment on above: GFR estimated refere nce range: According to KDOQI guidelines, <60 ml/min/1.73m2 is sufficient to diagnose a patient with chronic kidney disease. Nucleated RBC/100 WBC (Bld) [Ratio] 0.4 % 0-0.5 [facility] Creatinine Clearance (Chem 94.48 [facility] SARS Antigen (LFIA) [facility] Platelet poor plasma interna tional normalized ratio (INR) by coagulation assay (relaton 10-19-2020 INR Coag (PPP) [Relative time] 1.0 {INR} [facility] Comment on above: INR Therapeutic Rang e [...] Protein [Mass/Vol] 7.0 g/dL 6.1-7.9 [facility] Serum globulin measurement b y calculation (mass/volume)on 10-19-2020 Globulin (S) [Mass/Vol] 2.8 g/dL [facility] Serum or plasma alanine de guzman otransferase measurement without P-5'-P (enzymatic activion 10-19-2020 ALT No additional P-5'-P [Catalytic activity/Vol] 28 U/L 10-60 [facility] Serum or plasma albumin/glob ulin mass ratioon 10-19-2020 Albumin/Globulin [Mass ratio] 1.5 {ratio} [facility] Serum or plasma alkaline gerry sphatase measurement (enzymatic activity/volume)on 10-19-2020 ALP [Catalytic activity/Vol] 51 U/L 32-92 [facility] Serum or plasma aspartate am inotransferase measurement (enzymatic activity/volume)on 10-19-2020 AST [Catalytic activity/Vol] 25 U/L 10-42 [facility] Serum or plasma calcium cyndi urement (mass/volume)on 10-19-2020 Calcium [Mass/Vol] 9.2 mg/dL 8.2-10.2 [facility] Serum or plasma cardiac trop onin I measurement (mass/volume)on 10-19-2020 Troponin I.cardiac [Mass/Vol] ng/mL 0-0.02 [facility] Comment on above: NGOZI NM Cut off value > or equal to 0.03 ng/mL in conjunction with clinical conditions of myocardial infarction.([email or web address]) Serum or plasma chloride matilde surement (moles/volume)on 10-19-2020 Chloride [Moles/Vol] 100 mmol/L 95-114 [facility] Serum or plasma creatinine m easurement with calculation of estimated glomerular filtron 10-19-2020 Creatinine [Mass/Vol] 0.78 mg/dL 0.44-1.03 [facility] Serum or plasma glucose cyndi urement (mass/volume)on 10-19-2020 Glucose [Mass/Vol] 178 mg/dL 70-100 [facility] Comment on above: ADA recommended refe rence rangeRandom Glucose Reference Range is dependent on time and content of last meal. Glucose of more than 200 mg/dL in a nonstressed, ambulatory subject supports the diagnosis of Diabetes Mellitus. Serum or plasma potassium me asurement (moles/volume)on 10-19-2020 Potassium [Moles/Vol] 3.1 mmol/L 3.5-5.1 [facility] Serum or plasma sodium measu rement (moles/volume)on 10-19-2020 Sodium [Moles/Vol] 138 mmol/L 136-146 [facility] Serum or plasma thyroid stim ulating hormone (TSH) measurement by high sensitivity meton 10-19-2020 TSH Qn 4.04 u[iU]/mL 0.45-5.33 [facility] Serum or plasma total biliru bin measurement (mass/volume)on 10-19-2020 Bilirubin [Mass/Vol] 1.0 mg/dL 0.3-1.2 [facility] Serum or plasma total carbon dioxide measurement (moles/volume)on 10-19-2020 CO2 [Moles/Vol] 24.4 mmol/L 22.0-30.0 [facility] Serum or plasma urea nitroge n measurement (mass/volume)on 10-19-2020 Urea nitrogen [Mass/Vol] 9 mg/dL 9 [facility] Specific gravity of Urine by Automated test stripon 10-19-2020 Specific gravity (U) [Rel density] 1.005 1.001-1.03 0 [facility] Thyroxine (T4) free [Mass/vo lume] in Serum or Plasmaon 10-19-2020 Free T4 [Mass/Vol] 0.69 ng/dL 0.61-1.12 [facility] Urine clarity by refractomet ry automatedon 10-19-2020 Clarity Refractometry automated (U) Clear Clear [facility] Urine glucose measurement by automated test strip (mass/volume)on 10-19-2020 Glucose Auto test strip (U) [Mass/Vol] Normal mg/dL Normal [facility] Urine hemoglobin detection b y automated test stripon 10-19-2020 Hemoglobin Auto test strip Ql (U) Negative Negative [facility] Urine ketones measurement by automated test strip (mass/volume)on 10-19-2020 Ketones (U) [Mass[facility]] [facility] leukocyte esterase det ection by automated test stripon 10-19-2020 Leukocyte esterase Auto test strip Ql (U) Negative Negative [facility] Urine nitrite detection by t est stripon 10-19-2020 Nitrite Ql (U) Negative Negative [facility] Urine pH measurement by auto mated test stripon 10-19-2020 pH (U) 6.5 [pH] 5.0-9.0 [facility] Urine protein measurement by automated test strip (mass/volume)on 10-19-2020 Protein (U) [Mass/Vol] Negative Negative [facility] Urine total bilirubin detect ion by test stripon 10-19-2020 Bilirubin Ql (U) Negative Negative [facility] Urine urobilinogen measureme nt by automated test strip (mass/volume)on 10-19-2020 Urobilinogen (U) [Mass/Vol] Normal mg/dL Normal [facility] CT ABD/PELV W CONon 10-12-19 CT ABD/PELV [...] by: BEA BARR Date: 2020-10-12 11:15 Normal [facility] Vital Signs Date Time Vital Sign Value Performing Clinician Facility 03-25-2025 15:18-0400 Body height 175.3 cm Diana Bhagat MD Work Phone: [facility] 03-25-2025 15:18-0400 Body mass index (BMI) [Ratio] 24.96 kg/m2 Diana Bhagat MD Work Phone: [facility] 03-25-2025 15:18-0400 Body weight 76.66 kg Diana Bhagat MD Work Phone: [facility] 03-25-2025 15:18-0400 Diastolic blood pressure 84 mm[Hg] Diana Bhagat MD Work Phone: [facility] 03-25-2025 15:18-0400 Heart rate 64 /min Diana Bhagat MD Work Phone: [facility] 03-25-2025 15:18-0400 Systolic blood pressure 122 mm[Hg] Diana Bhagat MD Work Phone: [facility] 03-04-2025 13:30-0400 Body height 175.26 cm Stefanie Castillo MD Work Phone: [facility] 03-04-2025 13:30-0400 Body mass index (BMI) [Ratio] 24.7 kg/m2 Stefanie Castillo MD Work Phone: [facility] 03-04-2025 13:30-0400 Body temperature 97.8 [degF] Stefanie Castillo MD Work Phone: [facility] 03-04-2025 13:30-0400 Body weight 76.2 kg Stefanie Castillo MD Work Phone: [facility] 03-04-2025 13:30-0400 Diastolic blood pressure 66 mm[Hg] Stefanie Castillo MD Work Phone: [facility] 03-04-2025 13:30-0400 Heart rate 88 /min Stefanie Castillo MD Work Phone: [facility] 03-04-2025 13:30-0400 SaO2% (BldA) [Mass fraction] 98 % Stefanie Castillo MD Work Phone: [facility] 03-04-2025 13:30-0400 Systolic blood pressure 110 mm[Hg] Stefanie Castillo MD Work Phone: [facility] 12-29-2024 11:10-0400 Diastolic blood pressure 69 mm[Hg] Stefanie Castillo MD Work Phone: [facility] 12-29-2024 11:10-0400 Heart rate 70 /min Stefanie Castillo MD Work Phone: [facility] 12-29-2024 11:10-0400 Respiratory rate 16 /min Stefanie Castillo MD Work Phone: [facility] 12-29-2024 11:10-0400 SaO2% (BldA) [Mass fraction] 99 % Stefanie Castillo MD Work Phone: [facility] 12-29-2024 11:10-0400 Systolic blood pressure 105 mm[Hg] Stefanie Castillo MD Work Phone: [facility] 12-29-2024 08:02-0400 Body height 175.26 cm Stefanie Castillo MD Work Phone: [facility] 12-29-2024 08:02-0400 Body weight 73.48 kg Stefanie Castillo MD Work Phone: [facility] 12-17-2024 09:54-0400 Body height 171.5 cm Yash Murillo DO Work Phone: [facility] 12-17-2024 09:54-0400 Body mass index (BMI) [Ratio] 25.62 kg/m2 Yash Murillo DO Work Phone: [facility] 12-17-2024 09:54-0400 Body weight 75.3 kg Yash Murillo DO Work Phone: [facility] 12-17-2024 09:54-0400 Diastolic blood pressure 76 mm[Hg] Yash Murillo DO Work Phone: [facility] 12-17-2024 09:54-0400 Systolic blood pressure 118 mm[Hg] Yash Murillo DO Work Phone: [facility] 03-03-2024 09:33-0400 Body height 175.26 cm [facility] 03-03-2024 09:33-0400 Body mass index (BMI) [Ratio] 24.2 kg/m2 [facility] 03-03-2024 09:33-0400 Body weight 74.38 kg [facility] 03-03-2024 09:33-0400 Diastolic blood pressure 77 mm[Hg] [facility] 03-03-2024 09:33-0400 Heart rate 80 /min [facility] 03-03-2024 09:33-0400 Systolic blood pressure 142 mm[Hg] [facility] 10-10-2023 13:47-0500 Diastolic blood pressure 84 mm[Hg] Diana Bhagat MD Work Phone: [facility] 10-10-2023 13:47-0500 Systolic blood pressure 123 mm[Hg] Diana Bhagat MD Work Phone: [facility] 10-10-2023 13:09-0500 Body height 175.3 cm Diana Bhagat MD Work Phone: [facility] 10-10-2023 13:09-0500 Body mass index (BMI) [Ratio] 26.29 kg/m2 Diana Bhagat MD Work Phone: [facility] 10-10-2023 13:09-0500 Body weight 80.74 kg Diana Bhagat MD Work Phone: [facility] 10-10-2023 13:09-0500 Heart rate 60 /min Diana Bhagat MD Work Phone: [facility] 06-26-2023 14:44-0500 Diastolic blood pressure 60 mm[Hg] MD Stefanie Castillo Work Phone: [facility] 06-26-2023 14:44-0500 Heart rate 68 /min MD Stefanie Castillo Work Phone: [facility] 06-26-2023 14:44-0500 Respiratory rate 18 /min MD Stefanie Castillo Work Phone: [facility] 06-26-2023 14:44-0500 SaO2% (BldA) [Mass fraction] 96 % MD Stefanie Castillo Work Phone: [facility] 06-26-2023 14:44-0500 Systolic blood pressure 95 mm[Hg] MD Stefanie Castillo Work Phone: [facility] 06-26-2023 09:50-0500 Body height 175.26 cm MD Stefanie Castillo Work Phone: [facility] 06-26-2023 09:50-0500 Body temperature 98 [degF] MD Stefanie Castillo Work Phone: [facility] 06-26-2023 09:50-0500 Body weight 82 kg MD Stefanie Castillo Work Phone: [facility] 06-13-2023 14:36-0400 Body height 175.3 cm Diana Bhagat MD Work Phone: [facility] 06-13-2023 14:36-0400 Body mass index (BMI) [Ratio] 26.43 kg/m2 Diana Bhagat MD Work Phone: [facility] 06-13-2023 14:36-0400 Body weight 81.19 kg Diana Bhagat MD Work Phone: [facility] 06-13-2023 14:36-0400 Diastolic blood pressure 80 mm[Hg] Diana Bhagat MD Work Phone: [facility] 06-13-2023 14:36-0400 Heart rate 60 /min Diana Bhagat MD Work Phone: [facility] 06-13-2023 14:36-0400 Systolic blood pressure 116 mm[Hg] Diana Bhagat MD Work Phone: [facility] 12-26-2022 14:18-0400 Body height 175.26 cm Stefanie Castillo Work Phone: [facility] DO Work Phone: 12-26-2022 14:18-0400 Body mass index (BMI) [Ratio] 26.58 kg/m2 Stefanie Castillo Work Phone: [facility] DO Work Phone: 12-26-2022 14:18-0400 Body surface area Derived from formula 1.98 m2 Stefanie Castillo Work Phone: [facility] 250 DO Work Phone: 12-26-2022 14:18-0400 Body weight 81.65 kg Stefanie Castillo Work Phone: [facility] DO Work Phone: 12-26-2022 14:18-0400 Diastolic blood pressure 86 mm[Hg] Stefanie Castillo Work Phone: [facility] 250 DO Work Phone: 12-26-2022 14:18-0400 Heart rate 66 /min Stefanie Castillo Work Phone: [facility] DO Work Phone: 12-26-2022 14:18-0400 Systolic blood pressure 128 mm[Hg] Stefanie Castillo Work Phone: [facility] DO Work Phone: 12-13-2022 10:30-0400 Body height 173.99 cm Stefanie Castillo Other [facility] Other 12-13-2022 10:30-0400 Body mass index (BMI) [Ratio] 28.32 kg/m2 Stefanie Castillo Other [facility] Other 12-13-2022 10:30-0400 Body weight 85.73 kg Stefanie Castillo Other [facility] Other 12-13-2022 10:30-0400 Diastolic blood pressure 80 mm[Hg] Stefanie Castillo Other [facility] Other 12-13-2022 10:30-0400 SaO2% (BldA) [Mass fraction] 99 % Stefanie Castillo Other [facility] Other 12-13-2022 10:30-0400 Systolic blood pressure 118 mm[Hg] Stefanie Castillo Other [facility] Other 12-12-2022 16:01-0400 68 1 Stefanie Castillo Work Phone: [facility] DO Work Phone: Comment on above: [id number] 12-12-2022 15:13-0400 Body temperature 98.4 [degF] MD Stefanie Castillo Work Phone: [facility] 12-12-2022 15:13-0400 Diastolic blood pressure 64 mm[Hg] MD Stefanie Castillo Work Phone: [facility] 12-12-2022 15:13-0400 Heart rate 102 /min MD Stefanie Castillo Work Phone: [facility] 12-12-2022 15:13-0400 Respiratory rate 18 /min MD Stefanie Castillo Work Phone: [facility] 12-12-2022 15:13-0400 SaO2% (BldA) [Mass fraction] 95 % MD Stefanie Castillo Work Phone: [facility] 12-12-2022 15:13-0400 Systolic blood pressure 101 mm[Hg] MD Stefanie Castillo Work Phone: [facility] 12-12-2022 06:59-0400 Body weight 82 kg MD Stefanie Castillo Work Phone: [facility] 12-11-2022 12:39-0400 Body height 175.26 cm MD Stefanie Castillo Work Phone: [facility] 10-10-2022 13:12-0500 Body height 175.26 cm Stefanie Castillo Work Phone: [facility] 250 DO Work Phone: 10-10-2022 13:12-0500 Body mass index (BMI) [Ratio] 26.73 kg/m2 Stefanie Castillo Work Phone: [facility] 250 DO Work Phone: 10-10-2022 13:12-0500 Body surface area Derived from formula 1.98 m2 Stefanie Castillo Work Phone: [facility] DO Work Phone: 10-10-2022 13:12-0500 Body weight 82.1 kg Stefanie Castillo Work Phone: [facility] DO Work Phone: 10-10-2022 13:12-0500 Diastolic blood pressure 84 mm[Hg] Stefanie Castillo Work Phone: [facility] 250 DO Work Phone: 10-10-2022 13:12-0500 Heart rate 67 /min Stefanie Castillo Work Phone: [facility] DO Work Phone: 10-10-2022 13:12-0500 Systolic blood pressure 118 mm[Hg] Stefanie Castillo Work Phone: [facility] DO Work Phone: 09-05-2022 10:15-0500 Body height 173.99 cm Stefanie Castillo Other [facility] Other 09-05-2022 10:15-0500 Body mass index (BMI) [Ratio] 28.02 kg/m2 Stefanie Castillo Other [facility] Other 09-05-2022 10:15-0500 Body weight 84.82 kg Stefanie Castillo Other [facility] Other 09-05-2022 10:15-0500 Diastolic blood pressure 80 mm[Hg] Stefanie Castillo Other [facility] Other 09-05-2022 10:15-0500 SaO2% (BldA) [Mass fraction] 95 % Stefanie Castillo Other [facility] Other 09-05-2022 10:15-0500 Systolic blood pressure 122 mm[Hg] Stefanie Castillo Other [facility] Other 08-03-2022 16:07-0500 Body height 175.26 cm Stefanie Castillo Work Phone: [facility] DO Work Phone: 08-03-2022 16:07-0500 Body mass index (BMI) [Ratio] 27.76 kg/m2 Stefanie Castillo Work Phone: [facility] DO Work Phone: 08-03-2022 16:07-0500 Body surface area Derived from formula 2.01 m2 Stefanie Castillo Work Phone: [facility] DO Work Phone: 08-03-2022 16:07-0500 Body weight 85.28 kg Stefanie Castillo Work Phone: [facility] [place] [facility] DO Work Phone: 08-03-2022 16:07-0500 Diastolic blood pressure 94 mm[Hg] Stefanie Castillo Work Phone: [facility] 250 DO Work Phone: 08-03-2022 16:07-0500 Diastolic blood pressure 96 mm[Hg] Stefanie Castillo Work Phone: [facility] DO Work Phone: 08-03-2022 16:07-0500 Heart rate 71 /min Stefanie Castillo Work Phone: [facility] DO Work Phone: 08-03-2022 16:07-0500 Systolic blood pressure 142 mm[Hg] Stefanie Castillo Work Phone: [facility] DO Work Phone: 08-03-2022 16:07-0500 Systolic blood pressure 146 mm[Hg] Stefanie Castillo Work Phone: [facility] DO Work Phone: 08-03-2022 15:55-0500 Body height 175.26 cm Stefanie Castillo Work Phone: [facility] DO Work Phone: 08-03-2022 15:55-0500 Body mass index (BMI) [Ratio] 27.76 kg/m2 Stefanie Castillo Work Phone: [facility] DO Work Phone: 08-03-2022 15:55-0500 Body surface area Derived from formula 2.01 m2 Stefanie Castillo Work Phone: [facility] DO Work Phone: 08-03-2022 15:55-0500 Body weight 85.28 kg Stefanie Castillo Work Phone: [facility] DO Work Phone: 08-03-2022 15:55-0500 Diastolic blood pressure 94 mm[Hg] Stefanie Castillo Work Phone: [facility] DO Work Phone: 08-03-2022 15:55-0500 Systolic blood pressure 142 mm[Hg] Stefanie Castillo Work Phone: [facility] DO Work Phone: 08-03-2022 15:35-0500 Diastolic blood pressure 96 mm[Hg] Stefanie Castillo Work Phone: [facility] DO Work Phone: 08-03-2022 15:35-0500 Heart rate 71 /min Stefanie Castillo Work Phone: [facility] DO Work Phone: 08-03-2022 15:35-0500 Systolic blood pressure 146 mm[Hg] Stefanie Castillo Work Phone: [facility] DO Work Phone: 01-02-2022 15:28-0400 Body height 175.26 cm Stefanie Castillo Work Phone: [facility] DO Work Phone: 01-02-2022 15:28-0400 Body mass index (BMI) [Ratio] 28.94 kg/m2 Stefanie Castillo Work Phone: [facility] DO Work Phone: 01-02-2022 15:28-0400 Body surface area Derived from formula 2.05 m2 Stefanie Castillo Work Phone: [facility] DO Work Phone: 01-02-2022 15:28-0400 Body weight 88.91 kg Stefanie Castillo Work Phone: [facility] DO Work Phone: 01-02-2022 15:28-0400 Diastolic blood pressure 78 mm[Hg] Stefanie Castillo Work Phone: [facility] DO Work Phone: 01-02-2022 15:28-0400 Heart rate 74 /min Stefanie Castillo Work Phone: [facility] DO Work Phone: 01-02-2022 15:28-0400 Systolic blood pressure 118 mm[Hg] Stefanie Castillo Work Phone: [facility] DO Work Phone: 05-31-2021 16:14-0400 Body height 175.26 cm Stefanie Castillo Work Phone: [facility] DO Work Phone: 05-31-2021 16:14-0400 Body mass index (BMI) [Ratio] 28.06 kg/m2 Stefanie Castillo Work Phone: [facility] DO Work Phone: 05-31-2021 16:14-0400 Body surface area Derived from formula 2.02 m2 Stefanie Castillo Work Phone: [facility] DO Work Phone: 05-31-2021 16:14-0400 Body weight 86.18 kg Stefanie Castillo Work Phone: [facility] DO Work Phone: 05-31-2021 16:14-0400 Diastolic blood pressure 80 mm[Hg] Stefanie Castillo Work Phone: [facility] DO Work Phone: 05-31-2021 16:14-0400 Heart rate 72 /min Stefanie Castillo Work Phone: [facility] DO Work Phone: 05-31-2021 16:14-0400 Systolic blood pressure 128 mm[Hg] Stefanie Castillo Work Phone: [facility] DO Work Phone: 10-19-2020 08:30-0500 BP Diastolic 83 mm[Hg] [facility] 10-19-2020 08:30-0500 BP Systolic 139 mm[Hg] [facility] 10-19-2020 08:30-0500 Pulse (Heart Rate) 84 /min [facility] 10-19-2020 08:30-0500 Pulse Oximetry 97 % [facility] 10-19-2020 08:30-0500 Respiratory Rate 20 /min [facility] 10-19-2020 07:41-0500 BMI (Body Mass Index) 27.4 kg/m2 [facility] 10-19-2020 07:41-0500 Body Temperature 97.7 [degF] [facility] 10-19-2020 07:41-0500 Body weight 84.3 kg [facility] 10-19-2020 07:41-0500 Height 175.26 cm [facility] Encounters Encounter Date Encounter Type Care Provider Facility Start: 05-25-2025 End: 05-25-2025 Bamboo flowsheet Adina Champagne [employer] [facility] Start: 05-25-2025 End: 05-25-2025 Bamboo flowsheet Adina Champagne DISTILLERY MANAGER [facility] Start: 05-25-2025 End: 05-25-2025 ambulatory Adina Champagne [employer] MA[employer] [facility] Comment on above: Tear of right rotato r cuff, unspecified tear extent, unspecified whether traumatic (Primary Dx); Strain of unspecified muscle, fascia and tendon at shoulder and upper arm level, right arm, initial encounter; Bicipital tendinitis, right shoulder Start: 05-20-2025 End: 05-20-2025 Bamboo flowsheet Carrie Marie [facility] Start: 05-20-2025 End: 05-20-2025 Bamboo flowsheet Carrie Marie [facility] Start: 05-20-2025 End: 05-20-2025 ambulatory Carrie Marie [facility] Comment on above: Tear of right rotato r cuff, unspecified tear extent, unspecified whether traumatic (Primary Dx); Strain of unspecified muscle, fascia and tendon at shoulder and upper arm level, right arm, initial encounter; Bicipital tendinitis, right shoulder Start: 05-08-2025 End: 05-08-2025 Bamboo flowsheet Carrie Marie [facility] Start: 05-08-2025 End: 05-08-2025 Bamboo flowsheet Carrie Marie [facility] Start: 05-08-2025 End: 05-08-2025 ambulatory Carrieroseann Marie [facility] Comment on above: Tear of right rotato r cuff, unspecified tear extent, unspecified whether traumatic (Primary Dx); Strain of unspecified muscle, fascia and tendon at shoulder and upper arm level, right arm, initial encounter; Bicipital tendinitis, right shoulder Start: 05-05-2025 End: 05-05-2025 Bamboo flowsheet Casi Johnston PT [facility] Start: 05-05-2025 End: 05-05-2025 Bamboo flowsheet Casi Johnston PT [facility] Start: 05-05-2025 End: 05-05-2025 ambulatory Casi Johnston PT [facility] Comment on above: Tear of right rotato r cuff, unspecified tear extent, unspecified whether traumatic (Primary Dx); Strain of unspecified muscle, fascia and tendon at shoulder and upper arm level, right arm, initial encounter; Bicipital tendinitis, right shoulder Start: 05-01-2025 End: 05-01-2025 ambulatory Fatemeh Rosen APRN Work Phone: [facility] Work Phone: Start: 05-01-2025 End: 05-01-2025 Patient encounter procedure Ángel Natarajan DO [facility] Work Phone: Start: 05-01-2025 End: 05-01-2025 Patient encounter [facility] Start: 05-01-2025 End: 05-01-2025 ambulatory Fatemeh Rosen APRN Work Phone: [facility] Work Phone: Start: 04-06-2025 ambulatory Fatemeh Natalia coe APRN Work Phone: [facility] Work Phone: Start: 04-06-2025 Non-patient / Non-visit Radha Rosen APRN [facility] Work Phone: Start: 03-25-2025 End: 03-25-2025 Office outpatient visit 25 minutes Diana Bhagat MD Work Phone: [facility] Comment on above: Other chest pain (Pr imary Dx); Tachycardia; Mixed hyperlipidemia; Primary hypertension; Myalgia; Shortness of breath at rest; BMI 24.0-24.9, adult; Never smoked tobacco Start: 03-25-2025 End: 03-25-2025 ambulatory [facility] Start: 03-04-2025 End: 03-04-2025 ambulatory Stefanie Castillo MD Work Phone: [facility] Work Phone: Start: 03-04-2025 End: 03-04-2025 Patient encounter procedure Fatemeh Rosen APRN [facility] Work Phone: Start: 03-04-2025 End: 03-04-2025 Patient encounter status Fatemeh Rosen APRN [facility] Start: 12-29-2024 Non-patient / Non-visit Stefanie Castillo MD Work Phone: [facility] Work Phone: Start: 12-29-2024 End: 12-29-2024 Admission to same day surgery center Stefanie Castillo MD Work Phone: [facility] Work Phone: Start: 12-29-2024 End: 12-29-2024 ambulatory Stefanie Castillo MD Work Phone: [facility] Work Phone: Start: 12-17-2024 End: 12-17-2024 Patient encounter status Yash Murillo DO Work Phone: [facility] Start: 12-17-2024 End: 12-17-2024 Periodic preventive med est patient 40-64yrs Yash Murillo DO Work Phone: [facility] Comment on above: Encounter for gyneco logical examination without abnormal finding (Primary Dx); Encounter for Papanicolaou smear of vagina; Breast cancer screening by mammogram; Hot flashes Start: 12-17-2024 End: 12-17-2024 ambulatory YASH MURILLO Not Available Start: 11-14-2024 End: 11-14-2024 Clinisync Result Encounter Yash Murillo DO Work Phone: [facility] Unsolicited Start: 11-14-2024 End: 11-14-2024 Clinisync Result Encounter Yash Murillo DO Work Phone: [facility] Unsolicited Start: 10-20-2024 Patient encounter status Stefanie Castillo MD Work Phone: [facility] Start: 03-03-2024 End: 03-03-2024 ambulatory [facility] Work Phone: Start: 03-03-2024 End: 03-03-2024 Patient encounter procedure [facility] Gastroenterology Work Phone: Start: 10-10-2023 End: 10-10-2023 Office outpatient visit 25 minutes Diana Bhagat MD Work Phone: [facility] Comment on above: Shortness of breath at rest (Primary Dx); Angina pectoris (CMS/HCC); Other chest pain; Statin intolerance; Mixed hyperlipidemia; Primary hypertension; Overweight (BMI 25.0-29.9); Myalgia Start: 09-20-2023 End: 09-20-2023 ambulatory Stefanie Castillo Other [facility] Other Start: 09-20-2023 Telephone encounter Stefanie Castillo [facility] Start: 08-01-2023 End: 08-01-2023 ambulatory MD Stefanie Castillo Work Phone: [facility] Work Phone: Start: 08-01-2023 End: 08-01-2023 Patient encounter procedure MD Stefanie Castillo Work Phone: [facility] Hyr-Ivq-Ggnptvpi Testing Work Phone: Start: 06-26-2023 End: 06-26-2023 Admission to same day surgery center MD Stefanie Castillo Work Phone: [facility]-[employer] Work Phone: Start: 06-21-2023 End: 06-21-2023 ambulatory MD Stefanie Castillo Work Phone: [facility] Work Phone: Start: 06-21-2023 End: 06-21-2023 Patient encounter procedure MD Stefanie Castillo Work Phone: [facility]ka-Vdk-Rlpwxgdl Testing Work Phone: Start: 06-13-2023 End: 06-13-2023 Office outpatient visit 25 minutes Diana Bhagat MD Work Phone: [facility] Comment on above: Primary hypertension (Primary Dx); Angina pectoris (CMS/HCC); Mixed hyperlipidemia; Tachycardia; Myalgia; Shortness of breath at rest; Statin intolerance Start: 02-21-2023 Rx Renewal Stefanie Castillo Work Phone: [facility] 250 DO Work Phone: Start: 12-26-2022 Office outpatient vi sit 25 minutes Stefanie Castillo Work Phone: [facility] 250 DO Work Phone: Start: 12-26-2022 ambulatory Moarronf Olayinka Faci lity: Start: 12-13-2022 End: 12-13-2022 ambulatory Stefanie Castillo Other [facility] Other Start: 12-13-2022 Office outpatient vi sit 15 minutes Stefanie Castillo [facility] Start: 12-13-2022 Telephone encounter Stefanie Castillo [facility] Start: 12-12-[address] Stefanie Castillo Facility:[id number] Start: 12-11-2022 End: 12-12-2022 Evaluation and management of inpatient MD Stefanie Castillo Work Phone: [facility] [place] [facility] Work Phone: Start: 12-11-2022 End: 12-12-2022 observation encounter MD Stefanie Castillo Work Phone: [facility] Work Phone: Start: 10-24-2022 Rx Renewal Stefanie Castillo Work Phone: [facility] 600 DO Work Phone: Start: 10-17-2022 End: 10-17-2022 Patient encounter procedure MD Stefanie Castillo Work Phone: [facility]-Lab Main [place] Work Phone: Start: 10-10-2022 Office outpatient vi sit 25 minutes Stefanie Castillo Work Phone: [facility] 250 DO Work Phone: Start: 10-10-2022 ambulatory Mourhaf Traboulssi Faci lity: Start: 09-11-2022 ambulatory Mourhaf Traboulssi Faci lity: Start: 09-08-2022 Rx Renewal Stefanie Castillo Work Phone: [facility] 250 DO Work Phone: Start: 09-05-2022 End: 09-05-2022 ambulatory Stefanie Castillo Other [facility] Other Start: 09-05-2022 Encounter for genera l adult medical examination without abnormal findings Stefanie Castillo [facility] Start: 09-05-2022 Periodic preventive med est patient 40-64yrs Stefanie Castillo [facility] Start: 09-01-2022 Patient encounter status Stefanie Castillo Other [facility] Other Start: 08-29-2022 End: 08-29-2022 ambulatory Stefanie Castillo Other [facility] Other Start: 08-29-2022 Telephone encounter Stefanie Castillo [facility] Start: 08-25-2022 End: 08-25-2022 ambulatory Stefanie Castillo Other [facility] Other Start: 08-25-2022 Encounter for genera l adult medical examination without abnormal findings Stefanie Castillo [facility] Start: 08-25-2022 Telephone encounter Stefanie Castillo [facility] Start: 08-04-2022 Telephone encounter [facility]llano [facility] Work Phone: Start: 08-03-2022 Patient encounter procedure Stefanie Castillo Work Phone: [facility] 250 DO Work Phone: Start: 08-03-2022 ambulatory Mourhaf Traboulssi Faci lity: Start: 06-09-2022 Rx Renewal Stefanie Castillo Work Phone: [facility] 250 DO Work Phone: Start: 01-23-2022 Rx Renewal Stefanie Fina Juan Carlos Work Phone: [facility] 250 DO Work Phone: Start: 01-02-2022 Office outpatient vi sit 25 minutes Stefanie Castillo Work Phone: [facility] 250 DO Work Phone: Start: 01-02-2022 ambulatory Mourhaf Trabbeei Faci lity: Start: 10-10-2021 Adult health examination Stefanie Castillo Other [facility] Other Start: 06-22-2021 Rx Renewal Stefanie Castillo Work Phone: [facility] 250 DO Work Phone: Start: 05-31-2021 Office outpatient vi sit 25 minutes Stefanie Castillo Work Phone: [facility] 250 DO Work Phone: Start: 10-19-2020 End: 10-19-2020 Emergency department patient visit Bea Fonseca -Emergency Room Start: 10-19-2020 End: 10-19-2020 Patient encounter procedure Bea Fonseca -Pre-Surgical Testing Start: 10-12-2020 End: 10-13-2020 Patient encounter procedure BEA BARR Facility:[id number] Start: 06-01-2020 Patient encounter procedure [facility] Facility:H1 Procedures Date Procedure Procedure Detail Performing Clinician Start: 05-01-2025 Plain X-ray of right shoulder Fatemeh Rosen APRN Work Phone: Start: 12-29-2024 End: 12-29-2024 Colonoscopy Stefanie Castillo MD Work Phone: Start: 11-14-2024 MM TOMOSYNTHESIS SCR EENING BI Yash Murillo DO Work Phone: Start: 11-14-2024 Mammography Yash stacy DO Work Phone: Start: 12-05-2023 Mammography Diana albrecht MD Work Phone: Start: 06-26-2023 CL LHC [facility] COR Angio MD Fabby Castillo Work Phone: Start: 06-26-2023 MD Stefanie Castillo Work Phone: Start: 12-11-2022 Plain chest X-ray MD Maria C Castillo Work Phone: Start: 08-17-2021 Mammography Diana albrecht MD Work Phone: Start: 11-18-2020 Total colonoscopy Diana Castillo Work Phone: Start: 10-21-2020 Total colonoscopy Diana Castillo Work Phone: Start: 10-19-2020 SARS Antigen (LFIA) Darek jarod Marian Start: 10-19-2020 Plain chest X-ray Bea Jayemilio Start: 09-22-2019 Echocardiography Start: 06-12-2016 General examination of patient Stefanie Juan Carlos Other Cholecystectomy Stefanie murphy Work Phone: Hysterectomy Stefanie Castillo Work Phone: Ligation of fallopian tube Fabby lottie Castillo Work Phone: Surgical procedure o n eye proper Stefanie Castillo Work Phone: Comment on above: EYE LID LIFT BILAT.; Plan of Treatment Date Care Activity Detail Author Start: 12-29-2034 Screening for malignant neoplasm of colon [facility] Start: 12-17-2029 Screening for malignant neoplasm of cervix [facility] Start: 12-16-2028 Screening for malignant neoplasm of cervix [facility] Start: 03-26-2026 End: 03-26-2026 Patient encounter procedure 03/26/2026 9:30 AM EDT Office Visit [address] [address] Diana Bhagat MD [address] [facility] [address] [place] [address] [facility] Start: 12-23-2025 End: 12-23-2025 Patient encounter procedure 12/23/2025 10:00 AM EDT Office Visit JAIRO HANDY [address] [place] [id number] Yash Murillo DO [address] [place] [address] [facility] [place] [facility] Start: 12-18-2025 Yearly Adult Physical Yearly Adult Physical [facility] Start: 11-15-2025 End: 02-16-2026 DBT Breast - bilateral screening Bilateral screening mammogram with tomosynthesis Imaging Routine Breast cancer screening by mammogram Expected: 11/15/2025, Expires: 02/16/2026 [facility] Comment on above: Expected: 11/15/2025, Expires: Start: 11-14-2025 Screening for malignant neoplasm of breast Mammogram [facility] Start: 05-27-2025 End: 05-27-2025 ambulatory 05/27/2025 9:00 AM EDT Treatment [facility] [address] [place] [address] Adina Champagne PTA [facility] Start: 05-25-2025 End: 05-25-2025 ambulatory 05/25/2025 9:00 AM EDT Treatment [facility] [address] [place] [address] Adina Champagne PTA Arrived [facility] Comment on above: Arrived Start: 05-20-2025 End: 05-20-2025 ambulatory 05/20/2025 8:00 AM EDT Treatment [facility] [address] [place] [address] Carrie Marie, PEY[place] Tear of right rotator cuff, unspecified tear extent, unspecified whether traumatic (Primary Dx); Strain of unspecified muscle, fascia and tendon at shoulder and upper arm level, right arm, initial encounter [facility] Comment on above: Tear of right rotator cuff, unspecified tear extent, unspecified whether traumatic (Primary Dx); Strain of unspecified muscle, fascia and tendon at shoulder and upper arm level, right arm, initial encounter Start: 05-13-2025 End: 05-13-2025 ambulatory 05/13/2025 8:00 AM EDT Treatment [facility] [address] [facility] [address] [place] [address] Carrie Marie PTA [facility] Start: 05-08-2025 End: 05-08-2025 ambulatory [facility] Comment on above: Arrived Start: 05-05-2025 End: 05-05-2025 ambulatory 05/05/2025 10:00 AM EDT Evaluation [facility] [address] [facility] [address] [place] [address] Casi Johnston, PT Arrived [facility] Comment on above: Arrived Start: 05-01-2025 Plain X-ray of right shoulder XR shoulder RT min 2V* [facility] Start: 05-01-2025 XR Shoulder - right Views [facility] Start: 04-20-2025 Influenza vaccination [facility] Start: 04-06-2025 Patient referral [facility] Work Phone: Start: 03-31-2025 End: 03-31-2025 Patient encounter procedure 03/31/2025 9:05 AM EDT Office Visit [facility] [address] [place] [address] Robyn Parker MD [address] [facility] [address] [place] [address] [facility] Start: 03-25-2025 End: 03-25-2026 Alanine aminotransferase [Enzymatic activity/volume] in Serum or Plasma by With P-5'-P Alanine Aminotransferase Lab Routine Mixed hyperlipidemia Expected: 03/25/2025, Expires: 03/25/2026 [facility] Area Work Phone: Comment on above: Expected: 03/25/2025, Expires: Start: 03-25-2025 End: 03-25-2026 Aspartate aminotransferase [Enzymatic activity/volume] in Serum or Plasma by With P-5'-P Aspartate Aminotransferase Lab Routine Mixed hyperlipidemia Expected: 03/25/2025, Expires: 03/25/2026 [facility] Work Phone: Comment on above: Expected: 03/25/2025, Expires: Start: 03-25-2025 End: 03-25-2026 Basic metabolic 2000 panel - Serum or Plasma Basic Metabolic Panel Lab Routine Tachycardia Mixed hyperlipidemia Primary hypertension Shortness of breath at rest Expected: 03/25/2025, Expires: 03/25/2026 [facility] Work Phone: Comment on above: Expected: 03/25/2025, Expires: Start: 03-25-2025 End: 03-25-2026 Lipid 1996 panel - Serum or Plasma Lipid Panel Lab Routine Mixed hyperlipidemia Expected: 03/25/2025, Expires: 03/25/2026 [facility] Work Phone: Comment on above: Expected: 03/25/2025, Expires: Start: 12-29-2024 [facility] Start: 12-17-2024 End: 12-17-2024 Patient encounter procedure 12/17/2024 10:00 AM EDT Office Visit [facility] [address] [place] [phone] Yash Murillo, DO [address] [place] [address] [facility] Start: 12-04-2024 Screening for malignant neoplasm of breast Mammogram [facility] Start: 10-14-2024 End: 10-14-2024 Patient encounter procedure 10/14/2024 1:30 PM EST Office Visit [facility] [address] [place] [address] Diana Bhagat MD [address] [facility] [address] [place] [address] [facility] Start: 04-20-2024 COVID-19 Vaccine ( season) COVID-19 Vaccine ( season) [facility] Start: 04-20-2024 Influenza vaccination Influenza Vaccine (#1) [facility] Start: 01-08-2024 End: 10-10-2024 Alanine aminotransferase [Enzymatic activity/volume] in Serum or Plasma by With P-5'-P Alanine Aminotransferase Lab Routine Mixed hyperlipidemia Expected: 01/08/2024 (Approximate), Expires: 10/10/2024 [facility] Work Phone: Comment on above: Expected: 01/08/2024 (Approximate), Expi res: 10/10/2024 Start: 01-08-2024 End: 10-10-2024 Aspartate aminotransferase [Enzymatic activity/volume] in Serum or Plasma by With P-5'-P Aspartate Aminotransferase Lab Routine Mixed hyperlipidemia Expected: 01/08/2024 (Approximate), Expires: 10/10/2024 [facility] Work Phone: Comment on above: Expected: 01/08/2024 (Approximate), Expi res: 10/10/2024 Start: 01-08-2024 End: 10-10-2024 Lipid 1996 panel - Serum or Plasma Lipid Panel Lab Routine Mixed hyperlipidemia Expected: 01/08/2024 (Approximate), Expires: 10/10/2024 [facility] Service Area Work Phone: Comment on above: Expected: 01/08/2024 (Approximate), Expi res: 10/10/2024 Start: 10-10-2023 FUV, Provider: Diana Bhagat, Status: Pen, Time: 1:00 PM FUV, Provider: Diana Bhagat, Status: Pen, Time: 1:00 PM -[facility] 250 DO Work Phone: Start: 10-10-2023 End: 10-10-2023 Patient encounter procedure 10/10/2023 1:00 PM EST Office Visit [facility] [address] [facility] [address] [place] [phone] Diana Bhagat MD [address] [facility] [address] [place] [address] [facility] Start: 06-26-2023 End: 06-26-2023 [facility] Start: 06-13-2023 End: 06-13-2024 Alanine aminotransferase [Enzymatic activity/volume] in Serum or Plasma by With P-5'-P Alanine Aminotransferase Lab Routine Mixed hyperlipidemia Expected: 06/13/2023 (Approximate), Expires: 06/13/2024 [facility] Work Phone: Comment on above: Expected: 06/13/2023 (Approximate), Expi res: 06/13/2024 Start: 06-13-2023 End: 06-13-2024 Aspartate aminotransferase [Enzymatic activity/volume] in Serum or Plasma by With P-5'-P Aspartate Aminotransferase Lab Routine Mixed hyperlipidemia Expected: 06/13/2023 (Approximate), Expires: 06/13/2024 [facility] Service Area Work Phone: Comment on above: Expected: 06/13/2023 (Approximate), Expi res: 06/13/2024 Start: 06-13-2023 End: 06-13-2024 Lipid 1996 panel - Serum or Plasma Lipid Panel Lab Routine Mixed hyperlipidemia Expected: 06/13/2023 (Approximate), Expires: 06/13/2024 [facility] Work Phone: Comment on above: Expected: 06/13/2023 (Approximate), Expi res: 06/13/2024 Start: 05-18-2023 FUV, Provider: Diana Bhagat, Status: Pen, Time: 10:50 AM FUV, Provider: Diana Bhagat, Status: Pen, Time: 10:50 AM [facility] 250 DO Work Phone: Start: 04-20-2023 COVID-19 Vaccine ( season) COVID-19 Vaccine ( season) [facility] Start: 04-20-2023 Influenza vaccination Influenza Vaccine (#1) [facility] Start: 12-12-2022 [facility] Start: 12-12-2022 Radionuclide myocardial perfusion stress study NM anuja perf SPECT rest & str [facility] Start: 12-12-2022 [facility] Start: 12-11-2022 Hospital admission [facility] Start: 12-11-2022 [facility] Start: 10-04-2022 FUV, Provider: Diana Bhagat, Status: Pen, Time: 1:30 PM FUV, Provider: Diana Bhagat, Status: Pen, Time: 1:30 PM [facility] 250 DO Work Phone: Start: 08-17-2022 Screening for malignant neoplasm of breast Mammogram [facility] Start: 12-07-2021 FUV, Provider: Diana Bhagat, Status: Pen, Time: 2:10 PM FUV, Provider: Diana Bhagat, Status: Pen, Time: 2:10 PM [facility] 250 DO Work Phone: Start: 01-13-2021 COVID-19 Vaccine (3 - Pfizer series) COVID-19 Vaccine (3 - Pfizer series) [facility] Start: 2015 Pneumococcal vaccination Pneumococcal Vaccine (1 of 1 - PCV) [facility] Start: 2015 Zoster Vaccines (1 of 2) Zoster Vaccines (1 of 2) [facility] Start: 1987 DTaP/Tdap/Td Vaccines (1 - Tdap) DTaP/Tdap/Td Vaccines (1 - Tdap) [facility] Start: 1986 Screening for malignant neoplasm of cervix [facility] Start: 1984 Hepatitis B Vaccines (1 of 3 - 19+ 3-dose series) Hepatitis B Vaccines (1 of 3 - 19+ 3-dose series) [facility] Start: 1983 Diabetes mellitus screening Diabetes Screening [facility] Start: 1983 Hepatitis C screening Hepatitis C Screening [facility] Start: 1971 Pneumococcal Vaccine: Pediatrics (0 to 5 Years) and At-Risk Patients (6 to 64 Years) (1 - PCV) Pneumococcal Vaccine: Pediatrics (0 to 5 Years) and At-Risk Patients (6 to 64 Years) (1 - PCV) [facility] Start: 1966 MMR Vaccines (1 of 1 - Standard series) MMR Vaccines (1 of 1 - Standard series) [facility] Start: 1965 Hepatitis B Vaccines (1 of 3 - 3-dose series) Hepatitis B Vaccines (1 of 3 - 3-dose series) [facility] Start: 1965 HIV screening HIV Screening [facility] Start: 1965 Lipid panel Lipid Panel [facility] Start: 1965 Screening for malignant neoplasm of colon [facility] Start: 1965 Yearly Adult Physical Yearly Adult Physical [facility] Comprehensive metabo lic 2000 panel - Serum or Plasma [facility] DXA Skeletal system. axial Views for bone density [facility] IGP,rfxAptima HPV all,16/18,45 IGP,rfxAptima HPV all,16/18,45 Pathology and Cytology Routine Encounter for Papanicolaou smear of vagina Ordered: 12/17/2024 [facility] Work Phone: Comment on above: Ordered: 12/17/2024 Patient Education [facility] Patient referral [facility] Immunizations Immunization Date Immunization Notes Care Provider Melquiades reese 11-18-2020 Pfizer-BioNTech COVID-19 Vacc 30 MCG/0.3ML Intramuscular Suspension Stefnaie Castillo Work Phone: [facility] 10-28-2020 Pfizer-BioNTech COVID-19 Vacc 30 MCG/0.3ML Intramuscular Suspension Stefanie Castillo Work Phone: [facility] 07-20-2012 influenza virus vaccine, unspecified formulation Diana Bhagat MD Work Phone: [facility] Work Phone: influenza virus vaccine, unspecified formulation Stefanie Castillo Work Phone: -[facility] 250 DO Work Phone: Comment on above: Jul 2012 Payers Date Payer Category Payer [facility] BC[facility] [id number] 2021 [facility] Care [facility] [id number] 2021 Unknown 1965 Unknown [id number]. 2.593 1965 Unknown [id number] [id number]. 2.593 1965 Unknown [id number] [id number]. 2.356 1965 Unknown [id number] 2.16.840.1.762708.3.579. 2.356 1965 Unknown [id number] [id number]. 2.356 1965 Unknown [id number] 2.16.840.1.786832.3.579. 2.356 1965 Unknown [id number] [id number]. 2.356 1965 Unknown [id number] [id number]. 2.356 1965 Unknown [id number] [id number]. 2.1244 1965 Unknown [id number] [id number]. 2.1259 1965 Unknown [id number] 2.16.840.1.343931.3.579. 2.1259 1965 Unknown [id number] [id number]. 2.1259 1965 Unknown [id number] [id number]. 2.1259 1959 Self-pay 1959 Unknown [id number] Unknown [id number] Unknown [id number] Unknown HCAP/HFA/FAP Active [id number] Social History Date Type Detail Facility Start: 10-19-2020 End: 03-23-2023 Tobacco smoking status NHIS Never smoked tobacco (finding) [facility] Start: 1965 Sex Assigned At Female [facility] Start: 10-10-2023 End: 12-17-2023 No illicit drug use No illicit drug use -[facility] 250 DO Work Phone: Start: 10-10-2023 End: 12-17-2023 Sex Assigned At [facility] Other Start: 03-23-2023 End: 06-13-2023 Tobacco use and exposure Smokeless tobacco non-user [facility] Work Phone: Start: 06-13-2023 End: 12-17-2024 Alcohol intake Lifetime non-drinker (finding) [facility] Work Phone: Start: 1965 Sex Assigned At Not on file [facility] Work Phone: Start: 06-03-2023 End: 10-10-2023 Exposure to SARS-CoV-2 (event) Not sure [facility] Start: 03-26-2023 Gender identity Identifies as female gender (finding) [facility] Work Phone: Start: 03-26-2023 Sexual orientation Heterosexual (finding) [facility] Work Phone: How often to you hav e a drink containing alcohol? Never [facility] Start: 07-14-2022 How many standard drinks containing alcohol do you have on a typical day? Patient does not drink [facility] Start: 03-23-2023 Alcohol Comment Caffeine intake: 1-2 cups per day [facility] Start: 12-29-2024 Sex Female (finding) [facility] Medical Equipment Procedure Code Equipment Code Equipment Origin al Text Equipment Identifier Dates Stress urinary incontinence surgical mesh, female [id number] [facility] Start: 08-15-2023 Goals Date Patient Goal Desired Activity /State Functional Status Date Assessment Result Facility 12-17-2024 Total score [AUDIT-C] 0 12/18/19 25 10:00 AM Amparo Wells MA [facility] 12-12-2022 Functional status Patient at Baseline [facility] Work Phone: [facility] Mental Status Date Assessment Result Facility 12-12-2022 Cognitive function Cognitive Sta tus Patient at Baseline [facility] Work Phone: Clinical Notes 07-10-2022 to 05-05-2025 Casi Johnston, PT - 05/05/2025 10:00 AM Yasmani Bhagat MD - 03/25/2025 3:10 PM EDTPatient Instructions Note Date & Type Note Facility 05-05-2025 History of Present illness Narrative Images from the original note were not included. Physical Therapy Evaluation Visit Patient Name: Anika See Today's Date: 05/05/2025 Encounter Diagnoses Name Primary? Tear of right rotator cuff, unspecified tear extent, unspecified whether traumatic Yes Strain of unspecified muscle, fascia and tendon at shoulder and upper arm level, right arm, initial encounter Bicipital tendinitis, right shoulder Visit number: 1 Timed Code Treatment Minutes: 50 minutes Total Treatment Time: 50 minutes Time In: 1000 Time Out: 1050 History: Pt states right shoulder has been bothering her since January. Woke up one morning in pain. States she was given steroid shot this past which has helped but continues with pain in front of shoulder. Pt states she is right hand dominant. Not working but cares for 3 parents. Precautions: [place] Subjective: right shoulder Pain: 4-5/10 Objective: PT Evaluation (05/05/2025) RIGHT SHOULDER AROM: 150 degrees flexion, 114 degrees abduction, 58 degrees ER, full IR PROM: full Joint play: no significant laxity right shoulder with inferior and posterior glides; laxity noted left shoulder with posterior glide ; decrease mobility mid thoracic region Strength: ER and abduction 4/5 with mild discomfort noted, flexion 4 to 4+/5, IR 4+ to 5/5; lower and middle trap 4-/5 Palpation: mild tenderness right biceps tendon; moderate tenderness right rhomboid and UT Special Test: Pain with Neers at 134 degrees elevation, negative lift off testing Treatment: Education: HEP education with demonstration, Educated on Eval Findings and POC Manual Therapy: (10 minutes) Passive ROM, Joint mobilization, Soft Tissue Mobilization, Myofascial Release, Muscle Energy Technique, Neural Mobilization, Myofascial Cupping, Dry Needling, IASTM, and Scar mobilization as needed. MFD with one cup sliding to bilateral middle and lower traps followed by static cup placement. Therapeutic Exercise: (14 minutes) Strength, Endurance, Flexibility, ROM, HEP, Neural Mobilization, Power, and Core Stability as needed. Pt performed and instructed in home program this date; written instructions and pictures issued with good pt understanding. Therapeutic Activity: Exercises to improve dynamic activities, functional tasks, functional mobility to return to prior activity level as needed. Neuromuscular re-education: Balance Training, Muscle Facilitation, Dynamic Stability, Core Stabilization, and Blood Flow Restriction Training (BFRT) as needed. Modalities: Heat, Ice, Electrical Stimulation, Ultrasound, Cervical Mechanical Traction, Lumbar Mechanical Traction, Iontophoresis, and Fluidotherapy as needed. Assessment: Pt is 59 y/o female with complaints of right shoulder pain. Pt presents with limited ROM of right shoulder due to pain. Positive right shoulder impingement testing. Weakness right shoulder, lower and middle traps. Outcome Measure: Upper Extremity Functional Index (UEFI): 49/80 Rehab Diagnosis: right shoulder pain and weakness, limited ROM and mobility Short Term Goal: To be met in 2 weeks Goal 1: Pt to be instructed in home exercise program. Trouble Operator Goals: To be met in 10 weeks Goal 1: Pt to report independence and compliance with home program. Goal 2: Pt to achieve 135 degrees of right shoulder abduction to assist with grooming hair. Goal 3: Pt to achieve 4+ to 5/5 strength right shoulder in all planes to assist with functional tasks and lifting. Goal 4: Pt to score no less than 65/80 on UEFI indicating improved QOL. Goal 5: Pt to demonstrate negative Neers impingement testing indicating improved tissue quality. Goal 6: Pt to achieve 4/5 strength right middle and lower traps to assist with functional activities. Pt will benefit from skilled PT for 2x/week from 05/05/2025 to 07/28/2025 to address the above impairments. I hereby deem this POC medically necessary. Please sign below. Date: documented in this encounter [facility] 03-25-2025 History of Present illness Narrative Chief Complaint Patient presents with Annual Exam 1 year follow up for Shortness of breath at rest Subjective Ana María See is a 59 y.o. female HPI Patient here for follow-up continue management for previous evaluation for chest pain, hypertension, hyperlipidemia and tachycardia. Since last time I saw her she described that she is feeling well. She denies any current complaint of chest pain, palpitation, lightheadedness, dizziness or syncope. She did lose weight close to 17 pounds. Her BMI close to 24. She reports she was able to take Nexletol but when she started Zetia she developed myalgia. Her recent labs showed improvement of her triglycerides down to 330 however her cholesterol remained 270 with LDL above 170. ASSESSMENT: 1 prior evaluation for recurrent presentation with chest pain ultimately underwent cardiac catheterization that showed no significant obstructive disease. She denies any recent recurrence 2. Hyperlipidemia, continues to have significant hypertriglyceridemia with triglycerides. She reports she tolerated Nexletol but started to have myalgia when she added Zetia. She had history of intolerance to Crestor or statin. 3. Hypertension, controlled. On combination verapamil lisinopril hydrochlorothiazide and metoprolol 4. Tachycardia improved with the addition of verapamil 5. Previously overweight. She has lost 17 pounds. BMI down to 24 6. Intermittent complaint of shortness of breath recent echo was normal. She described functional class 1 after she lost her weight 7. Patient complained of a little bit of shakiness and tremor TSH was normal likely due to hot flashes and postmenopausal symptoms RECOMMENDATIONS: 1. The patient was counseled regarding losing weight, exercise, and risk factor adjustment. 2. The patient will remain on the same medication, but I advised her to resume Nexletol 3. I advised her to repeat her lipid profile in 6 months 4. I congratulated her on weight loss 5. I will see her back in 1 year Review of Systems All other systems reviewed and are negative. Vitals: 03/25/25 1518 BP: 122/84 BP Location: Right arm Patient Position: Sitting Pulse: 64 Weight: 76.7 kg (169 lb) Height: 1.753 m (5' 9 ) Objective Physical Exam Constitutional: Appearance: Normal appearance. HENT: Nose: Nose normal. Neck: Vascular: No carotid bruit. Cardiovascular: Rate and Rhythm: Normal rate. Pulses: Normal pulses. Heart sounds: Normal heart sounds. Pulmonary: Effort: Pulmonary effort is normal. Abdominal: General: Bowel sounds are normal. Palpations: Abdomen is soft. Musculoskeletal: General: Normal range of motion. Cervical back: Normal range of motion. Right lower leg: No edema. Left lower leg: No edema. Skin: General: Skin is warm and dry. Neurological: General: No focal deficit present. Mental Status: She is alert. Psychiatric: Mood and Affect: Mood normal. Behavior: Behavior normal. Thought Content: Thought content normal. Judgment: Judgment normal. Allergies Moxifloxacin, Nexletol [bempedoic acid], Rosuvastatin, Simvastatin, and Uetenuw-agd-zwz reductase inhibitors Current Medications Current Outpatient Medications Medication Instructions ascorbic acid (VITAMIN C) 1,000 mg, Daily aspirin 81 mg chewable tablet 1 tablet, Daily RT bempedoic acid 180 mg, oral, Daily lisinopriL-hydrochlorothiazide 20-12.5 mg tablet 1 tablet, oral, Daily magnesium glycinate (MAG GLYCINATE ORAL) 1 tablet, Daily metoprolol succinate XL (TOPROL-XL) 50 mg, oral, Every evening Vascepa 2 g, oral, 2 times daily verapamil ER (VERALAN PM) 180 mg, oral, Every morning VITAMIN D3-VITAMIN K2, MK4, ORAL 1 capsule, Daily zinc acetate 50 mg (zinc) capsule 1 capsule, Daily Assessment/Plan 1. Other chest pain 2. Tachycardia Basic Metabolic Panel Basic Metabolic Panel 3. Mixed hyperlipidemia Follow Up In Cardiology bempedoic acid 180 mg tablet Alanine Aminotransferase Aspartate Aminotransferase Basic Metabolic Panel Lipid Panel Alanine Aminotransferase Aspartate Aminotransferase Basic Metabolic Panel Lipid Panel 4. Primary hypertension Basic Metabolic Panel Basic Metabolic Panel 5. Myalgia 6. Shortness of breath at rest Basic Metabolic Panel Basic Metabolic Panel 7. BMI 24.0-24.9, adult 8. Never smoked tobacco Scribe Attestation By signing my name below, Vianca Sherman RN , Scribe attest that this documentation has been prepared under the direction and in the presence of Diana Bhagat MD. Provider Attestation - Scribe documentation All medical record entries made by the Scribe were at my direction and personally dictated by me. I have reviewed the chart and agree that the record accurately reflects my personal performance of the history, physical exam, discussion and plan. documented in this encounter [facility] Work Phone: 03-25-2025 Instructions Cynthia Ferreira CMA - 03/25/2025 3:10 PM EDT Please bring all medicines, vitamins, and herbal supplements with you when you come to the office. Prescriptions will not be filled unless you are compliant with your follow up appointments or have a follow up appointment scheduled as per instruction of your physician. Refills should be requested at the time of your visit. documented in this encounter [facility] Work Phone: 03-04-2025 Chief complaint+R forest for visit Narrative Est Care/R Shoulder Pain March 04, 2025 1:25pm Referral Order April 06, 2025 11:41am Reason for Visit Admit Date High cholesterol March 04, 2025 1:25 pm Hypertension March 04, 2025 1:25 pm Post-menopausal March 04, 2025 1:25 pm Screening for osteoporosis March 04 1:25pm Vitamin B 12 deficiency March 04, 2025 1:25pm Vitamin D deficiency March 04, 2025 1:2 5pm Wellness examination March 04, 2025 1:2 5pm [facility] Work Phone: 1([phone]) 393-329207-16-2025 Chief complaint+Reason for visit Narrative * Chief Complaint Admit Date Est Care/R Shoulder Pain March 04, 2025 1:25pm Referral Order April 06, 2025 11 :41am M25.511 - Pain in right shoulder Sept2024 7:57am NEW RT SHOULDER PAIN NX May 01, 2025 9:51am Reason for Visit Admit Date High cholesterol March 04, 2025 1:25 pm Hypertension March 04, 2025 1:25 pm Post-menopausal March 04, 2025 1:25 pm Screening for osteoporosis March 04 1:25pm Vitamin B 12 deficiency March 04, 2025 1:25pm Vitamin D deficiency March 04, 2025 1:2 5pm Wellness examination March 04, 2025 1:2 5pm [facility] Work Phone: [phone] 864-107807-16-2025 Chief complaint+Reason for visit Narrative * Chief Complaint Admit Date Est Care/R Shoulder Pain March 04, 2025 1:25pm Referral Order April 06, 2025 11 :41am M25.511 - Pain in right shoulder Sept2024 7:57am NEW RT SHOULDER PAIN NX May 01, 2025 9:51am Reason for Visit Admit Date High cholesterol March 04, 2025 1:25 pm Hypertension March 04, 2025 1:25 pm Post-menopausal March 04, 2025 1:25 pm Screening for osteoporosis March 04 1:25pm Vitamin B 12 deficiency March 04, 2025 1:25pm Vitamin D deficiency March 04, 2025 1:2 5pm Wellness examination March 04, 2025 1:2 5pm Biceps tendonitis on right April 9:51am Right shoulder strain May 01 9:51am Rotator cuff syndrome of right shoulder May 01, 2025 9:51am [facility] Work Phone: 1([phone]) 781-375307-16-2025 Evaluation note* Diagnosis Onset Date Resolution Status Admit Date High cholesterol acute February 1:25pm Hypertension acute March 04 2 025 1:25pm Post-menopausal acute February 1:25pm Screening for osteoporosis acute March 04, 2025 1:25pm Vitamin B 12 deficiency acute J elisha 2024 1:25pm Vitamin D deficiency acute March 04, 2025 1:25pm Wellness examination acute March 04, 2025 1:25pm [facility] Work Phone: 1([phone]) 104-473507-16-2025 Evaluation note* Diagnosis Onset Date Resolution Status Admit Date High cholesterol acute February 1:25pm Hypertension acute March 04, 2 025 1:25pm Post-menopausal acute February 1:25pm Screening for osteoporosis acute March 04, 2025 1:25pm Vitamin B 12 deficiency acute J elisha 2024 1:25pm Vitamin D deficiency acute March 04, 2025 1:25pm Wellness examination acute March 04, 2025 1:25pm Biceps tendonitis on right acute May 01, 2025 9:51am Right shoulder strain acute Sep 2024 9:51am Rotator cuff syndrome of rig ht shoulder acute May 01, 2025 9:51am [facility] Work Phone: 1([phone]) 699-528607-01-2025 Evaluation note* Diagnosis Onset Date Resolution Status Admit Date High cholesterol acute February 1:25pm Hypertension acute March 04 1:25pm Vitamin B 12 deficiency acute J 2024 1:25pm Vitamin D deficiency acute March 04, 2025 1:25pm Wellness examination acute March 04, 2025 1:25pm [facility] Work Phone: 1([phone]) 550-746005-12-2025 [place] [address] Colonoscopy Procedure Report Signed Patient: Ana María See MR#: [id number] : 1965 Acct:[id number] Age/Sex: 59 / F Adm Date: Loc: Room: Type: [facility] Attending Dr: Stiven Sylvester MD Copies [...] was slowly withdrawnwith the findings as below. Cuervo bowel prep score was good. Findings: Diverticulosis [...] MD 12/29/24 1040 Signed By: 12/29/24 1042 [facility]05-12-2025 [place] [address] Gastroenterology H&P Signed Patient: Ana María See MR#: [id number] : 1965 Acct:[id number] Age/Sex: 59 / F Adm Date: 5 Loc: Room: Type: [facility] Attending Dr: Stiven Sylvester MD Copies [...] MD 12/29/24 1024 Signed By: 12/29/24 1040 [facility]04-30-2025 History of Present illness Narrative * Maggie Duvall MA - 12/17/2024 10:00 AM EDT Images from the original note were not included. Yash Murillo, DO Obstetrics and Gynecology Ana María See 1965 12/17/24 [id number] Yearly Wellness Exam Chief Complaint Patient presents with Gynecologic Exam LMP: LAVH BSO 2012 HRT: None Last pap 12-17-23 neg. Last mammogram 11-14-[address] [facility]. Denies breast, urinary, or bowel concerns. Menopause [...] same time. Cholecalciferol (Vitamin D) 50 MCG (1999 [place]) [...] RELEASE COLONOSCOPY 09/2020 negative HYSTERECTOMY 2013 LAVH/BSO NC LAP,CHOLECYSTECTOMY 2010 TUBAL LIGATION Past Medical History: [...] costovertebral angle tenderness, no obvious scoliosis/kyphosis. 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 [id number] History of Present illness Narrative* Diana Bhagat [...] has not started Zetia. Her triglycerides remain el evated more than 800. She denies chest pain, [...] Judgment normal. Allergies Moxifloxacin, Rosuvastatin, Simvastatin, and Ggyavhu-tfh-txs reductase inhibitors Current Medications Current Outpatient Medications: [...] Attestation By signing my name below, I, Lily Dominguez LPN attest that this documentation has been prepared [...] exam, discussion and plan. documented in this [facility] Work Phone: 1(370) 335-480402-21-2024 Instructions* Patient Instructions* Mariel Amezquita LPN - [...] Provided instructions on exercise. [facility] Phone: [phone]) 236-592602-01-2024 Evaluation note* Encounter Date Diagnosis Assessment Notes Treatment Notes Treatment Clinical Notes Sep, Bronchitis (ICD-10 - J40) [place] [employer] Other 10-25-2023 History of Present illness Narrative* [...] rest 7. Statin intolerance documented in this [facility] Work Phone: [phone] 490-276810-25-2023 Instructions* Patient Instructions* Landy Chao LPN - [...] your visit. Heart cath [facility] Work Phone: [phone]) [phone] Evaluation note* Encounter Date Diagnosis Assessment Notes Treatment Notes Treatment Clinical Notes Nov, Aphthous stomatitis (ICD-10 - K12.0) Discussed likely viral cause. Gums are quite red. If several days of the acyclovir area does not improve she understands that her dentist GRAYL Other 04-25-2023 Consult note Author Gerardo Ames [facility] December 12, 2022 2:15pm Note Date/Time December 12, 2022 10: 20am [facility] [address] [place] [address] Cardiology Consult Note Signed with Addenda Patient: Ana María See MR#: [id number] : 1965 Acct:[id number] Age/Sex: 57 / F Adm Date: 3 Loc: Room: [address] [place] [address] Type: ADM INOo Attending Dr: Jeremy Nova MD Copies to: MD Stefanie Clayton MD Stephen M Tann, MD~ ADDENDUM2 Correction to outpatient follow-up in [facility] heart clinic with Dr. Bhagat: 12/26/2022 at 2:30 PM Addendum Documented By: Gerardo Ames MD 12/12/22 1415 Addendum Signed By: <Electronically signed by Gerardo Ames MD> 12/12/22 1415 ADDENDUM1 Further data: Echocardiogram: Normal resting left [...] Patient will be scheduled to follow-up in [facility] clinic with Dr. Bhagat this coming Sunday at 8:40 AM. 5. Strongly recommend full thyroid analysis as well as hormonal analysis which can be performed in the outpatient setting. Again thank you very much for this kind consultation and for allowing me to participate in the care of this very pleasant patient and her family. Addendum Documented By: Gerardo Ames MD 12/12/22 1411 Addendum Signed By: <Electronically signed by Gerardo Ames MD> 12/12/22 1411 Cardiology HPI History of Present Illness Consult [...] night to the emergency department here at [facility]. Initial EKG showed a mild sinus tachycardia [...] Lymph # (Auto) 1.2 1.4 (1.00-4.8) x10E3/uL [place] # (Auto) 0.6 0.7 (0.0-0.8) x10E3/uL Eos [...] nonspecific abnormality, ST segment, and/or T wave NM, pacemaker, normal Normal tracing: no change compared [...] signed by Gerardo Ames MD> 12/12/22 1020 [facility] Work Phone: [phone]) [phone] History and physical note Author Eran Richardson [facility] December 11, 2022 5:24pm Note Date/Time December 11, 2022 5:0 4pm [facility] [address] [place] [address] Hospitalist H&P Signed Patient: Ana María See MR#: [id number] : 1965 Acct:[id number] Age/Sex: 57 / F Adm Date: 3 Loc: Room: [address] [place] [address] Type: ADM INOo Attending Dr: Eran Richardson MD Copies to: Roverto Ortega DO, RES MD Eran Castro MD~ HPI DATE OF EXAMINATION: 12/11/22 CHIEF [...] both her parents. 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 [...] other than whats in HPI/assessment and plan PMFSH Vaccinated for COVID-19?: Yes Medical History [...] % (Auto) 24.5 % (.) 12/11/22 13:20 [place] % (Auto) 12.7 % (.) 12/11/22 13:20 Eos % (Auto) 0.2 % (.) 12/11/22 13:20 Baso % (Auto) 0.5 % (.) 12/11/22 13:20 Nucleat RBC Rel Count 0.1 /100 WBC (0-0.5) 12/11/22 13:20 Neut # (Auto) 3.0 x10E3/uL (1.8-7.7) 12/11/22 13:20 Lymph # (Auto) 1.2 x10E3/uL (1.00-4.8) 12/11/22 13:20 [place] # (Auto) 0.6 x10E3/uL (0.0-0.8) 12/11/22 13:20 [...] signed by Eran Richardson MD> 12/11/22 1724 [facility] Work Phone: 1([phone]) 531-502201-17-2023 Evaluation note* Encounter Date Diagnosis Assessment Notes [...] triglycerides (ICD-10 - E78.2) Defer to her window shade installer for further treatment of the high triglycerides. Discussed diet and exercise modifications. With readings this high, likely due to familial issues. Continue Crestor at this time [facility]RAYL Other 01-06-2023 Evaluation note* Encounter Date Diagnosis Assessment Notes Treatment Notes Treatment Clinical Notes Aug, Wellness examination (ICD-10 - Z00.00) [facility] Other 12-15-2022 NoteReason For Visit Indication tachycardia [...] chest pain, fatigue Ordering Physician: Dr. Diana Bhagat MD Holter monitor printed and placed on Dr. Diana Bhagat MD desk to dictate. Diagnosis/Problems Assessed Tachycardia (785.0) (R00.0) Shortness of breath at rest (786.05) (R06.02) Atypical chest pain (786.59) (R07.89) Fatigue (780.79) (R53.83) Future Appointments Date/TimeProviderSpecialtySite 10/04/2022 01:30 Diana Yepez, [id number] [facility] [address] DO Signatures Electronically signed by : Diana Bhagat MD; Sep 11 2022 5:39PM EST (Author) [id number] History of Present illness Narrative* Patient is [...] me change in cardiac status or symptoms -[facility] 250 DO Work Phone: Evaluation noteNo InformationNort [employer] Other Evaluation note* Diagnosis Onset Date Resolution Status Chest pain acute Palpitations acute [facility] [employer] Work Phone: Evaluation note* Diagnosis Primary hypertension- Primary Unspecified essential hypertension Angina pectoris (CMS/HCC) Other and unspecified angina pectoris Mixed hyperlipidemia Tachycardia Unspecified tachycardia Myalgia Unspecified myalgia and myositis Shortness of breath at rest Statin intolerance documented in this encounter [facility] Work Phone: Evaluation noteNo assessment information available [facility] Work Phone: Evaluation note* Diagnosis Shortness of breath at rest- Primary Angina pectoris (CMS/HCC) Other and unspecified angina pectoris Other chest pain Statin intolerance Mixed hyperlipidemia Primary hypertension Unspecified essential hypertension Overweight (BMI 25.0-29.9) Overweight Myalgia Unspecified myalgia and myositis documented in this encounter [facility] Work Phone: Evaluation note* Diagnosis Onset Date Resolution Status Constipation acute [facility] Work Phone: Evaluation note* Diagnosis Encounter for gynecological examination without abnormal finding- Primary Encounter for Papanicolaou smear of vagina Breast cancer screening by mammogram Hot flashes [facility] Diagnosis Other chest pain- Primary Tachycardia Unspecified tachycardia Mixed hyperlipidemia Primary hypertension Unspecified essential hypertension Myalgia Unspecified myalgia and myositis Shortness of breath at rest BMI 24.0-24.9, adult Never smoked tobacco documented in this encounter [facility] Work Phone: Evaluation note* Diagnosis Tear of right rotator cuff, unspecified tear extent, unspecified whether traumatic- Primary Strain of unspecified muscle, fascia and tendon at shoulder and upper arm level, right arm, initial encounter Bicipital tendinitis, right shoulder [facility] Diagnosis Tear of right rotator cuff, unspecified tear extent, unspecified whether traumatic- Primary Strain of unspecified muscle, fascia and tendon at shoulder and upper arm level, right arm, initial encounter Bicipital tendinitis, right shoulder documented [facility] Diagnosis Tear of right rotator cuff, unspecified tear extent, unspecified whether traumatic- Primary Strain of unspecified muscle, fascia and tendon at shoulder and upper arm level, right arm, initial encounter Bicipital tendinitis, right shoulder documented in this encounter [facility] and physical note Author Stiven Sylvester [facility] Note Date/Time December 29, 2024 10:40 am [facility] [address] [place] [address] Gastroenterology H&P Signed Patient: Ana María See MR#: [id number] : 1965 Acct:[id number] Age/Sex: 59 / F Adm Date: 5 Loc: Room: Type[facility] Attending Dr: Stiven Sylvester MD Copies [...] signed by Stiven Sylvester MD> 12/29/24 1040 [facility] Work Phone: History general Narrative - Reported* Type Description Date Medical History HTN Medical History hyperlipidemia Medical History GERD Medical History sigmoid thickening Medical History generalized anxiety Medical History tachycardia Surgical History HYSTERECTOMY Surgical History CHOLECYSTECTOMY Surgical History TUBAL LIGATION Surgical History fibroid tumors Surgical History excision actinic keratosis left cheek Surgical History bilateral carpal tunnel release GRAYL Other History general Narrative - Reported* Type Description Date Medical History HTN Medical History hyperlipidemia Medical History GERD Medical History sigmoid thickening Medical History generalized anxiety Medical History tachycardia Surgical History HYSTERECTOMY Surgical History CHOLECYSTECTOMY Surgical History TUBAL LIGATION Surgical History fibroid tumors Surgical History excision actinic keratosis left cheek Surgical History bilateral carpal tunnel release Hospitalization History [facility] [place] 11/2022 [facility] [employer] Other History of Present illness Narrative* Patient [...] me change in cardiac status or symptoms -[facility] 250 DO Work Phone: History of Present [...] me change in cardiac status or symptoms [facility] 250 DO Work Phone: History of Present [...] to discuss her postmenopausal symptoms with her ANATOMICAL [employer]AL[employer] physician [facility]Nicolasa Olvera DO Work Phone: Hospital Discharge instructions Additional [...] NOT operate machinery such as power tools, lawn mowers, snow blowers, sewing machines, etc. for [...] years. -Follow up with PCP. -Office number [phone]. [facility] Work Phone: Hospital Discharge instructionsAmbulatory Orders* Referral to Orthopedics Time Frame: 04/06/25, Location: None Selected [facility] Work Phone: Reason for referral (narrative)* Consultation (Routine) - Authorized Specialty Diagnoses / Procedures Referred By Anca moreno Referred To Contact Cardiology Diagnoses Angina pectoris (CMS/HCC) Procedures Follow Up In Cardiology Diana Bhagat MD [address] [place] [address] 2, [address] [address] Diana Bhagat MD [address] [place] [address] 2, [address] [address] Referral ID Status Reason Start Date Expiration Date V isits Requested Visits Authorized [id number] Authorized 06/13/2023 06/12/2024 1 1 * Medications - Pending Review Specialty Diagnoses / Procedures Referred By Anca moreno Referred To Contact Diagnoses Angina pectoris (CMS/HCC) Mixed hyperlipidemia Diana Bhagat MD [address] [facility] 2, [address] [address] Referral ID Status Reason Start Date Expiration Date V isits Requested Visits Authorized [id number] Pending Review 1 1 [facility] Work Phone: Reason for referral (narrative)* Consultation (Routine) - Authorized Specialty Diagnoses / Procedures Referred By Anca moreno Referred To Contact Cardiology Diagnoses Primary hypertension Procedures Follow Up In Cardiology Diana Bhagat MD [address] [facility] 2, [address] [place] [address] Diana Bhagat MD [address] [facility] 2, [address] [place] [address] Referral ID Status Reason Start Date Expiration Date V isits Requested Visits Authorized [id number] Authorized 10/10/2023 10/09/2024 [address] [facility] Work Phone: Reason for referral (narrative)No reason for referral information [facility] Work [facility]: Reason for visit Narrative* Rehabilitation - Outpatient (Routine) - Authorized Specialty Diagnoses / Procedures Referred By Contbaylee moreno Referred To Contact Physical Therapy Diagnoses Unspecified rotator cuff tear or rupture of right shoulder, not specified as traumatic Strain of unspecified muscle, fascia and tendon at shoulder and upper arm level, right arm, initial encounter Bicipital tendinitis, right shoulder Procedures NC PHYSICAL THERAPY EVALUATION LOW COMPLEX 20 MINS NC OFFICE/OUTPATIENT NEW HIGH MDM 60 MINUTES Ángel Natarajan MD [address] [place] [address] Phone: tel: fax: Casi Johnston PT Referral ID Status Reason Start Date Expiration Date V isits Requested Visits Authorized [id number] Authorized 05/05/2025 11/01/2025 50 50 [facility]* Rehabilitation - Outpatient (Routine) - Authorized Specialty Diagnoses / Procedures Referred By Contbaylee t Referred To Contact Physical Therapy Diagnoses Unspecified rotator cuff tear or rupture of right shoulder, not specified as traumatic Strain of unspecified muscle, fascia and tendon at shoulder and upper arm level, right arm, initial encounter Bicipital tendinitis, right shoulder Procedures NC PHYSICAL THERAPY EVALUATION LOW COMPLEX 20 MINS NC OFFICE/OUTPATIENT NEW HIGH MDM 60 MINUTES Ángel Natarajan MD [address] [place] [address] Phone: tel: fax: Casi Johnston PT Referral ID Status Reason Start Date Expiration Date V isits Requested Visits Authorized [id number] Authorized 05/05/2025 08/19/2025 50 50 [facility] Summary Purpose Family History Unknown Family Member [...] of.ANA MARÍA SEE is being seen for [facility] D/C 12/12/22. Additional Source Comments INFORMATION SOURCE (unrecogn ized section and content) DATE CREATED AUTHOR 09/24/2019 [facility] DATE CREATED AUTHOR AUTHOR'S ORGANIZ ATION 10/17/2020 [facility] DATE CREATED AUTHOR AUTHOR'S ORGANIZ ATION 08/25/2021 [facility] DATE CREATED AUTHOR AUTHOR'S ORGANIZ ATION 12/28/2022 [facility] DATE CREATED AUTHOR AUTHOR'S ORGANIZ ATION 12/28/2022 [employer] DATE CREATED AUTHOR AUTHOR'S ORGANIZ ATION 05/26/2023 [facility] DATE CREATED AUTHOR AUTHOR'S ORGANIZ ATION 03/28/2025 [facility] DATE CREATED AUTHOR AUTHOR'S ORGANIZ ATION 05/04/[address] [facility] DATE CREATED AUTHOR AUTHOR'S ORGANIZ ATION 05/25/2025 [facility] dical Specialists EPIC REASON FOR VISIT (unrecogniz ed section and content) Reason Comments Follow-up 4 - 5 months Reason Comments Follow-up 1 yr cath f/u Specialty Diagnoses / Procedures Referred By Contac t Referred To Contact Cardiology Diagnoses Angina pectoris ([facility]) Procedures Follow Up In Cardiology Diana Bhagat MD [address] [facility] 2, [place] [id number] Diana Bhagat MD [address] [place] [address] 2, [place] [id number] Referral ID Status Reason Start Date Expiration Date V isits Requested Visits Authorized [id number] Authorized 06/13/2023 06/12/2024 1 1 Reason Comments Gynecologic Exam LMP: LAVH BSO 2013HR T: NoneLast pap 12-17-23 neg.Last mammogram 11-14-[address] [facility]. Denies breast, urinary, or bowel concerns. Menopause Would like to restar t HRT. C/o severe knee and hip pain, hot flashes, brain fog, night sweats. Previously stopped when lumps were found in breasts. Reason Comments Annual Exam 1 year follow up for Shortness of breath at rest Care Teams (unrecognized sec tion and content) Team Status: Active Member Role Status Dates Stefanie Castillo MD Primary Care Provider Active Team Status: Inactive Member Role Status Dates Stefanie Castillo MD Primary Care Provider Active Johnathan Cross MD Attending Provider Active Team Status: Inactive Member Role Status Dates Stefanie Castillo MD Primary Care Provider Active Jim Ann DO Emergency Provider Active Eran Richardson MD Admit Provider Active Jeremy Nova MD Attending Provider Active Yard Clerk Relationship Specialty Start Date End Date Stefanie Castillo MD [address] [place] [address] PCP - General 09/22/19 Team Status: Inactive Member Role Status Dates Stefanie Castillo MD Primary Care Provider Active Diana Bhagat MD Attending Provider Active Team Status: Inactive Member Role Status Dates Stefanie Castillo MD Primary Care Provider Active Yash Murillo DO Attending Provider Active Yard Clerk Relationship Specialty Start Date End Date Stefanie Castillo MD [facility] General 09/22/19 Team Status: Inactive Member Role Status Dates Stefanie Castillo MD Primary Care Provider Active Start: March 03, 2024 End: March 03, 2024 Beba Morrison DO Attending Provider Active St art: March 03, 2024 End: March 03, 2024 Yard Clerk Relationship Specialty Start Date End Date Stefanie Castillo MD [address] [place] [id number] PCP - General Family Medicine 03/23/23 Yard Clerk Relationship Specialty Start Date End Date Stefanie [...] Member Role Status Dates Fatemeh Rosen APRN POSTPARTUM NURSE-C Primary Care Provider Active Team Status: Active Member Role Status Dates Stefanie Castillo MD Primary Care Provider Active Start: December 29, 2024 Stiven Sylvester MD Attending Provider Active Start: December 29, 2024 Stiven Sylvester MD Other Provider Active Start: December 29, 2024 Team Status: Inactive Member Role Status Dates Fatemeh Rosen APRN POSTPARTUM NURSE-C Primary Care Provider Active Start: March 04, 2025 End: March 04, 2025 Fatemeh Rosen APRN POSTPARTUM NURSE-C Attending Provider Act hilda Start: March 04, 2025 End: March 04, 2025 Yard Clerk Relationship Specialty Start Date End Date Stefanie Castillo MD [address] [place] [address] PCP - General 09/22/19 Team Status: Active Member Role Status Dates Fatemeh Rosen APRN POSTPARTUM NURSE-C Primary Care Provider Active Start: April 06, 2025 Fatemeh Rosen APRN POSTPARTUM NURSE-C Attending Provider Act hilda Start: April 06, 2025 Team Status: Active Member Role Status Dates Fatemeh Rosen APRN POSTPARTUM NURSE-C Primary Care Provider Active Start: April 202024 Ángel Natarajan DO Attending Provider Active St art: May 01, 2025 Team Status: Inactive Member Role Status Dates Fatemeh Rosen APRN POSTPARTUM NURSE-C Primary Care Provider Active Start: April 202024 End: May 01, 2025 Ángel Natarajan DO Attending Provider Active St art: May 01, 2025 End: May 01, 2025 Yard Clerk Relationship Specialty Start Date End Date Stefanie Castillo MD PCP - General Family Medicine 03/23/23 Yard Clerk Relationship Specialty Start Date End Date Stefanie Castillo MD PCP - [facility] 03/23/23 Yard Clerk Relationship Specialty Start Date End Date Stefanie Castillo MD PCP - [facility] 03/23/23 Yard Clerk Relationship Specialty Start Date End Date Stefanie Castillo MD PCP - [facility] 03/23/23 Yard Clerk Relationship Specialty Start Date End Date Stefanie Castillo MD PCP - [facility] 03/23/23 Yard Clerk Relationship Specialty Start Date End Date Stefanie Castillo MD [facility] 03/23/23 Goals (unrecognized section and content) Goals may [...] BE BASED ON THE PRIMARY CLINICAL RECORDS. [facility]. provides no warranty or guarantee of the accuracy or completeness of information in this document.
--- NOTE | 2025-05-27 12:01 | XR_ITS ---
The [address] [address] Patient Name: JOSEE PAN MRN: [id number] date: 1965 Sex: F Assigned Patient Location: [facility] Current Patient Location: [facility] Accession/Order Number: [id number] Exam Date: 05/27/2025 11:50 Report Date: 05/27/2025 17:31 At the request of: BLAYNE TEMPLETON Procedure: XR abdomen min 2V Upright and supine views of the abdomen INDICATION: Abdominal bloating and pain, constipation COMPARISON: Abdominal series 11/02/2020 FINDINGS: No free air. Lung bases are clear. Nonspecific nonobstructive bowel gas pattern. Right-sided pelvic phleboliths. No radiopaque calcifications overlying the renal shadows. XR/XR abdomen min 2V IMPRESSION: [id number] stool burden. No findings of bowel obstruction. Impression dictated by: Ildefonso Sow M.D. 05/27/2025 5:31 PM Dictation Location: [place] [address] Electronically authenticated by: [id number] Y Date: 05/27/2025 17:31
== END 2025-05-27 11:43 | disposition home or self-care (01) ==
LOC: RAD 11:44
PROVIDERS: Family Provider Obstetrics & Gynecology; PCP Family Medicine; Visit Provider Nurse Practitioner Family
DX: R14.0 Abdominal distension (gaseous) (principal); K59.04 Chronic idiopathic constipation; R10.9 Unspecified abdominal pain
CPT/HCPCS: 74019